=== PATIENT | male | born 1955 | race Caucasian/White ===

== ENCOUNTER → 2016-06-30 | Outpatient (CLI) | payer OTHER ==
[~2016-06-30] MED LIST: ALBUAER19 INH; ASPI-435 PO; CLX20 PO; EPP3/2 IM; FURO40TA3 PO; GLC/500 PO; INSDGI SQ; LISI-729 PO; LSN5 PO; NVLGI SC; TADA5TAB11 PO; ZCR40 PO
--- NOTE | 2016-06-30 15:44 | DIAGNOSTIC IMAGING REPORT ---
MRI OF THE BRAIN WITHOUT CONTRAST CLINICAL HISTORY: New onset headache. Tremor. Balance difficulty. COMPARISON STUDY: Noncontrast head CT dated 09/01/2013 FINDINGS: Sagittal T1, axial diffusion, proton density and T2 weighted axial, coronal FLAIR, and axial T1-weighted images were acquired. No intra or extra-axial mass lesions are visualized Axial diffusion-weighted images reveal no evidence of acute or subacute infarction. There is no evidence of ventricular dilatation. Proton density T2-weighted and FLAIR images reveal no significant intraparenchymal signal abnormalities. There are no abnormal flow voids. IMPRESSION: Normal MRI of the brain for age Electronically signed by: Robinson Alanis M.D. 06/30/2016 3:43 PM Dictated Date/Time: 06/30/2016 3:41 PM
== END | disposition home or self-care (01) ==
LOC: C.MRIBC 14:38
PROVIDERS: ATTEND Psychiatry & Neurology Neurology
DX: R25.1 Tremor, unspecified (principal); R26.89 Other abnormalities of gait and mobility; R51 Headache

== ENCOUNTER → 2016-07-01 | Outpatient (CLI) | payer OTHER ==
[2016-07-01 14:38] LABS: BASO % 0.5 %; BASO ABS # 0.04 K/uL (0-0.2); COMPLETE YES; EOS % 2.4 %; HEMATOCRIT 42.4 % (42-52); IG% 0.2 %; LYMPH % 30.6 %; LYMPH ABS # 2.53 K/uL (1.2-3.4); MEAN CELL VOLUME 89.3 fL (80-100); MEAN CORPUSCULAR HEMOGLOBIN 30.3 pg (25-34); MEAN PLATELET VOLUME 10.7 fL (7.4-10.4); MONO % 11.8 %; NEUT % 54.5 %; PLATELET COUNT 223 K/uL (130-400); RED BLOOD COUNT 4.75 M/uL (4.7-6.1); WHITE BLOOD COUNT 8.28 K/uL (4.8-10.8)
[2016-07-01 17:20] LABS: ALB/GLOB RATIO 0.7 (0.9-2); ALKALINE PHOSPHATASE 102 U/L (45-117); ALT/SGPT 36 U/L (12-78); AST/SGOT 16 U/L (15-37); BLOOD UREA NITROGEN 23 mg/dl (7-18); BUN/CREATININE RATIO 23.7 (10-20); CALCIUM 9.7 mg/dl (8.5-10.1); CARBON DIOXIDE 31 mmol/L (21-32); CHLORIDE 94 mmol/L (98-107); CREATININE 0.96 mg/dl (0.60-1.40); POTASSIUM 4.7 mmol/L (3.5-5.1); SODIUM 131 mmol/L (136-145)
[2016-07-01 17:25] LABS: GLUCOSE 575 mg/dl (70-99)
[2016-07-01 18:24] LABS: BETA-HYDROXYBUTYRATE 2.37 mg/dL (0.2-2.81)
[2016-07-03 15:48] LABS: ALBUMIN 3.9 G/DL (3.8-4.8); GAMMA GLOBULIN 1.3 G/DL (0.8-1.7); TOTAL PROTEIN 7.6 G/DL (6.2-8.3)
--- NOTE | 2016-07-08 14:12 | CODING QUERY MEDICAL NECESSITY ---
CQSUPPORTING DIAGNOSIS NEEDED A supporting diagnosis is required for the test/procedure performed on this patient in order for us to be reimbursed by the patient's insurance. Please provide a supporting diagnosis for the following test/procedure listed below next to the test name along with your signature. *If there is no additional diagnosis for this patient that would support the following test/procedure please document that below next to the test/procedure. Test(s)/Procedure(s) that require a supporting diagnosis: DOS 07/01/16 VITAMIN B12 QUERY RETURNED WITH SIGNATURE BUT NO DIAGNOSIS PLEASE ADD DIAGNOSIS AND SIGNATURE THANK YOU Provider Signature: Date: Thank you Marietta [facility] Information [facility] Once completed, please kindly fax back to [phone] For questions please call [phone]
== END | disposition home or self-care (01) ==
LOC: C.LAB1850 12:19
PROVIDERS: ATTEND Psychiatry & Neurology Neurology
DX: E11.42 Type 2 diabetes mellitus with diabetic polyneuropathy (principal); R25.1 Tremor, unspecified; R51 Headache; G62.9 Polyneuropathy, unspecified

== ENCOUNTER → 2017-01-30 | Outpatient (CLI) | payer OTHER | END | disposition home or self-care (01) | LOC: C.LABSPEC 14:31 | PROVIDERS: ATTEND Internal Medicine | DX: R10.9 Unspecified abdominal pain (principal); R80.9 Proteinuria, unspecified ==

== ENCOUNTER → 2017-07-14 | Outpatient (CLI) | payer OTHER ==
[2017-07-14 18:21] LABS: CREATININE RANDOM URINE 89.1 mg/dl
[2017-07-15 06:23] LABS: HEMOGLOBIN A1C 15.5 % (4.5-5.6)
== END | disposition home or self-care (01) ==
LOC: C.LAB1850 13:37
PROVIDERS: ATTEND Internal Medicine Endocrinology, Diabetes & Metabolism
DX: E11.65 Type 2 diabetes mellitus with hyperglycemia (principal); E11.21 Type 2 diabetes mellitus with diabetic nephropathy

== ENCOUNTER 2019-08-29 21:13 | Inpatient (IN) ==
[2019-08-29] MEDS ORDERED: SODIUM CHLORIDE 0.9% 1000ML 1,000 ML IV ONE (21:36)
[2019-08-29] MEDS ORDERED: ONDANSETRON INJ 2 MG/ML 2 ML VIAL IV STA (21:36)
[2019-08-29] MEDS ORDERED: ACETAMINOPHEN 1,000 MG/100 ML VIAL IV STA (21:36)
[2019-08-29] MEDS ORDERED: VANCOMYCIN CONSULT ACTIVE PRN (21:37)
[2019-08-29] MEDS ORDERED: VANCOMYCIN HCL 1,000 MG/270 ML BAG IV STA (21:37)
[2019-08-29] MEDS ORDERED: cefTRIAXone SODIUM 2,000 MG/70 ML BAG IV STA (21:37)
[2019-08-29] MEDS ORDERED: VANCOMYCIN HCL 2,750 MG in SODIUM CHLORIDE 0.9% 500 ML IV ONE (22:00)
--- NOTE | 2019-08-29 22:20 | Emergency Department Note ---
History of Present Illness General Chief complaint: Vomiting Stated complaint: VOMITING, COUGHING, FEVER Time Seen by Provider: 08/29/19 21:30 Source: patient, RN notes reviewed and old records reviewed Mode of arrival: ambulatory Limitations: no limitations History of Present Illness Provider complaint: emesis Onset (ago): day(s) 1 Location: abdomen Radiation: non-radiation Severity: moderate Pain Consistency: + intermittent Current Pain Intensity: 0 Quality: + burning Relieved By: + none Exacerbated By: + movement Associated symptoms: + fever/chills and + other (cellulitis left foot ) Treatments prior to arrival: none This is a 63-year-old male who presents emergency department complaining of vomiting. The patient also is complaining of cellulitis to his left foot where he has a diabetic wound. He is febrile here and has been complaining of feeling cold all day long. He is also complaining of right lower quadrant abdominal pain in addition to the fever. He has not been able to take anything for the fever due to not being able to keep anything down due to the vomiting. He describes the pain as burning. He reports immobilization makes the pain worse however vomiting makes the pain better. Home Medications Home Medications Medication Instructions Recorded Confirmed Type aspirin 81 mg PO QAM 12/10/17 08/29/19 History citalopram 10 mg tablet 10 mg PO HS tab 10/26/18 08/29/19 History citalopram 20 mg tablet 20 mg PO HS 10/26/18 08/29/19 History insulin aspart U-100 100 unit/mL See Rx Instructions SQ UD ml 10/26/18 08/29/19 History (3 mL) subcutaneous pen lancets 33 gauge #100 ea 10/26/18 07/27/19 History lisinopril 20 mg tablet 20 mg PO HS #90 tab 06/09/19 08/29/19 Rx simvastatin 40 mg tablet 40 mg PO QPM #90 tab 06/15/19 08/29/19 Rx clindamycin HCl 300 mg capsule 300 mg PO tid #42 cap 07/26/19 08/29/19 Rx blood sugar diagnostic #10 ea 07/27/19 07/27/19 History insulin glargine 100 unit/mL (3 60 units SQ DAILY ml 07/27/19 08/29/19 History mL) subcutaneous pen metformin 500 mg tablet,extended 500 mg PO DAILY #30 tab 07/27/19 08/29/19 Rx release 24 hr metoprolol succinate 25 mg 25 mg PO DAILY #90 tab 08/15/19 08/29/19 Rx tablet,extended release 24 hr Allergies Allergy/AdvReac Type Severity Reaction Status Date / Time bee venom protein (honey bee) Allergy Severe Anaphylaxis Verified 08/29/19 23:35 iodine AdvReac Mild FLUSHED Verified 08/29/19 23:35 FEELING/sick to stomach egg AdvReac Verified 08/30/19 14:34 Egg or Chicken-derived Drugs Allergy Unknown Gastrointestinal Uncoded 08/29/19 23:35 Upset Past Med/Surg History Medical History Chest pain (Inactive 09/01/13) CHF (congestive heart failure) Depression DM neuropathy, type II diabetes mellitus Gangrene of toe of left foot HTN (hypertension) Insulin-requiring or dependent type II diabetes mellitus Kidney stones Migraine Morbid obesity with BMI of 40.0-44.9, adult Myocardial Infarction ? mild in 1995 per doc in [place] but patient reports negative cardiac cath Peripheral arterial disease S/P hernia repair (Inactive) Sleep apnea cpap Uncontrolled type 2 diabetes mellitus Surgical History H/O umbilical hernia repair History of bilateral cataract extraction History of cardiac cath x2--1995 @ [place], no stents [address] 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: No Beliefs That Will Affect Care: None marital status: Current Living Situation: Spouse current occupational status: retired Feels Safe at Home: Yes Smoking Status: Never smoker Tobacco Type: smokeless tobacco ; Second Hand Exposure: No ; Hx Alcohol Use: No Hx Substance Use: No Review of Systems A total of 10 systems reviewed and were otherwise negative Physical Exam Vital Signs Vital Signs - 24 hr 08/29/19 21:24 08/29/19 22:21 Temperature 38.6 C H Temperature Source Oral Pulse Rate 93 H Pulse Rate [Apical] 92 H Respiratory Rate 20 18 Respiratory Effort / Characteristics Non-Labored Spontaneous Respiratory Depth Normal Blood Pressure [Right Arm] 146/71 H Blood Pressure Mean [Right Arm] 96 Pulse Oximetry 94 93 Oxygen Delivery Method Room Air Room Air Sepsis Recent Fever Within 48 Hours Yes Sepsis New/Unexplained Change in Mental Status No Sepsis Action Taken by Nursing No Action Required VITAL SIGNS - Vital signs and nursing notes were reviewed. GENERAL - 63-year-old Male appearing stated age who is in no acute distress. Communicates well with provider and answers questions appropriately, actively vomiting SKIN - Without rashes. HEAD - NC/AT. EYES - PERRL with EOMI bilaterally. Sclera anicteric. Palpebral conjunctiva pink and moist with no injection noted. EARS - No deformities of external structures noted on gross examination bilaterally. No pain elicited with palpation of the tragus bilaterally. External auditory canals without discharge or otorrhea. Tympanic membranes pearly huber without retraction or bulging. No fluid or purulent material visualized behind the TM. Handle of malleus, umbo, cone of light, pars tensa/flaccid all easily vi sualized. NOSE - Midline and without cyanosis. No epistaxis or purulent drainage noted. Septum midline without deviation or septal hematoma noted. MOUTH/OROPHARYNX - Without perioral cyanosis. Buccal mucosa pink and moist and without leukoplakia. Tongue midline with equal elevation of palate bilaterally. No tonsillar hypertrophy, erythema, or exudates noted. dentition noted. NECK - Neck with FROM. Supple to palpation. lymphadenopathy noted. No nuchal rigidity. LUNGS - Chest wall symmetric without accessory muscle use, intercostals retractions, or central cyanosis. Normal vesicular breath sounds CTA B/L. No wheezes, rales, or rhonchi appreciated. CARDIAC - RRR with S1/S2. No murmur, rubs, or gallops appreciated. ABDOMEN - Abdominal contour without pulsations or visible masses. BS normoactive all four quadrants. No tenderness, palpable masses, hepatosplenomegaly, or ascites noted. EXTREMITIES - No clubbing or peripheral cyanosis. No pretibial edema present. +3/5 radial, posterior tibial, and dorsalis pedis pulses palpated throughout. +5/5 strength noted in UE/LE bilaterally. NEUROLOGIC - Cranial nerves II through XII grossly intact. Sensory intact to light touch throughout. Patellar reflexes +2/4. PSYCH - A&Ox3 and cooperates fully with examiner. Pt is very pleasant and interacts well with examiner. Course Administered Medications Acetaminophen (Tylenol) 650 mg PO Q4H PRN PRN Reason: Pain or Fever Stop: 09/29/19 03:22 Last Admin: 09/03/19 07:58 Dose: 650 mg Documented by: [id number] Admin: 09/02/19 02:54 Dose: 650 mg Documented by: [id number] Admin: 09/01/19 20:52 Dose: 650 mg Documented by: [id number] Admin: 09/01/19 08:38 Dose: 650 mg Documented by: [id number] [facility]ir[facility]) [facility] Stop: 09/29/19 08:59 Last Admin: 09/03/19 08:00 Dose: Not Given Documented by: [id number] Admin: 09/02/19 08:43 Dose: 81 mg Documented by: [id number] Admin: 09/01/19 08:38 Dose: 81 mg Documented by: [id number] Admin: 08/31/19 08:58 Dose: 81 mg Documented by: [id number] Admin: 08/30/19 08:26 Dose: 81 mg Documented by: [id number] Atorvastatin Calcium (Lipitor) 80 mg PO QPM [facility] Stop: 09/30/19 20:59 Last Admin: 08/31/19 21:07 Dose: 80 mg Documented by: [id number] Citalopram Hydrobromide (Celexa) 30 mg PO HS [facility] Stop: 09/29/19 20:59 Last Admin: 09/03/19 19:53 Dose: 30 mg Documented by: [id number] Admin: 09/02/19 21:46 Dose: 30 mg Documented by: [id number] Admin: 09/01/19 20:54 Dose: 30 mg Documented by: [id number] Admin: 08/31/19 21:04 Dose: 30 mg Documented by: [id number] Admin: 08/30/19 20:27 Dose: 30 mg Documented by: [id number] Heparin Sodium (Porcine) (Heparin Sodium (Porcine)) 5,000 units SQ Q12 [facility] Stop: 09/29/19 08:59 Last Admin: 09/03/19 21:29 Dose: 5,000 units Documented by: [id number] Cosigned by: [id number] Admin: 09/01/19 08:39 Dose: 5,000 units Documented by: [id number] Cosigned by: [id number] Admin: 08/31/19 21:03 Dose: 5,000 units Documented by: [id number] Cosigned by: [id number] Admin: 08/31/19 08:59 Dose: 5,000 units Documented by: [id number] Cosigned by: [id number] Admin: 08/30/19 21:04 Dose: 5,000 units Documented by: [id number] Cosigned by: [id number] Admin: 08/30/19 08:27 Dose: 5,000 units Documented by: [id number] Cosigned by: [id number] Hydralazine HCl (Hydralazine Hcl) 10 mg IV Q6H PRN PRN Reason: SBP >190 Stop: 10/02/19 07:28 Last Admin: 09/03/19 07:58 Dose: 10 mg Documented by: [id number] Daptomycin 450 mg/ Syringe 9 mls @ 4.5 mls/min IV Q24H [facility]; Protocol Stop: 09/08/19 14:59 Last Admin: 09/03/19 14:27 Dose: 4.5 mls/min Documented by: [id number] Admin: 09/02/19 15:47 Dose: 4.5 mls/min Documented by: [id number] Admin: 09/01/19 15:31 Dose: 4.5 mls/min Documented by: [id number] Piperacillin Sod/Tazobactam (Sod 4.5 gm/ Dextrose) 120 mls @ 30 mls/hr IV Q8H [facility]; Protocol Stop: 09/09/19 15:59 Last Infusion: 09/03/19 20:42 Dose: 0 mls/hr Documented by: [id number] Admin: 09/03/19 16:24 Dose: 30 mls/hr Documented by: [id number] Infusion: 09/03/19 11:53 Dose: 0 mls/hr Documented by: [id number] Admin: 09/03/19 07:52 Dose: 30 mls/hr Documented by: [id number] Infusion: 09/03/19 04:50 Dose: 0 mls/hr Documented by: [id number] Admin: 09/03/19 00:49 Dose: 30 mls/hr Documented by: [id number] Infusion: 09/02/19 19:47 Dose: 0 mls/hr Documented by: [id number] Admin: 09/02/19 15:46 Dose: 30 mls/hr Documented by: [id number] Sodium Chloride (Nss 1000ml) 1,000 mls @ 100 mls/hr IV .Q10H [facility] Stop: 09/04/19 12:44 Last Infusion: 09/03/19 21:31 Dose: 100 mls/hr Documented by: [id number] Admin: 09/03/19 12:45 Dose: 100 mls/hr Documented by: [id number] Insulin Aspart (Novolog Flexpen) 0 units SC ACHS [facility] Stop: 09/29/19 07:29 Last Admin: 09/03/19 21:29 Dose: Not Given Documented by: [id number] Cosigned by: [id number] Admin: 09/03/19 17:22 Dose: 14 units Documented by: [id number] Cosigned by: [id number] Admin: 09/03/19 12:39 Dose: 8 units Documented by: [id number] Cosigned by: [id number] Admin: 09/03/19 07:36 Dose: Not Given Documented by: [id number] Cosigned by: [id number] Admin: 09/02/19 21:44 Dose: 6 units Documented by: [id number] Cosigned by: [id number] Admin: 09/02/19 17:17 Dose: 15 units Documented by: [id number] Cosigned by: [id number] Admin: 09/02/19 13:07 Dose: 11 units Documented by: [id number] Cosigned by: [id number] Admin: 09/02/19 08:46 Dose: 2 units Documented by: [id number] Cosigned by: [id number] Admin: 09/01/19 20:56 Dose: 300 units Documented by: [id number] Cosigned by: [id number] Admin: 09/01/19 17:18 Dose: 11 units Documented by: [id number] Cosigned by: [id number] Admin: 09/01/19 12:14 Dose: 7 units Documented by: [id number] Cosigned by: [id number] Admin: 09/01/19 08:39 Dose: 14 units Documented by: [id number] Cosigned by: [id number] Admin: 08/31/19 21:08 Dose: 2 units Documented by: [id number] Cosigned by: [id number] Admin: 08/31/19 18:24 Dose: 8 units Documented by: [id number] Cosigned by: [id number] Admin: 08/31/19 14:48 Dose: 6 units Documented by: [id number] Cosigned by: [id number] Admin: 08/31/19 08:59 Dose: 15 units Documented by: [id number] Cosigned by: [id number] Admin: 08/30/19 21:05 Dose: 11 units Documented by: [id number] Cosigned by: [id number] Admin: 08/30/19 17:05 Dose: 18 units Documented by: [id number] Cosigned by: [id number] Admin: 08/30/19 12:05 Dose: 17 units Documented by: [id number] Cosigned by: [id number] Admin: 08/30/19 08:27 Dose: 13 units Documented by: [id number] Cosigned by: [id number] Iodixanol (Visipaque) 50 ml IV UD PRN PRN Reason: Radiology Use Stop: 09/06/19 12:22 Last Admin: 09/02/19 12:24 Dose: 50 ml Documented by: [id number] Lisinopril (Zestril) 40 mg PO HS [facility] Stop: 10/02/19 20:59 Last Admin: 09/03/19 19:52 Dose: 40 mg Documented by: [id number] Admin: 09/02/19 21:45 Dose: 40 mg Documented by: [id number] Metoprolol Succinate (Toprol Xl) 25 mg PO DAILY [facility] Stop: 09/29/19 08:59 Last Admin: 09/03/19 07:53 Dose: 25 mg Documented by: [id number] Admin: 09/02/19 08:43 Dose: 25 mg Documented by: [id number] Admin: 09/01/19 08:38 Dose: 25 mg Documented by: [id number] Admin: 08/31/19 08:58 Dose: 25 mg Documented by: [id number] Admin: 08/30/19 08:27 Dose: 25 mg Documented by: [id number] Oxycodone HCl (Roxicodone Immediate Rel) 5 - 10 mg PO Q4H PRN PRN Reason: Pain or Pre PT Stop: 09/17/19 11:31 Last Admin: 09/03/19 19:50 Dose: 10 mg Documented by: [id number] Sennosides (Senokot) 17.2 mg PO HS [facility] Stop: 10/03/19 20:59 Last Admin: 09/03/19 19:51 Dose: 17.2 mg Documented by: [id number] Discontinued Medications Bacitracin (Bacitracin) Confirm Administered Dose 100,000 units .ROUTE .STK-MED ONE Stop: 09/03/19 09:52 Last Admin: 09/03/19 10:09 Dose: 100,000 units Documented by: [id number] Bacitracin (Bacitracin) Confirm Administered Dose 50,000 units .ROUTE .STK-MED ONE Stop: 09/03/19 10:21 Last Admin: 09/03/19 10:26 Dose: 50,000 units Documented by: [id number] Clindamycin Phosphate (Cleocin) Confirm Administered Dose 300 mg .ROUTE .STK-MED ONE Stop: 09/03/19 09:48 Last Admin: 09/03/19 09:51 Dose: 900 mg Documented by: [id number] Diphenhydramine HCl (Benadryl) 50 mg IV NOW STA Stop: 08/29/19 23:09 Last Admin: 08/29/19 23:20 Dose: 50 mg Documented by: [id number] Diphenhydramine HCl (Benadryl Capsule) 50 mg PO PREOP [facility] Stop: 09/02/19 12:00 Last Admin: 09/02/19 08:45 Dose: 50 mg Documented by: [id number] Famotidine (Pepcid 20mg Iv Push) Confirm Administered Dose 20 mg IV .STK-MED ONE Stop: 08/29/19 23:12 Last Admin: 08/29/19 23:20 Dose: 20 mg Documented by: [id number] Famotidine (Pepcid) 20 mg PO PREOP [facility] Stop: 09/02/19 10:00 Last Admin: 09/02/19 08:43 Dose: 20 mg Documented by: [id number] Fentanyl Citrate (Fentanyl Citrate) Confirm Administered Dose 100 mcg .ROUTE .STK-MED ONE Stop: 09/02/19 10:10 Last Increment: 09/02/19 11:35 Dose: 50 mcg Documented by: [id number] Heparin Sodium (Porcine) (Heparin Iv Bolus) Confirm Administered Dose 10,000 units .ROUTE .STK-MED ONE Stop: 09/02/19 10:10 Last Admin: 09/02/19 12:58 Dose: Not Given Documented by: [id number] Heparin Sodium/Sodium Chloride (Heparin/Nss 1000 Unit/500ml Flush Bag) Confirm Administered Dose 2,000 units IV .STK-MED ONE Stop: 09/02/19 10:11 Last Admin: 09/02/19 12:22 Dose: 2,000 units Documented by: [id number] Sodium Chloride (Nss 1000ml) 1,000 mls @ 999 mls/hr IV .Q1H1M ONE Stop: 08/29/19 22:36 Last Infusion: 08/30/19 00:07 Dose: 0 mls/hr Documented by: [id number] Admin: 08/29/19 22:22 Dose: 999 mls/hr Documented by: [id number] Acetaminophen (Ofirmev) 1,000 mg in 100 mls @ 400 mls/hr IV NOW STA Stop: 08/29/19 21:50 Last Infusion: 08/29/19 22:40 Dose: 0 mls/hr Documented by: [id number] Admin: 08/29/19 22:22 Dose: 400 mls/hr Documented by: [id number] Ceftriaxone Sodium (Rocephin) 2,000 mg in 70 mls @ 140 mls/hr IV NOW STA Stop: 08/29/19 22:06 Last Infusion: 08/29/19 23:00 Dose: 0 mls/hr Documented by: [id number] Admin: 08/29/19 22:22 Dose: 140 mls/hr Documented by: [id number] Vancomycin HCl (Vancomycin Hcl) 1,000 mg in 270 mls @ 125 mls/hr IV NOW STA Stop: 08/29/19 23:46 Last Admin: 08/29/19 23:00 Dose: Not Given Documented by: [id number] Vancomycin HCl 2,750 mg/ (Sodium Chloride) 555 mls @ 200 mls/hr IV NOW ONE Stop: 08/30/19 00:46 Last Infusion: 08/30/19 01:14 Dose: 0 mls/hr Documented by: [id number] Admin: 08/29/19 22:22 Dose: 200 mls/hr Documented by: [id number] Levofloxacin/Dextrose (Levaquin/D5w) 750 mg in 150 mls @ 100 mls/hr IV NOW STA Stop: 08/30/19 00:03 Last Infusion: 08/30/19 01:41 Dose: 0 mls/hr Documented by: [id number] Admin: 08/29/19 23:20 Dose: 100 mls/hr Documented by: [id number] Famotidine 20 mg/ Syringe 5 mls @ 2.5 mls/min IV NOW STA Stop: 08/29/19 23:09 Last Admin: 08/29/19 23:20 Dose: Not Given Documented by: [id number] Vancomycin HCl 1,750 mg/ (Sodium Chloride) 535 mls @ 200 mls/hr IV Q10H [facility]; Protocol Stop: 09/06/19 05:59 Last Infusion: 08/31/19 02:37 Dose: 0 mls/hr Documented by: [id number] Admin: 08/31/19 02:14 Dose: 200 mls/hr Documented by: [id number] Infusion: 08/30/19 18:19 Dose: 0 mls/hr Documented by: [id number] Admin: 08/30/19 15:38 Dose: 200 mls/hr Documented by: [id number] Infusion: 08/30/19 08:43 Dose: 0 mls/hr Documented by: [id number] Admin: 08/30/19 06:05 Dose: 200 mls/hr Documented by: [id number] Piperacillin Sod/Tazobactam (Sod 4.5 gm/ Dextrose) 120 mls @ 240 mls/hr IV NOW ONE; Protocol Stop: 08/30/19 04:29 Last Infusion: 08/30/19 05:02 Dose: 0 mls/hr Documented by: [id number] Admin: 08/30/19 03:55 Dose: 240 mls/hr Documented by: [id number] Vancomycin HCl 1,750 mg/ (Sodium Chloride) 535 mls @ 200 mls/hr IV 2100 [facility]; Protocol Stop: 08/31/19 23:41 Last Infusion: 09/01/19 00:54 Dose: 0 mls/hr Documented by: [id number] Admin: 08/31/19 21:46 Dose: 200 mls/hr Documented by: [id number] Piperacillin Sod/Tazobactam (Sod 4.5 gm/ Dextrose) 120 mls @ 200 mls/hr IV NOW ONE; Protocol Stop: 09/02/19 10:35 Last Infusion: 09/02/19 12:38 Dose: 0 mls/hr Documented by: [id number] Admin: 09/02/19 11:33 Dose: 200 mls/hr Documented by: [id number] Insulin Glargine (Lantus Solostar Pen) 40 units SQ DAILY [facility] Stop: 09/29/19 08:59 Last Admin: 08/30/19 08:27 Dose: 40 units Documented by: [id number] Cosigned by: [id number] Insulin Glargine (Lantus Solostar Pen) 30 units SQ BID [facility] Stop: 09/29/19 20:59 Last Admin: 09/03/19 07:55 Dose: 30 units Documented by: [id number] Cosigned by: [id number] Admin: 09/02/19 21:43 Dose: 30 units Documented by: [id number] Cosigned by: [id number] Admin: 09/02/19 08:47 Dose: 30 units Documented by: [id number] Cosigned by: [id number] Admin: 09/01/19 20:57 Dose: 30 units Documented by: [id number] Cosigned by: [id number] Admin: 09/01/19 08:39 Dose: 30 units Documented by: [id number] Cosigned by: [id number] Admin: 08/31/19 21:04 Dose: 30 units Documented by: [id number] Cosigned by: [id number] Admin: 08/31/19 08:59 Dose: 30 units Documented by: [id number] Cosigned by: [id number] Admin: 08/30/19 21:05 Dose: 30 units Documented by: [id number] Cosigned by: [id number] Ioversol (Optiray 320 125ml) 125 ml IV ONCE PRN PRN Reason: Interaction Checking Stop: 09/02/19 23:46 Last Admin: 08/29/19 23:47 Dose: 118 ml Documented by: [id number] Lidocaine HCl (Xylocaine 1% (Local)) Confirm Administered Dose 20 ml .ROUTE .STK-MED ONE Stop: 09/02/19 10:11 Last Admin: 09/02/19 12:22 Dose: 4 ml Documented by: [id number] Lisinopril (Zestril) 20 mg PO HS [facility] Stop: 09/29/19 20:59 Last Admin: 09/01/19 19:04 Dose: 20 mg Documented by: [id number] Admin: 08/31/19 21:06 Dose: 20 mg Documented by: [id number] Admin: 08/30/19 20:27 Dose: 20 mg Documented by: [id number] Methylprednisolone (Solumedrol) 125 mg IV NOW STA Stop: 08/29/19 23:09 Last Admin: 08/29/19 23:20 Dose: 125 mg Documented by: [id number] Midazolam HCl (Versed) Confirm Administered Dose 2 mg .ROUTE .STK-MED ONE Stop: 09/02/19 10:10 Last Increment: 09/02/19 11:35 Dose: 1 mg Documented by: [id number] Ondansetron HCl (Zofran) 4 mg IV NOW STA Stop: 08/29/19 21:37 Last Admin: 08/29/19 22:22 Dose: 4 mg Documented by: [id number] Potassium Chloride (Klor-Con M20) 40 meq PO ONE ONE Stop: 09/01/19 16:01 Last Admin: 09/01/19 17:16 Dose: 40 meq Documented by: [id number] Prednisone (Prednisone) 50 mg PO Q8H [facility] Stop: 09/02/19 10:01 Last Admin: 09/02/19 08:43 Dose: 50 mg Documented by: [id number] Admin: 09/02/19 02:08 Dose: 50 mg Documented by: [id number] Admin: 09/01/19 17:17 Dose: 50 mg Documented by: [id number] Simvastatin (Zocor) 40 mg PO QPM [facility] Stop: 09/29/19 20:59 Last Admin: 08/30/19 20:27 Dose: 40 mg Documented by: [id number] Medical Decision Making Differential Diagnosis Appendicitis, testicular torsion, infections, diverticulitis, UTI, obstruction, mesenteric ischemia, aortic pathology, inflammatory bowel disease, renal colic, PUD, pancreatitis, biliary pathology, hernia, volvulus, constipation, as well as other pathologies. Medical Records Attestation: I reviewed the patient's medical records. Home Medications Current Medication List: was personally reviewed by me Laboratory Data Attestation: I reviewed the patient's lab results. Result diagrams: 09/03/19 08:36 09/03/19 08:36 Lab Results 08/29/19 08/29/19 08/29/19 Range/Units 22:08 22:08 22:08 WBC 21.54 H (4.8-10.8) K/uL RBC 3.81 L (4.7-6.1) M/uL Hgb 11.0 L (14.0-18.0) g/dL Hct 33.8 L (42-52) % MCV 88.7 (80-100) fL MCH 28.9 (25-34) pg MCHC 32.5 (32-36) g/dL RDW Std Deviation 42.4 (36.4-46.3) fL RDW Coeff of Maribel 13.1 (11.5-14.5) % Plt Count 232 (130-400) K/uL MPV 10.1 (7.4-10.4) fL Immature Gran % (Auto) 0.5 % Neut % (Auto) 84.4 % Lymph % (Auto) 4.1 % Stanley % (Auto) 10.9 % Eos % (Auto) 0.0 % Baso % (Auto) 0.1 % Neut # (Auto) 18.18 H (1.4-6.5) K/uL Lymph # (Auto) 0.88 L (1.2-3.4) K/uL Stanley # (Auto) 2.35 H (0.11-0.59) K/uL Eos # (Auto) 0.01 (0-0.5) K/uL Baso # (Auto) 0.02 (0-0.2) K/uL Immature Gran # (Auto) 0.10 H (0.00-0.02) K/uL ESR 75 H (0-14) mm/hr PT 12.0 (9.0-12.0) Seconds INR 1.1 (0.9-1.1) APTT 30.7 (21.0-31.0) Seconds PTT Ratio 1.1 Sodium (136-145) mmol/L Potassium (3.5-5.1) mmol/L Chloride (98-107) mmol/L Carbon Dioxide (21-32) mmol/L Anion Gap (3-11) BUN (7-18) mg/dl Creatinine (0.6-1.4) mg/dl Est Cr Clr Drug Dosing ml/min Est GFR ( Amer) Est GFR (Non-Af Amer) BUN/Creatinine Ratio (10-20) Glucose (70-99) mg/dl Estimat Average Glucose mg/dl Hemoglobin A1c (4.5-5.6) % Lactate (0.4-2.0) mmol/L Calcium (8.5-10.1) mg/dl Magnesium (1.8-2.4) mg/dl Ferritin (8-388) ng/ml Total Bilirubin (0.2-1) mg/dl AST (15-37) U/L ALT (12-78) U/L Alkaline Phosphatase (45-117) U/L Lactate Dehydrogenase (87-241) U/L Troponin I (0-0.045) ng/ml C-Reactive Protein (0-0.29) mg/dl Total Protein (6.4-8.2) gm/dl Albumin (3.4-5.0) gm/dl Globulin (2.5-4.0) gm/dl Albumin/Globulin Ratio (0.9-2) Procalcitonin (0-0.5) ng/ml 08/29/19 08/29/19 08/29/19 Range/Units 22:08 22:08 22:08 WBC (4.8-10.8) K/uL RBC (4.7-6.1) M/uL Hgb (14.0-18.0) g/dL Hct (42-52) % MCV (80-100) fL MCH (25-34) pg MCHC (32-36) g/dL RDW Std Deviation (36.4-46.3) fL RDW Coeff of Maribel (11.5-14.5) % Plt Count (130-400) K/uL MPV (7.4-10.4) fL Immature Gran % (Auto) % Neut % (Auto) % Lymph % (Auto) % Stanley % (Auto) % Eos % (Auto) % Baso % (Auto) % Neut # (Auto) (1.4-6.5) K/uL Lymph # (Auto) (1.2-3.4) K/uL Stanley # (Auto) (0.11-0.59) K/uL Eos # (Auto) (0-0.5) K/uL Baso # (Auto) (0-0.2) K/uL Immature Gran # (Auto) (0.00-0.02) K/uL ESR (0-14) mm/hr PT (9.0-12.0) Seconds INR (0.9-1.1) APTT (21.0-31.0) Seconds PTT Ratio Sodium 133 L (136-145) mmol/L Potassium 3.8 (3.5-5.1) mmol/L Chloride 100 (98-107) mmol/L Carbon Dioxide 26 (21-32) mmol/L Anion Gap 7.0 (3-11) BUN 18 (7-18) mg/dl Creatinine 1.26 (0.6-1.4) mg/dl Est Cr Clr Drug Dosing 92.6 ml/min Est GFR ( Amer) 70.9 Est GFR (Non-Af Amer) 61.2 BUN/Creatinine Ratio 13.9 (10-20) Glucose 212 H (70-99) mg/dl Estimat Average Glucose mg/dl Hemoglobin A1c (4.5-5.6) % Lactate 1.0 (0.4-2.0) mmol/L Calcium 8.6 (8.5-10.1) mg/dl Magnesium 1.8 (1.8-2.4) mg/dl Ferritin 543.7 H (8-388) ng/ml Total Bilirubin 0.6 (0.2-1) mg/dl AST 12 L (15-37) U/L ALT 17 (12-78) U/L Alkaline Phosphatase 104 (45-117) U/L Lactate Dehydrogenase 191 (87-241) U/L Troponin I < 0.015 (0-0.045) ng/ml C-Reactive Protein 18.10 H (0-0.29) mg/dl Total Protein 7.8 (6.4-8.2) gm/dl Albumin 2.1 L (3.4-5.0) gm/dl Globulin 5.7 H (2.5-4.0) gm/dl Albumin/Globulin Ratio 0.4 L (0.9-2) Procalcitonin (0-0.5) ng/ml 08/29/19 08/29/19 Range/Units 22:08 22:08 WBC (4.8-10.8) K/uL RBC (4.7-6.1) M/uL Hgb (14.0-18.0) g/dL Hct (42-52) % MCV (80-100) fL MCH (25-34) pg MCHC (32-36) g/dL RDW Std Deviation (36.4-46.3) fL RDW Coeff of Maribel (11.5-14.5) % Plt Count (130-400) K/uL MPV (7.4-10.4) fL Immature Gran % (Auto) % Neut % (Auto) % Lymph % (Auto) % Stanley % (Auto) % Eos % (Auto) % Baso % (Auto) % Neut # (Auto) (1.4-6.5) K/uL Lymph # (Auto) (1.2-3.4) K/uL Stanley # (Auto) (0.11-0.59) K/uL Eos # (Auto) (0-0.5) K/uL Baso # (Auto) (0-0.2) K/uL Immature Gran # (Auto) (0.00-0.02) K/uL ESR (0-14) mm/hr PT (9.0-12.0) Seconds INR (0.9-1.1) APTT (21.0-31.0) Seconds PTT Ratio Sodium (136-145) mmol/L Potassium (3.5-5.1) mmol/L Chloride (98-107) mmol/L Carbon Dioxide (21-32) mmol/L Anion Gap (3-11) BUN (7-18) mg/dl Creatinine (0.6-1.4) mg/dl Est Cr Clr Drug Dosing ml/min Est GFR ( Amer) Est GFR (Non-Af Amer) BUN/Creatinine Ratio (10-20) Glucose (70-99) mg/dl Estimat Average Glucose 252 mg/dl Hemoglobin A1c 10.4 H (4.5-5.6) % Lactate (0.4-2.0) mmol/L Calcium (8.5-10.1) mg/dl Magnesium (1.8-2.4) mg/dl Ferritin (8-388) ng/ml Total Bilirubin (0.2-1) mg/dl AST (15-37) U/L ALT (12-78) U/L Alkaline Phosphatase (45-117) U/L Lactate Dehydrogenase (87-241) U/L Troponin I (0-0.045) ng/ml C-Reactive Protein (0-0.29) mg/dl Total Protein (6.4-8.2) gm/dl Albumin (3.4-5.0) gm/dl Globulin (2.5-4.0) gm/dl Albumin/Globulin Ratio (0.9-2) Procalcitonin 0.54 H (0-0.5) ng/ml Imaging Data Radiologist's Impression: CTA of the chest: No evidence of pulmonary emboli or acute cardiopulmonary process. Evidence of old granulomatous disease with calcified left upper lobe nodule and numerous calcified granulomas in the spleen. CT abdomen pelvis with contrast: No acute findings. Previous cholecystectomy. No evidence of bowel obstruction. There is no evidence of distended appendix or regional inflammatory reaction. No abnormal fluid or regional inflammatory reaction. No evidence of obstructing urinary tract calculus or hydronephrosis. ECG Data Attestation: I personally reviewed and interpreted this ECG as follows: Indication: + other (fever) Rate (beats per minute): 92 Rhythm: + normal sinus ECG Intervals/blocks: + Normal QT-c (450) ECG [place]: + Normal ECG ST segments: no ST depression and no ST elevation Comparison ECG Date: from (09/02/2013) Change: no significant change MDM Narrative Patient was seen and evaluated as above in room C5. Review was performed of nursing notes and vital signs. I did review pertinent previous visits and patient history. After obtaining a thorough history and physical examination the above work up was performed. This is a 63-year-old male who presents emergency department complaining of v omiting as well as abdominal pain. Upon arrival to the emergency department the patient is febrile and tachycardic. He is complaining of tenderness to the right lower quadrant. In addition the patient just saw his diabetic foot doctor. He has a cellulitis extending up from that area. His white blood cell count is grossly elevated. The patient was pretreated for CAT scan and given Benadryl Solu-Medrol and Zantac. In the meantime he was treated with Rocephin vancomycin as well as Levaquin. He was also given Zofran for the vomiting. Repeat examination revealed improvement the patient's symptoms. Due to the large white blood cell count as well as the fever I did discuss the case with t hospitalist service. An order was placed for continuous cardiac monitoring. The monitor shows a rate of 92 with Normal SInus rhythm. The patient was evaluated during the global COVID-19 pandemic, and that diagnosis was suspected/considered upon their initial presentation. Their evaluation, treatment and testing was consistent with current guidelines for patients who present with complaints or symptoms that may be related to COVID- 19. Impression & Plan Vomiting, Fever, Cellulitis Discharge Plan Visit Data *Final* Discharge Date/Time: 08/30/19 02:50 Chief Complaint: Vomiting Stated Complaint: VOMITING, COUGHING, FEVER ED Provider: Beau Feliciano Discharge Problem: Vomiting, Fever, Cellulitis Patient Disposition: Admitted As Inpatient Discharge Instructions Interventions: ED Discharge Assessment Last Done: 08/30/19 02:50 Discharge Problem: Vomiting Qualifiers: Vomiting type: unspecified Vomiting Intractability: unspecified Nausea presence: unspecified Qualified Code(s): R11.10 - Vomiting, unspecified Fever Qualifiers: Fever type: unspecified Qualified Code(s): R50.9 - Fever, unspecified
[2019-08-29 22:22] LABS: Basophils # (auto) 0.02 K/uL (0-0.2); Basophils % (auto) 0.1 %; Eosinophils # (auto) 0.01 K/uL (0-0.5); Hematocrit (blood only) 33.8 % (42-52); Immature Granulocytes % (auto) 0.5 %; Lymphocytes # (auto) 0.88 K/uL (1.2-3.4); Lymphocytes % (auto) 4.1 %; Mean Corpuscular Hemoglobin 28.9 pg (25-34); Mean Corpuscular Hgb Conc 32.5 g/dL (32-36); Mean Corpuscular Volume 88.7 fL (80-100); Mean Platelet Volume 10.1 fL (7.4-10.4); Monocytes # (auto) 2.35 K/uL (0.11-0.59); Monocytes % (auto) 10.9 %; Neutrophils # (auto) 18.18 K/uL (1.4-6.5); Neutrophils % (auto) 84.4 %; Platelet Count 232 K/uL (130-400); RDW Coefficient of Variation 13.1 % (11.5-14.5); RDW Standard Deviation 42.4 fL (36.4-46.3); Red Blood Count 3.81 M/uL (4.7-6.1); White Blood Count 21.54 K/uL (4.8-10.8)
[2019-08-29 22:32] LABS: INR 1.1 (0.9-1.1); Partial Thromboplastin Ratio 1.1; Partial Thromboplastin Time 30.7 Seconds (21.0-31.0)
[2019-08-29] MEDS ORDERED: LEVOFLOXACIN/D5W 750 MG/150 ML BAG IV STA (22:34)
[2019-08-29 22:40] LABS: Alanine Aminotransferase 17 U/L (12-78); Albumin Level 2.1 gm/dl (3.4-5.0); Aspartate Aminotransferase 12 U/L (15-37); BUN Creatinine Ratio 13.9 (10-20); Blood Urea Nitrogen 18 mg/dl (7-18); Calcium 8.6 mg/dl (8.5-10.1); Carbon Dioxide 26 mmol/L (21-32); Chloride 100 mmol/L (98-107); Creatinine Clr Calc Pharmacy 92.6 ml/min; Est GFR (African American) 70.9; Est GFR (Non-African American) 61.2; Glucose 212 mg/dl (70-99); Magnesium 1.8 mg/dl (1.8-2.4); Potassium 3.8 mmol/L (3.5-5.1); Sodium 133 mmol/L (136-145)
[2019-08-29 22:44] LABS: Albumin Globulin Ratio 0.4 (0.9-2); Alkaline Phosphatase 104 U/L (45-117); Bilirubin,Total 0.6 mg/dl (0.2-1); Ferritin 543.7 ng/ml (8-388); Globulin 5.7 gm/dl (2.5-4.0); Total Protein 7.8 gm/dl (6.4-8.2); Troponin I < 0.015 ng/ml (0-0.045)
[2019-08-29] MEDS ORDERED: methylPREDNISolone 125 MG/2 ML VIAL IV STA (23:08)
[2019-08-29] MEDS ORDERED: DiphenhydrAMINE HCL 50 MG/ML VIAL IV STA (23:08)
[2019-08-29] MEDS ORDERED: FAMOTIDINE 20 MG in SYRINGE 3 ML IV STA (23:08)
[2019-08-29] MEDS ORDERED: FAMOTIDINE 20MG/5ML IV PUSH IV ONE (23:11)
[2019-08-29] MEDS ORDERED: OPTIRAY 320 125ml IV PRN (23:47)
--- NOTE | 2019-08-30 01:54 | History & Physical Report ---
Date of Service August 30, 2019 Assessment & Plan (1) Cellulitis of left lower extremity: Cellulitis of left lower extremity/extending from diabetic ulcer of left great toe- Place on vancomycin IV, Zosyn IV and levofloxacin IV. Consult wound care, who has been following the patient in the outpatient setting Hold clindamycin 300 mg p.o. 3 times daily Present on Admission?: Yes (2) Diabetic ulcer of left great toe: See above Present on Admission?: Yes (3) Uncontrolled type 2 diabetes mellitus: Reduce insulin glargine from 60 to 40 units subcu every morning, until eating pattern verified. Placed on Accu-Cheks before meals and at bedtime with NovoLog coverage per scale Hold metformin Present on Admission?: Yes (4) Elevated cholesterol: Continue simvastatin 40 mg daily in the evening Present on Admission?: Yes (5) CHF (congestive heart failure): Idiopathic cardiomyopathy/hypertension/CHF- Continue aspirin 81 mg daily, lisinopril 20 mg daily and metoprolol succinate 25 mg daily. Present on Admission?: Yes (6) Cardiomyopathy, idiopathic: See above Present on Admission?: Yes (7) TORI on CPAP: His CPAP as needed Present on Admission?: Yes History of Present Illness Chief Complaint: The patient presents to the emergency department with complaint of vomiting, cough, fever and progressive worsening of left lower extremity and foot pain with new redness and warmth over a diabetic wound. Primary Care Provider: Jeffrey Tripp MD The patient is a 63-year-old male with a past medical history including diabetes mellitus, diabetic ulcer of left great toe, nonhealing diabetic wound, CAD, idiopathic cardiomyopathy, TORI on CPAP, hypertension, dyslipidemia, CHF and elevated cholesterol. He has been following with the wound clinic for chronic left great toe ulcer, but over the past few days is noticed the development of redness along the dorsal aspect of that foot, and going up his trejo. At the same time he is developed issues with nausea, vomiting and fever. Allergies Allergy/AdvReac Type Severity Reaction Status Date / Time bee venom protein (honey bee) Allergy Severe Anaphylaxis Verified 08/29/19 23:35 iodine AdvReac Mild FLUSHED Verified 08/29/19 23:35 FEELING/sick to stomach Egg or Chicken-derived Drugs Allergy Unknown Gastrointestinal Uncoded 08/29/19 23:35 Upset Home Medications Home Medications Medication Instructions Recorded Confirmed Type aspirin 81 mg PO QAM 12/10/17 08/29/19 History citalopram 10 mg tablet 10 mg PO HS tab 10/26/18 08/29/19 History citalopram 20 mg tablet 20 mg PO HS 10/26/18 08/29/19 History insulin aspart U-100 100 unit/mL See Rx Instructions SQ UD ml 10/26/18 08/29/19 History (3 mL) subcutaneous pen lancets 33 gauge #100 ea 10/26/18 07/27/19 History lisinopril 20 mg tablet 20 mg PO HS #90 tab 06/09/19 08/29/19 Rx simvastatin 40 mg tablet 40 mg PO QPM #90 tab 06/15/19 08/29/19 Rx clindamycin HCl 300 mg capsule 300 mg PO tid #42 cap 07/26/19 08/29/19 Rx blood sugar diagnostic #10 ea 07/27/19 07/27/19 History insulin glargine 100 unit/mL (3 60 units SQ DAILY ml 07/27/19 08/29/19 History mL) subcutaneous pen metformin 500 mg tablet,extended 500 mg PO DAILY #30 tab 07/27/19 08/29/19 Rx release 24 hr metoprolol succinate 25 mg 25 mg PO DAILY #90 tab 08/15/19 08/29/19 Rx tablet,extended release 24 hr Past Med/Surg History Medical History Chest pain (Inactive 09/01/13) CHF (congestive heart failure) Depression DM neuropathy, type II diabetes mellitus HTN (hypertension) Insulin-requiring or dependent type II diabetes mellitus Kidney stones Migraine Morbid obesity with BMI of 40.0-44.9, adult Myocardial Infarction ? mild in 1995 per doc in [place]---per Dr. Langford didnt have an OK ? S/P hernia repair (Inactive) Sleep apnea cpap Uncontrolled type 2 diabetes mellitus Surgical History H/O umbilical hernia repair History of bilateral cataract extraction History of cardiac cath x2--1995 @ [place], no stents [address] Langford's record History of cholecystectomy History of cystoscopy History of esophagogastroduodenoscopy (EGD) History of hernia repair (Inactive) History of tooth extraction S/P cholecystectomy (Inactive) Family History Father Muscular dystrophy Mother Breast cancer Cancer hx of Leukemia and a month ago Brother Parkinson disease Denies family history of Ovarian cancer Prostate cancer No family history of adverse response to anesthesia Myocardial infarction Colorectal cancer Social History Preferred Language: Nauruan Communication Ability: Effective Visual Impairment: No Limitations Hearing Ability: Normal Roof Slater Required: No Beliefs That Will Affect Care: None marital status: Current Living Situation: Spouse current occupational status: retired Feels Safe at Home: Yes Smoking Status: Never smoker Tobacco Type: smokeless tobacco ; Second Hand Exposure: No ; Hx Alcohol Use: No Hx Substance Use: No Review of Systems Review of Systems: The patient denies chest pain, palpitations, shortness of breath, dyspnea on exertion, sore throat, chills, sweats, diarrhea , constipation, abdominal pain, pelvic pain, blood in urine or stool, dysuria, urinary frequency or urgency, lightheadedness, dizziness, headache, memory loss, loss of consciousness, abnormal bruising or bleeding, imbalance, focal or generalized weakness, numbness or tingling in arms or, generalized arthralgias or myalgias, back or neck pain, or night sweats. The review of systems is otherwise negative other than for that already noted above, and at least 10 systems have been reviewed. Physical Exam Physical Exam: The patient is awake, alert and oriented 3, well developed and well nourished, normocephalic and atraumatic, lying in bed and in no acute distress. HEENT--PERRL, EOMI, mucous membranes and oropharynx normal. Neck--supple. No JVD. No bruits. Thyroid normal, trachea midline, no adenopathy. Heart--normal S1 and S2. No murmurs, rubs or gallops. Lungs--clear bilaterally, no respiratory distress, no accessory muscle use. Abdomen--normal bowel sounds and soft. Nontender. Nondistended. Morbidly obese Extremities/dermatologic--1+ pretibial pitting edema on the right. 2+ pretibial and pedal pitting edema on the left with erythema and warmth. Neurologic--cranial nerves II through XII grossly intact. Rheumatologic--normal range of motion. Psychiatric--normal affect. Results & Data Results & Data ([facility]) Vital Signs (Past 12 Hours) Vital Signs Temp Pulse Pulse Resp BP BP Pulse Ox 08/30/19 01:42 98.4 F 69 18 160/64 H 94 08/30/19 00:54 78 22 94 08/30/19 00:30 34 H 160/67 H 94 08/30/19 00:00 49 H 171/65 H 93 08/29/19 23:44 83 12 95 08/29/19 23:00 84 17 182/78 H 96 08/29/19 22:21 92 H 18 146/71 H 93 08/29/19 21:24 101.5 F H 93 H 20 94 Laboratory Results Laboratory Results WBC 21.54 K/uL (4.8-10.8) H 08/29/19 22:08 RBC 3.81 M/uL (4.7-6.1) L 08/29/19 22:08 Hgb 11.0 g/dL (14.0-18.0) L 08/29/19 22:08 Hct 33.8 % (42-52) L 08/29/19 22:08 MCV 88.7 fL (80-100) 08/29/19 22:08 MCH 28.9 pg (25-34) 08/29/19 22:08 MCHC 32.5 g/dL (32-36) 08/29/19 22:08 RDW Std Deviation 42.4 fL (36.4-46.3) 08/29/19 22:08 RDW Coeff of Maribel 13.1 % (11.5-14.5) 08/29/19 22:08 Plt Count 232 K/uL (130-400) 08/29/19 22:08 MPV 10.1 fL (7.4-10.4) 08/29/19 22:08 Immature Gran % (Auto) 0.5 % 08/29/19 22:08 Neut % (Auto) 84.4 % 08/29/19 22:08 Lymph % (Auto) 4.1 % 08/29/19 22:08 [place] % (Auto) 10.9 % 08/29/19 22:08 Eos % (Auto) 0.0 % 08/29/19 22:08 Baso % (Auto) 0.1 % 08/29/19 22:08 Neut # (Auto) 18.18 K/uL (1.4-6.5) H 08/29/19 22:08 Lymph # (Auto) 0.88 K/uL (1.2-3.4) L 08/29/19 22:08 [place] # (Auto) 2.35 K/uL (0.11-0.59) H 08/29/19 22:08 Eos # (Auto) 0.01 K/uL (0-0.5) 08/29/19 22:08 Baso # (Auto) 0.02 K/uL (0-0.2) 08/29/19 22:08 Immature Gran # (Auto) 0.10 K/uL (0.00-0.02) H 08/29/19 22:08 ESR 75 mm/hr (0-14) H 08/29/19 22:08 PT 12.0 Seconds (9.0-12.0) 08/29/19 22:08 INR 1.1 (0.9-1.1) 08/29/19 22:08 APTT 30.7 Seconds (21.0-31.0) 08/29/19 22:08 PTT Ratio 1.1 08/29/19 22:08 Sodium 133 mmol/L (136-145) L 08/29/19 22:08 Potassium 3.8 mmol/L (3.5-5.1) 08/29/19 22:08 Chloride 100 mmol/L (98-107) 08/29/19 22:08 Carbon Dioxide 26 mmol/L (21-32) 08/29/19 22:08 Anion Gap 7.0 (3-11) 08/29/19 22:08 BUN 18 mg/dl (7-18) 08/29/19 22:08 Creatinine 1.26 mg/dl (0.6-1.4) 08/29/19 22:08 Est Cr Clr Drug Dosing 92.6 ml/min 08/29/19 22:08 Est GFR ( Amer) 70.9 08/29/19 22:08 Est GFR (Non-Af Amer) 61.2 08/29/19 22:08 BUN/Creatinine Ratio 13.9 (10-20) 08/29/19 22:08 Glucose 212 mg/dl (70-99) H 08/29/19 22:08 Lactate 1.0 mmol/L (0.4-2.0) 08/29/19 22:08 Calcium 8.6 mg/dl (8.5-10.1) 08/29/19 22:08 Magnesium 1.8 mg/dl (1.8-2.4) 08/29/19 22:08 Ferritin 543.7 ng/ml (8-388) H 08/29/19 22:08 Total Bilirubin 0.6 mg/dl (0.2-1) 08/29/19 22:08 AST 12 U/L (15-37) L 08/29/19 22:08 ALT 17 U/L (12-78) 08/29/19 22:08 Alkaline Phosphatase 104 U/L (45-117) 08/29/19 22:08 Lactate Dehydrogenase 191 U/L (87-241) 08/29/19 22:08 Troponin I < 0.015 ng/ml (0-0.045) 08/29/19 22:08 C-Reactive Protein 18.10 mg/dl (0-0.29) H 08/29/19 22:08 Total Protein 7.8 gm/dl (6.4-8.2) 08/29/19 22:08 Albumin 2.1 gm/dl (3.4-5.0) L 08/29/19 22:08 Globulin 5.7 gm/dl (2.5-4.0) H 08/29/19 22:08 Albumin/Globulin Ratio 0.4 (0.9-2) L 08/29/19 22:08 Procalcitonin 0.54 ng/ml (0-0.5) H 08/29/19 22:08 Diagnostic Findings [facility] Patient: JENNY CORONADO (Male) : 59 Status: ER Date: 08/29/19 23:46 Room #: History: COUGH WITH FEVER, SOB Slices: 715 Priors: Tech: José Luis Alvarez @ [phone] Exams: CTA CHEST Contrast: IV Amt: 118 MLOPTIRAY 320 Accession Numbers: [id number] Preliminary Findings Only See Final Report For Complete Findings CTA CHEST: No evidence of pulmonary emboli or acute cardiopulmonary process. Evidence of old granulomatous disease with calcified left upper lobe nodule and numerous calcified granulomas in the spleen. Radiologist: Daniel Franklin MD Study ready at 23:49 and initial results transmitted at 23:56 *This report constitutes a preliminary interpretation only. Non-acute findings felt to be unrelated to the clinical presentation may not be discussed in this report. The study will be interpreted and a final report will be generated by the local Radiologist the following shift. To reach the hospital radiology department call [phone]. If a discrepancy is found between the preliminary and final interpretations of this study, please notify us via our Client Portal at [email or web address].You can also fax this report with a description of the discrepancy, or include the final report, to our daytime fax number [phone].If faxing, please indicate the severity of discrepancy using one of the following categories: [ ] 1 - Agree/Informational [ ] 2 - Unlikely to Affect Management [ ] 3 - Possible Eventual Change of Management [ ] 4 - Probable Immediate Change of Management For all other patient related information, please fax us at [phone]. [id number] [facility] Patient: JENNY CORONADO (Male) : 59 Status: ER Date: 08/29/19 23:49 Room #: History: PAIN AT RLQ VOMITING Slices: 617 Priors: Tech: José Luis Alvarez @ [phone] Exams: CT ABDOMEN & PELVIS With Contrast Contrast: IV Amt: 118 ML OPTIRAY 320 Accession Numbers: [id number] Preliminary Findings Only See Final Report For Complete Findings CT ABDOMEN & PELVIS With Contrast: No acute findings. Previous cholecystectomy. No evidence of bowel obstruction. There is no evidence of distended appendix or regional inflammatory reaction. No abnormal fluid or regional inflammatory reaction. No evidence of obstructing urinary tract calculus or hydronephrosis. Radiologist: Daniel Franklin MD Study ready at 23:57 and initial results transmitted at 00:08 *This report constitutes a preliminary interpretation only. Non-acute findings felt to be unrelated to the clinical presentation may not be discussed in this report. The study will be interpreted and a final report will be generated by the local Radiologist the following shift. To reach the hospital radiology department call [phone]. If a discrepancy is found between the preliminary and final interpretations of this study, please notify us via our Client Portal at [email or web address] can also fax this report with a description of the discrepancy, or include the final report, to our daytime fax number [phone].If faxing, please indicate the severity of discrepancy using one of the following categories: [ ] 1 - Agree/Informational [ ] 2 - Unlikely to Affect Management [ ] 3 - Possible Eventual Change of Management [ ] 4 - Probable Immediate Change of Management For all other patient related information, please fax us at [phone]. [id number] Code Status & VTE Plan Code Status Full code VTE Prophylaxis Plan VTE Prophylaxis will be ordered: Yes PG Care Time/CCT Total # of Minutes Spent Total Time Spent with Patient: Total time spent is greater than 50% in coordination of care (as documented) at patient's floor/unit and/or counseling patient: Coding Level of Care Code 28973 Initial Inpt Care Lvl 3 Diagnoses Cellulitis of left lower extremity L03.116 Diabetic ulcer of left great toe E11.621; L97.529 Uncontrolled type 2 diabetes mellitus E11.65 Elevated cholesterol E78.00 CHF (congestive heart failure) I50.9 Cardiomyopathy, idiopathic I42.8 TORI on CPAP G47.33; Z99.89
[2019-08-30] MEDS ORDERED: GLUCAGON FOR INJ 1 MG VIAL SQ PRN (03:23)
[2019-08-30] MEDS ORDERED: MAGNESIUM HYDROXIDE SUSP 30 ML UDC PO PRN (03:23)
[2019-08-30] MEDS ORDERED: PIPERACILL/TAZOBAC CONSULT ACTIVE PRN (03:23)
[2019-08-30] MEDS ORDERED: CARBOHYDRATES FOR HYPOGLYCEMIA PO PRN (03:23)
[2019-08-30] MEDS ORDERED: GLUCOSE 10 TABS/TUBE PO PRN (03:23)
[2019-08-30] MEDS ORDERED: VANCOMYCIN CONSULT ACTIVE PRN (03:23)
[2019-08-30] MEDS ORDERED: ONDANSETRON INJ 2 MG/ML 2 ML VIAL IV PRN (03:23)
[2019-08-30] MEDS ORDERED: GLUCOSE 40% GEL 15 GM TUBE PO PRN (03:23)
[2019-08-30] MEDS ORDERED: DEXTROSE 50% 50 ML SYRINGE IV PRN (03:23)
[2019-08-30] MEDS ORDERED: ALUMINUM/MAGNESIUM SUSP 30 ML UDC PO PRN (03:23)
[2019-08-30] MEDS ORDERED: PIPERACILLIN/TAZOBACTAM 4.5 GM in DEXTROSE 5% 100 ML IV ONE (04:00)
--- NOTE | 2019-08-30 04:02 | Pharmacy Report ---
Pharmacy Abx Dose Short Note - Date of Service August 30, 2019 - Assessment & Plan Assessment 63 year old M receiving vancomycin/Zosyn/Levaquin for treatment of diabetic foot infection Day # 1 of antimicrobial therapy. Plan Vancomycin * Estimated PK Parameters: Vd 0.6 L/kg, Alvin 0.08 hr-1, t1/2 8.6 hr * Loading dose: 2750 mg (18 mg/kg) * Maintenance dose: 1750 mg IV (12 mg/kg) every 10 hours * Goal trough level for SSTI : ~15 mcg/mL * Trough ordered for 08/30/19 prior to 2200 dose * A less than traditional dose and extended dosing interval has been selected due to likelihood of drug accumulation in obese patient. Piperacillin/tazobactam * 4.5 g bolus administered over 30 minutes, then 4.5 g IV extended infusion every 8 hours for CrCl greater than 20 mL/min * Aggressive dosing selected due to BMI 35 or more. Pharmacy will continue to follow and will adjust dose/frequency as necessary. Thank you.
[2019-08-30] MEDS: VANCOMYCIN HCL 1,750 MG in SODIUM CHLORIDE 0.9% 500 ML IV SCH ×2 (06:05→15:38)
[2019-08-30 06:53] LABS: Estimated Average Glucose 252 mg/dl; Hemoglobin A1C 10.4 % (4.5-5.6)
[2019-08-30 07:16] LABS: Appearance Urine Clear (Clear); Bacteria Urine Automated Negative (Negative); Bilirubin Urine Negative (Negative); Blood Urine 1+ (Negative); Color Urine Yellow; Epithelial Cell Urine Auto 20-30 /lpf (0-5); Glucose Urine UA 3+ (Negative); Ketones Urine Trace (Negative); Leukocyte Esterase Urine Negative (Negative); Nitrite Urine Negative (Negative); Protein Urine 4+ (Negative); Specific Gravity Urine 1.033 (1.000-1.030); Urobilinogen Urine Negative (Negative); pH Urine 5.5 (4.5-7.5)
--- NOTE | 2019-08-30 07:20 | CT Scan Report ---
CT OF THE ABDOMEN AND PELVIS WITH CONTRAST CLINICAL HISTORY: Right lower quadrant abdominal pain. Vomiting. COMPARISON STUDY: CT of the abdomen and pelvis November 09, 2006. KUB November 26, 2006. TECHNIQUE: Following IV administration of 118 mL of Optiray-320, axial images of the abdomen and pelv is were obtained from the lung bases to the proximal femurs. Images were reviewed in the axial, sagit alexis, and coronal planes. IV contrast was administered without complication. Automated exposure contr ol was utilized for the study. A dose lowering technique was utilized adhering to the principles of ALARA. FINDINGS: Please note that the chest CT will be reported separately. The body wall contacts the gantr y. No pneumatosis, free air or portal venous gas is present. There is no biliary ductal dilatation st atus post cholecystectomy. There are calcified focus within the spleen. The adrenal glands and pancre as are unremarkable. There is no hydronephrosis or hydroureter. A 1.6 cm hypodense lesion within the lower pole the right kidney likely reflects a cyst. There is colonic diverticulosis without evidence for acute diverticulitis. No suspicious osseous lesions are noted. There is no lymphadenopathy. Fat-c ontaining umbilical hernia is present. IMPRESSION: 1. No acute process within the abdomen or pelvis. 2. Normal appendix. No bowel obstruction. ACT 112: Negative or not required by law. Electronically signed by: Don Schroeder M.D. 08/30/2019 7:18 AM
--- NOTE | 2019-08-30 07:42 | XRay Report ---
XR chest 1V portable CLINICAL HISTORY: SEPSIS COMPARISON STUDY: Chest radiograph January 28, 2018. FINDINGS: Cardiomegaly is unchanged. There is no evidence for pulmonary edema. There is no consolidat ion to suggest pneumonia. There is a calcified granuloma within the left midlung. No pneumothorax or pleural effusion is noted. IMPRESSION: Cardiomegaly. No acute findings. ACT 112: Negative or not required by law. Electronically signed by: Don Schroeder M.D. 08/30/2019 7:41 AM
--- NOTE | 2019-08-30 08:08 | CT Scan Report ---
CT ANGIOGRAM OF THE CHEST CLINICAL HISTORY: Fever, cough, shortness of breath, possible pulmonary embolism. COMPARISON STUDY: Chest x-ray dated 08/29/2019 TECHNIQUE: Following the IV administration of 118 mL of Optiray-320, CT angiogram of the thorax was p erformed from the thoracic inlet to the lung bases utilizing the pulmonary embolus protocol. Images a re reviewed in the axial, sagittal, and coronal planes. IV contrast was administered without complica tion. MIP imaging was performed. A dose lowering technique was utilized adhering to the principles o f ALARA. CT DOSE: 2735.82 mGy.cm FINDINGS: There are mildly enlarged mediastinal and hilar lymph nodes. There was no evidence of thoracic aortic dilatation. There were no pulmonary artery filling defects to indicate acute pulmonary embolism. No pleural effusions are visualized. Is a calcified granuloma within the lingula. There is no focal pulmonary consolidation. There is no p neumothorax. IMPRESSION: 1. No acute intrathoracic findings 2. No evidence of acute pulmonary embolism 3. Calcified lingular granuloma 4. Mild adenopathy ACT 112: Negative or not required by law. Electronically signed by: Robinson Alanis M.D. 08/30/2019 8:06 AM
[2019-08-30] MEDS: ASPIRIN 81 MG ECTAB PO SCH (08:26)
[2019-08-30] MEDS: METOPROLOL SUCC 25MG EXT REL TAB PO SCH (08:27)
[2019-08-30] MEDS: INSULIN ASPART 100 UNITS/ML 3 ML PEN SC SCH ×4 (08:27→21:05)
[2019-08-30] MEDS: HEPARIN SOD 5,000 UNIT/0.5 ML VIAL SQ SCH ×2 (08:27→21:04)
[2019-08-30] MEDS ORDERED: INSULIN GLARGINE SOLOSTAR 100 UNITS/ML 3 ML PEN SQ SCH (09:00)
[2019-08-30] MEDS ORDERED: PIPERACILLIN/TAZOBACTAM 4.5 GM in DEXTROSE 5% 100 ML IV SCH (10:00)
--- NOTE | 2019-08-30 17:42 | Orthopedic Consultation ---
Date of Consultation August 30, 2019 Assessment & Plan (1) Cellulitis of left lower extremity: Left lower extremity cellulitis with infection of fifth digit versus traumatic injury. Will obtain x-rays at this time to rule out fracture. If negative x-rays would likely need MRI and vascular studies. Continue with IV antibiotics at this time. Protected weightbearing on left lower extremity pending x-rays. Ice and elevation left lower extremity. Continue with wound care to great toe diabetic ulcer. Thank you for the consultation (2) Diabetic ulcer of left great toe: History of Present Illness Reason for Consultation: Left lower extremity cellulitis and fifth digit infection Attending Physician: Luis Talamantes DO History of Present Illness Patient is a 63-year-old male who presented to [facility] secondary to left lower extremity cellulitis for 2 days he reports. Previously seen at [facility] for diabetic ulcer on left great toe. Patient reports that yesterday he thinks he might have hit his foot/fifth digit on the bed in the emergency department and noticed a blister. Denies pain at this time. Denies fevers chills nausea vomiting shortness breath or chest pain. Patient reports his symptoms have improved since being admitted to the hospital. Denies any associated injuries, neuropathy at baseline. Allergies Allergy/AdvReac Type Severity Reaction Status Date / Time bee venom protein (honey bee) Allergy Severe Anaphylaxis Verified 08/29/19 23:35 iodine AdvReac Mild FLUSHED Verified 08/29/19 23:35 FEELING/sick to stomach egg AdvReac Verified 08/30/19 14:34 Egg or Chicken-derived Drugs Allergy Unknown Gastrointestinal Uncoded 08/29/19 23:35 Upset Home Medications Home Medications Medication Instructions Recorded Confirmed Type aspirin 81 mg PO QAM 12/10/17 08/29/19 History citalopram 10 mg tablet 10 mg PO HS tab 10/26/18 08/29/19 History citalopram 20 mg tablet 20 mg PO HS 10/26/18 08/29/19 History insulin aspart U-100 100 unit/mL See Rx Instructions SQ UD ml 10/26/18 08/29/19 History (3 mL) subcutaneous pen lancets 33 gauge #100 ea 10/26/18 07/27/19 History lisinopril 20 mg tablet 20 mg PO HS #90 tab 06/09/19 08/29/19 Rx simvastatin 40 mg tablet 40 mg PO QPM #90 tab 06/15/19 08/29/19 Rx clindamycin HCl 300 mg capsule 300 mg PO tid #42 cap 07/26/19 08/29/19 Rx blood sugar diagnostic #10 ea 07/27/19 07/27/19 History insulin glargine 100 unit/mL (3 60 units SQ DAILY ml 07/27/19 08/29/19 History mL) subcutaneous pen metformin 500 mg tablet,extended 500 mg PO DAILY #30 tab 07/27/19 08/29/19 Rx release 24 hr metoprolol succinate 25 mg 25 mg PO DAILY #90 tab 08/15/19 08/29/19 Rx tablet,extended release 24 hr Patient History Medical History Chest pain (Inactive 09/01/13) CHF (congestive heart failure) Depression DM neuropathy, type II diabetes mellitus HTN (hypertension) Insulin-requiring or dependent type II diabetes mellitus Kidney stones Migraine Morbid obesity with BMI of 40.0-44.9, adult Myocardial Infarction ? mild in 1995 per doc in [place]---per Dr. Langford didnt have an MT ? S/P hernia repair (Inactive) Sleep apnea cpap Uncontrolled type 2 diabetes mellitus Surgical History H/O umbilical hernia repair History of bilateral cataract extraction History of cardiac cath x2--1995 @ [place], no stents [address] Langford's record History of cholecystectomy History of cystoscopy History of esophagogastroduodenoscopy (EGD) History of hernia repair (Inactive) History of tooth extraction S/P cholecystectomy (Inactive) Family History Father Muscular dystrophy Mother Breast cancer Cancer hx of Leukemia and a month ago Brother Parkinson disease Denies family history of Ovarian cancer Prostate cancer No family history of adverse response to anesthesia Myocardial infarction Colorectal cancer Social History Preferred Language: Estonian Communication Ability: Effective Visual Impairment: No Limitations Hearing Ability: Normal 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 Beliefs That Will Affect Care: None marital status: Current Living Situation: Spouse current occupational status: retired Feels Safe at Home: Yes Smoking Status: Never smoker Tobacco Type: smokeless tobacco ; Second Hand Exposure: No ; Hx Alcohol Use: No Hx Substance Use: No Review of Systems Review of Systems: All systems reviewed & are unremarkable except as noted in HPI & below Constitutional: as per Subjective / HPI Physical Exam Physical Exam: Left lower extremity neurovascular sensory intact, decreased in station at baseline, +2 dorsalis pedis pulse, moderate edema left lower extremity with mild erythema, significant edema fifth digit with ecchymoses and blister formation. Constitutional: WD/WN, vitals as above Results & Data ([place]) Vital Signs (Past 12 Hours) Vital Signs Temp Pulse Pulse Resp BP Pulse Ox 08/30/19 16:09 36.6 C 74 20 175/84 H 95 08/30/19 14:52 73 08/30/19 11:46 36.4 C L 68 22 149/76 H 96 08/30/19 09:00 70 08/30/19 08:06 36.5 C 63 20 164/82 H 97 Laboratory Results 08/30/19 08/30/19 08/30/19 Range/Units 16:35 16:34 11:43 WBC (4.8-10.8) K/uL RBC (4.7-6.1) M/uL Hgb (14.0-18.0) g/dL Hct (42-52) % MCV (80-100) fL MCH (25-34) pg MCHC (32-36) g/dL RDW Std Deviation (36.4-46.3) fL RDW Coeff of Maribel (11.5-14.5) % Plt Count (130-400) K/uL MPV (7.4-10.4) fL Immature Gran % (Auto) % Neut % (Auto) % Lymph % (Auto) % [place] % (Auto) % Eos % (Auto) % Baso % (Auto) % Neut # (Auto) (1.4-6.5) K/uL Lymph # (Auto) (1.2-3.4) K/uL [place] # (Auto) (0.11-0.59) K/uL Eos # (Auto) (0-0.5) K/uL Baso # (Auto) (0-0.2) K/uL Immature Gran # (Auto) (0.00-0.02) K/uL ESR (0-14) mm/hr PT (9.0-12.0) Seconds INR (0.9-1.1) APTT (21.0-31.0) Seconds PTT Ratio Sodium (136-145) mmol/L Potassium (3.5-5.1) mmol/L Chloride (98-107) mmol/L Carbon Dioxide (21-32) mmol/L Anion Gap (3-11) BUN (7-18) mg/dl Creatinine (0.6-1.4) mg/dl Est Cr Clr Drug Dosing ml/min Est GFR ( Amer) Est GFR (Non-Af Amer) BUN/Creatinine Ratio (10-20) Glucose (70-99) mg/dl POC Glucose 359 H* 384 H* 407 H* (70-99) mg/dl Estimat Average Glucose mg/dl Hemoglobin A1c (4.5-5.6) % Lactate (0.4-2.0) mmol/L Calcium (8.5-10.1) mg/dl Magnesium (1.8-2.4) mg/dl Ferritin (8-388) ng/ml Total Bilirubin (0.2-1) mg/dl AST (15-37) U/L ALT (12-78) U/L Alkaline Phosphatase (45-117) U/L Lactate Dehydrogenase (87-241) U/L Troponin I (0-0.045) ng/ml C-Reactive Protein (0-0.29) mg/dl Total Protein (6.4-8.2) gm/dl Albumin (3.4-5.0) gm/dl Globulin (2.5-4.0) gm/dl Albumin/Globulin Ratio (0.9-2) Procalcitonin (0-0.5) ng/ml Urine Color Urine Appearance (Clear) Urine pH (4.5-7.5) Ur Specific Hawkins (1.000-1.030) Urine Protein (Negative) Urine Glucose (UA) (Negative) Urine Ketones (Negative) Urine Blood (Negative) Urine Nitrite (Negative) Urine Bilirubin (Negative) Urine Urobilinogen (Negative) Ur Leukocyte Esterase (Negative) Urine WBC (Auto) (0-5) /hpf Urine RBC (Auto) (0-4) /hpf U Hyaline Cast (Auto) (0-5) /lpf U Epithel Cells (Auto) (0-5) /lpf Urine Bacteria (Auto) (Negative) 08/30/19 08/30/19 08/30/19 Range/Units 11:43 07:48 07:05 WBC (4.8-10.8) K/uL RBC (4.7-6.1) M/uL Hgb (14.0-18.0) g/dL Hct (42-52) % MCV (80-100) fL MCH (25-34) pg MCHC (32-36) g/dL RDW Std Deviation (36.4-46.3) fL RDW Coeff of Maribel (11.5-14.5) % Plt Count (130-400) K/uL MPV (7.4-10.4) fL Immature Gran % (Auto) % Neut % (Auto) % Lymph % (Auto) % [place] % (Auto) % Eos % (Auto) % Baso % (Auto) % Neut # (Auto) (1.4-6.5) K/uL Lymph # (Auto) (1.2-3.4) K/uL [place] # (Auto) (0.11-0.59) K/uL Eos # (Auto) (0-0.5) K/uL Baso # (Auto) (0-0.2) K/uL Immature Gran # (Auto) (0.00-0.02) K/uL ESR (0-14) mm/hr PT (9.0-12.0) Seconds INR (0.9-1.1) APTT (21.0-31.0) Seconds PTT Ratio Sodium (136-145) mmol/L Potassium (3.5-5.1) mmol/L Chloride (98-107) mmol/L Carbon Dioxide (21-32) mmol/L Anion Gap (3-11) BUN (7-18) mg/dl Creatinine (0.6-1.4) mg/dl Est Cr Clr Drug Dosing ml/min Est GFR ( Amer) Est GFR (Non-Af Amer) BUN/Creatinine Ratio (10-20) Glucose (70-99) mg/dl POC Glucose 399 H* 291 H (70-99) mg/dl Estimat Average Glucose mg/dl Hemoglobin A1c (4.5-5.6) % Lactate (0.4-2.0) mmol/L Calcium (8.5-10.1) mg/dl Magnesium (1.8-2.4) mg/dl Ferritin (8-388) ng/ml Total Bilirubin (0.2-1) mg/dl AST (15-37) U/L ALT (12-78) U/L Alkaline Phosphatase (45-117) U/L Lactate Dehydrogenase (87-241) U/L Troponin I (0-0.045) ng/ml C-Reactive Protein (0-0.29) mg/dl Total Protein (6.4-8.2) gm/dl Albumin (3.4-5.0) gm/dl Globulin (2.5-4.0) gm/dl Albumin/Globulin Ratio (0.9-2) Procalcitonin (0-0.5) ng/ml Urine Color Yellow Urine Appearance Clear (Clear) Urine pH 5.5 (4.5-7.5) Ur Specific Hawkins 1.033 H (1.000-1.030) Urine Protein 4+ H (Negative) Urine Glucose (UA) 3+ H (Negative) Urine Ketones Trace H (Negative) Urine Blood 1+ H (Negative) Urine Nitrite Negative (Negative) Urine Bilirubin Negative (Negative) Urine Urobilinogen Negative (Negative) Ur Leukocyte Esterase Negative (Negative) Urine WBC (Auto) 1-5 (0-5) /hpf Urine RBC (Auto) 5-10 H (0-4) /hpf U Hyaline Cast (Auto) 1-5 (0-5) /lpf U Epithel Cells (Auto) 20-30 H (0-5) /lpf Urine Bacteria (Auto) Negative (Negative) 08/29/19 08/29/19 08/29/19 Range/Units 22:08 22:08 22:08 WBC (4.8-10.8) K/uL RBC (4.7-6.1) M/uL Hgb (14.0-18.0) g/dL Hct (42-52) % MCV (80-100) fL MCH (25-34) pg MCHC (32-36) g/dL RDW Std Deviation (36.4-46.3) fL RDW Coeff of Maribel (11.5-14.5) % Plt Count (130-400) K/uL MPV (7.4-10.4) fL Immature Gran % (Auto) % Neut % (Auto) % Lymph % (Auto) % [place] % (Auto) % Eos % (Auto) % Baso % (Auto) % Neut # (Auto) (1.4-6.5) K/uL Lymph # (Auto) (1.2-3.4) K/uL [place] # (Auto) (0.11-0.59) K/uL Eos # (Auto) (0-0.5) K/uL Baso # (Auto) (0-0.2) K/uL Immature Gran # (Auto) (0.00-0.02) K/uL ESR (0-14) mm/hr PT (9.0-12.0) Seconds INR (0.9-1.1) APTT (21.0-31.0) Seconds PTT Ratio Sodium (136-145) mmol/L Potassium (3.5-5.1) mmol/L Chloride (98-107) mmol/L Carbon Dioxide (21-32) mmol/L Anion Gap (3-11) BUN (7-18) mg/dl Creatinine (0.6-1.4) mg/dl Est Cr Clr Drug Dosing ml/min Est GFR ( Amer) Est GFR (Non-Af Amer) BUN/Creatinine Ratio (10-20) Glucose (70-99) mg/dl POC Glucose (70-99) mg/dl Estimat Average Glucose 252 mg/dl Hemoglobin A1c 10.4 H (4.5-5.6) % Lactate (0.4-2.0) mmol/L Calcium (8.5-10.1) mg/dl Magnesium (1.8-2.4) mg/dl Ferritin (8-388) ng/ml Total Bilirubin (0.2-1) mg/dl AST (15-37) U/L ALT (12-78) U/L Alkaline Phosphatase (45-117) U/L Lactate Dehydrogenase 191 (87-241) U/L Troponin I (0-0.045) ng/ml C-Reactive Protein (0-0.29) mg/dl Total Protein (6.4-8.2) gm/dl Albumin (3.4-5.0) gm/dl Globulin (2.5-4.0) gm/dl Albumin/Globulin Ratio (0.9-2) Procalcitonin 0.54 H (0-0.5) ng/ml Urine Color Urine Appearance (Clear) Urine pH (4.5-7.5) Ur Specific Hawkins (1.000-1.030) Urine Protein (Negative) Urine Glucose (UA) (Negative) Urine Ketones (Negative) Urine Blood (Negative) Urine Nitrite (Negative) Urine Bilirubin (Negative) Urine Urobilinogen (Negative) Ur Leukocyte Esterase (Negative) Urine WBC (Auto) (0-5) /hpf Urine RBC (Auto) (0-4) /hpf U Hyaline Cast (Auto) (0-5) /lpf U Epithel Cells (Auto) (0-5) /lpf Urine Bacteria (Auto) (Negative) 08/29/19 08/29/19 08/29/19 Range/Units 22:08 22:08 22:08 WBC (4.8-10.8) K/uL RBC (4.7-6.1) M/uL Hgb (14.0-18.0) g/dL Hct (42-52) % MCV (80-100) fL MCH (25-34) pg MCHC (32-36) g/dL RDW Std Deviation (36.4-46.3) fL RDW Coeff of Maribel (11.5-14.5) % Plt Count (130-400) K/uL MPV (7.4-10.4) fL Immature Gran % (Auto) % Neut % (Auto) % Lymph % (Auto) % [place] % (Auto) % Eos % (Auto) % Baso % (Auto) % Neut # (Auto) (1.4-6.5) K/uL Lymph # (Auto) (1.2-3.4) K/uL [place] # (Auto) (0.11-0.59) K/uL Eos # (Auto) (0-0.5) K/uL Baso # (Auto) (0-0.2) K/uL Immature Gran # (Auto) (0.00-0.02) K/uL ESR (0-14) mm/hr PT 12.0 (9.0-12.0) Seconds INR 1.1 (0.9-1.1) APTT 30.7 (21.0-31.0) Seconds PTT Ratio 1.1 Sodium 133 L (136-145) mmol/L Potassium 3.8 (3.5-5.1) mmol/L Chloride 100 (98-107) mmol/L Carbon Dioxide 26 (21-32) mmol/L Anion Gap 7.0 (3-11) BUN 18 (7-18) mg/dl Creatinine 1.26 (0.6-1.4) mg/dl Est Cr Clr Drug Dosing 92.6 ml/min Est GFR ( Amer) 70.9 Est GFR (Non-Af Amer) 61.2 BUN/Creatinine Ratio 13.9 (10-20) Glucose 212 H (70-99) mg/dl POC Glucose (70-99) mg/dl Estimat Average Glucose mg/dl Hemoglobin A1c (4.5-5.6) % Lactate 1.0 (0.4-2.0) mmol/L Calcium 8.6 (8.5-10.1) mg/dl Magnesium 1.8 (1.8-2.4) mg/dl Ferritin 543.7 H (8-388) ng/ml Total Bilirubin 0.6 (0.2-1) mg/dl AST 12 L (15-37) U/L ALT 17 (12-78) U/L Alkaline Phosphatase 104 (45-117) U/L Lactate Dehydrogenase (87-241) U/L Troponin I < 0.015 (0-0.045) ng/ml C-Reactive Protein 18.10 H (0-0.29) mg/dl Total Protein 7.8 (6.4-8.2) gm/dl Albumin 2.1 L (3.4-5.0) gm/dl Globulin 5.7 H (2.5-4.0) gm/dl Albumin/Globulin Ratio 0.4 L (0.9-2) Procalcitonin (0-0.5) ng/ml Urine Color Urine Appearance (Clear) Urine pH (4.5-7.5) Ur Specific Hawkins (1.000-1.030) Urine Protein (Negative) Urine Glucose (UA) (Negative) Urine Ketones (Negative) Urine Blood (Negative) Urine Nitrite (Negative) Urine Bilirubin (Negative) Urine Urobilinogen (Negative) Ur Leukocyte Esterase (Negative) Urine WBC (Auto) (0-5) /hpf Urine RBC (Auto) (0-4) /hpf U Hyaline Cast (Auto) (0-5) /lpf U Epithel Cells (Auto) (0-5) /lpf Urine Bacteria (Auto) (Negative) 08/29/19 08/29/19 Range/Units 22:08 22:08 WBC 21.54 H (4.8-10.8) K/uL RBC 3.81 L (4.7-6.1) M/uL Hgb 11.0 L (14.0-18.0) g/dL Hct 33.8 L (42-52) % MCV 88.7 (80-100) fL MCH 28.9 (25-34) pg MCHC 32.5 (32-36) g/dL RDW Std Deviation 42.4 (36.4-46.3) fL RDW Coeff of Maribel 13.1 (11.5-14.5) % Plt Count 232 (130-400) K/uL MPV 10.1 (7.4-10.4) fL Immature Gran % (Auto) 0.5 % Neut % (Auto) 84.4 % Lymph % (Auto) 4.1 % [place] % (Auto) 10.9 % Eos % (Auto) 0.0 % Baso % (Auto) 0.1 % Neut # (Auto) 18.18 H (1.4-6.5) K/uL Lymph # (Auto) 0.88 L (1.2-3.4) K/uL [place] # (Auto) 2.35 H (0.11-0.59) K/uL Eos # (Auto) 0.01 (0-0.5) K/uL Baso # (Auto) 0.02 (0-0.2) K/uL Immature Gran # (Auto) 0.10 H (0.00-0.02) K/uL ESR 75 H (0-14) mm/hr PT (9.0-12.0) Seconds INR (0.9-1.1) APTT (21.0-31.0) Seconds PTT Ratio Sodium (136-145) mmol/L Potassium (3.5-5.1) mmol/L Chloride (98-107) mmol/L Carbon Dioxide (21-32) mmol/L Anion Gap (3-11) BUN (7-18) mg/dl Creatinine (0.6-1.4) mg/dl Est Cr Clr Drug Dosing ml/min Est GFR ( Amer) Est GFR (Non-Af Amer) BUN/Creatinine Ratio (10-20) Glucose (70-99) mg/dl POC Glucose (70-99) mg/dl Estimat Average Glucose mg/dl Hemoglobin A1c (4.5-5.6) % Lactate (0.4-2.0) mmol/L Calcium (8.5-10.1) mg/dl Magnesium (1.8-2.4) mg/dl Ferritin (8-388) ng/ml Total Bilirubin (0.2-1) mg/dl AST (15-37) U/L ALT (12-78) U/L Alkaline Phosphatase (45-117) U/L Lactate Dehydrogenase (87-241) U/L Troponin I (0-0.045) ng/ml C-Reactive Protein (0-0.29) mg/dl Total Protein (6.4-8.2) gm/dl Albumin (3.4-5.0) gm/dl Globulin (2.5-4.0) gm/dl Albumin/Globulin Ratio (0.9-2) Procalcitonin (0-0.5) ng/ml Urine Color Urine Appearance (Clear) Urine pH (4.5-7.5) Ur Specific Hawkins (1.000-1.030) Urine Protein (Negative) Urine Glucose (UA) (Negative) Urine Ketones (Negative) Urine Blood (Negative) Urine Nitrite (Negative) Urine Bilirubin (Negative) Urine Urobilinogen (Negative) Ur Leukocyte Esterase (Negative) Urine WBC (Auto) (0-5) /hpf Urine RBC (Auto) (0-4) /hpf U Hyaline Cast (Auto) (0-5) /lpf U Epithel Cells (Auto) (0-5) /lpf Urine Bacteria (Auto) (Negative)
--- NOTE | 2019-08-30 18:59 | XRay Report ---
XR foot LT min 3V routine CLINICAL HISTORY: r/0 fx or infectous process 5th digit COMPARISON: None. DISCUSSION: Soft tissue edema and possibly soft tissue disruption overlying the phalanges of the fift h toe. Bony structures show no evidence for acute abnormality. The cortical margins are intact. No evidence for lytic or blastic process. Possible trace amount of debris on the skin surface or possibly within the wound. Heel spur is present. IMPRESSION: 1. Soft tissue disruption and/or edema. 2. No acute bony abnormality. ACT 112: Negative or not required by law. The above report was generated using voice recognition software. It may contain grammatical, syntax or spelling errors. Electronically signed by: Israel Funk M.D. 08/30/2019 6:58 PM
--- NOTE | 2019-08-30 19:38 | Hospitalist Progress Note ---
Date of Service August 30, 2019 Assessment & Plan (1) Cellulitis of left lower extremity: cellulitis improved - streamline to just [facility] given low probability of gram negative. great toe ulcer for local care, concern high for 5th toe, however. ortho consult. (2) Diabetic ulcer of left great toe: See above (3) Uncontrolled type 2 diabetes mellitus: continue to titrate insulins and educate as best as he'll allow (4) Elevated cholesterol: continue simvastatin for now - will try to determine if any prior failure/contraindication to atorva or rosuva (5) CHF (congestive heart failure): Idiopathic cardiomyopathy/hypertension/CHF- Continue aspirin 81 mg daily, lisinopril 20 mg daily and metoprolol succinate 25 mg daily. no respiratory difficulty (6) Cardiomyopathy, idiopathic: See above (7) TORI on CPAP: CPAP HS (8) DVT prophylaxis: heparin SQ (9) Discharge planning issues: for now would anticipate home, but much is pending in the rest of w/u and treatment of foot Admission and Anticipated Discharge Date Admission Date: August 30, 2019 Subjective feeling generally oK. notes that he doesn't want to have toe amputated because he doesn't want to lose his foot. discussed that managing current infection properly (discussed this prior to ortho input and noted that i would wait on their recommendations) will be the best way to preserve the rest of his foot regardless of status of toe. discussed sugar contributing. ntoes feet are pretty severe neuropathy doesn't have much sensation. does feel really hot sometimes and really cold sometimes. Review of Systems Review of Systems: All systems reviewed & are unremarkable except as noted in HPI & below Physical Exam Physical Exam: gen aao pleasant nad heent nc at mmm breathing unlabored no accessory muscles good effort skin no rashes no pallor or icterus neuro seems to have diminished sensation feet. trejo erythema appears ipmroved compared to descrbied on admission, 5th toe purple and bruised, skin fluctuant. Results & Data Results & Data ([facility] [place]) Vital Signs (Past 12 Hours) Vital Signs Temp Pulse Pulse Resp BP Pulse Ox 08/30/19 19:20 98.4 F 75 18 154/72 H 94 08/30/19 16:09 97.9 F 74 20 175/84 H 95 08/30/19 14:52 73 08/30/19 11:46 97.5 F L 68 22 149/76 H 96 08/30/19 09:00 70 08/30/19 08:06 97.7 F 63 20 164/82 H 97 PG Care Time/CCT Total # of Minutes Spent Total Time Spent with Patient: Total time spent is greater than 50% in coordination of care (as documented) at patient's floor/unit and/or counseling patient: Coding Level of Care Code 35562 Subseq Hosp Care Lvl 3 Diagnoses Cellulitis of left lower extremity L03.116 Diabetic ulcer of left great toe E11.621; L97.529 Uncontrolled type 2 diabetes mellitus E11.65 Elevated cholesterol E78.00 CHF (congestive heart failure) I50.9 Cardiomyopathy, idiopathic I42.8 TORI on CPAP G47.33; Z99.89 DVT prophylaxis Z29.9 Discharge planning issues Z02.9
[2019-08-30] MEDS: CITALOPRAM 20 MG TAB PO SCH (20:27)
[2019-08-30] MEDS: lisinopriL 20 MG TAB PO SCH (20:27)
[2019-08-30] MEDS ORDERED: SIMVASTATIN 40 MG TAB PO SCH (21:00)
[2019-08-30] MEDS ORDERED: NON-FORMULARY MEDICATION (Citalopram 10 MG) PO SCH (21:00)
[2019-08-30] MEDS: INSULIN GLARGINE SOLOSTAR 100 UNITS/ML 3 ML PEN SQ SCH (21:05)
[2019-08-30] MEDS ORDERED: VANCOMYCIN TROUGH ONE (21:30)
[2019-08-30] MEDS ORDERED: LEVOFLOXACIN/D5W 500 MG/100 ML BAG IV SCH (23:00)
--- NOTE | 2019-08-31 00:12 | Electrocardiogram Report ---
Test Reason : Blood Pressure : / mmHG Vent. Rate : 092 BPM Atrial Rate : 092 BPM P-R Int : 168 ms QRS Dur : 102 ms QT Int : 364 ms P-R-T Axes : 031 006 055 degrees QTc Int : 450 ms Normal sinus rhythm Nonspecific T wave abnormality When compared with ECG of 02-SEP-2013 06:44, Nonspecific T wave abnormality now evident in Lateral leads Confirmed by Alexandre Nguyễn ([id number]) on 08/31/2019 12:12:09 AM Referred By: REFERRED SELF Confirmed By:Alexandre Nguyễn
[2019-08-31] MEDS ORDERED: VANCOMYCIN TROUGH ONE (01:30)
[2019-08-31] MEDS: VANCOMYCIN HCL 1,750 MG in SODIUM CHLORIDE 0.9% 500 ML IV SCH (02:14)
--- NOTE | 2019-08-31 02:51 | Pharmacy Report ---
Pharmacy Abx Dose Short Note - Date of Service August 31, 2019 - Assessment & Plan Assessment 63 year old M receiving vancomycin/zosyn for treatment of diabetic foot infection Day # 3 of antimicrobial therapy. Plan Vancomycin * Trough level of 27.7 mcg/mL is supratherapeutic * Hold vancomycin. Patient specific pharmacokinetics suggest that vancomycin level will be 17 mcg/mL 7.5 hours after trough (so around 0800). This also allows for patient specific pharmacokinetics to be ideally determined as patient only received ~15 mins of vancomycin infusion. * Goal trough level for diabetic foot infection : ~15 mcg/mL * Random level ordered for: 08/31/19 around 0800 Pharmacy will continue to follow and will adjust dose/frequency as necessary. Thank you.
[2019-08-31 08:24] LABS: Basophils # (auto) 0.02 K/uL (0-0.2); Basophils % (auto) 0.1 %; Eosinophils # (auto) 0.17 K/uL (0-0.5); Eosinophils % (auto) 0.9 %; Hematocrit (blood only) 32.2 % (42-52); Hemoglobin 10.3 g/dL (14.0-18.0); Immature Granulocytes # (auto) 0.06 K/uL (0.00-0.02); Immature Granulocytes % (auto) 0.3 %; Lymphocytes # (auto) 2.49 K/uL (1.2-3.4); Lymphocytes % (auto) 13.2 %; Mean Corpuscular Hemoglobin 28.1 pg (25-34); Monocytes % (auto) 7.9 %; Neutrophils # (auto) 14.69 K/uL (1.4-6.5); Neutrophils % (auto) 77.6 %; Platelet Count 255 K/uL (130-400); RDW Coefficient of Variation 13.3 % (11.5-14.5); RDW Standard Deviation 43.1 fL (36.4-46.3); Red Blood Count 3.66 M/uL (4.7-6.1); White Blood Count 18.93 K/uL (4.8-10.8)
[2019-08-31 08:43] LABS: BUN Creatinine Ratio 20.8 (10-20); Calcium 8.7 mg/dl (8.5-10.1); Creatinine Clr Calc Pharmacy 86.4 ml/min; Est GFR (African American) 64.1; Est GFR (Non-African American) 55.3; Potassium 3.5 mmol/L (3.5-5.1)
[2019-08-31] MEDS: METOPROLOL SUCC 25MG EXT REL TAB PO SCH (08:58)
[2019-08-31] MEDS: ASPIRIN 81 MG ECTAB PO SCH (08:58)
[2019-08-31] MEDS: HEPARIN SOD 5,000 UNIT/0.5 ML VIAL SQ SCH ×2 (08:59→21:03)
[2019-08-31] MEDS: INSULIN GLARGINE SOLOSTAR 100 UNITS/ML 3 ML PEN SQ SCH ×2 (08:59→21:04)
[2019-08-31] MEDS: INSULIN ASPART 100 UNITS/ML 3 ML PEN SC SCH ×4 (08:59→21:08)
--- NOTE | 2019-08-31 09:36 | Hospitalist Progress Note ---
Date of Service August 31, 2019 Assessment & Plan (1) Cellulitis of left lower extremity: Cellulitis of left lower extremity: - Patient admitted for cellulitis of LLE arising from wound of L great toe vs. L fifth toe and started on broad-spectrum Abx. - At this time only on vancomycin, and his cellulitis is clinically improving, as well as his leukocytosis (21->18). - XRay and MRI LLE show no evidence of abscess or osteomyelitis. - Will continue vancomycin at this time, consider escalating antibiotic coverage if leukocytosis and clinical picture worsen or plateau. - Ortho consulted and appreciate recommendations: - Awaiting LLE Doppler to assess vasculature. - Wound care. - Wounds likely 2/2 poorly controlled diabetes; glycemic control as below. - Acetaminophen PO PRN pain. Patient without complaints at this time. 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 - Holding metformin while inpatient. - Currently Lantus 30u BID, SSI. - It appears there may have been a miscommunication between provider and patient regarding Novolog dosing while he was outpatient. Today we discussed his home dosing of insulins, and tomorrow will reiterate dosing regimen for outpatient setting. - DM educator to see today as well. - Patient is on asa, beta evan, LILLIE, statin. Hyperlipidemia: - Most recent lipid panel as follows on Simvastatin 40mg daily: - Total cholesterol 172, LDL 77, HDL 36, TG 297. - Given ASCVD risk of >20%, will transition to high-intensity statin (Lipitor 80mg daily). HTN: - Continue lisinopril, metoprolol. CHF/ idiopathic cardiomyopathy: - Continue aspirin, LILLIE, beta evan. TORI on CPAP: - Continue CPAP HS. Depression: - Continue citalopram. Code Status: FULL CODE FEN/GI: DM2 diet DVT ppx: Heparin 5000u SQ q12 Dispo: Med/Surg, expect discharge to home once well however pending studies to determine course (2) Diabetic ulcer of left fifth toe: (3) DM neuropathy, type II diabetes mellitus: (4) Insulin-requiring or dependent type II diabetes mellitus: (5) CAD (coronary artery disease): (6) Cardiomyopathy, idiopathic: (7) TORI on CPAP: (8) HTN (hypertension): (9) Dyslipidemia: Admission and Anticipated Discharge Date Admission Date: August 30, 2019 Supervising Physician Co-Signing Physician Notes I personally examined the patient and verified all kaplan points of history and exam, discussed case, and agree with decision making with Dr Murphy. toe looks worse. feels about the same - stings/crowe when pushed on. otherwise doing ok. extensive discussions on DM2, pathophys, control, reasons to care, insulin management, etc. present for discussion as well vitals noted nad heent nc at mmm. L 5th toe purple with macerated tissue and ulceration, no tracking erythema, erythema on trejo has more or less resolved. foot infection, cellulitis, sepsis present on admission - continue vanco - other than 5th toe everything has improved significantly. 5th toe looks worrisome but MRI reassuring as far as bone infection - will consult wound for debridement as it appears likely to be needed uncontrolled DM - extensive time spent in educating in regards to DM / why to care / how to adjust insulins/etc / critical importance of lifestyle control DVT proph - heparin SQ time in ~215, time out ~245, ~30mins face to face predominantly in educating regarding DM2 as above otherwise as above Subjective Patient without acute events overnight. Feels well save for intermittent pain of the L great toe. No fevers or chills, no shortness of breath or chest pain, no abdominal pain, nausea, vomiting. States that his doctor in the outpatient told him to take "no more than 17 units of Novolog a day". At home his prepares most meals, and he reports that he usually eats one meal a day. In conversation he state that he understands that having high sugars "causes more than just lost toes and feet, but heart attacks and strokes too". Is motivated to keep his toe, stating "I will not let my toe get taken unless it is absolutely necessary". Review of Systems Review of Systems: All systems reviewed & are unremarkable except as noted in Subjective Physical Exam Constitutional: WD/WN, vitals as above ENMT: external ear and nose normal, oropharynx normal Respiratory: normal respiratory effort, lungs clear to auscultation Cardiovascular: Rate/Rhythm: regular rate and regular rhythm Heart Sounds: no murmur 2+ pitting edema bilateral LE Gastrointestinal (Abdomen): normal bowel sounds, soft, nontender, no hepatosplenomegaly Skin: RLE: R trejo with chronic venous stasis changes, decreased hair. LLE: L trejo with chronic venous stasis changes, decreased hair. Erythema and warmth of L fifth digit which extends to L ankle. L fifth phalanx with ecchymoses and blister formation, dark purple to black skin color. Psychiatric: A+Ox3, euthymic affect Results & Data Results & Data ([facility]) Vital Signs (Past 12 Hours) Vital Signs Temp Pulse Pulse Pulse Resp BP BP 08/31/19 08:00 36.8 C 73 18 138/72 08/31/19 07:40 70 08/31/19 05:02 75 08/31/19 03:20 69 18 08/31/19 02:52 37 C 84 18 147/70 H 08/30/19 23:21 36.8 C 71 16 150/73 H 08/30/19 21:55 85 22 Pulse Ox 08/31/19 08:00 97 08/31/19 07:40 08/31/19 05:02 08/31/19 03:20 98 08/31/19 02:52 97 08/30/19 23:21 97 08/30/19 21:55 97 Resident Activity Tracking Resident Involvement: Resident Care Provided Care Provided: Adult Hospital Medicine
--- NOTE | 2019-08-31 13:03 | Magnetic Resonance Report ---
Study: MRI left foot HISTORY:: Fifth toe infection COMPARISON: None. FINDINGS: Generalized soft tissue edematous change throughout the foot and ankle. This predominates o verlying the dorsal aspect of the metatarsals but is also seen throughout the entire foot and visuali zed components of the ankle. There appears to be a soft tissue laceration adjacent to the distal phalanx of the fifth toe. No well -defined acute bony abnormality is present. No evidence for bone marrow replacing process is identified. Study specifically appears to be negative for osteomyelitis. There is no evidence for drainable abscess or collection. All major ligamentous and tendinous structures are intact. 1 cm ganglion cyst adjacent to the base of the proximal aspect third metatarsal. IMPRESSION: 1. Findings of generalized cellulitis and edema throughout the soft tissue structures of the foot and visualized components of the ankle. 2. Focal soft tissue laceration overlying the distal phalanx of the fifth toe. 3. No evidence for osteomyelitis. 4. No evidence for abscess or collection. Electronically signed by: Israel Funk M.D. 08/31/2019 1:01 PM
--- NOTE | 2019-08-31 14:01 | Ultrasound Report ---
US arterial duplex LE BI CLINICAL HISTORY: DM foot infection pain. Claudication. COMPARISON STUDY: None FINDINGS: Real-time as well as Doppler evaluation of the arterial structures of the lower legs was p erformed. Waveforms are biphasic and/or triphasic throughout the bulk of the right leg. Ankle brachial indices could not BE obtained due to calcified vessel hayward. There is increased velocity characteristics of the arterial structures of the left thigh with increas ed velocity characteristics as well as monophasic waveforms involving the left popliteal artery with all 3 runoff vessels may been a similar fashion. IMPRESSION: 1. Limited study due to noncompressible calcified vessel hayward. 2. Mild atherosclerotic change of the arterial structures of the right leg with no high-grade stenosi s. 3. Moderate multifocal arterial occlusive change throughout the left leg with monophasic waveforms fr om the left mid thigh through the left feet. This is consistent with moderate/significant arterial oc clusive change of the left thigh with dampened flow characteristics of the 3 runoff vessels of the lo wer leg. ACT 112: Negative or not required by law. The above report was generated using voice recognition software. It may contain grammatical, syntax or spelling errors. Electronically signed by: Israel Funk M.D. 08/31/2019 1:59 PM
--- NOTE | 2019-08-31 15:55 | Billing Data ---
Date of Service August 31, 2019 Coding Level of Care Code 13643 Subseq Hosp Care Lvl 3
--- NOTE | 2019-08-31 15:55 | Billing Data ---
Date of Service August 31, 2019 Coding Level of Care Code 66274 Prolonged Care (int'l)
--- NOTE | 2019-08-31 20:58 | Pharmacy Report ---
Pharmacy Abx Dose Short Note - Date of Service August 31, 2019 - Assessment & Plan Assessment 63 year old M receiving vancomycin/zosyn for treatment of diabetic foot infection Vancomycin was placed on hold due to supratherapeutic level of 27.7 mcg/mL (08/30 @ 0100). Trending vanc level to determine when it is safe to re-dose the patient. Plan Vancomycin * Most recent vanc level of 16.4 mcg/mL indicates that it is ok to re-dose patient at this time * Last complete dose of vancomycin was administered 08/29 @ 1600. Of note, a dose was hung 08/30 @ 0200 and stopped about 15 minutes into the infusion. * Estimated ke and T1/2 based on random levels: 0.0316 hr-1, 22 hours * Will give a one time dose of vanco 1750 mg IV * Further levels to be determined once renal function accessed in AM * Goal trough level for diabetic foot infection : ~15 mcg/mL Pharmacy will continue to follow and will adjust dose/frequency as necessary. Thank you.
[2019-08-31] MEDS ORDERED: ATORVASTATIN 40 MG TAB PO SCH (21:00)
[2019-08-31] MEDS ORDERED: VANCOMYCIN HCL 1,750 MG in SODIUM CHLORIDE 0.9% 500 ML IV SCH (21:00)
[2019-08-31] MEDS: CITALOPRAM 20 MG TAB PO SCH (21:04)
[2019-08-31] MEDS: lisinopriL 20 MG TAB PO SCH (21:06)
[2019-09-01 07:16] LABS: Basophils # (auto) 0.02 K/uL (0-0.2); Basophils % (auto) 0.1 %; Eosinophils # (auto) 0.45 K/uL (0-0.5); Hematocrit (blood only) 30.8 % (42-52); Hemoglobin 9.7 g/dL (14.0-18.0); Immature Granulocytes # (auto) 0.05 K/uL (0.00-0.02); Immature Granulocytes % (auto) 0.3 %; Lymphocytes # (auto) 1.96 K/uL (1.2-3.4); Lymphocytes % (auto) 13.1 %; Mean Corpuscular Hemoglobin 28.1 pg (25-34); Mean Corpuscular Hgb Conc 31.5 g/dL (32-36); Mean Corpuscular Volume 89.3 fL (80-100); Mean Platelet Volume 9.9 fL (7.4-10.4); Monocytes # (auto) 1.26 K/uL (0.11-0.59); Monocytes % (auto) 8.4 %; Neutrophils # (auto) 11.22 K/uL (1.4-6.5); Neutrophils % (auto) 75.1 %; Platelet Count 251 K/uL (130-400); RDW Coefficient of Variation 13.6 % (11.5-14.5); RDW Standard Deviation 44.4 fL (36.4-46.3); Red Blood Count 3.45 M/uL (4.7-6.1); White Blood Count 14.96 K/uL (4.8-10.8)
[2019-09-01 07:41] LABS: BUN Creatinine Ratio 21.9 (10-20); Calcium 8.7 mg/dl (8.5-10.1); Creatinine Clr Calc Pharmacy 111.8 ml/min; Est GFR (African American) 87.4; Est GFR (Non-African American) 75.4; Potassium 3.3 mmol/L (3.5-5.1)
[2019-09-01] MEDS: METOPROLOL SUCC 25MG EXT REL TAB PO SCH (08:38)
[2019-09-01] MEDS: ACETAMINOPHEN 325 MG TAB PO PRN ×2 (08:38→20:52)
[2019-09-01] MEDS: ASPIRIN 81 MG ECTAB PO SCH (08:38)
[2019-09-01] MEDS: INSULIN ASPART 100 UNITS/ML 3 ML PEN SC SCH ×4 (08:39→20:56)
[2019-09-01] MEDS: INSULIN GLARGINE SOLOSTAR 100 UNITS/ML 3 ML PEN SQ SCH ×2 (08:39→20:57)
[2019-09-01] MEDS: HEPARIN SOD 5,000 UNIT/0.5 ML VIAL SQ SCH (08:39)
--- NOTE | 2019-09-01 09:22 | Hospitalist Progress Note ---
Date of Service September 01, 2019 Assessment & Plan (1) Cellulitis of left lower extremity: 63 yo M admitted for LLE cellulitis and foot wound now with episode of symptomatic asystole overnight. Symptomatic Asystole: - Overnight on telemetry patient had a 4 second asystole, followed by a single normal beat, followed again by 5 seconds of asystole, which then returned to NSR spontaneously. - During this time period patient was feeling dizzy, nauseated, diaphoretic. - No further episodes and patient is asymptomatic at this time. - Possible this is a significant vagal response as patient was returning to bathroom and having retching, however given symptomatic nature and length of asystole would also consider possible conduction abnormality of the heart. - This patient has extensive peripheral vascular disease due to his long history of HTN, uncontrolled DM2, HLD. - Hx of CAD, no workup in this EMR with regard to his care. - Troponin on admission was normal. - EKG with nonspecific T wave changes. - Cardiology consult placed to evaluate for conduction delay vs. vagal episode. Cellulitis of left lower extremity with L 5th toe worsening wound: - Patient admitted for cellulitis of LLE arising from wound of L great toe vs. L fifth toe and started on broad-spectrum Abx. - At this time only on vancomycin, and his cellulitis is clinically improving, as well as his leukocytosis (21->18). - XRay and MRI LLE show no evidence of abscess or osteomyelitis. - LLE Doppler performed with results as follows: - Moderate multifocal arterial occlusive change throughout the left leg with monophasic waveforms from the left mid thigh through the left feet. This is consistent with moderate/significant arterial occlusive change of the left thigh with dampened flow characteristics of the 3 runoff vessels of the lower leg. - Will transition to daptomycin at this time to reduce dosing variability, consider escalating antibiotic coverage if leukocytosis and clinical picture worsen or plateau. - Wounds likely 2/2 poorly controlled diabetes causing extensive peripheral vascular disease; glycemic control as below. - Acetaminophen PO PRN pain. Patient without complaints at this time. - Vascular surgery consulted given acute worsening of L 5th toe despite antibiotics. Continue wound care. 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 - Holding metformin while inpatient. - Currently Lantus 30u BID, SSI. - It appears there may have been a miscommunication between provider and patient regarding Novolog dosing while he was outpatient. Today we discussed his home dosing of insulins, and tomorrow will reiterate dosing regimen for outpatient setting. - DM educator to see this admission as well. - Patient is on asa, beta evan, LILLIE, statin (holding statin due to dapto). Hyperlipidemia: - Most recent lipid panel as follows on Simvastatin 40mg daily: - Total cholesterol 172, LDL 77, HDL 36, TG 297. - Given ASCVD risk of >20%, will transition to high-intensity statin (Lipitor 80mg daily). - However will hold in the setting of daptomycin due to increased risk of rhabdomyolysis. HTN: - Continue lisinopril, metoprolol. CHF/ idiopathic cardiomyopathy: - Continue aspirin, LILLIE, beta evan. TORI on CPAP: - Continue CPAP HS. Depression: - Continue citalopram. Code Status: FULL CODE FEN/GI: DM2 diet DVT ppx: Heparin 5000u SQ q12 Dispo: Med/Surg with Telemetry (2) Diabetic ulcer of left fifth toe: (3) DM neuropathy, type II diabetes mellitus: (4) Insulin-requiring or dependent type II diabetes mellitus: (5) CAD (coronary artery disease): (6) Cardiomyopathy, idiopathic: (7) TORI on CPAP: (8) HTN (hypertension): (9) Dyslipidemia: Admission and Anticipated Discharge Date Admission Date: August 30, 2019 Supervising Physician Co-Signing Physician Notes I personally examined the patient and verified all kaplan points of history and exam, discussed case, and agree with decision making with Dr Murphy. toe still bad. d/w vascular. d/w wound. input greatly appreciated. otherwise he's feeling about the same now - but did have episode of cough/gag last night at the same time had significant pause/seema on monitor vitals noted nad heent nc at mmm. L 5th toe purple with macerated tissue and ulceration - worse than yesterday, no tracking erythema, erythema on trejo has resolved. foot infection, cellulitis, sepsis present on admission - switch to dapto due to difficulty in vanco dosing - other than 5th toe everything has improved significantly. 5th toe looks worrisome but MRI reassuring as far as bone infection - betadine w wound, possible need for debridement, hopefully revascularization will help uncontrolled DM - on 08/30, extensive time spent in educating in regards to DM / why to care / how to adjust insulins/etc / critical importance of lifestyle control; currently sugars well controlled PVD - vascular consult, med management, secondary risk reduction pauses - could all be vagal from nausea, but also concern particularly w his already known vascular disease and excessive risks (spent most of 2018 w A1c >15, currently "improved" to mid 10's) concern on conduction system disease causing the symptoms. will ask cardiology for opinion. DVT proph - heparin SQ otherwise as above Subjective Patient overnight was leaving the bathroom after urinating, walked back to his bed and felt dizzy and nauseated and started dry heaving. During this period his sap basis showed asystole for 5s, one normal beat, followed by 4 more seconds of asystole which then reverted spontaneously to NSR. After this episode patient had no further episodes, and did not feel nauseated anymore. States that that sensation of profound nausea and dizziness is why he came into the hospital, and felt similar to how he felt prior to admission. Feels well this morning and without acute complaints. Denies pain at rest in his foot and with palpation of the affected L fifth toe. No fevers or chills, no SOB or active chest pain. Per nurse who has had the patient throughout his admission, his toe wound appears to be getting worse while the redness in his leg and foot is significantly improving. Review of Systems Review of Systems: All systems reviewed & are unremarkable except as noted in Subjective Physical Exam Constitutional: WD/WN, vitals as above ENMT: external ear and nose normal, oropharynx normal Respiratory: normal respiratory effort, lungs clear to auscultation Cardiovascular: Rate/Rhythm: regular rate and regular rhythm Heart Sounds: no murmur 2+ pitting edema bilateral LE Gastrointestinal (Abdomen): normal bowel sounds, soft, nontender, no hepatosplenomegaly Skin: RLE: R trejo with chronic venous stasis changes, decreased hair. LLE: L trejo with chronic venous stasis changes, decreased hair. Erythema and warmth of L fifth digit which extends to midway up the L foot. L fifth phalanx with ecchymoses and blister formation, dark purple to black skin color. Psychiatric: A+Ox3, euthymic affect Results & Data Results & Data ([facility]) Vital Signs (Past 12 Hours) Vital Signs Temp Pulse Pulse Resp BP BP Pulse Ox 09/01/19 07:00 36.4 C L 72 19 174/76 H 94 09/01/19 03:37 78 28 H 96 09/01/19 00:00 85 08/31/19 22:26 83 16 95 08/31/19 21:53 37.0 C 88 20 171/79 H 93 Resident Activity Tracking Resident Involvement: Resident Care Provided Care Provided: Adult Hospital Medicine
[2019-09-01] MEDS ORDERED: DAPTOMYCIN CONSULT ACTIVE PRN (13:43)
--- NOTE | 2019-09-01 15:20 | Wound Consultation ---
Date of Consultation September 01, 2019 Assessment & Plan (1) Diabetic ulcer of left fifth toe: Patient with new diabetic ulcer of his left fifth toe in the setting of trauma. No debridement was done today. We will be painted with Betadine daily. Am concerned with the discoloration of the toe as well as the black eschar forming on the medial aspect. Continue to follow daily. Thank you for limited participate in the care of this patient. Please not hesitate to call with any questions. History of Present Illness Reason for Consultation: cellulitis left foot Attending Physician: [place] Talamantes DO History of Present Illness This is a 63-year-old male with a history of poorly controlled diabetes, congestive heart failure, hypertension and dyslipidemia who is known to the wound clinic and is admitted with cellulitis and sepsis. While inpatient patient reports that he hit his foot off of the foot rest of the bed causing injury to the fifth toe. Patient is currently on IV antibiotics. He denies fevers or chills. Patient was seen by Ortho and MRI showed no evidence of osteomyelitis. Allergies Allergy/AdvReac Type Severity Reaction Status Date / Time bee venom protein (honey bee) Allergy Severe Anaphylaxis Verified 08/29/19 23:35 iodine AdvReac Mild FLUSHED Verified 08/29/19 23:35 FEELING/sick to stomach egg AdvReac Verified 08/30/19 14:34 Egg or Chicken-derived Drugs Allergy Unknown Gastrointestinal Uncoded 08/29/19 23:35 Upset Home Medications Home Medications Medication Instructions Recorded Confirmed Type aspirin 81 mg PO QAM 12/10/17 08/29/19 History citalopram 10 mg tablet 10 mg PO HS tab 10/26/18 08/29/19 History citalopram 20 mg tablet 20 mg PO HS 10/26/18 08/29/19 History insulin aspart U-100 100 unit/mL See Rx Instructions SQ UD ml 10/26/18 08/29/19 History (3 mL) subcutaneous pen lancets 33 gauge #100 ea 10/26/18 07/27/19 History lisinopril 20 mg tablet 20 mg PO HS #90 tab 06/09/19 08/29/19 Rx simvastatin 40 mg tablet 40 mg PO QPM #90 tab 06/15/19 08/29/19 Rx clindamycin HCl 300 mg capsule 300 mg PO tid #42 cap 07/26/19 08/29/19 Rx blood sugar diagnostic #10 ea 07/27/19 07/27/19 History insulin glargine 100 unit/mL (3 60 units SQ DAILY ml 07/27/19 08/29/19 History mL) subcutaneous pen metformin 500 mg tablet,extended 500 mg PO DAILY #30 tab 07/27/19 08/29/19 Rx release 24 hr metoprolol succinate 25 mg 25 mg PO DAILY #90 tab 08/15/19 08/29/19 Rx tablet,extended release 24 hr Patient History Medical History Chest pain (Inactive 09/01/13) CHF (congestive heart failure) Depression DM neuropathy, type II diabetes mellitus HTN (hypertension) Insulin-requiring or dependent type II diabetes mellitus Kidney stones Migraine Morbid obesity with BMI of 40.0-44.9, adult Myocardial Infarction ? mild in 1995 per doc in [place]---per Dr. Langford didnt have an MD ? S/P hernia repair (Inactive) Sleep apnea cpap Uncontrolled type 2 diabetes mellitus Surgical History H/O umbilical hernia repair History of bilateral cataract extraction History of cardiac cath x2--1995 @ [place], no stents [address] Langford's record History of cholecystectomy History of cystoscopy History of esophagogastroduodenoscopy (EGD) History of hernia repair (Inactive) History of tooth extraction S/P cholecystectomy (Inactive) Family History Father Muscular dystrophy Mother Breast cancer Cancer hx of Leukemia and a month ago Brother Parkinson disease Denies family history of Ovarian cancer Prostate cancer No family history of adverse response to anesthesia Myocardial infarction Colorectal cancer Social History Preferred Language: Amharic Communication Ability: Effective Visual Impairment: No Limitations Hearing Ability: Normal Medical Collections Specialist Required: No Beliefs That Will Affect Care: None marital status: Current Living Situation: Spouse current occupational status: retired Feels Safe at Home: Yes Smoking Status: Never smoker Tobacco Type: smokeless tobacco ; Second Hand Exposure: No ; Hx Alcohol Use: No Hx Substance Use: No Review of Systems Review of Systems: All systems reviewed & are unremarkable except as noted in HPI & below Physical Exam Constitutional: WD/WN, vitals as above Eyes: PERRL, conjunctivae normal, anicteric sclerae Skin: Wound measuring as recorded in nursing documentation. Left fifth digit is ecchymotic. Medial aspect of the wound covered with eschar. Neurologic: awake; not confused Psychiatric: A+Ox3, euthymic affect Results & Data Vital Signs (Past 12 Hours) Vital Signs Temp Pulse Pulse Resp BP Pulse Ox 09/01/19 14:39 36.5 C 72 20 158/78 H 96 09/01/19 11:00 36.3 C L 75 20 183/75 H 94 09/01/19 10:00 72 09/01/19 07:00 36.4 C L 72 19 174/76 H 94 09/01/19 03:37 78 28 H 96 Laboratory Results 09/01/19 09/01/19 09/01/19 Range/Units 11:47 07:26 06:41 WBC (4.8-10.8) K/uL RBC (4.7-6.1) M/uL Hgb (14.0-18.0) g/dL Hct (42-52) % MCV (80-100) fL MCH (25-34) pg MCHC (32-36) g/dL RDW Std Deviation (36.4-46.3) fL RDW Coeff of Maribel (11.5-14.5) % Plt Count (130-400) K/uL MPV (7.4-10.4) fL Immature Gran % (Auto) % Neut % (Auto) % Lymph % (Auto) % [place] % (Auto) % Eos % (Auto) % Baso % (Auto) % Neut # (Auto) (1.4-6.5) K/uL Lymph # (Auto) (1.2-3.4) K/uL [place] # (Auto) (0.11-0.59) K/uL Eos # (Auto) (0-0.5) K/uL Baso # (Auto) (0-0.2) K/uL Immature Gran # (Auto) (0.00-0.02) K/uL Sodium 141 (136-145) mmol/L Potassium 3.3 L (3.5-5.1) mmol/L Chloride 108 H (98-107) mmol/L Carbon Dioxide 28 (21-32) mmol/L Anion Gap 5.0 (3-11) BUN 23 H (7-18) mg/dl Creatinine 1.06 (0.6-1.4) mg/dl Est Cr Clr Drug Dosing 111.8 ml/min Est GFR ( Amer) 87.4 Est GFR (Non-Af Amer) 75.4 BUN/Creatinine Ratio 21.9 H (10-20) Glucose 67 L (70-99) mg/dl POC Glucose 136 H 83 (70-99) mg/dl Calcium 8.7 (8.5-10.1) mg/dl Random Vancomycin mcg/ml 09/01/19 08/31/19 08/31/19 Range/Units 06:41 20:01 19:31 WBC 14.96 H (4.8-10.8) K/uL RBC 3.45 L (4.7-6.1) M/uL Hgb 9.7 L (14.0-18.0) g/dL Hct 30.8 L (42-52) % MCV 89.3 (80-100) fL MCH 28.1 (25-34) pg MCHC 31.5 L (32-36) g/dL RDW Std Deviation 44.4 (36.4-46.3) fL RDW Coeff of Maribel 13.6 (11.5-14.5) % Plt Count 251 (130-400) K/uL MPV 9.9 (7.4-10.4) fL Immature Gran % (Auto) 0.3 % Neut % (Auto) 75.1 % Lymph % (Auto) 13.1 % [place] % (Auto) 8.4 % Eos % (Auto) 3.0 % Baso % (Auto) 0.1 % Neut # (Auto) 11.22 H (1.4-6.5) K/uL Lymph # (Auto) 1.96 (1.2-3.4) K/uL [place] # (Auto) 1.26 H (0.11-0.59) K/uL Eos # (Auto) 0.45 (0-0.5) K/uL Baso # (Auto) 0.02 (0-0.2) K/uL Immature Gran # (Auto) 0.05 H (0.00-0.02) K/uL Sodium (136-145) mmol/L Potassium (3.5-5.1) mmol/L Chloride (98-107) mmol/L Carbon Dioxide (21-32) mmol/L Anion Gap (3-11) BUN (7-18) mg/dl Creatinine (0.6-1.4) mg/dl Est Cr Clr Drug Dosing ml/min Est GFR ( Amer) Est GFR (Non-Af Amer) BUN/Creatinine Ratio (10-20) Glucose (70-99) mg/dl POC Glucose 174 H (70-99) mg/dl Calcium (8.5-10.1) mg/dl Random Vancomycin 16.4 mcg/ml 08/31/19 Range/Units 17:02 WBC (4.8-10.8) K/uL RBC (4.7-6.1) M/uL Hgb (14.0-18.0) g/dL Hct (42-52) % MCV (80-100) fL MCH (25-34) pg MCHC (32-36) g/dL RDW Std Deviation (36.4-46.3) fL RDW Coeff of Maribel (11.5-14.5) % Plt Count (130-400) K/uL MPV (7.4-10.4) fL Immature Gran % (Auto) % Neut % (Auto) % Lymph % (Auto) % [place] % (Auto) % Eos % (Auto) % Baso % (Auto) % Neut # (Auto) (1.4-6.5) K/uL Lymph # (Auto) (1.2-3.4) K/uL [place] # (Auto) (0.11-0.59) K/uL Eos # (Auto) (0-0.5) K/uL Baso # (Auto) (0-0.2) K/uL Immature Gran # (Auto) (0.00-0.02) K/uL Sodium (136-145) mmol/L Potassium (3.5-5.1) mmol/L Chloride (98-107) mmol/L Carbon Dioxide (21-32) mmol/L Anion Gap (3-11) BUN (7-18) mg/dl Creatinine (0.6-1.4) mg/dl Est Cr Clr Drug Dosing ml/min Est GFR ( Amer) Est GFR (Non-Af Amer) BUN/Creatinine Ratio (10-20) Glucose (70-99) mg/dl POC Glucose 142 H (70-99) mg/dl Calcium (8.5-10.1) mg/dl Random Vancomycin mcg/ml Diagnostic Findings MRI negative for osteomyelitis. Arterial Doppler showed moderate to severe stenosis of the left thigh. PG Care Time/CCT Total # of Minutes Spent Total Time Spent with Patient: Total time spent is greater than 50% in coordination of care (as documented) at patient's floor/unit and/or counseling patient: Coding Level of Care Code 29686 Inpt Consult Level 3 Diagnoses Diabetic ulcer of left fifth toe E11.621; L97.529
[2019-09-01] MEDS: DAPTOmycin 450 MG in SYRINGE 0 ML IV SCH (15:31)
--- NOTE | 2019-09-01 15:32 | Consultation ---
Date of Consultation September 01, 2019 Assessment & Plan (1) Peripheral arterial disease: LLE arterial US demonstrates distal SFA/pop disease, and pt with gangrenous L 5th toe and claudication sx. Pt discussed with Dr West. Recommend he undergo LLE angio with intervention in OR tomorrow. Patient was seen, examined, and chart reviewed. Agree with exam and treatment plan of the Vascular PA. I have discussed the risks options and benefits of the procedure with the patient. The patient understands the risks options and benefits and agrees to the procedure. Thank you very much for letting us participate in the care of this patient. (2) Gangrene of toe of left foot: See above. Local wound care. History of Present Illness Reason for Consultation: LLE gangrene Attending Physician: [place] Talamantes DO History of Present Illness 63 yo m with hx of DMII, CAD, CHF, dyslipidemia, TORI, HTN, neuropathy, admitted with gangrene of L 5th toe, seen in consultation today for PAD noted on US. Pt states he must have injured his L 5th toe while in bed, bc he does not remember any other time he injured it. Occurred a few days prior to admission. Upon questioning, admits L calf claudication at approx 100-200 feet. Denies PEREZ, fever, chills, chest pain, SOB, abd pain, N/V, rest pain, other complaints. Arterial US demonstrates L SFA/pop stenosis. Allergies Allergy/AdvReac Type Severity Reaction Status Date / Time bee venom protein (honey bee) Allergy Severe Anaphylaxis Verified 08/29/19 23:35 iodine AdvReac Mild FLUSHED Verified 08/29/19 23:35 FEELING/sick to stomach egg AdvReac Verified 08/30/19 14:34 Egg or Chicken-derived Drugs Allergy Unknown Gastrointestinal Uncoded 08/29/19 23:35 Upset Home Medications Home Medications Medication Instructions Recorded Confirmed Type aspirin 81 mg PO QAM 12/10/17 08/29/19 History citalopram 10 mg tablet 10 mg PO HS tab 10/26/18 08/29/19 History citalopram 20 mg tablet 20 mg PO HS 10/26/18 08/29/19 History insulin aspart U-100 100 unit/mL See Rx Instructions SQ UD ml 10/26/18 08/29/19 History (3 mL) subcutaneous pen lancets 33 gauge #100 ea 10/26/18 07/27/19 History lisinopril 20 mg tablet 20 mg PO HS #90 tab 06/09/19 08/29/19 Rx simvastatin 40 mg tablet 40 mg PO QPM #90 tab 06/15/19 08/29/19 Rx clindamycin HCl 300 mg capsule 300 mg PO tid #42 cap 07/26/19 08/29/19 Rx blood sugar diagnostic #10 ea 07/27/19 07/27/19 History insulin glargine 100 unit/mL (3 60 units SQ DAILY ml 07/27/19 08/29/19 History mL) subcutaneous pen metformin 500 mg tablet,extended 500 mg PO DAILY #30 tab 07/27/19 08/29/19 Rx release 24 hr metoprolol succinate 25 mg 25 mg PO DAILY #90 tab 08/15/19 08/29/19 Rx tablet,extended release 24 hr Patient History Medical History (Updated 09/01/19 @ 15:31 by Hilary Santizo PA-C) Chest pain (Inactive 09/01/13) CHF (congestive heart failure) Depression DM neuropathy, type II diabetes mellitus Gangrene of toe of left foot HTN (hypertension) Insulin-requiring or dependent type II diabetes mellitus Kidney stones Migraine Morbid obesity with BMI of 40.0-44.9, adult Myocardial Infarction ? mild in 1995 per doc in [place]---per Dr. Langford didnt have an [place] ? Peripheral arterial disease S/P hernia repair (Inactive) Sleep apnea cpap Uncontrolled type 2 diabetes mellitus Surgical History H/O umbilical hernia repair History of bilateral cataract extraction History of cardiac cath x2--1995 @ [place], no stents [address] Langford's record History of cholecystectomy History of cystoscopy History of esophagogastroduodenoscopy (EGD) History of hernia repair (Inactive) History of tooth extraction S/P cholecystectomy (Inactive) Family History Father Muscular dystrophy Mother Breast cancer Cancer hx of Leukemia and a month ago Brother Parkinson disease Denies family history of Ovarian cancer Prostate cancer No family history of adverse response to anesthesia Myocardial infarction Colorectal cancer Social History Preferred Language: Greek Communication Ability: Effective Visual Impairment: No Limitations Hearing Ability: Normal Door Opener Required: No Beliefs That Will Affect Care: None marital status: Current Living Situation: Spouse current occupational status: retired Feels Safe at Home: Yes Smoking Status: Never smoker Tobacco Type: smokeless tobacco ; Second Hand Exposure: No ; Hx Alcohol Use: No Hx Substance Use: No Review of Systems Review of Systems: All systems reviewed & are unremarkable except as noted in HPI & below Physical Exam Constitutional: WD/WN, vitals as above + morbidly obese Eyes: PERRL, conjunctivae normal, anicteric sclerae ENMT: external ear and nose normal, oropharynx normal Ears: no hearing impairment Neck: normal visual inspection Respiratory: normal respiratory effort, lungs clear to auscultation Auscultation: + diminished lung sounds Cardiovascular: Rate/Rhythm: regular rate and regular rhythm Vessels: femoral pulses present, posterior tibial pulses present (RLE +1, LLE nonpalpable), dorsalis pedis pulses present (RLE +2, LLE nonpalpable), brachial pulses present and radial pulses present; + abnormal peripheral pulses Extremities: normal capillary refill and + edema (mild BLE) Gastrointestinal (Abdomen): normal bowel sounds, soft, nontender, no hepatosplenomegaly Musculoskeletal: Extremities: strength 5/5 throughout Skin: + erythema (and warmth dorsal L foot) and + mottling (purple/black L 5th toe) Neurologic: moves all extremities; no focal motor deficits and not confused Psychiatric: A+Ox3, euthymic affect Results & Data Vital Signs (Past 12 Hours) Vital Signs Temp Pulse Pulse Resp BP Pulse Ox 09/01/19 14:39 36.5 C 72 20 158/78 H 96 09/01/19 11:00 36.3 C L 75 20 183/75 H 94 09/01/19 10:00 72 09/01/19 07:00 36.4 C L 72 19 174/76 H 94 09/01/19 03:37 78 28 H 96
[2019-09-01] MEDS ORDERED: POTASSIUM CHLORIDE 20 MEQ TABCR PO ONE (16:00)
[2019-09-01] MEDS: predniSONE 50 MG TAB PO SCH (17:17)
--- NOTE | 2019-09-01 18:55 | Billing Data ---
Date of Service September 01, 2019 Coding Level of Care Code 64717 Subseq Hosp Care Lvl 3
--- NOTE | 2019-09-01 19:00 | Cardiology Consultation ---
Date of Consultation September 01, 2019 Assessment & Plan (1) Sinus pause: (2) Peripheral arterial disease: (3) Dyslipidemia: (4) HTN (hypertension): ASSESSMENT/PLAN: 1. Sinus pause: Likely vagal as it occurred during nausea and dry heaving. He did not appear to have syncope or near-syncope during the episode. His only episode of syncope was approximately 1 month ago also during nausea, suggesting increased vagal tone. We discussed the diagnosis. When Experiencing the trigger of nausea/vomiting, he should immediately sit or lay down to avoid injury if he should lose consciousness. If this becomes a significant recurrent issue, could consider pacemaker at that time. Can check echocardiogram for structural abnormalities. 2. Dyslipidemia: LDL reasonably controlled. Continue high-intensity statin therapy. 3. Hypertension: Blood pressure has been elevated. Consider titration of lisinopril. 4. Peripheral arterial disease: He has been evaluated by vascular. Will defer to Dr. West. 5. Reported history of CHF: He does not appear to be significantly hypervolemic. Question this diagnosis given the fact that he has not required a diuretic. 6. Reported history of CAD: He reports having a myocardial infarction but also reports having no CAD on cardiac catheterization many years ago. Given peripheral arterial disease, medical therapy would be similar. No angina. 7. Disposition: He can follow up with Cardiology on an as-needed basis, certainly if he should develop syncope in the future. Patient care has been discussed with the primary service, Dr. Yoon Vila. Cardiology will sign off at this time. Thank you for allowing me to participate in the care of your patient. Please call for any other questions or concerns. Sincerely, Contreras Nguyễn M.D. History of Present Illness Reason for Consultation: Sinus pause Requesting Physician: Dr. Talamantes Attending Physician: Luis Talamantes, DO History of Present Illness Mr. Royal is a pleasant 63-year-old gentleman with a history significant for peripheral arterial disease, type 2 diabetes with diabetic neuropathy, hypertension, and dyslipidemia. He states that he had a myocardial infarction in 1995 but also states that he had a cardiac catheterization done at that time which was normal. He reports a history of CHF does not require any diuretics. He sought medical attention and was admitted on 08/30/2019 for symptoms of nausea, dry heaving, and overall not feeling well with fever. He was then admitted for left lower extremity cellulitis. He has been seen by vascular with plans of undergoing lower extremity angiography with possible intervention tomorrow. He had described claudication symptoms and lower extremity duplex demonstrated significant PAD involving the left lower extremity on 08/31/2019. Last night, he went to the restroom and after urinating, walked back to his bed. He felt dizzy, nauseated, and started dry heaving. On the monitor at that time, he developed a sinus pause of nearly 5 seconds with a ventricular escape beat followed by another approximately 4 second sinus pause. He denies syncope or near-syncope during the event. He did have 1 syncopal episode through his life that he can remember and happen approximately 1 month ago. He was at his daughter's house and he inhaled some chemicals which made him feel quite nauseated. Because of this, he leaned up against a wall and had a brief syncopal episode. He denies any other syncope or near-syncope. He denies chest pain, shortness of breath, palpitations, significant edema, or bleeding such as melena, hematochezia, or hematuria. His left fifth toe is gangrenous. He has had issues with poorly controlled diabetes with a reported A1c in 2018 of greater than 15. Review of systems: As above. Review of systems otherwise negative/unremarkable. Family history: No known premature CAD. Social history: He quit smoking in approximately 2004. No significant alcohol or drugs. He is lives at home with his . He has 2 children. 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 He was unaccompanied today during our visit. Allergies Allergy/AdvReac Type Severity Reaction Status Date / Time bee venom protein (honey bee) Allergy Severe Anaphylaxis Verified 08/29/19 23:35 iodine AdvReac Mild FLUSHED Verified 08/29/19 23:35 FEELING/sick to stomach egg AdvReac Verified 08/30/19 14:34 Egg or Chicken-derived Drugs Allergy Unknown Gastrointestinal Uncoded 08/29/19 23:35 Upset Home Medications Home Medications Medication Instructions Recorded Confirmed Type aspirin 81 mg PO QAM 12/10/17 08/29/19 History citalopram 10 mg tablet 10 mg PO HS tab 10/26/18 08/29/19 History citalopram 20 mg tablet 20 mg PO HS 10/26/18 08/29/19 History insulin aspart U-100 100 unit/mL See Rx Instructions SQ UD ml 10/26/18 08/29/19 History (3 mL) subcutaneous pen lancets 33 gauge #100 ea 10/26/18 07/27/19 History lisinopril 20 mg tablet 20 mg PO HS #90 tab 06/09/19 08/29/19 Rx simvastatin 40 mg tablet 40 mg PO QPM #90 tab 06/15/19 08/29/19 Rx clindamycin HCl 300 mg capsule 300 mg PO tid #42 cap 07/26/19 08/29/19 Rx blood sugar diagnostic #10 ea 07/27/19 07/27/19 History insulin glargine 100 unit/mL (3 60 units SQ DAILY ml 07/27/19 08/29/19 History mL) subcutaneous pen metformin 500 mg tablet,extended 500 mg PO DAILY #30 tab 07/27/19 08/29/19 Rx release 24 hr metoprolol succinate 25 mg 25 mg PO DAILY #90 tab 08/15/19 08/29/19 Rx tablet,extended release 24 hr Patient History Medical History (Updated 09/01/19 @ 22:20 by Alexandre Nguyễn MD) Chest pain (Inactive 09/01/13) CHF (congestive heart failure) Depression DM neuropathy, type II diabetes mellitus Gangrene of toe of left foot HTN (hypertension) Insulin-requiring or dependent type II diabetes mellitus Kidney stones Migraine Morbid obesity with BMI of 40.0-44.9, adult Myocardial Infarction ? mild in 1995 per doc in [place] but patient reports negative cardiac cath Peripheral arterial disease S/P hernia repair (Inactive) Sleep apnea cpap Uncontrolled type 2 diabetes mellitus Surgical History H/O umbilical hernia repair History of bilateral cataract extraction History of cardiac cath x2--1995 @ [place], no stents [address] Langford's record History of cholecystectomy History of cystoscopy History of esophagogastroduodenoscopy (EGD) History of hernia repair (Inactive) History of tooth extraction S/P cholecystectomy (Inactive) Family History Father Muscular dystrophy Mother Breast cancer Cancer hx of Leukemia and a month ago Brother Parkinson disease Denies family history of Ovarian cancer Prostate cancer No family history of adverse response to anesthesia Myocardial infarction Colorectal cancer Social History Preferred Language: Citizen Of [place] Communication Ability: Effective Visual Impairment: No Limitations Hearing Ability: Normal Strategic Accounts 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 Alert and oriented. HEENT: Anicteric sclera. Neck: No JVD. No bruits. Normal carotid upstrokes bilaterally. Cardiac: PMI was nonpalpable . No ventricular heave. Regular rate and rhythm. Normal S1-S2. No murmurs, rubs, or gallops. Pulmonary: Clear to auscultation bilaterally without wheezes, rales, or rhonchi. Abdomen: Soft, nontender, nondistended, with normoactive bowel sounds. No bruits noted. Extremities: 2+ radial pulses bilaterally. 2+ right dorsalis pedis pulse. Weak left dorsalis pedis pulse. Trace bilateral lower extremity edema. No cyanosis. Left fifth toe is gangrenous. Psychiatric: Affect appears appropriate. Results & Data ([facility]) Vital Signs (Past 12 Hours) Vital Signs Temp Pulse Pulse Resp BP Pulse Ox 09/01/19 16:00 66 09/01/19 14:39 36.5 C 72 20 158/78 H 96 09/01/19 11:00 36.3 C L 75 20 183/75 H 94 09/01/19 10:00 72 Laboratory Results Laboratory Results - last 24 hr 09/01/19 09/01/19 09/01/19 06:41 06:41 07:26 WBC 14.96 H RBC 3.45 L Hgb 9.7 L Hct 30.8 L MCV 89.3 MCH 28.1 MCHC 31.5 L RDW Std Deviation 44.4 RDW Coeff of Maribel 13.6 Plt Count 251 MPV 9.9 Immature Gran % (Auto) 0.3 Neut % (Auto) 75.1 Lymph % (Auto) 13.1 [place] % (Auto) 8.4 Eos % (Auto) 3.0 Baso % (Auto) 0.1 Neut # (Auto) 11.22 H Lymph # (Auto) 1.96 [place] # (Auto) 1.26 H Eos # (Auto) 0.45 Baso # (Auto) 0.02 Immature Gran # (Auto) 0.05 H Sodium 141 Potassium 3.3 L Chloride 108 H Carbon Dioxide 28 Anion Gap 5.0 BUN 23 H Creatinine 1.06 Est Cr Clr Drug Dosing 111.8 Est GFR ( Amer) 87.4 Est GFR (Non-Af Amer) 75.4 BUN/Creatinine Ratio 21.9 H Glucose 67 L POC Glucose 83 Calcium 8.7 09/01/19 09/01/19 09/01/19 11:47 16:36 20:37 WBC RBC Hgb Hct MCV MCH MCHC RDW Std Deviation RDW Coeff of Maribel Plt Count MPV Immature Gran % (Auto) Neut % (Auto) Lymph % (Auto) [place] % (Auto) Eos % (Auto) Baso % (Auto) Neut # (Auto) Lymph # (Auto) [place] # (Auto) Eos # (Auto) Baso # (Auto) Immature Gran # (Auto) Sodium Potassium Chloride Carbon Dioxide Anion Gap BUN Creatinine Est Cr Clr Drug Dosing Est GFR ( Amer) Est GFR (Non-Af Amer) BUN/Creatinine Ratio Glucose POC Glucose 136 H 106 H 167 H Calcium Diagnostic Findings Telemetry personally reviewed: Sinus rhythm with sinus pause of approximately 5 seconds followed by ventricular escape beat and another sinus pause of approximately 4 seconds overnight. no arrhythmia. ECG personally reviewed: ECG 08/29/2019: Sinus rhythm 92 bpm. Nonspecific T-wave abnormality. Arterial duplex report reviewed as noted in the HPI. Medications Administered Current Inpatient Medications Acetaminophen (Tylenol) 650 mg PO Q4H PRN PRN Reason: Pain or Fever Stop: 09/29/19 03:22 Last Admin: 09/01/19 20:52 Dose: 650 mg Documented by: Al Hydrox/Mg Hydrox/Simethicone (Maalox) 15 ml PO Q4H PRN PRN Reason: Dyspepsia Stop: 09/29/19 03:22 Aspirin (Ecotrin Ectab) [facility] Stop: 09/29/19 08:59 Last Admin: 09/01/19 08:38 Dose: 81 mg Documented by: Atorvastatin Calcium (Lipitor) 80 mg PO QPM MARCUS Stop: 09/30/19 20:59 Last Admin: 08/31/19 21:07 Dose: 80 mg Documented by: Citalopram Hydrobromide (Celexa) 30 mg PO HS MARCUS Stop: 09/29/19 20:59 Last Admin: 09/01/19 20:54 Dose: 30 mg Documented by: Dextrose (Dextrose 50%) 25 - 50 ml IV UD PRN; Protocol PRN Reason: Hypoglycemia Protocol Stop: 09/29/19 03:22 Diphenhydramine HCl (Benadryl Capsule) 50 mg PO PREOP MARCUS Stop: 09/02/19 12:00 Famotidine (Pepcid) 20 mg PO PREOP MARCUS Stop: 09/02/19 10:00 Glucagon (Glucagen) 1 mg SQ UD PRN; Protocol PRN Reason: Hypoglycemia Protocol Stop: 09/29/19 03:22 Glucose (Dex4 Glucose) 4 - 8 tabs PO UD PRN; Protocol PRN Reason: Hypoglycemia Protocol Stop: 09/29/19 03:22 Glucose (Glucose 40%) 15 - 30 gm PO UD PRN; Protocol PRN Reason: Hypoglycemia Protocol Stop: 09/29/19 03:22 Heparin Sodium (Porcine) (Heparin Sodium (Porcine)) 5,000 units SQ Q12 MARCUS Stop: 09/29/19 08:59 Last Admin: 09/01/19 08:39 Dose: 5,000 units Documented by: Daptomycin 450 mg/ Syringe 9 mls @ 4.5 mls/min IV Q24H MARCUS; Protocol Stop: 09/08/19 14:59 Last Admin: 09/01/19 15:31 Dose: 4.5 mls/min Documented by: Insulin Aspart (Novolog Flexpen) 0 units SC ACHS MARCUS Stop: 09/29/19 07:29 Last Admin: 09/01/19 20:56 Dose: 300 units Documented by: Insulin Glargine (Lantus Solostar Pen) 30 units SQ BID MARCUS Stop: 09/29/19 20:59 Last Admin: 09/01/19 20:57 Dose: 30 units Documented by: Ioversol (Optiray 320 125ml) 125 ml IV ONCE PRN PRN Reason: Interaction Checking Stop: 09/02/19 23:46 Last Admin: 08/29/19 23:47 Dose: 118 ml Documented by: Lisinopril (Zestril) 20 mg PO HS MARCUS Stop: 09/29/19 20:59 Last Admin: 09/01/19 19:04 Dose: 20 mg Documented by: Magnesium Hydroxide (Milk Of Magnesia) 30 ml PO Q12H PRN PRN Reason: Constipation Stop: 09/29/19 03:22 Metoprolol Succinate (Toprol Xl) 25 mg PO DAILY MARCUS Stop: 09/29/19 08:59 Last Admin: 09/01/19 08:38 Dose: 25 mg Documented by: Miscellaneous (Carbohydrates For Hypoglycemia) 15 - 30 gm PO UD PRN PRN Reason: Hypoglycemia Protocol Stop: 09/29/19 03:22 Miscellaneous Information (Consult) 1 ea N/A UD PRN PRN Reason: Consult Stop: 10/01/19 13:42 Ondansetron HCl (Zofran) 4 mg IV Q6H PRN PRN Reason: Nausea Stop: 09/29/19 03:22 Prednisone (Prednisone) 50 mg PO Q8H MARCUS Stop: 09/02/19 10:01 Last Admin: 09/01/19 17:17 Dose: 50 mg Documented by: PG Care Time/CCT Total # of Minutes Spent Total Time Spent with Patient: Total time spent is greater than 50% in coordination of care (as documented) at patient's floor/unit and/or counseling patient: Coding Level of Care Code 51385 Initial Inpt Care Lvl 3 Diagnoses Sinus pause I45.5 Peripheral arterial disease I73.9 Dyslipidemia E78.5 HTN (hypertension) I10
[2019-09-01] MEDS: lisinopriL 20 MG TAB PO SCH (19:04)
[2019-09-01] MEDS: CITALOPRAM 20 MG TAB PO SCH (20:54)
[2019-09-02] MEDS: predniSONE 50 MG TAB PO SCH ×2 (02:08→08:43)
[2019-09-02] MEDS: ACETAMINOPHEN 325 MG TAB PO PRN (02:54)
[2019-09-02] MEDS ORDERED: FAMOTIDINE 20 MG TAB PO SCH (06:00)
[2019-09-02 06:42] LABS: Basophils # (auto) 0.02 K/uL (0-0.2); Basophils % (auto) 0.1 %; Eosinophils # (auto) 0.02 K/uL (0-0.5); Eosinophils % (auto) 0.1 %; Hematocrit (blood only) 31.9 % (42-52); Hemoglobin 10.3 g/dL (14.0-18.0); Immature Granulocytes # (auto) 0.14 K/uL (0.00-0.02); Immature Granulocytes % (auto) 0.8 %; Lymphocytes # (auto) 1.82 K/uL (1.2-3.4); Lymphocytes % (auto) 10.8 %; Mean Corpuscular Hemoglobin 28.8 pg (25-34); Mean Corpuscular Hgb Conc 32.3 g/dL (32-36); Mean Corpuscular Volume 89.1 fL (80-100); Mean Platelet Volume 9.6 fL (7.4-10.4); Monocytes % (auto) 5.9 %; Neutrophils # (auto) 13.89 K/uL (1.4-6.5); Neutrophils % (auto) 82.3 %; Platelet Count 284 K/uL (130-400); RDW Coefficient of Variation 13.3 % (11.5-14.5); RDW Standard Deviation 43.8 fL (36.4-46.3); Red Blood Count 3.58 M/uL (4.7-6.1); White Blood Count 16.89 K/uL (4.8-10.8)
[2019-09-02 07:21] LABS: BUN Creatinine Ratio 22.5 (10-20); Calcium 8.6 mg/dl (8.5-10.1); Creatinine Clr Calc Pharmacy 113.6 ml/min; Est GFR (African American) 90.4
--- NOTE | 2019-09-02 07:55 | Hospitalist Progress Note ---
Date of Service September 02, 2019 Assessment & Plan (1) Cellulitis of left lower extremity: 63 yo M admitted for LLE cellulitis and foot wound for OR today by Dr. West. Cellulitis of left lower extremity with L 5th toe worsening wound: - Patient admitted for cellulitis of LLE arising from wound of L great toe vs. L fifth toe and started on broad-spectrum Abx. - At this time only on vancomycin, and his cellulitis is clinically improving, as well as his leukocytosis (21->18). - XRay and MRI LLE show no evidence of abscess or osteomyelitis. - LLE Doppler performed with results as follows: - Moderate multifocal arterial occlusive change throughout the left leg with monophasic waveforms from the left mid thigh through the left feet. This is consistent with moderate/significant arterial occlusive change of the left thigh with dampened flow characteristics of the 3 runoff vessels of the lower leg. - Currently on daptomycin; despite this WBC increased 14.9 to 16.9. Zosyn q8h added for G(-) coverage, including Pseudomonas, as well as anaerobes. - Wounds likely 2/2 poorly controlled diabetes causing extensive peripheral vascular disease; glycemic control as below. - Acetaminophen PO PRN pain. Patient without complaints at this time. - Vascular surgery consulted given acute worsening of L 5th toe despite antibiotics. - Angiogram showed no arterial occlusion or narrowing, no intervention done. - Orthopedic surgery re-consulted due to worsening of L 5th toe, decision made today to amputate L 5th toe tomorrow AM. - NPO at midnight for procedure. - Continue wound care. Symptomatic Asystole: - 08/30 on telemetry patient had a 4 second asystole, followed by a single normal beat, followed again by 5 seconds of asystole, which then returned to NSR spontaneously. - During this time period patient was feeling dizzy, nauseated, diaphoretic. - No further episodes and patient is asymptomatic at this time. - This patient has extensive peripheral vascular disease due to his long history of HTN, uncontrolled DM2, HLD. - Hx of CAD, no workup in this EMR with regard to his care. - Troponin on admission was normal. - EKG with nonspecific T wave changes. - Cardiology consult placed to evaluate for conduction delay vs. vagal episode. - Likely vagal episode, warning signs for syncope given to patient. - If symptoms continue in/outpatient would consider pacemaker. 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 - Holding metformin while inpatient. - Currently Lantus 30u BID, SSI. - It appears there may have been a miscommunication between provider and patient regarding Novolog dosing while he was outpatient. Today we discussed his home dosing of insulins, and tomorrow will reiterate dosing regimen for outpatient setting. - DM educator to see this admission as well. - Patient is on asa, beta evan, LILLIE, statin (holding statin due to dapto). Hyperlipidemia: - Most recent lipid panel as follows on Simvastatin 40mg daily: - Total cholesterol 172, LDL 77, HDL 36, TG 297. - Given ASCVD risk of >20%, will transition to high-intensity statin (Lipitor 80mg daily). - However will hold in the setting of daptomycin due to increased risk of rhabdomyolysis. HTN: - Continue lisinopril, metoprolol. CHF/ idiopathic cardiomyopathy: - Continue aspirin, LILLIE, beta evan. TORI on CPAP: - Continue CPAP HS. Depression: - Continue citalopram. Code Status: FULL CODE FEN/GI: DM2 diet DVT ppx: Hold in preparation for surgery Dispo: Med/Surg with Telemetry (2) Diabetic ulcer of left fifth toe: (3) DM neuropathy, type II diabetes mellitus: (4) Insulin-requiring or dependent type II diabetes mellitus: (5) CAD (coronary artery disease): (6) TORI on CPAP: (7) HTN (hypertension): (8) Dyslipidemia: Admission and Anticipated Discharge Date Admission Date: August 30, 2019 Supervising Physician Co-Signing Physician Notes I personally examined the patient and verified all kaplan points of history and exam, discussed case, and agree with decision making with Dr Murphy. seen at same time as wound physician. toe looking worse, although maybe somewhat demarcated. no other new complaints vitals noted nad heent nc at mmm. L 5th toe purple to black with macerated tissue and ulceration - and almost clear line of demarcation where toe meets foot foot infection, cellulitis, sepsis present on admission - continue dapto. resume zosyn to cover pseudomonas and anaerobes with new increase in white count. for amputation tomorrow given severity and risk to rest of foot. uncontrolled DM - on 08/30, extensive time spent in educating in regards to DM / why to care / how to adjust insulins/etc / critical importance of lifestyle control; currently sugars well controlled; continue to titrate basal /bolus PVD - surprisingly angiogram did not show severe stenoses pauses - appreciate cardiology input DVT proph - heparin SQ otherwise as above Subjective Patient without acute events overnight. No more nausea or retching episodes, no dizziness, chest pain, SOB, constipation or diarrhea. Foot is non-painful but "someone told me this morning it needs to go because it got worse overnight". For angiogram with intervention by Dr. West this AM. Review of Systems Review of Systems: All systems reviewed & are unremarkable except as noted in Subjective Physical Exam Constitutional: WD/WN, vitals as above + morbidly obese Eyes: PERRL, conjunctivae normal, anicteric sclerae Neck: normal visual inspection Respiratory: normal respiratory effort, lungs clear to auscultation Auscultation: + diminished lung sounds (bilateral bases) Cardiovascular: Rate/Rhythm: regular rate and regular rhythm Vessels: posterior tibial pulses present (RLE +1, LLE nonpalpable), dorsalis pedis pulses present (RLE +2, LLE nonpalpable), brachial pulses present and radial pulses present Extremities: + edema (trace, bilateral LE) Gastrointestinal (Abdomen): normal bowel sounds, soft, nontender, no hepatosplenomegaly Musculoskeletal: Extremities: strength 5/5 throughout Skin: + erythema (and warmth dorsal L mid-foot) and + eschar (purple/black L 5th toe with medial eschar) Neurologic: moves all extremities; no focal motor deficits and not confused Psychiatric: A+Ox3, euthymic affect Results & Data Results & Data ([facility]) Vital Signs (Past 12 Hours) Vital Signs Temp Pulse Pulse Pulse Resp BP BP 09/02/19 07:30 72 09/02/19 06:38 36.4 C L 74 17 187/83 H 09/02/19 03:04 36.8 C 82 20 180/90 H 09/02/19 01:00 184/90 H 09/01/19 23:48 85 09/01/19 23:00 37.0 C 85 18 194/75 H 09/01/19 22:07 86 20 09/01/19 21:00 101 H 189/80 H Pulse Ox 09/02/19 07:30 09/02/19 06:38 95 09/02/19 03:04 96 09/02/19 01:00 09/01/19 23:48 09/01/19 23:00 92 09/01/19 22:07 92 09/01/19 21:00 Resident Activity Tracking Resident Involvement: Resident Care Provided Care Provided: Adult [facility] Medicine
[2019-09-02] MEDS: METOPROLOL SUCC 25MG EXT REL TAB PO SCH (08:43)
[2019-09-02] MEDS: ASPIRIN 81 MG ECTAB PO SCH (08:43)
[2019-09-02] MEDS: INSULIN ASPART 100 UNITS/ML 3 ML PEN SC SCH ×4 (08:46→21:44)
[2019-09-02] MEDS: INSULIN GLARGINE SOLOSTAR 100 UNITS/ML 3 ML PEN SQ SCH ×2 (08:47→21:43)
[2019-09-02] MEDS ORDERED: PIPERACILL/TAZOBAC CONSULT ACTIVE PRN (09:16)
--- NOTE | 2019-09-02 09:51 | History & Physical Bridge Note ---
Date of Service September 02, 2019 History & Physical Bridge Note This patient has gangrene of the fifth toe with peripheral vascular disease of the left lower extremity. Arteriography and possible intervention was recommended. I have discussed the risks options and benefits of the procedure with the patient. The patient understands the risks options and benefits and agrees to the procedure. I have examined the patient, reviewed the History & Physical and in the interval since the performance of the History & Physical I have noted the following changes of clinical significance: no changes noted
[2019-09-02] MEDS ORDERED: PIPERACILLIN/TAZOBACTAM 4.5 GM in DEXTROSE 5% 100 ML IV ONE (10:00)
[2019-09-02] MEDS ORDERED: fentaNYL citrate 100 MCG/2 ML VIAL ONE (10:09)
[2019-09-02] MEDS ORDERED: HEPARIN SOD (PORCINE) 1000 UNIT/ML 10 ML VIAL ONE (10:09)
[2019-09-02] MEDS ORDERED: MIDAZOLAM HCL 1 MG/ML 2ML VIAL ONE (10:09)
[2019-09-02] MEDS ORDERED: LIDOCAINE HCL 1% 20 ML VIAL ONE (10:10)
--- NOTE | 2019-09-02 11:28 | Pre Anesthesia Assessment ---
Date of Service September 02, 2019 Pre Sedation Assessment Vital Signs Temp Pulse Pulse Pulse Resp BP BP 09/02/19 11:25 73 14 198/82 H 09/02/19 11:20 74 21 198/93 H 09/02/19 11:16 75 22 205/95 H 09/02/19 09:50 36.7 C 77 16 193/108 H 09/02/19 07:30 72 09/02/19 06:38 36.4 C L 74 17 187/83 H 09/02/19 03:04 36.8 C 82 20 180/90 H 09/02/19 01:00 184/90 H 09/01/19 23:48 85 09/01/19 23:00 37.0 C 85 18 194/75 H 09/01/19 22:07 86 20 09/01/19 21:00 101 H 189/80 H 09/01/19 18:59 36.9 C 92 H 18 198/93 H 09/01/19 16:00 66 09/01/19 14:39 36.5 C 72 20 158/78 H Pulse Ox 09/02/19 11:25 98 09/02/19 11:20 99 09/02/19 11:16 98 09/02/19 09:50 96 09/02/19 07:30 09/02/19 06:38 95 09/02/19 03:04 96 09/02/19 01:00 09/01/19 23:48 09/01/19 23:00 92 09/01/19 22:07 92 09/01/19 21:00 09/01/19 18:59 93 09/01/19 16:00 09/01/19 14:39 96 Cardiovascular RRR, no murmur, no edema Respiratory normal respiratory effort, lungs clear to auscultation Pre-Sedation Airway Assessment Smoking Status: Never smoker Hx Sleep Apnea: Yes (Patient uses CPAP at home.) Short, Thick Neck: No Thyromental Distance: > or= 3.5 Finger Breadths Oral Cavity: + WNL Mallampati Class: II ASA: ASA2 NPO Status Date of Last Intake of Fluids: 09/02/19 Time of Last Intake of Fluids: 07:00 Date of Last Intake of Solid Food: 09/01/19 Time of Last Intake of Solid Foods: 22:00 Procedure Planning Contraindications for Sedation: none Current Medications Reviewed: Yes Notes The planned sedation has been discussed with the patient. Informed Consent was obtained. I have identified the patient, determined the appropriateness of sedation and have assessed the patient immediately prior to the procedure. All medicine(s) and interventions are by my order.
--- NOTE | 2019-09-02 12:10 | Post Operative Brief Note ---
Immediate Post Op Note v1 Date of Surgery September 02, 2019 Pre & Post Diagnosis Operation Date: 09/02/19 09:45 Pre-Op Diagnosis: Gangrene of the left fifth toe Peripheral vascular disease of the left lower extremity. Post-Op Diagnosis: Gangrene of the left fifth toe Peripheral vascular disease of the left lower extremity. I identified the patient and participated in the time-out.: Yes Procedure Operation Date: 09/02/19 09:45 Actual Procedures p Left Lower Extremity Angiogram , race car mechanic closure right common femoral artery with Star closure device Conscious sedation ([id number] )(Left) - Chato West MD Surgeon Chato West MD Rat Culturist MD [place] Estimated Blood Loss 5 Findings Consistent with Post-Op Diagnosis Anesthesia Type RN Sedation Complications none Disposition Accompanied Patient To Recovery: No Disposition: Recovery Room
--- NOTE | 2019-09-02 12:17 | Post Anesthesia Assessment ---
Date of Service September 02, 2019 Post Sedation Assessment Vital Signs Temp Pulse Pulse Pulse Resp BP BP 09/02/19 12:13 72 20 181/87 H 09/02/19 12:08 73 23 181/85 H 09/02/19 12:05 73 24 181/87 H 09/02/19 12:00 70 21 181/93 H 09/02/19 11:55 70 23 187/84 H 09/02/19 11:50 71 20 182/84 H 09/02/19 11:45 72 18 168/87 H 09/02/19 11:40 71 20 184/89 H 09/02/19 11:35 75 22 193/100 H 09/02/19 11:30 72 18 184/108 H 09/02/19 11:25 73 14 198/82 H 09/02/19 11:20 74 21 198/93 H 09/02/19 11:16 75 22 205/95 H 09/02/19 09:50 36.7 C 77 16 193/108 H 09/02/19 07:30 72 09/02/19 06:38 36.4 C L 74 17 187/83 H 09/02/19 03:04 36.8 C 82 20 180/90 H 09/02/19 01:00 184/90 H 09/01/19 23:48 85 09/01/19 23:00 37.0 C 85 18 194/75 H 09/01/19 22:07 86 20 09/01/19 21:00 101 H 189/80 H 09/01/19 18:59 36.9 C 92 H 18 198/93 H 09/01/19 16:00 66 09/01/19 14:39 36.5 C 72 20 158/78 H Pulse Ox 09/02/19 12:13 97 09/02/19 12:08 92 09/02/19 12:05 93 09/02/19 12:00 98 09/02/19 11:55 97 09/02/19 11:50 96 09/02/19 11:45 96 09/02/19 11:40 96 09/02/19 11:35 99 09/02/19 11:30 98 09/02/19 11:25 98 09/02/19 11:20 99 09/02/19 11:16 98 09/02/19 09:50 96 09/02/19 07:30 09/02/19 06:38 95 09/02/19 03:04 96 09/02/19 01:00 09/01/19 23:48 09/01/19 23:00 92 09/01/19 22:07 92 09/01/19 21:00 09/01/19 18:59 93 09/01/19 16:00 09/01/19 14:39 96 Recovery Score Activity: Moves 4 extremities Respiration: Deep Breath/Cough Circulation: +/-20% PreAnes Value Consciousness: Fully Awake Oxygen Saturation: O2 needed for >90% Post Anesthesia Score: 9 Discharge Sedation Level of Care: Fast Track Phase II Post Sedation Plan On clinical assessment, the patient appears to have tolerated the sedation without complications. Patient is recovering as anticipated. Patient will continue to be monitored by nursing and may be discharged when sedation discharge criteria are met per below protocol. Upon Completions of procedure up to 15 minutes continue every 5 minute vital signs and the P.A.R. score; then discharge to a Phase I or Fast Track to Phase II per the following guidelines: * Discharge Patient to appropriate Phase II area if PAR is 8 or greater or return to pre- procedure baseline. The post - procedure orders will be as directed. * If PAR score is less than 8 or not return to pre-procedure baseline then patient will follow Phase I monitoring till PAR is reached for Phase II. The Phase I may be done in procedure room or may call to secure a Phase I area. * If naloxone or flumazenil are used for reversal, hold in Phase I for continued monitoring from when last reversal dose was given for a minimum of 60 minutes or longer pending the nurse and/or physician discretion of patient condition before discharge to Phase II. Please call the Sedation Physician to re-evaluate and complete post-note for discharge to Phase II area. Do NOT discharge from procedure sedation or Phase 1 until post- sedation evaluation note is complete by procedure /sedation MD Sedation Discharge Instructions to be given to the patient at discharge to home.
--- NOTE | 2019-09-02 12:18 | Communication Note ---
Date of Service: September 02, 2019 Arteries of left lower extremity without significant stenosis or occlusion. Ant tib and post tib both cross ankle joint. Peroneal also patent to ankle. no intervention indicated.
--- NOTE | 2019-09-02 12:22 | Operative Report ---
Post Operative Report Pre & Post Diagnosis Operation Date: 09/02/19 09:45 Pre-Op Diagnosis: Gangrene of the left fifth toe Peripheral vascular disease of the left lower extremity. Post-Op Diagnosis: Gangrene of the left fifth toe Peripheral vascular disease of the left lower extremity. I identified the patient and participated in the time-out.: Yes Procedure Operation Date: 09/02/19 09:45 Actual Procedures p Left Lower Extremity Angiogram , mechanical closure right common femoral artery, conscious sedation (Left) - Chato West MD Surgeon Brent West MD [employer] Instructor MD Myles Estimated Blood Loss 5 Findings See Below Fluids Crystalloid Specimens None Drains None Anesthesia Type MAC Complications none Disposition Accompanied Patient To Recovery: No Disposition: PCU Indications Mr. Long Royal is a 63-year-old male who was found to have gangrene of the fifth digit of the left lower extremity. Preoperative ultrasound imaging was suggestive of arterial stenosis and the patient was recommended for a left lower extremity angiogram. Description of Procedure The patient was brought to the operating room and placed in a supine position on the operating room table with his arms placed to the side.The patient's groins were prepped and draped in a normal sterile fashion. The patient was identified and a timeout was performed. The patient's right common femoral artery was visualized using ultrasound and found to be patent. Local anesthesia was administered. Ultrasound-guided puncture was accomplished of the right groin through the patent artery. At this point a 035 guidewire was inserted and a 5 Romanian sheath was placed over the wire. Using an 035 Glidewire and a rim catheter the wire passed over into the left side. Catheter was advanced and the wire was removed. At this point we performed a left lower extremity angiogram and found the common femoral, the profunda, and the SFA all to be patent going down the leg. The popliteal artery was also widely patent. Additionally we found three-vessel runoff all with patent vessels the DP and PT both passing the ankle and were providing appropriate perfusion to the lower extremity. After we satisfactorily examined the left lower extremity we pulled the catheter back to perform an angiogram of the right groin. This demonstrated the puncture site to be in the common femoral artery. A Star close device was used to close the puncture site. This was performed without any complications. The patient left the operation room in satisfactory condition and tolerated the procedure well. All needle and sponge counts were correct at the end of the procedure. Dr. West was present and scrubbed for the entire procedure. I attest to the content of the Intraoperative Record and any orders documented therein. Any exceptions are noted below.
[2019-09-02] MEDS ORDERED: VISIPAQUE IV PRN (12:23)
--- NOTE | 2019-09-02 13:59 | Orthopedic Progress Note ---
Date of Service September 02, 2019 Assessment & Plan (1) Cellulitis of left lower extremity: Gangrenous left fifth toe Plan for amputation of left fifth toe tomorrow, 09/03/[address] Kwong. We will make the patient n.p.o. after midnight. This is been discussed with the patient who is in agreement. Thank you for the consultation (2) Diabetic ulcer of left great toe: Admission and Anticipated Discharge Date Admission Date: August 30, 2019 Subjective We were asked to see Mr. Royal again for his left fifth toe. Worsening gangrene noted over the last several days. Patient was taken to the operating room today by Dr. West who performed Left Lower Extremity Angiogram , wiring mechanic closure right common femoral artery with conscious sedation. Spoke with Dr. West afterwards and he stated that even with the procedure he had performed, that it was very unlikely that was going to help this gentleman's toe recover. He recommends amputation. Patient is currently sitting up in bed awake and alert. We discussed the possibility of amputation and that and likelihood the toe would not get better after Dr. West's procedure. Patient is in agreement for left fifth toe amputation. I discussed the case with who will see the patient but plans will be to continue with fifth toe amputation tomorrow. Physical Exam Physical Exam: Left fifth toe with noted gangrene of the majority of the toe itself with also skin demarcating proximally on the plantar and dorsal surface. There is a foul odor noted. No overt drainage noted at this time. Results & Data ([facility]) Vital Signs (Past 12 Hours) Vital Signs Temp Pulse Pulse Pulse Resp BP BP 09/02/19 13:03 72 09/02/19 12:39 36.7 C 68 18 173/81 H 09/02/19 12:13 72 20 181/87 H 09/02/19 12:08 73 23 181/85 H 09/02/19 12:05 73 24 181/87 H 09/02/19 12:00 70 21 181/93 H 09/02/19 11:55 70 23 187/84 H 09/02/19 11:50 71 20 182/84 H 09/02/19 11:45 72 18 168/87 H 09/02/19 11:40 71 20 184/89 H 09/02/19 11:35 75 22 193/100 H 09/02/19 11:30 72 18 184/108 H 09/02/19 11:25 73 14 198/82 H 09/02/19 11:20 74 21 198/93 H 09/02/19 11:16 75 22 205/95 H 09/02/19 09:50 36.7 C 77 16 193/108 H 09/02/19 07:30 72 09/02/19 06:38 36.4 C L 74 17 187/83 H 09/02/19 03:04 36.8 C 82 20 180/90 H Pulse Ox 09/02/19 13:03 09/02/19 12:39 93 09/02/19 12:13 97 09/02/19 12:08 92 09/02/19 12:05 93 09/02/19 12:00 98 09/02/19 11:55 97 09/02/19 11:50 96 09/02/19 11:45 96 09/02/19 11:40 96 09/02/19 11:35 99 09/02/19 11:30 98 09/02/19 11:25 98 09/02/19 11:20 99 09/02/19 11:16 98 09/02/19 09:50 96 09/02/19 07:30 09/02/19 06:38 95 09/02/19 03:04 96
[2019-09-02] MEDS: PIPERACILLIN/TAZOBACTAM 4.5 GM in DEXTROSE 5% 100 ML IV SCH (15:46)
[2019-09-02] MEDS: DAPTOmycin 450 MG in SYRINGE 0 ML IV SCH (15:47)
--- NOTE | 2019-09-02 16:47 | Anesthesiology Consultation ---
Date of Service September 02, 2019 Assessment & Plan Chart Review Chart Review: Acceptable Risk for Surgery and Patient NOT seen in Pre Admission Testing Consults Requested none ASA ASA4 History Surgery Operation Date: 09/02/19 09:45 Proposed Procedures p Left Lower Extremity Angiogram with Intervention - Chato West MD Operation Date: 09/03/19 08:35 Proposed Procedures p Left 5th Toe Amputation - Abbe Kwong MD Height/Weight Height: 6 ft 1 in Weight: 146.7 kg Allergies Allergy/AdvReac Type Severity Reaction Status Date / Time bee venom protein (honey bee) Allergy Severe Anaphylaxis Verified 08/29/19 23:35 iodine AdvReac Mild FLUSHED Verified 08/29/19 23:35 FEELING/sick to stomach egg AdvReac Verified 08/30/19 14:34 Egg or Chicken-derived Drugs Allergy Unknown Gastrointestinal Uncoded 08/29/19 23:35 Upset Medications Home Medications Medication Instructions Recorded Confirmed Last Taken aspirin 81 mg PO QAM 12/10/17 08/29/19 12/08/18 citalopram 10 mg tablet 10 mg PO HS tab 10/26/18 08/29/19 12/07/18 citalopram 20 mg tablet 20 mg PO HS 10/26/18 08/29/19 12/07/18 insulin aspart U-100 100 unit/mL See Rx Instructions SQ UD ml 10/26/18 08/29/19 12/08/18 12:00 (3 mL) subcutaneous pen lancets 33 gauge #100 ea 10/26/18 07/27/19 Unknown lisinopril 20 mg tablet 20 mg PO HS #90 tab 06/09/19 08/29/19 Unknown simvastatin 40 mg tablet 40 mg PO QPM #90 tab 06/15/19 08/29/19 Unknown clindamycin HCl 300 mg capsule 300 mg PO tid #42 cap 07/26/19 08/29/19 Unknown blood sugar diagnostic #10 ea 07/27/19 07/27/19 Unknown insulin glargine 100 unit/mL (3 60 units SQ DAILY ml 07/27/19 08/29/19 Unknown mL) subcutaneous pen metformin 500 mg tablet,extended 500 mg PO DAILY #30 tab 07/27/19 08/29/19 Unknown release 24 hr metoprolol succinate 25 mg 25 mg PO DAILY #90 tab 08/15/19 08/29/19 Unknown tablet,extended release 24 hr Active Medications Generic Name Dose Route Start Last Admin Trade Name Freblaise PRN Reason Stop Dose Admin Acetaminophen 650 mg 08/30/19 03:23 09/02/19 02:54 Tylenol PO 09/29/19 03:22 650 mg Q4H PRN Administration Pain or Fever Aspirin 81 mg 08/30/19 09:00 09/02/19 08:43 Ecotrin Ectab PO 09/29/19 08:59 81 mg QAM MARCUS Administration Atorvastatin Calcium 80 mg 08/31/19 21:00 08/31/19 21:07 Lipitor PO 09/30/19 20:59 80 mg QPM MARCUS Administration Citalopram Hydrobromide 30 mg 08/30/19 21:00 09/01/19 20:54 Celexa PO 09/29/19 20:59 30 mg HS MARCUS Administration Heparin Sodium (Porcine) 5,000 units 08/30/19 09:00 09/01/19 08:39 Heparin Sodium (Porcine) SQ 09/29/19 08:59 5,000 units Q12 MARCUS Administration Daptomycin 450 mg/ Syringe 9 mls @ 4.5 mls/min 09/01/19 15:00 09/02/19 15:47 IV 09/08/19 14:59 4.5 mls/min Q24H MARCUS Administration Protocol Piperacillin Sod/Tazobactam 120 mls @ 30 mls/hr 09/02/19 16:00 09/02/19 15:46 Sod 4.5 gm/ Dextrose IV 09/09/19 15:59 30 mls/hr Q8H MARCUS Administration Protocol Insulin Aspart 0 units 08/30/19 07:30 09/02/19 13:07 Novolog Flexpen SC 09/29/19 07:29 11 units ACHS MARCUS Administration Insulin Glargine 30 units 08/30/19 21:00 09/02/19 08:47 Lantus Solostar Pen SQ 09/29/19 20:59 30 units BID MARCUS Administration Iodixanol 50 ml 09/02/19 12:23 09/02/19 12:24 Visipaque IV 09/06/19 12:22 50 ml UD PRN Administration Radiology Use Ioversol 125 ml 08/29/19 23:47 08/29/19 23:47 Optiray 320 125ml IV 09/02/19 23:46 118 ml ONCE PRN Administration Interaction Checking Metoprolol Succinate 25 mg 08/30/19 09:00 09/02/19 08:43 Toprol Xl PO 09/29/19 08:59 25 mg DAILY MARCUS Administration NPO Date Last Intake of Fluids: 09/01/19 Time Last Intake of Fluids: 21:00 Last Intake of Fluids Comment: sips of water with meds Date Last Intake of Solids: 09/01/19 Time Last Intake of Solids: 21:00 Last Intake of Solids Comment: HS snack Past Medical History Medical History Chest pain (Inactive 09/01/13) CHF (congestive heart failure) Depression DM neuropathy, type II diabetes mellitus Gangrene of toe of left foot HTN (hypertension) Insulin-requiring or dependent type II diabetes mellitus Kidney stones Migraine Morbid obesity with BMI of 40.0-44.9, adult Myocardial Infarction ? mild in 1995 per doc in [place] but patient reports negative cardiac cath Peripheral arterial disease S/P hernia repair (Inactive) Sleep apnea cpap Uncontrolled type 2 diabetes mellitus Exercise / Class Metabolic Activity III < 4 Walking/Shop/Light housework Past Family History Family History Father Muscular dystrophy Mother Breast cancer Cancer hx of Leukemia and a month ago Brother Parkinson disease Denies family history of Ovarian cancer Prostate cancer No family history of adverse response to anesthesia Myocardial infarction Colorectal cancer Past Surgical History Surgical History H/O umbilical hernia repair History of bilateral cataract extraction History of cardiac cath x2--1995 @ [place], no stents [address] Langford's record History of cholecystectomy History of cystoscopy History of esophagogastroduodenoscopy (EGD) History of hernia repair (Inactive) History of tooth extraction S/P cholecystectomy (Inactive) Past Anesthesia History No Hx of Anesthesia Complications and No Family Hx of Anesthesia Complications History of PONV No Hx of PONV and No Hx of Motion Sickness Social History Smoking Status: Never smoker tobacco type: smokeless tobacco Hx Alcohol Use: No Hx Substance Use: No substance use type: does not use Physical Exam Vital Signs Last Vital Signs Temp 36.7 C 09/02/19 15:18 Pulse 72 09/02/19 15:55 Resp 18 09/02/19 15:18 BP 172/82 H 09/02/19 15:18 Pulse Ox 94 09/02/19 15:18 Testing Laboratory Results 09/02/19 06:13 09/02/19 06:13 PT 12.0 Seconds (9.0-12.0) 08/29/19 22:08 INR 1.1 (0.9-1.1) 08/29/19 22:08 APTT 30.7 Seconds (21.0-31.0) 08/29/19 22:08 Hemoglobin A1c 10.4 % (4.5-5.6) H 08/29/19 22:08 Urine Color Yellow 08/30/19 07:05 Urine Appearance Clear (Clear) 08/30/19 07:05 Urine pH 5.5 (4.5-7.5) 08/30/19 07:05 Ur Specific [place] 1.033 (1.000-1.030) H 08/30/19 07:05 Urine Protein 4+ (Negative) H 08/30/19 07:05 Urine Glucose (UA) 3+ (Negative) H 08/30/19 07:05 Urine Ketones Trace (Negative) H 08/30/19 07:05 Urine Nitrite Negative (Negative) 08/30/19 07:05 Ur Leukocyte Esterase Negative (Negative) 08/30/19 07:05 Urine WBC (Auto) 1-5 /hpf (0-5) 08/30/19 07:05 Urine RBC (Auto) 5-10 /hpf (0-4) H 08/30/19 07:05 U Hyaline Cast (Auto) 1-5 /lpf (0-5) 08/30/19 07:05 U Epithel Cells (Auto) 20-30 /lpf (0-5) H 08/30/19 07:05 Urine Bacteria (Auto) Negative (Negative) 08/30/19 07:05 08/29/19 22:08 Aerobic Blood Culture - Preliminary Blood No growth in Aerobic bottle after 48 hours. Anaerobic Blood Culture - Preliminary No growth in Anaerobic bottle after 48 hours. 08/29/19 22:08 Aerobic Blood Culture - Preliminary Blood No growth in Aerobic bottle after 48 hours. Anaerobic Blood Culture - Preliminary No growth in Anaerobic bottle after 48 hours. 09/02/19 09/02/19 09/02/19 12:55 09:50 07:27 POC Glucose 168 H 149 H 178 H
--- NOTE | 2019-09-02 17:00 | XCELERA ---
[id number]
--- NOTE | 2019-09-02 18:59 | Billing Data ---
Date of Service September 02, 2019 Coding Level of Care Code 16751 Subseq Hosp Care Lvl 3
[2019-09-02] MEDS: lisinopriL 40 MG TAB PO SCH (21:45)
[2019-09-02] MEDS: CITALOPRAM 20 MG TAB PO SCH (21:46)
--- NOTE | 2019-09-02 22:18 | Wound Progress Note ---
Date of Service September 02, 2019 Assessment & Plan (1) Gangrene of toe of left foot: No debridement was done. Will continue to paint toe with betadine. Iodine is listed as an allergy, but patient denies. He has been tolerating this and previously iodosorb. Patient for angiogram with Dr. West this morning. Agree with broadening antibiotic coverage to include gram neg and pseudomonas. Discussed prognosis with patient and Dr. Talamantes. Explained he may still need amputation after revascularization. Patient expressed understanding. Will continue to follow. Subjective Patient was seen at bedside. Edema seems to be improving, but gangrene seems worse. White count is elevated. Patient is scheduled for angiogram with Dr. West Review of Systems Review of Systems: All systems reviewed & are unremarkable except as noted in HPI & below Physical Exam Skin: Measuring as recorded in nursing documentation. Edema is approving. Gangrene is worse. Neurologic: awake; not confused Psychiatric: A+Ox3, euthymic affect Results & Data Vital Signs (Past 12 Hours) Vital Signs Temp Pulse Pulse Resp BP Pulse Ox 09/02/19 19:08 36.7 C 76 20 184/73 H 95 09/02/19 15:55 72 09/02/19 15:18 36.7 C 67 18 172/82 H 94 09/02/19 13:03 72 09/02/19 12:39 36.7 C 68 18 173/81 H 93 09/02/19 12:13 72 20 181/87 H 97 09/02/19 12:08 73 23 181/85 H 92 09/02/19 12:05 73 24 181/87 H 93 09/02/19 12:00 70 21 181/93 H 98 09/02/19 11:55 70 23 187/84 H 97 09/02/19 11:50 71 20 182/84 H 96 09/02/19 11:45 72 18 168/87 H 96 09/02/19 11:40 71 20 184/89 H 96 09/02/19 11:35 75 22 193/100 H 99 09/02/19 11:30 72 18 184/108 H 98 09/02/19 11:25 73 14 198/82 H 98 09/02/19 11:20 74 21 198/93 H 99 09/02/19 11:16 75 22 205/95 H 98 PG Care Time/CCT Total # of Minutes Spent Total Time Spent with Patient: Total time spent is greater than 50% in coordination of care (as documented) at patient's floor/unit and/or counseling patient: Coding Level of Care Code 56229 Subseq Hosp Care Lvl 2 Diagnoses Gangrene of toe of left foot I96
[2019-09-03] MEDS: PIPERACILLIN/TAZOBACTAM 4.5 GM in DEXTROSE 5% 100 ML IV SCH ×4 (00:49→23:31)
[2019-09-03] MEDS: INSULIN ASPART 100 UNITS/ML 3 ML PEN SC SCH ×4 (07:36→21:29)
[2019-09-03] MEDS: METOPROLOL SUCC 25MG EXT REL TAB PO SCH (07:53)
[2019-09-03] MEDS: ASPIRIN 81 MG ECTAB PO SCH ×2 (07:54→08:00)
[2019-09-03] MEDS: INSULIN GLARGINE SOLOSTAR 100 UNITS/ML 3 ML PEN SQ SCH (07:55)
[2019-09-03] MEDS: ACETAMINOPHEN 325 MG TAB PO PRN (07:58)
[2019-09-03] MEDS: HydrALAZINE HCL 20 MG/ML VIAL IV PRN (07:58)
[2019-09-03 08:59] LABS: Basophils # (auto) 0.05 K/uL (0-0.2); Basophils % (auto) 0.2 %; Eosinophils # (auto) 0.61 K/uL (0-0.5); Eosinophils % (auto) 2.9 %; Hemoglobin 10.7 g/dL (14.0-18.0); Immature Granulocytes # (auto) 0.22 K/uL (0.00-0.02); Immature Granulocytes % (auto) 1.1 %; Lymphocytes # (auto) 3.39 K/uL (1.2-3.4); Lymphocytes % (auto) 16.3 %; Mean Corpuscular Hemoglobin 28.2 pg (25-34); Mean Corpuscular Hgb Conc 31.5 g/dL (32-36); Mean Corpuscular Volume 89.7 fL (80-100); Mean Platelet Volume 9.5 fL (7.4-10.4); Monocytes # (auto) 1.91 K/uL (0.11-0.59); Monocytes % (auto) 9.2 %; Neutrophils # (auto) 14.62 K/uL (1.4-6.5); Neutrophils % (auto) 70.3 %; Platelet Count 332 K/uL (130-400); RDW Coefficient of Variation 13.5 % (11.5-14.5); RDW Standard Deviation 44.5 fL (36.4-46.3); Red Blood Count 3.79 M/uL (4.7-6.1)
--- NOTE | 2019-09-03 09:08 | History & Physical Bridge Note ---
Date of Service September 03, 2019 History & Physical Bridge Note I have examined the patient, reviewed the History & Physical and in the interval since the performance of the History & Physical I have noted the following changes of clinical significance: no changes noted
[2019-09-03] MEDS ORDERED: LIDOCAINE HCL 1% 20 ML VIAL ONE (09:15)
[2019-09-03] MEDS ORDERED: fentaNYL citrate 100 MCG/2 ML VIAL ONE (09:15)
[2019-09-03] MEDS ORDERED: LIDOCAINE HCL 2% 2 ML VIAL/AMP(20MG/ML) INFIL ONE (09:15)
[2019-09-03] MEDS ORDERED: PROPOFOL IV EMULSION 10 MG/ML 20 ML VIAL IV ONE (09:15)
[2019-09-03] MEDS ORDERED: MIDAZOLAM HCL 1 MG/ML 2ML VIAL ONE ×2 (09:15→09:49)
[2019-09-03 09:32] LABS: BUN Creatinine Ratio 20.6 (10-20); Calcium 8.9 mg/dl (8.5-10.1); Creatinine Clr Calc Pharmacy 100.3 ml/min; Est GFR (African American) 77.5; Est GFR (Non-African American) 66.9; Potassium 3.5 mmol/L (3.5-5.1)
[2019-09-03] MEDS ORDERED: CLINDAMYCIN PHOS 300 MG/2 ML VIAL ONE (09:47)
[2019-09-03] MEDS ORDERED: BACITRACIN INJ 50,000 UNIT VIAL ONE ×2 (09:51→10:20)
--- NOTE | 2019-09-03 10:33 | Hospitalist Progress Note ---
Date of Service September 03, 2019 Assessment & Plan (1) Cellulitis of left lower extremity: 63 yo M admitted for LLE cellulitis and foot wound POD0 s/p 5th digit amputation of left foot. Cellulitis of left lower extremity s/p amputation of 5th digit - Patient admitted for cellulitis of LLE arising from wound of L great toe vs. L fifth toe and started on broad-spectrum Abx. - most likely worsening disease 2/2 poorly controlled diabetes and microvascular damage - angiogram showed no arterial occlusion or narrowing - At this time on Dapto + Zosyn, WBC up to 20 this AM. Symptomatic Asystole: - 08/30 on telemetry patient had a 4 second asystole, followed by a single normal beat, followed again by 5 seconds of asystole, which then returned to NSR spontaneously. - During this time period patient was feeling dizzy, nauseated, diaphoretic. - Cardiology consult: most likely vagal episode as symptoms occurred while vomiting. Pt advised to sit or lay down if experiencing symptoms to avoid a fall and further injury if he loses consciousness. If recurrent can consider pacemaker. 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 - Holding metformin while inpatient. - Currently Lantus 30u BID, SSI. - Extensive diabetic management education with team and diabetes navigator - Patient is on asa, beta evan, LILLIE, statin (holding statin due to dapto). Hyperlipidemia: - Most recent lipid panel as follows on Simvastatin 40mg daily: - Total cholesterol 172, LDL 77, HDL 36, TG 297. - Given ASCVD risk of >20%, will transition to high-intensity statin (Lipitor 80mg daily). - However will hold in the setting of daptomycin due to increased risk of rhabdomyolysis. HTN: - Continue lisinopril, metoprolol. CHF/ idiopathic cardiomyopathy: - Continue aspirin, LILLIE, beta evan. TORI on CPAP: - Continue CPAP HS. Depression: - Continue citalopram. Code Status: FULL CODE FEN/GI: DM2 diet DVT ppx: Heparin BID Dispo: Med/Surg with Telemetry (2) Diabetic ulcer of left fifth toe: (3) DM neuropathy, type II diabetes mellitus: (4) Insulin-requiring or dependent type II diabetes mellitus: (5) CAD (coronary artery disease): (6) TORI on CPAP: (7) HTN (hypertension): (8) Dyslipidemia: Admission and Anticipated Discharge Date Admission Date: August 30, 2019 Supervising Physician Co-Signing Physician Notes I personally examined the patient and verified all kaplan points of history and exam, discussed case, and agree with decision making with Dr Chase. post op - pain controlled. no new complaints. continued to educate on DM - brief review of "why to care" and progression of insulin resistance heavily related to diet. today discussed more how to better self-regulate basal/bolus dosing (emphasis on bolus, and carb matching bolus to the foods, checking 2hr postprandial glucose to "grade his work" vitals noted nad heent nc at mmm. L foot dressed dressing c/d/i. breathing unlabored foot infection, cellulitis, sepsis present on admission - continue dapto and zosyn. should improve post amputation uncontrolled DM - on 08/30, extensive time spent in educating in regards to DM / why to care / how to adjust insulins/etc / critical importance of lifestyle control; currently sugars well controlled; continue to titrate basal /bolus PVD - surprisingly angiogram did not show severe stenoses pauses - appreciate cardiology input, continue to follow DVT proph - heparin SQ otherwise as above Subjective Complaining of mild pain along lateral side of left foot after surgery. States the pain is worse if he rolls his foot outwards. Otherwise not complaining of any chest pain shortness of breath nausea or vomiting. Does attest to having a mild headache. Review of Systems Constitutional: no fever, no chills, no body aches and no fatigue Respiratory: no cough and no dyspnea Cardiovascular: no chest pain, no dyspnea and no edema Gastrointestinal: no abdominal pain, no nausea, no vomiting, no constipation and no diarrhea/loose stools Musculoskeletal: as per Subjective / HPI Neurologic: + headache(s) Physical Exam Constitutional: cooperative; no acute distress and not ill appearing morbidly obese Neck: normal visual inspection Respiratory: normal respiratory effort and able to speak in complete sentences; no respiratory distress, no labored breathing, no retractions, no cough and no audible wheezes Auscultation: lungs clear to auscultation bilaterally; no crackles, no rales, no rhonchi and no wheezes Cardiovascular: Rate/Rhythm: regular rate and regular rhythm Heart Sounds: normal S1 and normal S2; no gallop, no murmur and no cardiac rub poor PT pulse on right leg Gastrointestinal (Abdomen): Inspection/Auscultation: abdomen normal to inspection and normal bowel sounds; abdomen not distended Percussion/Palpation: abdomen soft; abdomen nontender, no guarding, abdomen not rigid and no abdominal mass Musculoskeletal: left leg bandaged and wrapped after surgical amputation of L 5th digit of foot Results & Data Results & Data ([facility]) Vital Signs (Past 12 Hours) Vital Signs Temp Pulse Pulse Resp BP Pulse Ox 09/03/19 07:38 36.5 C 71 18 191/86 H 96 09/03/19 07:21 75 09/03/19 03:26 68 09/03/19 02:56 36.5 C 70 20 170/76 H 95 09/03/19 02:40 68 19 95 09/03/19 01:07 70 22 94 09/02/19 23:19 36.6 C 74 15 176/74 H 95 Laboratory Results WBC 20.80 K/uL (4.8-10.8) H 09/03/19 08:36 RBC 3.79 M/uL (4.7-6.1) L 09/03/19 08:36 Hgb 10.7 g/dL (14.0-18.0) L 09/03/19 08:36 Hct 34.0 % (42-52) L 09/03/19 08:36 MCV 89.7 fL (80-100) 09/03/19 08:36 MCH 28.2 pg (25-34) 09/03/19 08:36 MCHC 31.5 g/dL (32-36) L 09/03/19 08:36 RDW Std Deviation 44.5 fL (36.4-46.3) 09/03/19 08:36 RDW Coeff of Maribel 13.5 % (11.5-14.5) 09/03/19 08:36 Plt Count 332 K/uL (130-400) 09/03/19 08:36 MPV 9.5 fL (7.4-10.4) 09/03/19 08:36 Immature Gran % (Auto) 1.1 % 09/03/19 08:36 Neut % (Auto) 70.3 % 09/03/19 08:36 Lymph % (Auto) 16.3 % 09/03/19 08:36 [place] % (Auto) 9.2 % 09/03/19 08:36 Eos % (Auto) 2.9 % 09/03/19 08:36 Baso % (Auto) 0.2 % 09/03/19 08:36 Neut # (Auto) 14.62 K/uL (1.4-6.5) H 09/03/19 08:36 Lymph # (Auto) 3.39 K/uL (1.2-3.4) 09/03/19 08:36 [place] # (Auto) 1.91 K/uL (0.11-0.59) H 09/03/19 08:36 Eos # (Auto) 0.61 K/uL (0-0.5) H 09/03/19 08:36 Baso # (Auto) 0.05 K/uL (0-0.2) 09/03/19 08:36 Immature Gran # (Auto) 0.22 K/uL (0.00-0.02) H 09/03/19 08:36 ESR 75 mm/hr (0-14) H 08/29/19 22:08 PT 12.0 Seconds (9.0-12.0) 08/29/19 22:08 INR 1.1 (0.9-1.1) 08/29/19 22:08 APTT 30.7 Seconds (21.0-31.0) 08/29/19 22:08 PTT Ratio 1.1 08/29/19 22:08 Sodium 142 mmol/L (136-145) 09/03/19 08:36 Potassium 3.5 mmol/L (3.5-5.1) 09/03/19 08:36 Chloride 106 mmol/L (98-107) 09/03/19 08:36 Carbon Dioxide 30 mmol/L (21-32) 09/03/19 08:36 Anion Gap 5.0 (3-11) 09/03/19 08:36 BUN 24 mg/dl (7-18) H 09/03/19 08:36 Creatinine 1.17 mg/dl (0.6-1.4) 09/03/19 08:36 Est Cr Clr Drug Dosing 100.3 ml/min 09/03/19 08:36 Est GFR ( Amer) 77.5 09/03/19 08:36 Est GFR (Non-Af Amer) 66.9 09/03/19 08:36 BUN/Creatinine Ratio 20.6 (10-20) H 09/03/19 08:36 Glucose 77 mg/dl (70-99) 09/03/19 08:36 POC Glucose 79 mg/dl (70-99) 09/03/19 16:25 Estimat Average Glucose 252 mg/dl 08/29/19 22:08 Hemoglobin A1c 10.4 % (4.5-5.6) H 08/29/19 22:08 Lactate 1.0 mmol/L (0.4-2.0) 08/29/19 22:08 Calcium 8.9 mg/dl (8.5-10.1) 09/03/19 08:36 Magnesium 1.8 mg/dl (1.8-2.4) 08/29/19 22:08 Ferritin 543.7 ng/ml (8-388) H 08/29/19 22:08 Total Bilirubin 0.6 mg/dl (0.2-1) 08/29/19 22:08 AST 12 U/L (15-37) L 08/29/19 22:08 ALT 17 U/L (12-78) 08/29/19 22:08 Alkaline Phosphatase 104 U/L (45-117) 08/29/19 22:08 Lactate Dehydrogenase 191 U/L (87-241) 08/29/19 22:08 Troponin I < 0.015 ng/ml (0-0.045) 08/29/19 22:08 C-Reactive Protein 18.10 mg/dl (0-0.29) H 08/29/19 22:08 Total Protein 7.8 gm/dl (6.4-8.2) 08/29/19 22:08 Albumin 2.1 gm/dl (3.4-5.0) L 08/29/19 22:08 Globulin 5.7 gm/dl (2.5-4.0) H 08/29/19 22:08 Albumin/Globulin Ratio 0.4 (0.9-2) L 08/29/19 22:08 Procalcitonin 0.54 ng/ml (0-0.5) H 08/29/19 22:08 Urine Color Yellow 08/30/19 07:05 Urine Appearance Clear (Clear) 08/30/19 07:05 Urine pH 5.5 (4.5-7.5) 08/30/19 07:05 Ur Specific [place] 1.033 (1.000-1.030) H 08/30/19 07:05 Urine Protein 4+ (Negative) H 08/30/19 07:05 Urine Glucose (UA) 3+ (Negative) H 08/30/19 07:05 Urine Ketones Trace (Negative) H 08/30/19 07:05 Urine Blood 1+ (Negative) H 08/30/19 07:05 Urine Nitrite Negative (Negative) 08/30/19 07:05 Urine Bilirubin Negative (Negative) 08/30/19 07:05 Urine Urobilinogen Negative (Negative) 08/30/19 07:05 Ur Leukocyte Esterase Negative (Negative) 08/30/19 07:05 Urine WBC (Auto) 1-5 /hpf (0-5) 08/30/19 07:05 Urine RBC (Auto) 5-10 /hpf (0-4) H 08/30/19 07:05 U Hyaline Cast (Auto) 1-5 /lpf (0-5) 08/30/19 07:05 U Epithel Cells (Auto) 20-30 /lpf (0-5) H 08/30/19 07:05 Urine Bacteria (Auto) Negative (Negative) 08/30/19 07:05 Vancomycin Trough 23.6 mcg/ml (See Comment) 08/31/19 08:11 Random Vancomycin 16.4 mcg/ml 08/31/19 19:31 Resident Activity Tracking Resident Involvement: Resident Care Provided Care Provided: Adult [facility]
--- NOTE | 2019-09-03 10:55 | Operative Report ---
Post Operative Report Pre & Post Diagnosis Operation Date: 09/03/19 08:35 Pre-Op Diagnosis: Gangrene Left 5th toe Post-Op Diagnosis: Gangrene Left 5th toe I identified the patient and participated in the time-out.: Yes Procedure Operation Date: 09/03/19 08:35 Actual Procedures p Left 5th Toe Amputation(Left) - Abbe Kwong MD Surgeon Abbe Kwong MD [employer] None Estimated Blood Loss 5 Findings Consistent with Post-Op Diagnosis Specimens Left fifth toe for permanent specimen Aerobic and anaerobic cultures left fifth toe Drains None Anesthesia Type MAC Regional Complications none Disposition Accompanied Patient To Recovery: No Disposition: Recovery Room Indications Patient is 63-year-old male significant peripheral vascular disease and diabe darnell. Developed gangrenous left fifth toe with foul odor. None of the interventions of vascular surgery were performed would be able to save the fifth toe. He presents for amputation. Description of Procedure Risks benefits and alternatives of surgery including but not limited to infection, DVT, pain, stiffness, need for revision surgery, damage to blood vessels damage to nerves or risks of anesthesia were discussed with the patient and she wished to proceed. Patient was identified in the laterality was confirmed and marked. A well-padded tourniquet was applied and then the limb was prepped and draped in standard manner with Betadine. The limb was exsanguinated and the tourniquet was inflated. The toe was necrotic. The region of necrosis extended along the dorsal surface extending medially up proximally to the region of the proximal phalanx. There was areas that extended onto the plantar surface of the foot I made a full-thickness incision around the necrotic area and excise this. There was a copious amount of foul-smelling grayish material. I then trimmed the skin back to good healthy bleeding tissue. Identified the digital nerves and pulled them taut and then incised those retracting back into the foot. Identified the blood vessels and cauterized these. I then dissected circumferentially through the joint capsule and released the tendon insertions. The toe was then excised. The amputated portion was sent as specimen. The wound was thoroughly irrigated. Cultures were obtained. I loosely placed some 2-0 nylon in simple stitch fashion for closure. I attest to the content of the Intraoperative Record and any orders documented therein. Any exceptions are noted below.
[2019-09-03] MEDS ORDERED: ATROPINE SULFATE 0.1 MG/ML 10ML SYR IV PRN (11:02)
[2019-09-03] MEDS ORDERED: ePHEDrine sulfate 50 MG/ML AMP IV PRN (11:02)
--- NOTE | 2019-09-03 11:03 | Anesthesiology Progress Note ---
Date of Service September 03, 2019 Anesthesia Post Procedure Vital Signs Vital Signs: Temp Pulse Pulse Pulse Resp BP Pulse Ox 09/03/19 11:00 67 14 137/59 L 95 09/03/19 10:51 36.6 C 66 16 134/58 L 94 09/03/19 07:38 36.5 C 71 18 191/86 H 96 09/03/19 07:21 75 09/03/19 03:26 68 09/03/19 02:56 36.5 C 70 20 170/76 H 95 09/03/19 02:40 68 19 95 09/03/19 01:07 70 22 94 09/02/19 23:19 36.6 C 74 15 176/74 H 95 09/02/19 19:08 36.7 C 76 20 184/73 H 95 09/02/19 15:55 72 09/02/19 15:18 36.7 C 67 18 172/82 H 94 09/02/19 13:03 72 09/02/19 12:39 36.7 C 68 18 173/81 H 93 09/02/19 12:13 72 20 181/87 H 97 09/02/19 12:08 73 23 181/85 H 92 09/02/19 12:05 73 24 181/87 H 93 09/02/19 12:00 70 21 181/93 H 98 09/02/19 11:55 70 23 187/84 H 97 09/02/19 11:50 71 20 182/84 H 96 09/02/19 11:45 72 18 168/87 H 96 09/02/19 11:40 71 20 184/89 H 96 09/02/19 11:35 75 22 193/100 H 99 09/02/19 11:30 72 18 184/108 H 98 09/02/19 11:25 73 14 198/82 H 98 09/02/19 11:20 74 21 198/93 H 99 09/02/19 11:16 75 22 205/95 H 98 Pain Intensity Left Toe: Pain Intensity: 2 Transfer of Care Handoff Completed per policy Notes Mental Status: alert / awake / arousable Patient Amnestic to Procedure: Yes Nausea / Vomiting: adequately controlled Pain: adequately controlled Airway Patency, RR, SpO2: stable & adequate BP & HR: stable & adequate Hydration State: stable & adequate Anesthetic Complications: no major complications apparent
[2019-09-03] MEDS ORDERED: NALOXONE HCL 0.4 MG/1 ML VIAL/CARP IV PRN (11:32)
[2019-09-03] MEDS ORDERED: MAGNESIUM HYDROXIDE SUSP 30 ML UDC PO PRN (11:32)
[2019-09-03] MEDS ORDERED: ONDANSETRON INJ 2 MG/ML 2 ML VIAL IV PRN (11:32)
[2019-09-03] MEDS ORDERED: bisacodyL 10 MG SUPP PR PRN (11:32)
[2019-09-03] MEDS: SODIUM CHLORIDE 0.9% 1000ML 1,000 ML IV SCH (12:45)
[2019-09-03] MEDS: DAPTOmycin 450 MG in SYRINGE 0 ML IV SCH (14:27)
--- NOTE | 2019-09-03 18:18 | Billing Data ---
Date of Service September 03, 2019 Coding Level of Care Code 12234 Subseq Hosp Care Lvl 3
[2019-09-03] MEDS: OXYCODONE HCL IR 5 MG TAB (IMMEDIATE RELEASE) PO PRN (19:50)
[2019-09-03] MEDS: SENNA 8.6 MG TAB PO SCH (19:51)
[2019-09-03] MEDS: lisinopriL 40 MG TAB PO SCH (19:52)
[2019-09-03] MEDS: CITALOPRAM 20 MG TAB PO SCH (19:53)
[2019-09-03] MEDS ORDERED: PHARMACY GLYCEMIC MGMT CONSULT PRN (21:20)
[2019-09-03] MEDS: HEPARIN SOD 5,000 UNIT/0.5 ML VIAL SQ SCH (21:29)
[2019-09-04] MEDS: SODIUM CHLORIDE 0.9% 1000ML 1,000 ML IV SCH (00:43)
[2019-09-04 05:49] LABS: Hematocrit (blood only) 33.7 % (42-52); Hemoglobin 11.2 g/dL (14.0-18.0); Mean Corpuscular Hemoglobin 29.3 pg (25-34); Mean Corpuscular Hgb Conc 33.2 g/dL (32-36); Mean Corpuscular Volume 88.2 fL (80-100); Mean Platelet Volume 9.3 fL (7.4-10.4); Platelet Count 316 K/uL (130-400); RDW Coefficient of Variation 13.6 % (11.5-14.5); RDW Standard Deviation 44.4 fL (36.4-46.3); Red Blood Count 3.82 M/uL (4.7-6.1)
[2019-09-04 06:32] LABS: BUN Creatinine Ratio 18.7 (10-20); Calcium 8.8 mg/dl (8.5-10.1); Creatinine Clr Calc Pharmacy 111.4 ml/min; Est GFR (African American) 88.4; Est GFR (Non-African American) 76.2; Potassium 3.9 mmol/L (3.5-5.1)
--- NOTE | 2019-09-04 07:27 | Orthopedic Progress Note ---
Date of Service September 04, 2019 Assessment & Plan (1) Gangrene of toe of left foot: POD #1 left fifth toe amputation -Pain managementcurrently patient's pain is well controlled -DVT prophylaxispatient is currently on heparin, SCDs. -PT/OT-left lower extremity heel weightbearing only -A.m. labs-hemoglobin at 11.2 this morning. -Gram stain from OR yesterday showing moderate polys, rare gram-positive cocci, few epithelials. Cultures pending -We will plan on dressing change tomorrow. Admission and Anticipated Discharge Date Admission Date: August 30, 2019 Subjective Patient is postop day #1 from left fifth toe amputation. He is sleeping upon my arrival, with CPAP on. He is easily arousable. He had some pain overnight, but currently is not really having any pain. Denies complaints. No chest pain, shortness of breath, nausea, vomiting, diarrhea, dizziness or lightheadedness, fever or chills. Review of Systems Review of Systems: All systems reviewed & are unremarkable except as noted in HPI & below Physical Exam Physical Exam: Patient is resting in bed. Dressing to left foot is C/D/I. Toes are mobile. No calf tenderness. Distally neurovascular status and sensation intact. Constitutional: well developed and well nourished; no acute distress Results & Data ([facility]) Vital Signs (Past 12 Hours) Vital Signs Temp Pulse Pulse Resp BP Pulse Ox 09/04/19 07:03 81 09/04/19 05:44 81 09/04/19 02:58 36.8 C 80 20 138/78 93 09/03/19 23:28 87 21 92 09/03/19 22:43 36.9 C 86 18 139/72 90 09/03/19 19:26 36.5 C 84 20 129/82 94 Laboratory Results Lab Results 08/29/19 08/29/19 08/29/19 Range/Units 22:08 22:08 22:08 WBC 21.54 H (4.8-10.8) K/uL RBC 3.81 L (4.7-6.1) M/uL Hgb 11.0 L (14.0-18.0) g/dL Hct 33.8 L (42-52) % MCV 88.7 (80-100) fL MCH 28.9 (25-34) pg MCHC 32.5 (32-36) g/dL RDW Std Deviation 42.4 (36.4-46.3) fL RDW Coeff of Maribel 13.1 (11.5-14.5) % Plt Count 232 (130-400) K/uL MPV 10.1 (7.4-10.4) fL Immature Gran % (Auto) 0.5 % Neut % (Auto) 84.4 % Lymph % (Auto) 4.1 % Avery % (Auto) 10.9 % Eos % (Auto) 0.0 % Baso % (Auto) 0.1 % Neut # (Auto) 18.18 H (1.4-6.5) K/uL Lymph # (Auto) 0.88 L (1.2-3.4) K/uL Avery # (Auto) 2.35 H (0.11-0.59) K/uL Eos # (Auto) 0.01 (0-0.5) K/uL Baso # (Auto) 0.02 (0-0.2) K/uL Immature Gran # (Auto) 0.10 H (0.00-0.02) K/uL ESR 75 H (0-14) mm/hr PT 12.0 (9.0-12.0) Seconds INR 1.1 (0.9-1.1) APTT 30.7 (21.0-31.0) Seconds PTT Ratio 1.1 Sodium (136-145) mmol/L Potassium (3.5-5.1) mmol/L Chloride (98-107) mmol/L Carbon Dioxide (21-32) mmol/L Anion Gap (3-11) BUN (7-18) mg/dl Creatinine (0.6-1.4) mg/dl Est Cr Clr Drug Dosing ml/min Est GFR ( Amer) Est GFR (Non-Af Amer) BUN/Creatinine Ratio (10-20) Glucose (70-99) mg/dl POC Glucose (70-99) mg/dl Estimat Average Glucose mg/dl Hemoglobin A1c (4.5-5.6) % Lactate (0.4-2.0) mmol/L Calcium (8.5-10.1) mg/dl Magnesium (1.8-2.4) mg/dl Ferritin (8-388) ng/ml Total Bilirubin (0.2-1) mg/dl AST (15-37) U/L ALT (12-78) U/L Alkaline Phosphatase (45-117) U/L Lactate Dehydrogenase (87-241) U/L Troponin I (0-0.045) ng/ml C-Reactive Protein (0-0.29) mg/dl Total Protein (6.4-8.2) gm/dl Albumin (3.4-5.0) gm/dl Globulin (2.5-4.0) gm/dl Albumin/Globulin Ratio (0.9-2) Procalcitonin (0-0.5) ng/ml Urine Color Urine Appearance (Clear) Urine pH (4.5-7.5) Ur Specific [place] (1.000-1.030) Urine Protein (Negative) Urine Glucose (UA) (Negative) Urine Ketones (Negative) Urine Blood (Negative) Urine Nitrite (Negative) Urine Bilirubin (Negative) Urine Urobilinogen (Negative) Ur Leukocyte Esterase (Negative) Urine WBC (Auto) (0-5) /hpf Urine RBC (Auto) (0-4) /hpf U Hyaline Cast (Auto) (0-5) /lpf U Epithel Cells (Auto) (0-5) /lpf Urine Bacteria (Auto) (Negative) Vancomycin Trough (See Comment) mcg/ml Random Vancomycin mcg/ml 08/29/19 08/29/19 08/29/19 Range/Units 22:08 22:08 22:08 WBC (4.8-10.8) K/uL RBC (4.7-6.1) M/uL Hgb (14.0-18.0) g/dL Hct (42-52) % MCV (80-100) fL MCH (25-34) pg MCHC (32-36) g/dL RDW Std Deviation (36.4-46.3) fL RDW Coeff of Maribel (11.5-14.5) % Plt Count (130-400) K/uL MPV (7.4-10.4) fL Immature Gran % (Auto) % Neut % (Auto) % Lymph % (Auto) % Avery % (Auto) % Eos % (Auto) % Baso % (Auto) % Neut # (Auto) (1.4-6.5) K/uL Lymph # (Auto) (1.2-3.4) K/uL Avery # (Auto) (0.11-0.59) K/uL Eos # (Auto) (0-0.5) K/uL Baso # (Auto) (0-0.2) K/uL Immature Gran # (Auto) (0.00-0.02) K/uL ESR (0-14) mm/hr PT (9.0-12.0) Seconds INR (0.9-1.1) APTT (21.0-31.0) Seconds PTT Ratio Sodium 133 L (136-145) mmol/L Potassium 3.8 (3.5-5.1) mmol/L Chloride 100 (98-107) mmol/L Carbon Dioxide 26 (21-32) mmol/L Anion Gap 7.0 (3-11) BUN 18 (7-18) mg/dl Creatinine 1.26 (0.6-1.4) mg/dl Est Cr Clr Drug Dosing 92.6 ml/min Est GFR ( Amer) 70.9 Est GFR (Non-Af Amer) 61.2 BUN/Creatinine Ratio 13.9 (10-20) Glucose 212 H (70-99) mg/dl POC Glucose (70-99) mg/dl Estimat Average Glucose mg/dl Hemoglobin A1c (4.5-5.6) % Lactate 1.0 (0.4-2.0) mmol/L Calcium 8.6 (8.5-10.1) mg/dl Magnesium 1.8 (1.8-2.4) mg/dl Ferritin 543.7 H (8-388) ng/ml Total Bilirubin 0.6 (0.2-1) mg/dl AST 12 L (15-37) U/L ALT 17 (12-78) U/L Alkaline Phosphatase 104 (45-117) U/L Lactate Dehydrogenase 191 (87-241) U/L Troponin I < 0.015 (0-0.045) ng/ml C-Reactive Protein 18.10 H (0-0.29) mg/dl Total Protein 7.8 (6.4-8.2) gm/dl Albumin 2.1 L (3.4-5.0) gm/dl Globulin 5.7 H (2.5-4.0) gm/dl Albumin/Globulin Ratio 0.4 L (0.9-2) Procalcitonin (0-0.5) ng/ml Urine Color Urine Appearance (Clear) Urine pH (4.5-7.5) Ur Specific [place] (1.000-1.030) Urine Protein (Negative) Urine Glucose (UA) (Negative) Urine Ketones (Negative) Urine Blood (Negative) Urine Nitrite (Negative) Urine Bilirubin (Negative) Urine Urobilinogen (Negative) Ur Leukocyte Esterase (Negative) Urine WBC (Auto) (0-5) /hpf Urine RBC (Auto) (0-4) /hpf U Hyaline Cast (Auto) (0-5) /lpf U Epithel Cells (Auto) (0-5) /lpf Urine Bacteria (Auto) (Negative) Vancomycin Trough (See Comment) mcg/ml Random Vancomycin mcg/ml 08/29/19 08/29/19 08/30/19 Range/Units 22:08 22:08 07:05 WBC (4.8-10.8) K/uL RBC (4.7-6.1) M/uL Hgb (14.0-18.0) g/dL Hct (42-52) % MCV (80-100) fL MCH (25-34) pg MCHC (32-36) g/dL RDW Std Deviation (36.4-46.3) fL RDW Coeff of Maribel (11.5-14.5) % Plt Count (130-400) K/uL MPV (7.4-10.4) fL Immature Gran % (Auto) % Neut % (Auto) % Lymph % (Auto) % Avery % (Auto) % Eos % (Auto) % Baso % (Auto) % Neut # (Auto) (1.4-6.5) K/uL Lymph # (Auto) (1.2-3.4) K/uL Avery # (Auto) (0.11-0.59) K/uL Eos # (Auto) (0-0.5) K/uL Baso # (Auto) (0-0.2) K/uL Immature Gran # (Auto) (0.00-0.02) K/uL ESR (0-14) mm/hr PT (9.0-12.0) Seconds INR (0.9-1.1) APTT (21.0-31.0) Seconds PTT Ratio Sodium (136-145) mmol/L Potassium (3.5-5.1) mmol/L Chloride (98-107) mmol/L Carbon Dioxide (21-32) mmol/L Anion Gap (3-11) BUN (7-18) mg/dl Creatinine (0.6-1.4) mg/dl Est Cr Clr Drug Dosing ml/min Est GFR ( Amer) Est GFR (Non-Af Amer) BUN/Creatinine Ratio (10-20) Glucose (70-99) mg/dl POC Glucose (70-99) mg/dl Estimat Average Glucose 252 mg/dl Hemoglobin A1c 10.4 H (4.5-5.6) % Lactate (0.4-2.0) mmol/L Calcium (8.5-10.1) mg/dl Magnesium (1.8-2.4) mg/dl Ferritin (8-388) ng/ml Total Bilirubin (0.2-1) mg/dl AST (15-37) U/L ALT (12-78) U/L Alkaline Phosphatase (45-117) U/L Lactate Dehydrogenase (87-241) U/L Troponin I (0-0.045) ng/ml C-Reactive Protein (0-0.29) mg/dl Total Protein (6.4-8.2) gm/dl Albumin (3.4-5.0) gm/dl Globulin (2.5-4.0) gm/dl Albumin/Globulin Ratio (0.9-2) Procalcitonin 0.54 H (0-0.5) ng/ml Urine Color Yellow Urine Appearance Clear (Clear) Urine pH 5.5 (4.5-7.5) Ur Specific [place] 1.033 H (1.000-1.030) Urine Protein 4+ H (Negative) Urine Glucose (UA) 3+ H (Negative) Urine Ketones Trace H (Negative) Urine Blood 1+ H (Negative) Urine Nitrite Negative (Negative) Urine Bilirubin Negative (Negative) Urine Urobilinogen Negative (Negative) Ur Leukocyte Esterase Negative (Negative) Urine WBC (Auto) 1-5 (0-5) /hpf Urine RBC (Auto) 5-10 H (0-4) /hpf U Hyaline Cast (Auto) 1-5 (0-5) /lpf U Epithel Cells (Auto) 20-30 H (0-5) /lpf Urine Bacteria (Auto) Negative (Negative) Vancomycin Trough (See Comment) mcg/ml Random Vancomycin mcg/ml 08/30/19 08/30/19 08/30/19 Range/Units 07:48 11:43 11:43 WBC (4.8-10.8) K/uL RBC (4.7-6.1) M/uL Hgb (14.0-18.0) g/dL Hct (42-52) % MCV (80-100) fL MCH (25-34) pg MCHC (32-36) g/dL RDW Std Deviation (36.4-46.3) fL RDW Coeff of Maribel (11.5-14.5) % Plt Count (130-400) K/uL MPV (7.4-10.4) fL Immature Gran % (Auto) % Neut % (Auto) % Lymph % (Auto) % Avery % (Auto) % Eos % (Auto) % Baso % (Auto) % Neut # (Auto) (1.4-6.5) K/uL Lymph # (Auto) (1.2-3.4) K/uL Avery # (Auto) (0.11-0.59) K/uL Eos # (Auto) (0-0.5) K/uL Baso # (Auto) (0-0.2) K/uL Immature Gran # (Auto) (0.00-0.02) K/uL ESR (0-14) mm/hr PT (9.0-12.0) Seconds INR (0.9-1.1) APTT (21.0-31.0) Seconds PTT Ratio Sodium (136-145) mmol/L Potassium (3.5-5.1) mmol/L Chloride (98-107) mmol/L Carbon Dioxide (21-32) mmol/L Anion Gap (3-11) BUN (7-18) mg/dl Creatinine (0.6-1.4) mg/dl Est Cr Clr Drug Dosing ml/min Est GFR ( Amer) Est GFR (Non-Af Amer) BUN/Creatinine Ratio (10-20) Glucose (70-99) mg/dl POC Glucose 291 H 399 H* 407 H* (70-99) mg/dl Estimat Average Glucose mg/dl Hemoglobin A1c (4.5-5.6) % Lactate (0.4-2.0) mmol/L Calcium (8.5-10.1) mg/dl Magnesium (1.8-2.4) mg/dl Ferritin (8-388) ng/ml Total Bilirubin (0.2-1) mg/dl AST (15-37) U/L ALT (12-78) U/L Alkaline Phosphatase (45-117) U/L Lactate Dehydrogenase (87-241) U/L Troponin I (0-0.045) ng/ml C-Reactive Protein (0-0.29) mg/dl Total Protein (6.4-8.2) gm/dl Albumin (3.4-5.0) gm/dl Globulin (2.5-4.0) gm/dl Albumin/Globulin Ratio (0.9-2) Procalcitonin (0-0.5) ng/ml Urine Color Urine Appearance (Clear) Urine pH (4.5-7.5) Ur Specific [place] (1.000-1.030) Urine Protein (Negative) Urine Glucose (UA) (Negative) Urine Ketones (Negative) Urine Blood (Negative) Urine Nitrite (Negative) Urine Bilirubin (Negative) Urine Urobilinogen (Negative) Ur Leukocyte Esterase (Negative) Urine WBC (Auto) (0-5) /hpf Urine RBC (Auto) (0-4) /hpf U Hyaline Cast (Auto) (0-5) /lpf U Epithel Cells (Auto) (0-5) /lpf Urine Bacteria (Auto) (Negative) Vancomycin Trough (See Comment) mcg/ml Random Vancomycin mcg/ml 08/30/19 08/30/19 08/30/19 Range/Units 16:34 16:35 20:22 WBC (4.8-10.8) K/uL RBC (4.7-6.1) M/uL Hgb (14.0-18.0) g/dL Hct (42-52) % MCV (80-100) fL MCH (25-34) pg MCHC (32-36) g/dL RDW Std Deviation (36.4-46.3) fL RDW Coeff of Maribel (11.5-14.5) % Plt Count (130-400) K/uL MPV (7.4-10.4) fL Immature Gran % (Auto) % Neut % (Auto) % Lymph % (Auto) % Avery % (Auto) % Eos % (Auto) % Baso % (Auto) % Neut # (Auto) (1.4-6.5) K/uL Lymph # (Auto) (1.2-3.4) K/uL Avery # (Auto) (0.11-0.59) K/uL Eos # (Auto) (0-0.5) K/uL Baso # (Auto) (0-0.2) K/uL Immature Gran # (Auto) (0.00-0.02) K/uL ESR (0-14) mm/hr PT (9.0-12.0) Seconds INR (0.9-1.1) APTT (21.0-31.0) Seconds PTT Ratio Sodium (136-145) mmol/L Potassium (3.5-5.1) mmol/L Chloride (98-107) mmol/L Carbon Dioxide (21-32) mmol/L Anion Gap (3-11) BUN (7-18) mg/dl Creatinine (0.6-1.4) mg/dl Est Cr Clr Drug Dosing ml/min Est GFR ( Amer) Est GFR (Non-Af Amer) BUN/Creatinine Ratio (10-20) Glucose (70-99) mg/dl POC Glucose 384 H* 359 H* 376 H* (70-99) mg/dl Estimat Average Glucose mg/dl Hemoglobin A1c (4.5-5.6) % Lactate (0.4-2.0) mmol/L Calcium (8.5-10.1) mg/dl Magnesium (1.8-2.4) mg/dl Ferritin (8-388) ng/ml Total Bilirubin (0.2-1) mg/dl AST (15-37) U/L ALT (12-78) U/L Alkaline Phosphatase (45-117) U/L Lactate Dehydrogenase (87-241) U/L Troponin I (0-0.045) ng/ml C-Reactive Protein (0-0.29) mg/dl Total Protein (6.4-8.2) gm/dl Albumin (3.4-5.0) gm/dl Globulin (2.5-4.0) gm/dl Albumin/Globulin Ratio (0.9-2) Procalcitonin (0-0.5) ng/ml Urine Color Urine Appearance (Clear) Urine pH (4.5-7.5) Ur Specific [place] (1.000-1.030) Urine Protein (Negative) Urine Glucose (UA) (Negative) Urine Ketones (Negative) Urine Blood (Negative) Urine Nitrite (Negative) Urine Bilirubin (Negative) Urine Urobilinogen (Negative) Ur Leukocyte Esterase (Negative) Urine WBC (Auto) (0-5) /hpf Urine RBC (Auto) (0-4) /hpf U Hyaline Cast (Auto) (0-5) /lpf U Epithel Cells (Auto) (0-5) /lpf Urine Bacteria (Auto) (Negative) Vancomycin Trough (See Comment) mcg/ml Random Vancomycin mcg/ml 08/30/19 08/31/19 08/31/19 Range/Units 20:23 01:01 07:49 WBC (4.8-10.8) K/uL RBC (4.7-6.1) M/uL Hgb (14.0-18.0) g/dL Hct (42-52) % MCV (80-100) fL MCH (25-34) pg MCHC (32-36) g/dL RDW Std Deviation (36.4-46.3) fL RDW Coeff of Maribel (11.5-14.5) % Plt Count (130-400) K/uL MPV (7.4-10.4) fL Immature Gran % (Auto) % Neut % (Auto) % Lymph % (Auto) % [place] % (Auto) % Eos % (Auto) % Baso % (Auto) % Neut # (Auto) (1.4-6.5) K/uL Lymph # (Auto) (1.2-3.4) K/uL [place] # (Auto) (0.11-0.59) K/uL Eos # (Auto) (0-0.5) K/uL Baso # (Auto) (0-0.2) K/uL Immature Gran # (Auto) (0.00-0.02) K/uL ESR (0-14) mm/hr PT (9.0-12.0) Seconds INR (0.9-1.1) APTT (21.0-31.0) Seconds PTT Ratio Sodium (136-145) mmol/L Potassium (3.5-5.1) mmol/L Chloride (98-107) mmol/L Carbon Dioxide (21-32) mmol/L Anion Gap (3-11) BUN (7-18) mg/dl Creatinine (0.6-1.4) mg/dl Est Cr Clr Drug Dosing ml/min Est GFR ( Amer) Est GFR (Non-Af Amer) BUN/Creatinine Ratio (10-20) Glucose (70-99) mg/dl POC Glucose 354 H* 124 H (70-99) mg/dl Estimat Average Glucose mg/dl Hemoglobin A1c (4.5-5.6) % Lactate (0.4-2.0) mmol/L Calcium (8.5-10.1) mg/dl Magnesium (1.8-2.4) mg/dl Ferritin (8-388) ng/ml Total Bilirubin (0.2-1) mg/dl AST (15-37) U/L ALT (12-78) U/L Alkaline Phosphatase (45-117) U/L Lactate Dehydrogenase (87-241) U/L Troponin I (0-0.045) ng/ml C-Reactive Protein (0-0.29) mg/dl Total Protein (6.4-8.2) gm/dl Albumin (3.4-5.0) gm/dl Globulin (2.5-4.0) gm/dl Albumin/Globulin Ratio (0.9-2) Procalcitonin (0-0.5) ng/ml Urine Color Urine Appearance (Clear) Urine pH (4.5-7.5) Ur Specific [place] (1.000-1.030) Urine Protein (Negative) Urine Glucose (UA) (Negative) Urine Ketones (Negative) Urine Blood (Negative) Urine Nitrite (Negative) Urine Bilirubin (Negative) Urine Urobilinogen (Negative) Ur Leukocyte Esterase (Negative) Urine WBC (Auto) (0-5) /hpf Urine RBC (Auto) (0-4) /hpf U Hyaline Cast (Auto) (0-5) /lpf U Epithel Cells (Auto) (0-5) /lpf Urine Bacteria (Auto) (Negative) Vancomycin Trough 27.7 (See Comment) mcg/ml Random Vancomycin mcg/ml 08/31/19 08/31/19 08/31/19 Range/Units 08:11 08:11 08:11 WBC 18.93 H (4.8-10.8) K/uL RBC 3.66 L (4.7-6.1) M/uL Hgb 10.3 L (14.0-18.0) g/dL Hct 32.2 L (42-52) % MCV 88.0 (80-100) fL MCH 28.1 (25-34) pg MCHC 32.0 (32-36) g/dL RDW Std Deviation 43.1 (36.4-46.3) fL RDW Coeff of Maribel 13.3 (11.5-14.5) % Plt Count 255 (130-400) K/uL MPV 10.0 (7.4-10.4) fL Immature Gran % (Auto) 0.3 % Neut % (Auto) 77.6 % Lymph % (Auto) 13.2 % [place] % (Auto) 7.9 % Eos % (Auto) 0.9 % Baso % (Auto) 0.1 % Neut # (Auto) 14.69 H (1.4-6.5) K/uL Lymph # (Auto) 2.49 (1.2-3.4) K/uL [place] # (Auto) 1.50 H (0.11-0.59) K/uL Eos # (Auto) 0.17 (0-0.5) K/uL Baso # (Auto) 0.02 (0-0.2) K/uL Immature Gran # (Auto) 0.06 H (0.00-0.02) K/uL ESR (0-14) mm/hr PT (9.0-12.0) Seconds INR (0.9-1.1) APTT (21.0-31.0) Seconds PTT Ratio Sodium 138 (136-145) mmol/L Potassium 3.5 (3.5-5.1) mmol/L Chloride 104 (98-107) mmol/L Carbon Dioxide 29 (21-32) mmol/L Anion Gap 5.0 (3-11) BUN 29 H D (7-18) mg/dl Creatinine 1.37 (0.6-1.4) mg/dl Est Cr Clr Drug Dosing 86.4 ml/min Est GFR ( Amer) 64.1 Est GFR (Non-Af Amer) 55.3 BUN/Creatinine Ratio 20.8 H (10-20) Glucose 122 H (70-99) mg/dl POC Glucose (70-99) mg/dl Estimat Average Glucose mg/dl Hemoglobin A1c (4.5-5.6) % Lactate (0.4-2.0) mmol/L Calcium 8.7 (8.5-10.1) mg/dl Magnesium (1.8-2.4) mg/dl Ferritin (8-388) ng/ml Total Bilirubin (0.2-1) mg/dl AST (15-37) U/L ALT (12-78) U/L Alkaline Phosphatase (45-117) U/L Lactate Dehydrogenase (87-241) U/L Troponin I (0-0.045) ng/ml C-Reactive Protein (0-0.29) mg/dl Total Protein (6.4-8.2) gm/dl Albumin (3.4-5.0) gm/dl Globulin (2.5-4.0) gm/dl Albumin/Globulin Ratio (0.9-2) Procalcitonin (0-0.5) ng/ml Urine Color Urine Appearance (Clear) Urine pH (4.5-7.5) Ur Specific [place] (1.000-1.030) Urine Protein (Negative) Urine Glucose (UA) (Negative) Urine Ketones (Negative) Urine Blood (Negative) Urine Nitrite (Negative) Urine Bilirubin (Negative) Urine Urobilinogen (Negative) Ur Leukocyte Esterase (Negative) Urine WBC (Auto) (0-5) /hpf Urine RBC (Auto) (0-4) /hpf U Hyaline Cast (Auto) (0-5) /lpf U Epithel Cells (Auto) (0-5) /lpf Urine Bacteria (Auto) (Negative) Vancomycin Trough 23.6 (See Comment) mcg/ml Random Vancomycin mcg/ml 08/31/19 08/31/19 08/31/19 Range/Units 13:46 17:02 19:31 WBC (4.8-10.8) K/uL RBC (4.7-6.1) M/uL Hgb (14.0-18.0) g/dL Hct (42-52) % MCV (80-100) fL MCH (25-34) pg MCHC (32-36) g/dL RDW Std Deviation (36.4-46.3) fL RDW Coeff of Maribel (11.5-14.5) % Plt Count (130-400) K/uL MPV (7.4-10.4) fL Immature Gran % (Auto) % Neut % (Auto) % Lymph % (Auto) % [place] % (Auto) % Eos % (Auto) % Baso % (Auto) % Neut # (Auto) (1.4-6.5) K/uL Lymph # (Auto) (1.2-3.4) K/uL [place] # (Auto) (0.11-0.59) K/uL Eos # (Auto) (0-0.5) K/uL Baso # (Auto) (0-0.2) K/uL Immature Gran # (Auto) (0.00-0.02) K/uL ESR (0-14) mm/hr PT (9.0-12.0) Seconds INR (0.9-1.1) APTT (21.0-31.0) Seconds PTT Ratio Sodium (136-145) mmol/L Potassium (3.5-5.1) mmol/L Chloride (98-107) mmol/L Carbon Dioxide (21-32) mmol/L Anion Gap (3-11) BUN (7-18) mg/dl Creatinine (0.6-1.4) mg/dl Est Cr Clr Drug Dosing ml/min Est GFR ( Amer) Est GFR (Non-Af Amer) BUN/Creatinine Ratio (10-20) Glucose (70-99) mg/dl POC Glucose 116 H 142 H (70-99) mg/dl Estimat Average Glucose mg/dl Hemoglobin A1c (4.5-5.6) % Lactate (0.4-2.0) mmol/L Calcium (8.5-10.1) mg/dl Magnesium (1.8-2.4) mg/dl Ferritin (8-388) ng/ml Total Bilirubin (0.2-1) mg/dl AST (15-37) U/L ALT (12-78) U/L Alkaline Phosphatase (45-117) U/L Lactate Dehydrogenase (87-241) U/L Troponin I (0-0.045) ng/ml C-Reactive Protein (0-0.29) mg/dl Total Protein (6.4-8.2) gm/dl Albumin (3.4-5.0) gm/dl Globulin (2.5-4.0) gm/dl Albumin/Globulin Ratio (0.9-2) Procalcitonin (0-0.5) ng/ml Urine Color Urine Appearance (Clear) Urine pH (4.5-7.5) Ur Specific [place] (1.000-1.030) Urine Protein (Negative) Urine Glucose (UA) (Negative) Urine Ketones (Negative) Urine Blood (Negative) Urine Nitrite (Negative) Urine Bilirubin (Negative) Urine Urobilinogen (Negative) Ur Leukocyte Esterase (Negative) Urine WBC (Auto) (0-5) /hpf Urine RBC (Auto) (0-4) /hpf U Hyaline Cast (Auto) (0-5) /lpf U Epithel Cells (Auto) (0-5) /lpf Urine Bacteria (Auto) (Negative) Vancomycin Trough (See Comment) mcg/ml Random Vancomycin 16.4 mcg/ml 08/31/19 09/01/19 09/01/19 Range/Units 20:01 06:41 06:41 WBC 14.96 H (4.8-10.8) K/uL RBC 3.45 L (4.7-6.1) M/uL Hgb 9.7 L (14.0-18.0) g/dL Hct 30.8 L (42-52) % MCV 89.3 (80-100) fL MCH 28.1 (25-34) pg MCHC 31.5 L (32-36) g/dL RDW Std Deviation 44.4 (36.4-46.3) fL RDW Coeff of Maribel 13.6 (11.5-14.5) % Plt Count 251 (130-400) K/uL MPV 9.9 (7.4-10.4) fL Immature Gran % (Auto) 0.3 % Neut % (Auto) 75.1 % Lymph % (Auto) 13.1 % Avery % (Auto) 8.4 % Eos % (Auto) 3.0 % Baso % (Auto) 0.1 % Neut # (Auto) 11.22 H (1.4-6.5) K/uL Lymph # (Auto) 1.96 (1.2-3.4) K/uL Avery # (Auto) 1.26 H (0.11-0.59) K/uL Eos # (Auto) 0.45 (0-0.5) K/uL Baso # (Auto) 0.02 (0-0.2) K/uL Immature Gran # (Auto) 0.05 H (0.00-0.02) K/uL ESR (0-14) mm/hr PT (9.0-12.0) Seconds INR (0.9-1.1) APTT (21.0-31.0) Seconds PTT Ratio Sodium 141 (136-145) mmol/L Potassium 3.3 L (3.5-5.1) mmol/L Chloride 108 H (98-107) mmol/L Carbon Dioxide 28 (21-32) mmol/L Anion Gap 5.0 (3-11) BUN 23 H (7-18) mg/dl Creatinine 1.06 (0.6-1.4) mg/dl Est Cr Clr Drug Dosing 111.8 ml/min Est GFR ( Amer) 87.4 Est GFR (Non-Af Amer) 75.4 BUN/Creatinine Ratio 21.9 H (10-20) Glucose 67 L (70-99) mg/dl POC Glucose 174 H (70-99) mg/dl Estimat Average Glucose mg/dl Hemoglobin A1c (4.5-5.6) % Lactate (0.4-2.0) mmol/L Calcium 8.7 (8.5-10.1) mg/dl Magnesium (1.8-2.4) mg/dl Ferritin (8-388) ng/ml Total Bilirubin (0.2-1) mg/dl AST (15-37) U/L ALT (12-78) U/L Alkaline Phosphatase (45-117) U/L Lactate Dehydrogenase (87-241) U/L Troponin I (0-0.045) ng/ml C-Reactive Protein (0-0.29) mg/dl Total Protein (6.4-8.2) gm/dl Albumin (3.4-5.0) gm/dl Globulin (2.5-4.0) gm/dl Albumin/Globulin Ratio (0.9-2) Procalcitonin (0-0.5) ng/ml Urine Color Urine Appearance (Clear) Urine pH (4.5-7.5) Ur Specific [place] (1.000-1.030) Urine Protein (Negative) Urine Glucose (UA) (Negative) Urine Ketones (Negative) Urine Blood (Negative) Urine Nitrite (Negative) Urine Bilirubin (Negative) Urine Urobilinogen (Negative) Ur Leukocyte Esterase (Negative) Urine WBC (Auto) (0-5) /hpf Urine RBC (Auto) (0-4) /hpf U Hyaline Cast (Auto) (0-5) /lpf U Epithel Cells (Auto) (0-5) /lpf Urine Bacteria (Auto) (Negative) Vancomycin Trough (See Comment) mcg/ml Random Vancomycin mcg/ml 09/01/19 09/01/19 09/01/19 Range/Units 07:26 11:47 16:36 WBC (4.8-10.8) K/uL RBC (4.7-6.1) M/uL Hgb (14.0-18.0) g/dL Hct (42-52) % MCV (80-100) fL MCH (25-34) pg MCHC (32-36) g/dL RDW Std Deviation (36.4-46.3) fL RDW Coeff of Maribel (11.5-14.5) % Plt Count (130-400) K/uL MPV (7.4-10.4) fL Immature Gran % (Auto) % Neut % (Auto) % Lymph % (Auto) % A[place] % (Auto) % Eos % (Auto) % Baso % (Auto) % Neut # (Auto) (1.4-6.5) K/uL Lymph # (Auto) (1.2-3.4) K/uL Avery # (Auto) (0.11-0.59) K/uL Eos # (Auto) (0-0.5) K/uL Baso # (Auto) (0-0.2) K/uL Immature Gran # (Auto) (0.00-0.02) K/uL ESR (0-14) mm/hr PT (9.0-12.0) Seconds INR (0.9-1.1) APTT (21.0-31.0) Seconds PTT Ratio Sodium (136-145) mmol/L Potassium (3.5-5.1) mmol/L Chloride (98-107) mmol/L Carbon Dioxide (21-32) mmol/L Anion Gap (3-11) BUN (7-18) mg/dl Creatinine (0.6-1.4) mg/dl Est Cr Clr Drug Dosing ml/min Est GFR ( Amer) Est GFR (Non-Af Amer) BUN/Creatinine Ratio (10-20) Glucose (70-99) mg/dl POC Glucose 83 136 H 106 H (70-99) mg/dl Estimat Average Glucose mg/dl Hemoglobin A1c (4.5-5.6) % Lactate (0.4-2.0) mmol/L Calcium (8.5-10.1) mg/dl Magnesium (1.8-2.4) mg/dl Ferritin (8-388) ng/ml Total Bilirubin (0.2-1) mg/dl AST (15-37) U/L ALT (12-78) U/L Alkaline Phosphatase (45-117) U/L Lactate Dehydrogenase (87-241) U/L Troponin I (0-0.045) ng/ml C-Reactive Protein (0-0.29) mg/dl Total Protein (6.4-8.2) gm/dl Albumin (3.4-5.0) gm/dl Globulin (2.5-4.0) gm/dl Albumin/Globulin Ratio (0.9-2) Procalcitonin (0-0.5) ng/ml Urine Color Urine Appearance (Clear) Urine pH (4.5-7.5) Ur Specific [place] (1.000-1.030) Urine Protein (Negative) Urine Glucose (UA) (Negative) Urine Ketones (Negative) Urine Blood (Negative) Urine Nitrite (Negative) Urine Bilirubin (Negative) Urine Urobilinogen (Negative) Ur Leukocyte Esterase (Negative) Urine WBC (Auto) (0-5) /hpf Urine RBC (Auto) (0-4) /hpf U Hyaline Cast (Auto) (0-5) /lpf U Epithel Cells (Auto) (0-5) /lpf Urine Bacteria (Auto) (Negative) Vancomycin Trough (See Comment) mcg/ml Random Vancomycin mcg/ml 09/01/19 09/02/19 09/02/19 Range/Units 20:37 06:13 06:13 WBC 16.89 H (4.8-10.8) K/uL RBC 3.58 L (4.7-6.1) M/uL Hgb 10.3 L (14.0-18.0) g/dL Hct 31.9 L (42-52) % MCV 89.1 (80-100) fL MCH 28.8 (25-34) pg MCHC 32.3 (32-36) g/dL RDW Std Deviation 43.8 (36.4-46.3) fL RDW Coeff of Maribel 13.3 (11.5-14.5) % Plt Count 284 (130-400) K/uL MPV 9.6 (7.4-10.4) fL Immature Gran % (Auto) 0.8 % Neut % (Auto) 82.3 % Lymph % (Auto) 10.8 % [place] % (Auto) 5.9 % Eos % (Auto) 0.1 % Baso % (Auto) 0.1 % Neut # (Auto) 13.89 H (1.4-6.5) K/uL Lymph # (Auto) 1.82 (1.2-3.4) K/uL [place] # (Auto) 1.00 H (0.11-0.59) K/uL Eos # (Auto) 0.02 (0-0.5) K/uL Baso # (Auto) 0.02 (0-0.2) K/uL Immature Gran # (Auto) 0.14 H (0.00-0.02) K/uL ESR (0-14) mm/hr PT (9.0-12.0) Seconds INR (0.9-1.1) APTT (21.0-31.0) Seconds PTT Ratio Sodium 143 (136-145) mmol/L Potassium 4.0 D (3.5-5.1) mmol/L Chloride 111 H (98-107) mmol/L Carbon Dioxide 28 (21-32) mmol/L Anion Gap 4.0 (3-11) BUN 23 H (7-18) mg/dl Creatinine 1.03 (0.6-1.4) mg/dl Est Cr Clr Drug Dosing 113.6 ml/min Est GFR ( Amer) 90.4 Est GFR (Non-Af Amer) 78.0 BUN/Creatinine Ratio 22.5 H (10-20) Glucose 186 H (70-99) mg/dl POC Glucose 167 H (70-99) mg/dl Estimat Average Glucose mg/dl Hemoglobin A1c (4.5-5.6) % Lactate (0.4-2.0) mmol/L Calcium 8.6 (8.5-10.1) mg/dl Magnesium (1.8-2.4) mg/dl Ferritin (8-388) ng/ml Total Bilirubin (0.2-1) mg/dl AST (15-37) U/L ALT (12-78) U/L Alkaline Phosphatase (45-117) U/L Lactate Dehydrogenase (87-241) U/L Troponin I (0-0.045) ng/ml C-Reactive Protein (0-0.29) mg/dl Total Protein (6.4-8.2) gm/dl Albumin (3.4-5.0) gm/dl Globulin (2.5-4.0) gm/dl Albumin/Globulin Ratio (0.9-2) Procalcitonin (0-0.5) ng/ml Urine Color Urine Appearance (Clear) Urine pH (4.5-7.5) Ur Specific [place] (1.000-1.030) Urine Protein (Negative) Urine Glucose (UA) (Negative) Urine Ketones (Negative) Urine Blood (Negative) Urine Nitrite (Negative) Urine Bilirubin (Negative) Urine Urobilinogen (Negative) Ur Leukocyte Esterase (Negative) Urine WBC (Auto) (0-5) /hpf Urine RBC (Auto) (0-4) /hpf U Hyaline Cast (Auto) (0-5) /lpf U Epithel Cells (Auto) (0-5) /lpf Urine Bacteria (Auto) (Negative) Vancomycin Trough (See Comment) mcg/ml Random Vancomycin mcg/ml 09/02/19 09/02/19 09/02/19 Range/Units 07:27 09:50 12:55 WBC (4.8-10.8) K/uL RBC (4.7-6.1) M/uL Hgb (14.0-18.0) g/dL Hct (42-52) % MCV (80-100) fL MCH (25-34) pg MCHC (32-36) g/dL RDW Std Deviation (36.4-46.3) fL RDW Coeff of Maribel (11.5-14.5) % Plt Count (130-400) K/uL MPV (7.4-10.4) fL Immature Gran % (Auto) % Neut % (Auto) % Lymph % (Auto) % [place] % (Auto) % Eos % (Auto) % Baso % (Auto) % Neut # (Auto) (1.4-6.5) K/uL Lymph # (Auto) (1.2-3.4) K/uL [place] # (Auto) (0.11-0.59) K/uL Eos # (Auto) (0-0.5) K/uL Baso # (Auto) (0-0.2) K/uL Immature Gran # (Auto) (0.00-0.02) K/uL ESR (0-14) mm/hr PT (9.0-12.0) Seconds INR (0.9-1.1) APTT (21.0-31.0) Seconds PTT Ratio Sodium (136-145) mmol/L Potassium (3.5-5.1) mmol/L Chloride (98-107) mmol/L Carbon Dioxide (21-32) mmol/L Anion Gap (3-11) BUN (7-18) mg/dl Creatinine (0.6-1.4) mg/dl Est Cr Clr Drug Dosing ml/min Est GFR ( Amer) Est GFR (Non-Af Amer) BUN/Creatinine Ratio (10-20) Glucose (70-99) mg/dl POC Glucose 178 H 149 H 168 H (70-99) mg/dl Estimat Average Glucose mg/dl Hemoglobin A1c (4.5-5.6) % Lactate (0.4-2.0) mmol/L Calcium (8.5-10.1) mg/dl Magnesium (1.8-2.4) mg/dl Ferritin (8-388) ng/ml Total Bilirubin (0.2-1) mg/dl AST (15-37) U/L ALT (12-78) U/L Alkaline Phosphatase (45-117) U/L Lactate Dehydrogenase (87-241) U/L Troponin I (0-0.045) ng/ml C-Reactive Protein (0-0.29) mg/dl Total Protein (6.4-8.2) gm/dl Albumin (3.4-5.0) gm/dl Globulin (2.5-4.0) gm/dl Albumin/Globulin Ratio (0.9-2) Procalcitonin (0-0.5) ng/ml Urine Color Urine Appearance (Clear) Urine pH (4.5-7.5) Ur Specific [place] (1.000-1.030) Urine Protein (Negative) Urine Glucose (UA) (Negative) Urine Ketones (Negative) Urine Blood (Negative) Urine Nitrite (Negative) Urine Bilirubin (Negative) Urine Urobilinogen (Negative) Ur Leukocyte Esterase (Negative) Urine WBC (Auto) (0-5) /hpf Urine RBC (Auto) (0-4) /hpf U Hyaline Cast (Auto) (0-5) /lpf U Epithel Cells (Auto) (0-5) /lpf Urine Bacteria (Auto) (Negative) Vancomycin Trough (See Comment) mcg/ml Random Vancomycin mcg/ml 09/02/19 09/02/19 09/03/19 Range/Units 16:46 20:05 07:30 WBC (4.8-10.8) K/uL RBC (4.7-6.1) M/uL Hgb (14.0-18.0) g/dL Hct (42-52) % MCV (80-100) fL MCH (25-34) pg MCHC (32-36) g/dL RDW Std Deviation (36.4-46.3) fL RDW Coeff of Maribel (11.5-14.5) % Plt Count (130-400) K/uL MPV (7.4-10.4) fL Immature Gran % (Auto) % Neut % (Auto) % Lymph % (Auto) % [place] % (Auto) % Eos % (Auto) % Baso % (Auto) % Neut # (Auto) (1.4-6.5) K/uL Lymph # (Auto) (1.2-3.4) K/uL [place] # (Auto) (0.11-0.59) K/uL Eos # (Auto) (0-0.5) K/uL Baso # (Auto) (0-0.2) K/uL Immature Gran # (Auto) (0.00-0.02) K/uL ESR (0-14) mm/hr PT (9.0-12.0) Seconds INR (0.9-1.1) APTT (21.0-31.0) Seconds PTT Ratio Sodium (136-145) mmol/L Potassium (3.5-5.1) mmol/L Chloride (98-107) mmol/L Carbon Dioxide (21-32) mmol/L Anion Gap (3-11) BUN (7-18) mg/dl Creatinine (0.6-1.4) mg/dl Est Cr Clr Drug Dosing ml/min Est GFR ( Amer) Est GFR (Non-Af Amer) BUN/Creatinine Ratio (10-20) Glucose (70-99) mg/dl POC Glucose 232 H 258 H 108 H (70-99) mg/dl Estimat Average Glucose mg/dl Hemoglobin A1c (4.5-5.6) % Lactate (0.4-2.0) mmol/L Calcium (8.5-10.1) mg/dl Magnesium (1.8-2.4) mg/dl Ferritin (8-388) ng/ml Total Bilirubin (0.2-1) mg/dl AST (15-37) U/L ALT (12-78) U/L Alkaline Phosphatase (45-117) U/L Lactate Dehydrogenase (87-241) U/L Troponin I (0-0.045) ng/ml C-Reactive Protein (0-0.29) mg/dl Total Protein (6.4-8.2) gm/dl Albumin (3.4-5.0) gm/dl Globulin (2.5-4.0) gm/dl Albumin/Globulin Ratio (0.9-2) Procalcitonin (0-0.5) ng/ml Urine Color Urine Appearance (Clear) Urine pH (4.5-7.5) Ur Specific [place] (1.000-1.030) Urine Protein (Negative) Urine Glucose (UA) (Negative) Urine Ketones (Negative) Urine Blood (Negative) Urine Nitrite (Negative) Urine Bilirubin (Negative) Urine Urobilinogen (Negative) Ur Leukocyte Esterase (Negative) Urine WBC (Auto) (0-5) /hpf Urine RBC (Auto) (0-4) /hpf U Hyaline Cast (Auto) (0-5) /lpf U Epithel Cells (Auto) (0-5) /lpf Urine Bacteria (Auto) (Negative) Vancomycin Trough (See Comment) mcg/ml Random Vancomycin mcg/ml 09/03/19 09/03/19 09/03/19 Range/Units 08:36 08:36 10:55 WBC 20.80 H (4.8-10.8) K/uL RBC 3.79 L (4.7-6.1) M/uL Hgb 10.7 L (14.0-18.0) g/dL Hct 34.0 L (42-52) % MCV 89.7 (80-100) fL MCH 28.2 (25-34) pg MCHC 31.5 L (32-36) g/dL RDW Std Deviation 44.5 (36.4-46.3) fL RDW Coeff of Maribel 13.5 (11.5-14.5) % Plt Count 332 (130-400) K/uL MPV 9.5 (7.4-10.4) fL Immature Gran % (Auto) 1.1 % Neut % (Auto) 70.3 % Lymph % (Auto) 16.3 % [place] % (Auto) 9.2 % Eos % (Auto) 2.9 % Baso % (Auto) 0.2 % Neut # (Auto) 14.62 H (1.4-6.5) K/uL Lymph # (Auto) 3.39 (1.2-3.4) K/uL [place] # (Auto) 1.91 H (0.11-0.59) K/uL Eos # (Auto) 0.61 H (0-0.5) K/uL Baso # (Auto) 0.05 (0-0.2) K/uL Immature Gran # (Auto) 0.22 H (0.00-0.02) K/uL ESR (0-14) mm/hr PT (9.0-12.0) Seconds INR (0.9-1.1) APTT (21.0-31.0) Seconds PTT Ratio Sodium 142 (136-145) mmol/L Potassium 3.5 (3.5-5.1) mmol/L Chloride 106 (98-107) mmol/L Carbon Dioxide 30 (21-32) mmol/L Anion Gap 5.0 (3-11) BUN 24 H (7-18) mg/dl Creatinine 1.17 (0.6-1.4) mg/dl Est Cr Clr Drug Dosing 100.3 ml/min Est GFR ( Amer) 77.5 Est GFR (Non-Af Amer) 66.9 BUN/Creatinine Ratio 20.6 H (10-20) Glucose 77 (70-99) mg/dl POC Glucose 71 (70-99) mg/dl Estimat Average Glucose mg/dl Hemoglobin A1c (4.5-5.6) % Lactate (0.4-2.0) mmol/L Calcium 8.9 (8.5-10.1) mg/dl Magnesium (1.8-2.4) mg/dl Ferritin (8-388) ng/ml Total Bilirubin (0.2-1) mg/dl AST (15-37) U/L ALT (12-78) U/L Alkaline Phosphatase (45-117) U/L Lactate Dehydrogenase (87-241) U/L Troponin I (0-0.045) ng/ml C-Reactive Protein (0-0.29) mg/dl Total Protein (6.4-8.2) gm/dl Albumin (3.4-5.0) gm/dl Globulin (2.5-4.0) gm/dl Albumin/Globulin Ratio (0.9-2) Procalcitonin (0-0.5) ng/ml Urine Color Urine Appearance (Clear) Urine pH (4.5-7.5) Ur Specific [place] (1.000-1.030) Urine Protein (Negative) Urine Glucose (UA) (Negative) Urine Ketones (Negative) Urine Blood (Negative) Urine Nitrite (Negative) Urine Bilirubin (Negative) Urine Urobilinogen (Negative) Ur Leukocyte Esterase (Negative) Urine WBC (Auto) (0-5) /hpf Urine RBC (Auto) (0-4) /hpf U Hyaline Cast (Auto) (0-5) /lpf U Epithel Cells (Auto) (0-5) /lpf Urine Bacteria (Auto) (Negative) Vancomycin Trough (See Comment) mcg/ml Random Vancomycin mcg/ml 09/03/19 09/03/19 09/03/19 Range/Units 11:12 11:40 16:25 WBC (4.8-10.8) K/uL RBC (4.7-6.1) M/uL Hgb (14.0-18.0) g/dL Hct (42-52) % MCV (80-100) fL MCH (25-34) pg MCHC (32-36) g/dL RDW Std Deviation (36.4-46.3) fL RDW Coeff of Maribel (11.5-14.5) % Plt Count (130-400) K/uL MPV (7.4-10.4) fL Immature Gran % (Auto) % Neut % (Auto) % Lymph % (Auto) % [place] % (Auto) % Eos % (Auto) % Baso % (Auto) % Neut # (Auto) (1.4-6.5) K/uL Lymph # (Auto) (1.2-3.4) K/uL [place] # (Auto) (0.11-0.59) K/uL Eos # (Auto) (0-0.5) K/uL Baso # (Auto) (0-0.2) K/uL Immature Gran # (Auto) (0.00-0.02) K/uL ESR (0-14) mm/hr PT (9.0-12.0) Seconds INR (0.9-1.1) APTT (21.0-31.0) Seconds PTT Ratio Sodium (136-145) mmol/L Potassium (3.5-5.1) mmol/L Chloride (98-107) mmol/L Carbon Dioxide (21-32) mmol/L Anion Gap (3-11) BUN (7-18) mg/dl Creatinine (0.6-1.4) mg/dl Est Cr Clr Drug Dosing ml/min Est GFR ( Amer) Est GFR (Non-Af Amer) BUN/Creatinine Ratio (10-20) Glucose (70-99) mg/dl POC Glucose 71 89 79 (70-99) mg/dl Estimat Average Glucose mg/dl Hemoglobin A1c (4.5-5.6) % Lactate (0.4-2.0) mmol/L Calcium (8.5-10.1) mg/dl Magnesium (1.8-2.4) mg/dl Ferritin (8-388) ng/ml Total Bilirubin (0.2-1) mg/dl AST (15-37) U/L ALT (12-78) U/L Alkaline Phosphatase (45-117) U/L Lactate Dehydrogenase (87-241) U/L Troponin I (0-0.045) ng/ml C-Reactive Protein (0-0.29) mg/dl Total Protein (6.4-8.2) gm/dl Albumin (3.4-5.0) gm/dl Globulin (2.5-4.0) gm/dl Albumin/Globulin Ratio (0.9-2) Procalcitonin (0-0.5) ng/ml Urine Color Urine Appearance (Clear) Urine pH (4.5-7.5) Ur Specific [place] (1.000-1.030) Urine Protein (Negative) Urine Glucose (UA) (Negative) Urine Ketones (Negative) Urine Blood (Negative) Urine Nitrite (Negative) Urine Bilirubin (Negative) Urine Urobilinogen (Negative) Ur Leukocyte Esterase (Negative) Urine WBC (Auto) (0-5) /hpf Urine RBC (Auto) (0-4) /hpf U Hyaline Cast (Auto) (0-5) /lpf U Epithel Cells (Auto) (0-5) /lpf Urine Bacteria (Auto) (Negative) Vancomycin Trough (See Comment) mcg/ml Random Vancomycin mcg/ml 09/03/19 09/03/19 09/04/19 Range/Units 20:25 20:27 05:25 WBC 19.20 H (4.8-10.8) K/uL RBC 3.82 L (4.7-6.1) M/uL Hgb 11.2 L (14.0-18.0) g/dL Hct 33.7 L (42-52) % MCV 88.2 (80-100) fL MCH 29.3 (25-34) pg MCHC 33.2 (32-36) g/dL RDW Std Deviation 44.4 (36.4-46.3) fL RDW Coeff of Maribel 13.6 (11.5-14.5) % Plt Count 316 (130-400) K/uL MPV 9.3 (7.4-10.4) fL Immature Gran % (Auto) % Neut % (Auto) % Lymph % (Auto) % [place] % (Auto) % Eos % (Auto) % Baso % (Auto) % Neut # (Auto) (1.4-6.5) K/uL Lymph # (Auto) (1.2-3.4) K/uL [place] # (Auto) (0.11-0.59) K/uL Eos # (Auto) (0-0.5) K/uL Baso # (Auto) (0-0.2) K/uL Immature Gran # (Auto) (0.00-0.02) K/uL ESR (0-14) mm/hr PT (9.0-12.0) Seconds INR (0.9-1.1) APTT (21.0-31.0) Seconds PTT Ratio Sodium (136-145) mmol/L Potassium (3.5-5.1) mmol/L Chloride (98-107) mmol/L Carbon Dioxide (21-32) mmol/L Anion Gap (3-11) BUN (7-18) mg/dl Creatinine (0.6-1.4) mg/dl Est Cr Clr Drug Dosing ml/min Est GFR ( Amer) Est GFR (Non-Af Amer) BUN/Creatinine Ratio (10-20) Glucose (70-99) mg/dl POC Glucose 67 L* 70 (70-99) mg/dl Estimat Average Glucose mg/dl Hemoglobin A1c (4.5-5.6) % Lactate (0.4-2.0) mmol/L Calcium (8.5-10.1) mg/dl Magnesium (1.8-2.4) mg/dl Ferritin (8-388) ng/ml Total Bilirubin (0.2-1) mg/dl AST (15-37) U/L ALT (12-78) U/L Alkaline Phosphatase (45-117) U/L Lactate Dehydrogenase (87-241) U/L Troponin I (0-0.045) ng/ml C-Reactive Protein (0-0.29) mg/dl Total Protein (6.4-8.2) gm/dl Albumin (3.4-5.0) gm/dl Globulin (2.5-4.0) gm/dl Albumin/Globulin Ratio (0.9-2) Procalcitonin (0-0.5) ng/ml Urine Color Urine Appearance (Clear) Urine pH (4.5-7.5) Ur Specific [place] (1.000-1.030) Urine Protein (Negative) Urine Glucose (UA) (Negative) Urine Ketones (Negative) Urine Blood (Negative) Urine Nitrite (Negative) Urine Bilirubin (Negative) Urine Urobilinogen (Negative) Ur Leukocyte Esterase (Negative) Urine WBC (Auto) (0-5) /hpf Urine RBC (Auto) (0-4) /hpf U Hyaline Cast (Auto) (0-5) /lpf U Epithel Cells (Auto) (0-5) /lpf Urine Bacteria (Auto) (Negative) Vancomycin Trough (See Comment) mcg/ml Random Vancomycin mcg/ml 09/04/19 Range/Units 05:25 WBC (4.8-10.8) K/uL RBC (4.7-6.1) M/uL Hgb (14.0-18.0) g/dL Hct (42-52) % MCV (80-100) fL MCH (25-34) pg MCHC (32-36) g/dL RDW Std Deviation (36.4-46.3) fL RDW Coeff of Maribel (11.5-14.5) % Plt Count (130-400) K/uL MPV (7.4-10.4) fL Immature Gran % (Auto) % Neut % (Auto) % Lymph % (Auto) % [place] % (Auto) % Eos % (Auto) % Baso % (Auto) % Neut # (Auto) (1.4-6.5) K/uL Lymph # (Auto) (1.2-3.4) K/uL [place] # (Auto) (0.11-0.59) K/uL Eos # (Auto) (0-0.5) K/uL Baso # (Auto) (0-0.2) K/uL Immature Gran # (Auto) (0.00-0.02) K/uL ESR (0-14) mm/hr PT (9.0-12.0) Seconds INR (0.9-1.1) APTT (21.0-31.0) Seconds PTT Ratio Sodium 143 (136-145) mmol/L Potassium 3.9 (3.5-5.1) mmol/L Chloride 106 (98-107) mmol/L Carbon Dioxide 32 (21-32) mmol/L Anion Gap 5.0 (3-11) BUN 20 H (7-18) mg/dl Creatinine 1.05 (0.6-1.4) mg/dl Est Cr Clr Drug Dosing 111.4 ml/min Est GFR ( Amer) 88.4 Est GFR (Non-Af Amer) 76.2 BUN/Creatinine Ratio 18.7 (10-20) Glucose 65 L (70-99) mg/dl POC Glucose (70-99) mg/dl Estimat Average Glucose mg/dl Hemoglobin A1c (4.5-5.6) % Lactate (0.4-2.0) mmol/L Calcium 8.8 (8.5-10.1) mg/dl Magnesium (1.8-2.4) mg/dl Ferritin (8-388) ng/ml Total Bilirubin (0.2-1) mg/dl AST (15-37) U/L ALT (12-78) U/L Alkaline Phosphatase (45-117) U/L Lactate Dehydrogenase (87-241) U/L Troponin I (0-0.045) ng/ml C-Reactive Protein (0-0.29) mg/dl Total Protein (6.4-8.2) gm/dl Albumin (3.4-5.0) gm/dl Globulin (2.5-4.0) gm/dl Albumin/Globulin Ratio (0.9-2) Procalcitonin (0-0.5) ng/ml Urine Color Urine Appearance (Clear) Urine pH (4.5-7.5) Ur Specific [place] (1.000-1.030) Urine Protein (Negative) Urine Glucose (UA) (Negative) Urine Ketones (Negative) Urine Blood (Negative) Urine Nitrite (Negative) Urine Bilirubin (Negative) Urine Urobilinogen (Negative) Ur Leukocyte Esterase (Negative) Urine WBC (Auto) (0-5) /hpf Urine RBC (Auto) (0-4) /hpf U Hyaline Cast (Auto) (0-5) /lpf U Epithel Cells (Auto) (0-5) /lpf Urine Bacteria (Auto) (Negative) Vancomycin Trough (See Comment) mcg/ml Random Vancomycin mcg/ml
--- NOTE | 2019-09-04 08:30 | Hospitalist Progress Note ---
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 Cellulitis of left lower extremity s/p amputation of 5th digit - Patient admitted for cellulitis of LLE arising from wound of L great toe vs. L fifth toe and started on broad-spectrum Abx. - most likely worsening disease 2/2 poorly controlled diabetes and microvascular damage - angiogram showed no arterial occlusion or narrowing - At this time on Dapto + Zosyn, WBC mildly decreased to 19.2 today - plan to discharge with antibiotics based on culture specification; currently growing S. Aureus and Gamma hemolytic Strep. Low risk for worsening disease with necrotic tissue removed. - if cellulitis not improving on oral regimen at discharge, can add second agent for pseudomonal coverage. Symptomatic Asystole: - 08/30 on telemetry patient had a 4 second asystole, followed by a single normal beat, followed again by 5 seconds of asystole, which then returned to NSR spontaneously. - During this time period patient was feeling dizzy, nauseated, diaphoretic. - Cardiology consult: most likely vagal episode as symptoms occurred while vomiting. Pt advised to sit or lay down if experiencing symptoms to avoid a fall and further injury if he loses consciousness. If recurrent can consider pacemaker. 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 - Holding metformin while inpatient. - Currently Lantus 30u BID, SSI. - Extensive diabetic management education with team and diabetes navigator - Patient is on asa, beta evan, LILLIE, statin (holding statin due to dapto). Hyperlipidemia: - Most recent lipid panel as follows on Simvastatin 40mg daily: - Total cholesterol 172, LDL 77, HDL 36, TG 297. - Given ASCVD risk of >20%, will transition to high-intensity statin (Lipitor 80mg daily). - However will hold in the setting of daptomycin due to increased risk of rhabdomyolysis. HTN: - Continue lisinopril, metoprolol. - patient has required 10 mg IV hydralazine on 09/02 and 09/03 for asymptomatic blood pressures above 180; maybe benefit from titration of existing HTN medications if continues being uncontrolled at discharge CHF/ idiopathic cardiomyopathy: - Continue aspirin, LILLIE, beta evan. TORI on CPAP: - Continue CPAP HS. Depression: - Continue citalopram. Code Status: FULL CODE FEN/GI: DM2 diet DVT ppx: Heparin BID Dispo: Med/Surg with Telemetry (2) Diabetic ulcer of left fifth toe: (3) DM neuropathy, type II diabetes mellitus: (4) Insulin-requiring or dependent type II diabetes mellitus: (5) CAD (coronary artery disease): (6) TORI on CPAP: (7) HTN (hypertension): (8) Dyslipidemia: Admission and Anticipated Discharge Date Admission Date: August 30, 2019 Supervising Physician Co-Signing Physician Notes I personally examined the patient and verified all kaplan points of history and exam, discussed case, and agree with decision making with Dr Chase. walking some. working w PT. no new complaints, generally feeling better vitals noted nad azucena nc at mmm. L foot dressed dressing c/d/i. breathing unlabored foot infection, cellulitis, sepsis present on admission - continue dapto and zosyn. depending on how wound looks at dressing change tomorrow can determine ?ongoing IV vs change to PO uncontrolled DM - frequently through stay, extensive time spent in educating in regards to DM / why to care / how to adjust insulins/etc / critical importance of lifestyle control; currently sugars well controlled; continue to titrate basal /bolus PVD - surprisingly angiogram did not show severe stenoses pauses - appreciate cardiology input, continue to follow DVT proph - heparin SQ otherwise as above Subjective No complaints this AM. Has been able to ambulate to the bathroom multiple times on his own with weight on his left heel without issue. Review of Systems Constitutional: no fever, no chills, no body aches and no fatigue Respiratory: no cough and no dyspnea Cardiovascular: no chest pain, no dyspnea and no edema Gastrointestinal: no abdominal pain, no nausea, no vomiting, no constipation and no diarrhea/loose stools Physical Exam Constitutional: cooperative; no acute distress and not ill appearing Neck: normal visual inspection Respiratory: normal respiratory effort and able to speak in complete sentences; no respiratory distress, no labored breathing, no retractions, no cough and no audible wheezes Auscultation: lungs clear to auscultation bilaterally; no crackles, no rales, no rhonchi and no wheezes Cardiovascular: Rate/Rhythm: regular rate and regular rhythm Heart Sounds: normal S1 and normal S2; no gallop, no murmur and no cardiac rub Gastrointestinal (Abdomen): Inspection/Auscultation: abdomen normal to inspection and normal bowel sounds; abdomen not distended Percussion/Palpation: abdomen soft; abdomen nontender, no guarding, abdomen not rigid and no abdominal mass Results & Data Results & Data ([facility]) Vital Signs (Past 12 Hours) Vital Signs Temp Pulse Pulse Resp BP Pulse Ox 09/04/19 07:25 36.4 C L 72 18 156/72 H 94 09/04/19 07:03 81 09/04/19 05:44 81 09/04/19 02:58 36.8 C 80 20 138/78 93 09/03/19 23:28 87 21 92 09/03/19 22:43 36.9 C 86 18 139/72 90 Laboratory Results WBC 19.20 K/uL (4.8-10.8) H 09/04/19 05:25 RBC 3.82 M/uL (4.7-6.1) L 09/04/19 05:25 Hgb 11.2 g/dL (14.0-18.0) L 09/04/19 05:25 Hct 33.7 % (42-52) L 09/04/19 05:25 MCV 88.2 fL (80-100) 09/04/19 05:25 MCH 29.3 pg (25-34) 09/04/19 05:25 MCHC 33.2 g/dL (32-36) 09/04/19 05:25 RDW Std Deviation 44.4 fL (36.4-46.3) 09/04/19 05:25 RDW Coeff of Maribel 13.6 % (11.5-14.5) 09/04/19 05:25 Plt Count 316 K/uL (130-400) 09/04/19 05:25 MPV 9.3 fL (7.4-10.4) 09/04/19 05:25 Immature Gran % (Auto) 1.1 % 09/03/19 08:36 Neut % (Auto) 70.3 % 09/03/19 08:36 Lymph % (Auto) 16.3 % 09/03/19 08:36 [place] % (Auto) 9.2 % 09/03/19 08:36 Eos % (Auto) 2.9 % 09/03/19 08:36 Baso % (Auto) 0.2 % 09/03/19 08:36 Neut # (Auto) 14.62 K/uL (1.4-6.5) H 09/03/19 08:36 Lymph # (Auto) 3.39 K/uL (1.2-3.4) 09/03/19 08:36 [place] # (Auto) 1.91 K/uL (0.11-0.59) H 09/03/19 08:36 Eos # (Auto) 0.61 K/uL (0-0.5) H 09/03/19 08:36 Baso # (Auto) 0.05 K/uL (0-0.2) 09/03/19 08:36 Immature Gran # (Auto) 0.22 K/uL (0.00-0.02) H 09/03/19 08:36 ESR 75 mm/hr (0-14) H 08/29/19 22:08 PT 12.0 Seconds (9.0-12.0) 08/29/19 22:08 INR 1.1 (0.9-1.1) 08/29/19 22:08 APTT 30.7 Seconds (21.0-31.0) 08/29/19 22:08 PTT Ratio 1.1 08/29/19 22:08 Sodium 143 mmol/L (136-145) 09/04/19 05:25 Potassium 3.9 mmol/L (3.5-5.1) 09/04/19 05:25 Chloride 106 mmol/L (98-107) 09/04/19 05:25 Carbon Dioxide 32 mmol/L (21-32) 09/04/19 05:25 Anion Gap 5.0 (3-11) 09/04/19 05:25 BUN 20 mg/dl (7-18) H 09/04/19 05:25 Creatinine 1.05 mg/dl (0.6-1.4) 09/04/19 05:25 Est Cr Clr Drug Dosing 111.4 ml/min 09/04/19 05:25 Est GFR ( Amer) 88.4 09/04/19 05:25 Est GFR (Non-Af Amer) 76.2 09/04/19 05:25 BUN/Creatinine Ratio 18.7 (10-20) 09/04/19 05:25 Glucose 65 mg/dl (70-99) L 09/04/19 05:25 POC Glucose 126 mg/dl (70-99) H 09/04/19 11:38 Estimat Average Glucose 252 mg/dl 08/29/19 22:08 Hemoglobin A1c 10.4 % (4.5-5.6) H 08/29/19 22:08 Lactate 1.0 mmol/L (0.4-2.0) 08/29/19 22:08 Calcium 8.8 mg/dl (8.5-10.1) 09/04/19 05:25 Magnesium 1.8 mg/dl (1.8-2.4) 08/29/19 22:08 Ferritin 543.7 ng/ml (8-388) H 08/29/19 22:08 Total Bilirubin 0.6 mg/dl (0.2-1) 08/29/19 22:08 AST 12 U/L (15-37) L 08/29/19 22:08 ALT 17 U/L (12-78) 08/29/19 22:08 Alkaline Phosphatase 104 U/L (45-117) 08/29/19 22:08 Lactate Dehydrogenase 191 U/L (87-241) 08/29/19 22:08 Troponin I < 0.015 ng/ml (0-0.045) 08/29/19 22:08 C-Reactive Protein 18.10 mg/dl (0-0.29) H 08/29/19 22:08 Total Protein 7.8 gm/dl (6.4-8.2) 08/29/19 22:08 Albumin 2.1 gm/dl (3.4-5.0) L 08/29/19 22:08 Globulin 5.7 gm/dl (2.5-4.0) H 08/29/19 22:08 Albumin/Globulin Ratio 0.4 (0.9-2) L 08/29/19 22:08 Procalcitonin 0.54 ng/ml (0-0.5) H 08/29/19 22:08 Urine Color Yellow 08/30/19 07:05 Urine Appearance Clear (Clear) 08/30/19 07:05 Urine pH 5.5 (4.5-7.5) 08/30/19 07:05 Ur Specific [place] 1.033 (1.000-1.030) H 08/30/19 07:05 Urine Protein 4+ (Negative) H 08/30/19 07:05 Urine Glucose (UA) 3+ (Negative) H 08/30/19 07:05 Urine Ketones Trace (Negative) H 08/30/19 07:05 Urine Blood 1+ (Negative) H 08/30/19 07:05 Urine Nitrite Negative (Negative) 08/30/19 07:05 Urine Bilirubin Negative (Negative) 08/30/19 07:05 Urine Urobilinogen Negative (Negative) 08/30/19 07:05 Ur Leukocyte Esterase Negative (Negative) 08/30/19 07:05 Urine WBC (Auto) 1-5 /hpf (0-5) 08/30/19 07:05 Urine RBC (Auto) 5-10 /hpf (0-4) H 08/30/19 07:05 U Hyaline Cast (Auto) 1-5 /lpf (0-5) 08/30/19 07:05 U Epithel Cells (Auto) 20-30 /lpf (0-5) H 08/30/19 07:05 Urine Bacteria (Auto) Negative (Negative) 08/30/19 07:05 Vancomycin Trough 23.6 mcg/ml (See Comment) 08/31/19 08:11 Random Vancomycin 16.4 mcg/ml 08/31/19 19:31 Resident Activity Tracking Resident Involvement: Resident Care Provided Care Provided: Adult Hospital Medicine
[2019-09-04] MEDS: ASPIRIN 81 MG ECTAB PO SCH (08:32)
[2019-09-04] MEDS: MULTIVITAMIN TAB PO SCH (08:32)
[2019-09-04] MEDS: PIPERACILLIN/TAZOBACTAM 4.5 GM in DEXTROSE 5% 100 ML IV SCH ×3 (08:32→23:54)
[2019-09-04] MEDS: METOPROLOL SUCC 25MG EXT REL TAB PO SCH (08:32)
[2019-09-04] MEDS: INSULIN ASPART 100 UNITS/ML 3 ML PEN SC SCH ×4 (08:33→20:50)
[2019-09-04] MEDS: HEPARIN SOD 5,000 UNIT/0.5 ML VIAL SQ SCH ×2 (08:34→20:00)
[2019-09-04] MEDS: OXYCODONE HCL IR 5 MG TAB (IMMEDIATE RELEASE) PO PRN (08:48)
[2019-09-04] MEDS: INSULIN GLARGINE SOLOSTAR 100 UNITS/ML 3 ML PEN SC SCH (09:14)
--- NOTE | 2019-09-04 09:17 | Pharmacy Report ---
Glycemic Control Consultation - Date of Service September 04, 2019 - Scope Scope: Glycemic Pharmacist consulted for glycemic control and to write orders per [facility] inpatient glycemic control protocol. - Objective Weight: 146.7 kg Accuchecks BSG (last 24hrs): 09/03/19 09/03/19 09/03/19 08:36 10:55 11:12 Glucose 77 POC Glucose 71 71 09/03/19 09/03/19 09/03/19 11:40 16:25 20:25 Glucose POC Glucose 89 79 67 L* 09/03/19 09/04/19 09/04/19 20:27 05:25 07:37 Glucose 65 L POC Glucose 70 87 Laboratory Data (last 24hrs): 09/03/19 09/04/19 08:36 05:25 Potassium 3.5 3.9 Carbon Dioxide 30 32 Anion Gap 5.0 5.0 Creatinine 1.17 1.05 Est Cr Clr Drug Dosing 100.3 111.4 HbA1c: Hemoglobin A1c 10.4 % (4.5-5.6) H 08/29/19 22:08 - Recent Pertinent Medications Outpatient Anti-diabetic Regimen: * Lantus 60 units SQ QAM * Novolog sliding scale * Metformin ER 500mg PO daily * A1c = 10.4 % 08/29/19 The patient is currently receiving: * Basal insulin: Lantus 30 units every 12 hours * Correctional Insulin: Novolog Correction per scale ACHS Goal Range: Low 110 mg/dL - High 140 mg/dL Correction Factor: 20 mg/dL/unit * Prandial insulin: Per carb ratio of 1 unit per 3 grams CHO consumed * Oral Agents: ON HOLD Risk Factors for Insulin Resistance: * Steroids: Prednisone 50mg x 3 doses on 08/31-09/01 * Infection: LLE cellulitis and foot wound, IV Zosyn & Daptomycin * Recent Surgery: POD1 5th digit amputation of left foot. * Diet: Type 2 DM - Assessment & Plan Assessment & Plan: ASSESSMENT: * 63 year old male, POD1 s/p 5th digit amputation of left foot, on IV antibiotics. Uncontrolled type 2 diabetic with some steroid induced hyperglycemia on 09/02/19 d/t prednisone, and now with hypoglycemia last evening d/t steroids wearing off and insulin doses remaining the same. * Pharmacy consulted at this time, will decrease Lantus and loosen CR at this time and titrate to goal to prevent further hypoglycemia. * ADA & AACE recommend a goal blood sugar range 140-180 mg/dl for the majority of critically ill & non-critically ill patients. However, more stringent targets may be selected in individual cases. Will utilize more stringent goal of 110-140mg/dl based on patient age & comorbidities. Additionally, tighter glycemic control is warranted to facilitate wound/infection healing. PLAN FOR INPATIENT GLYCEMIC CONTROL: * Holding outpatient oral diabetes medications * Basal insulin -decrease * Lantus 30 units SQ daily * Bolus insulin * NovoLog per scale ACHS or Q6hrs while NPO * Goal Range: Low 110 mg/dL - High 140 mg/dL * Correction Factor: 20 mg/dL/unit * loosen: Nutritional / Prandial insulin per carb ratio of 1 unit per 6 grams CHO consumed * Please note that the plan above was derived based on current level of insulin resistance and hospital stress. These recommendations are appropriate for inpatient admission only. Plan of care upon discharge will need to be reassessed to avoid potential outpatient hypo/hyperglycemia. Thank you.
[2019-09-04] MEDS: DAPTOmycin 450 MG in SYRINGE 0 ML IV SCH (15:56)
[2019-09-04] MEDS: HydrALAZINE HCL 20 MG/ML VIAL IV PRN (16:03)
--- NOTE | 2019-09-04 18:01 | Billing Data ---
Date of Service September 04, 2019 Coding Level of Care Code 33993 Subseq Hosp Care Lvl 3
[2019-09-04] MEDS: SENNA 8.6 MG TAB PO SCH (20:01)
[2019-09-04] MEDS: CITALOPRAM 20 MG TAB PO SCH (20:01)
[2019-09-04] MEDS: lisinopriL 40 MG TAB PO SCH (20:02)
[2019-09-05 06:46] LABS: Hemoglobin 10.3 g/dL (14.0-18.0); Mean Corpuscular Hemoglobin 28.5 pg (25-34); Mean Corpuscular Hgb Conc 32.2 g/dL (32-36); Mean Corpuscular Volume 88.4 fL (80-100); Platelet Count 287 K/uL (130-400); RDW Coefficient of Variation 13.7 % (11.5-14.5); RDW Standard Deviation 44.6 fL (36.4-46.3); Red Blood Count 3.62 M/uL (4.7-6.1)
[2019-09-05 07:34] LABS: Basophils # (auto) 0.06 K/uL (0-0.2); Basophils % (auto) 0.4 %; Eosinophils # (auto) 0.76 K/uL (0-0.5); Eosinophils % (auto) 5.3 %; Immature Granulocytes # (auto) 0.27 K/uL (0.00-0.02); Immature Granulocytes % (auto) 1.9 %; Lymphocytes # (auto) 2.97 K/uL (1.2-3.4); Lymphocytes % (auto) 20.8 %; Monocytes # (auto) 1.25 K/uL (0.11-0.59); Monocytes % (auto) 8.7 %; Neutrophils # (auto) 8.99 K/uL (1.4-6.5); Neutrophils % (auto) 62.9 %
[2019-09-05] MEDS: INSULIN GLARGINE SOLOSTAR 100 UNITS/ML 3 ML PEN SC SCH (08:29)
[2019-09-05] MEDS: MULTIVITAMIN TAB PO SCH (08:29)
[2019-09-05] MEDS: ASPIRIN 81 MG ECTAB PO SCH (08:29)
[2019-09-05] MEDS: METOPROLOL SUCC 25MG EXT REL TAB PO SCH (08:29)
[2019-09-05] MEDS: INSULIN ASPART 100 UNITS/ML 3 ML PEN SC SCH ×2 (08:31→12:26)
[2019-09-05] MEDS: PIPERACILLIN/TAZOBACTAM 4.5 GM in DEXTROSE 5% 100 ML IV SCH (09:26)
[2019-09-05] MEDS: HEPARIN SOD 5,000 UNIT/0.5 ML VIAL SQ SCH (09:41)
--- NOTE | 2019-09-05 11:31 | Orthopedic Progress Note ---
Date of Service September 05, 2019 Assessment & Plan (1) Gangrene of toe of left foot: POD #2 left fifth toe amputation -Pain management continue current regimen -DVT prophylaxispatient is currently on heparin, SCDs. -PT/OT-left lower extremity heel weightbearing only -Continue daily dressing changes. Will order a cast shoe for left foot. -Cx's as noted above. Admission and Anticipated Discharge Date Admission Date: August 30, 2019 Subjective Pt awake,alert. Appears comfortable. Pain controlled. No complaints. Physical Exam Physical Exam: Dressing removed. Wound well approximated. Slight maceration noted of some wound edges distally. Minimal erythema. No purulence noted. redressed with adaptic, 4x4's,kerlix, and lightly wrapped cornelia. Results & Data ([facility] [place]) Vital Signs (Past 12 Hours) Vital Signs Temp Pulse Pulse Resp BP BP Pulse Ox 09/05/19 07:38 72 09/05/19 07:22 36.7 C 81 18 150/81 H 94 09/05/19 02:54 36.8 C 83 20 171/70 H 92 09/04/19 23:48 80 Diagnostic Findings michelle: JENNY CORONADO Gómez Acct: [id number] Status: ADM IN : 1955 [facility] Date: 08/30/19 Age: 63 Sex: M Dis Date: Loc: [address]/Bed: N286-2 Spec: [id number] Collected: 09/03/19-1030 Received: 09/03/19-[address]: Abbe Kwong M.D. Copy To: Naga Krishnamurthy M.D., Jeffrey W., MD Source: Toe,Left Fifth OV Order: Ordered: Aer/Ambar Cult/Sm Comments: Comment Left 5th Toe Procedure Result Verified Site Gram Stain Final 09/03/19-1250 Gram Stain Result Moderate Polys Rare Gram Positive Cocci Few Epithelial Cells Aero/Ambar Cult Preliminary 09/05/19-1102 Organism 1 Staphylococcus aureus Quantity Few Sens Sensitivities to Follow Organism 2 Enterococcus faecalis Quantity Few Sens Sensitivities to Follow S aureus E faecalis RX M.I.C. RX M.I.C. --- --------- --- --------- Ampicillin S <=2 Clindamycin S <=0.5 Daptomycin S <=0.5 S 2 Erythromycin S <=0.5 Gent Synergy S <=500 Oxacillin S 1 Penicillin S 2 Strep Synergy S <=1000 Tetracycline I 8 Trimeth/Sulfa S <=0.5/9.5 Vancomycin S 1 S 2 Enterococcus faecalis: Positive Combo 33 Streptomycin Synergy Screen S Gentamicin Synergy Screen S S = SENSITIVE I = INTERMEDIATE R = RESISTANT
--- NOTE | 2019-09-05 13:06 | Discharge Summary ---
Date of Service September 05, 2019 Admission HPI Per Admitting Provider The patient is a 63-year-old male with a past medical history including diabetes mellitus, diabetic ulcer of left great toe, nonhealing diabetic wound, CAD, idiopathic cardiomyopathy, TORI on CPAP, hypertension, dyslipidemia, CHF and elevated cholesterol. He has been following with the wound clinic for chronic left great toe ulcer, but over the past few days is noticed the development of redness along the dorsal aspect of that foot, and going up his trejo. At the same time he is developed issues with nausea, vomiting and fever. Admission Exam Per Admitting Provider The patient is awake, alert and oriented 3, well developed and well nourished, normocephalic and atraumatic, lying in bed and in no acute distress. HEENT--PERRL, EOMI, mucous membranes and oropharynx normal. Neck--supple. No JVD. No bruits. Thyroid normal, trachea midline, no adenopathy. Heart--normal S1 and S2. No murmurs, rubs or gallops. Lungs--clear bilaterally, no respiratory distress, no accessory muscle use. Abdomen--normal bowel sounds and soft. Nontender. Nondistended. Morbidly obese Extremities/dermatologic--1+ pretibial pitting edema on the right. 2+ pretibial and pedal pitting edema on the left with erythema and warmth. Neurologic--cranial nerves II through XII grossly intact. Rheumatologic--normal range of motion. Psychiatric--normal affect. Principal Diagnosis cellulitis 2/2 L 5th toe infection s/p L 5th toe amputation Discharge Exam Constitutional WD/WN, vitals as above Eyes PERRL, conjunctivae normal, anicteric sclerae ENMT external ear and nose normal, oropharynx normal Neck normal visual inspection Respiratory normal respiratory effort, lungs clear to auscultation Cardiovascular RRR, no murmur, no edema Gastrointestinal (Abdomen) normal bowel sounds, soft, nontender, no hepatosplenomegaly Musculoskeletal no cyanosis or clubbing, extremities motor strength 5/5 Skin left leg bandaged and wrapped after surgical amputation of L 5th digit of foot Psychiatric A+Ox3, euthymic affect Discharge Data Allergies Allergy/AdvReac Type Severity Reaction Status Date / Time bee venom protein (honey bee) Allergy Severe Anaphylaxis Verified 08/29/19 23:35 iodine AdvReac Mild FLUSHED Verified 08/29/19 23:35 FEELING/sick to stomach egg AdvReac Verified 08/30/19 14:34 Egg or Chicken-derived Drugs Allergy Unknown Gastrointestinal Uncoded 08/29/19 23:35 Upset Consultations 08/30/19 00:13 ED Decision to Admit Stat 08/30/19 03:23 Consult Case Management - Discharge Planning Routine 08/30/19 10:01 Consult Orthopedic Surgery Routine 08/31/19 15:51 Consult Wound Care Provider Routine 09/01/19 09:57 Consult Cardiology Routine 09/01/19 13:57 Consult Vascular Surgery Routine 09/02/19 10:35 Consult Orthopedic Surgery Routine 09/03/19 11:32 Consult Case Management - Discharge Planning Routine Procedures Performed Operation Date: 09/02/19 09:45 Actual Procedures p Left Lower Extremity Angiogram , transportation mechanic closure right common femoral artery with conscious sedation (Left) - Chato West MD Operation Date: 09/03/19 08:35 Actual Procedures p Left 5th Toe Amputation(Left) - Abbe Kwong MD Ordered Studies 08/29/19 21:36 CT abd pelvis IV con only Urgent 08/29/19 22:33 CT angio chest PE protocol Urgent 08/31/19 08:13 MR foot LT w/o con Routine 08/31/19 13:00 US arterial duplex LE BI Routine 09/02/19 09:48 EV angio LE LT Routine US EV guide vascular access Routine 09/03/19 09:11 US - OR guided needle placemen Stat Hospital Course (1) Cellulitis of left lower extremity: 63 yo M admitted for LLE cellulitis and foot wound POD2 s/p L 5th digit amputation. Cellulitis of left lower extremity s/p amputation of L 5th digit: - Patient admitted for cellulitis of LLE arising from wound of L great toe vs. L fifth toe and started on broad-spectrum Abx. - Most likely worsening disease 2/2 poorly controlled diabetes and microvascular damage. - Angiogram showed no arterial occlusion or narrowing. - Was on Dapto + Zosyn, WBC continued to downtrend and patient improving clinically since IV Abx and amputation 09/02. - Wound Cx grew E. faecalis and S. aureus, both susceptible to Augmentin. Will send on Augmentin 875/125 BID for 7 days. - Patient will have follow up with Wound care and Ortho within 10 days. - He will also have follow up on discharge with wound care and PT. Symptomatic Asystole: - 08/30 on telemetry patient had a 4 second asystole, followed by a single normal beat, followed again by 5 seconds of asystole, which then returned to NSR spontaneously. - During this time period patient was feeling dizzy, nauseated, diaphoretic. - Cardiology consult: most likely vagal episode as symptoms occurred while vomiting. Pt advised to sit or lay down if experiencing symptoms to avoid a fall and further injury if he loses consciousness. If recurrent can consider pacemaker. DM2, not well controlled on insulin therapy, with neuropathy: - A1c 10.4 this admission. - Held metformin while inpatient. - While admitted required Lantus 30-35u daily, SSI with about 30 units total daily of coverage. - Extensive diabetic management education with team and diabetes navigator. - Patient is on asa, beta evan, LILLIE, high-intensity statin on discharge. - Regimen for home as follows: - Lantus 35u qHS. - Novolog 10u qAC. - Will resume metformin 500 ER daily. Hyperlipidemia: - Most recent lipid panel as follows on Simvastatin 40mg daily: - Total cholesterol 172, LDL 77, HDL 36, TG 297. - Given ASCVD risk of >20%, have transitioned to high-intensity statin this admission (Lipitor 80mg daily). HTN: - Continue metoprolol. - Due to persistent elevation in BP this admission lisinopril increased to 40mg daily. - BMP stable since adjustment was made. CHF/ idiopathic cardiomyopathy: - Continue aspirin, LILLIE, beta evan. TORI on CPAP: - Continue CPAP HS. Depression: - Continue citalopram. Disposition: home with home wound care/PT (2) Diabetic ulcer of left fifth toe: (3) DM neuropathy, type II diabetes mellitus: (4) Insulin-requiring or dependent type II diabetes mellitus: (5) CAD (coronary artery disease): (6) TORI on CPAP: (7) HTN (hypertension): (8) Dyslipidemia: Total Time Total Time Spent Total Time Spent (In Minutes): 35 Minutes Discharge Plan Discharge Items Patient Disposition: Home - Home Health Services Reason For Visit: DIABETIC RLE WITH FOOT INFECTION Discharge Diagnosis: left 5th toe amputation cellulitis left lower extremity Activity: Per Instructions section Weightbearing Comment: Left foot/ Weightbearing on the heel only. Non-emergency contact: Primary Care Provider and Surgeon Call non-emergency contact if: you have any medication questions, your symptoms worsen and your temperature is above 101 Follow-up/Referrals: Jeffrey Tripp MD [Primary Care Provider] - (Please follow up with Dr. Tripp within 7 days of discharge. Please call the above number to schedule an appointment.) Abbe Kwong MD [Surgeon] - (Please follow up with Dr. Kwong in 7 days. Please call the number above to schedule this.) Kana Barnes DO [Physician] - (Please call Dr. Barnes's office to schedule follow up for wound care.) Diet: Carb Consistent or DM2 and Heart Healthy Addtl Attending Provider Instructions: You were admitted to the hospital and found to have an infection and severe wound of your left pinky toe. This was causing you to feel sick to your stomach, and causing the infection up to your calf. You were started on IV antibiotics for your infection, and the orthopedic doctors came to see you and decided that in order to stop the infection the left pinky toe would have to be removed. Af ter the toe was removed your blood work continued to improve and you continued to feel better. You were transitioned to oral antibiotics and found to be safe for discharge with home wound care and physical therapy. While you were admitted, your sugars were found to be quite high. Your A1c, the 3 month blood sugar number, was very elevated at 10.4. This means that your insulin doses were not enough to cover for the carbs you were eating. It is important that you pay attention to the carbs you eat, because high sugars over time clog arteries. Please find below your new insulin dosing. Please see the below instructions for medication changes made during your stay. You will take Augmentin, one pill every 12 hours for 7 days. This is your antibiotic. You will STOP taking your home Simvastatin and START taking Atorvastatin 80mg, one pill daily. This is for your cholesterol. You will continue your home metformin. You will start taking lisinopril, 40 milligrams once daily for blood pressure. Your home dose of insulin is as follows: You will take Lantus, 35 units before bedtime. You will take Novolog, 10 units with each meal. You should check your sugar 2 hours after every meal and before bedtime. You will have follow up with the Orthopedic Doctor and the Wound Care Doctor as above. Please call their offices at the above numbers to schedule these appointments. You should follow up with your primary care doctor within 7 days of discharge. Please call his office to schedule an appointment. If you have any shortness of breath, fevers over 101, chest pain, please seek urgent care immediately. Addtl Sports Photographer Provider Instructions: ACTIVITY RECOMMENDATIONS: Limitations: Heel weight bearing only if able to tolerate. SPECIAL CARE INSTRUCTIONS: * Some drainage onto the dressing is normal and is no cause for alarm. * Some swelling is natural especially after walking. * When resting, keep your foot elevated above the level of your heart. * Call [facility] if you notice: -Increased drainage -Fever over 101 degrees F -Severe constant pain BANDAGE: * DAILY DRESSING CHANGES. * Keep bandage/cast dry at all times. FOLLOW UP VISIT WITH DR. NUNEZ If appointment is not already scheduled: Please call [facility] after you get home today to schedule a follow-up appointment for [address] Kwong at . Pending Studies at Discharge: No Stand-Alone Forms: My [facility], Smoking Cessation Medications and DC Order Prescriptions: New atorvastatin 80 mg tablet 80 mg PO DAILY Qty: 30 RF: 0 lisinopril [Zestril] 40 mg Tablet 40 mg PO HS Qty: 30 RF: 0 amoxicillin-pot clavulanate [Augmentin] 875-125 mg tablet 1 tab PO BID 7 Days Qty: 14 RF: 0 Continued metoprolol succinate 25 mg tablet extended release 24 hr 25 mg PO DAILY Qty: 90 RF: 0 (DME) lancets [OneTouch Delica Lancets] 33 gauge misc See Dose Instructions .ROUTE .MEDSUPPLY Qty: 100 RF: 0 citalopram 20 mg tablet 20 mg PO HS RF: 0 citalopram 10 mg tablet 10 mg PO HS RF: 0 (DME) OneTouch Verio test strips Strip See Dose Instructions .ROUTE .MEDSUPPLY Qty: 10 RF: 0 metformin 500 mg tablet extended release 24 hr 500 mg PO DAILY Qty: 30 RF: 5 aspirin 81 mg Tablet,Delayed Release (Dr/Ec) 81 mg PO QAM RF: 0 Changed insulin aspart U-100 [Novolog Flexpen U-100 Insulin] 100 unit/mL (3 mL) insulin pen 10 units SQ AC Qty: 0 RF: 0 Lantus Solostar U-100 Insulin 100 unit/mL (3 mL) insulin pen 35 units SQ DAILY Qty: 0 RF: 0 Discontinued lisinopril 20 mg tablet 20 mg PO HS Qty: 90 RF: 3 simvastatin 40 mg tablet 40 mg PO QPM Qty: 90 RF: 3 clindamycin HCl 300 mg capsule 300 mg PO tid Qty: 42 RF: 0 Discharge Orders: Discharge Order (Routine); Ordered 09/05/19 Ordered By: Yoon Castillo/Other Patient Handouts: Diabetes Carbs Fats Protein, ED Diet: Diabetes Admission Data Admit Date/Time: 08/30/19 01:54 Attending Provider: Luis Talamantes Admit Provider: Naga Krishnamurthy Primary Care Provider: Jeffrey Tripp Other Providers: Naga Krishnamurthy ; Bradley Nunez ; Kana Barnes ; Alexandre Nguyễn ; Chato West ; Abbe Kwong Other Interventions: Discharge Summary Assessment (RN) Last Done: 09/05/19 13:36 DC Date/Time DO NOT enter until pt leaves facility: 09/05/19 14:14 Supervising Physician Co-Signing Physician Notes I also saw the patient with the resident physician and confirmed kaplan portions of the history and physical examination. Patient feels well this morning without complaints. Reviewed the cultures from his wound and the needed antibiotics and required follow-up post hospital discharge. All questions were answered. I agree with the discharge summary, including the impression and plan, as noted above. Resident Activity Tracking Resident Involvement: Resident Care Provided Care Provided: Adult Hospital Medicine
== END 2019-09-05 14:14 | disposition home health service (06) | DRG 853 ==
LOC: ED 21:13 → SUATTDRO 08-30 01:54 → 2N 08-30 01:54

== ENCOUNTER 2020-01-04 13:12 | Inpatient (IN) ==
[2020-01-04 14:36] LABS: Basophils # (auto) 0.04 K/uL (0-0.2); Basophils % (auto) 0.4 %; Eosinophils # (auto) 0.48 K/uL (0-0.5); Eosinophils % (auto) 4.3 %; Hematocrit (blood only) 37.9 % (42-52); Hemoglobin 12.2 g/dL (14.0-18.0); Immature Granulocytes # (auto) 0.02 K/uL (0.00-0.02); Immature Granulocytes % (auto) 0.2 %; Lymphocytes # (auto) 1.88 K/uL (1.2-3.4); Lymphocytes % (auto) 16.7 %; Mean Corpuscular Hemoglobin 28.6 pg (25-34); Mean Corpuscular Hgb Conc 32.2 g/dL (32-36); Mean Corpuscular Volume 88.8 fL (80-100); Mean Platelet Volume 10.1 fL (7.4-10.4); Monocytes # (auto) 1.13 K/uL (0.11-0.59); Neutrophils # (auto) 7.71 K/uL (1.4-6.5); Neutrophils % (auto) 68.4 %; Platelet Count 232 K/uL (130-400); RDW Standard Deviation 48.9 fL (36.4-46.3); Red Blood Count 4.27 M/uL (4.7-6.1); White Blood Count 11.26 K/uL (4.8-10.8)
[2020-01-04] MEDS ORDERED: LABETALOL HCL IV 5 MG/ML 20ML IV STA ×2 (14:40→17:37)
[2020-01-04 14:48] LABS: Partial Thromboplastin Ratio 0.9; Partial Thromboplastin Time 25.9 Seconds (21.0-31.0); Prothrombin Time 10.8 Seconds (9.0-12.0)
--- NOTE | 2020-01-04 14:49 | XRay Report ---
XR chest 1V portable CLINICAL HISTORY: Shortness of breath COMPARISON STUDY: 08/29/2019 FINDINGS: The heart is enlarged. There is a stable left midlung zone nodule, likely representing a po stinflammatory granuloma. There is diffuse elevation of interstitium, likely secondary to congestive failure/fluid overload. Interstitial inflammatory processes could appear similar but is felt to be le ss likely.[ IMPRESSION: 1. Cardiomegaly 2. Elevation of interstitium, likely secondary to congestive failure/fluid overload. Clinical correla tion recommended as a bilateral interstitial infectious/inflammatory process could appear similar ACT 112: Negative or not required by law. Electronically signed by: Robinson Alanis M.D. 01/04/2020 2:48 PM
--- NOTE | 2020-01-04 14:51 | Emergency Department Note ---
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 Patient states 3 days ago on Thursday into Thursday developed a fever with some shortness of breath and some sinus congestion. Signs of improvement fevers gone away over the last day or 2 but still with shortness of breath and some chest congestion. States he feels like there is stuff he can get out of his chest. Denies any nausea vomiting or abdominal pain. States he does feel like he is swelling a bit more particularly in his left lower leg. Did have surgery there several times in the past several months due to a diabetic toe that is been removed. No trauma reported. No recent travel or sick exposure. Patient states he did have negative Covid test for the surgery about 6 weeks ago. Patient states been taking his home medications and noticed actually some slight loss of weight. Patient states uses CPAP at night but his breathing is not tolerating this and he cannot lie flat. Patient states his blood pressure usually better controlled and its been and noted in triage. REVIEW OF SYSTEMS: A total of 10 review of systems was obtained and negative except as stated above in the HPI. PAST MEDICAL HISTORY: As noted above MEDICATIONS: Reviewed home medication list includes insulin SOCIAL HISTORY: Non-smoker but chews tobacco, lives at home with PHYSICAL EXAM: GENERAL: alert and oriented in no acute distress on stretcher Head: normocephalic and atraumatic EYES: No injection, discharge or icterus. NECK: Trachea midline. ENT: Mucous membranes pink and moist. LUNGS: Airway patent. No retractions but some work of breathing particularly wh en ambulating to the bed. Breath sounds clear HEART: Regular rate and rhythm. No chest wall tenderness ABDOMEN: Soft and non-tender, without guarding or rebound. SKIN: Acyanotic, warm, dry. EXTREMITIES: Patient has partially 1+ right lower extremity swelling with 2+ left lower extremity swelling with some chronic stasis changes overlying the left lower leg with some healed abrasions here. No crepitus. Well-healed left fifth toe amputation site without significant tenderness or erythema in this area. NEUROLOGICAL: No focal deficits. No aphasia. No facial droop or slurred speech. Ambulatory. EK bpm normal sinus rhythm no PVC or PACs noted. No acute ST segment elevation noted. Normal axis. QTc 450. CONTINUOUS CARDIAC MONITORING: was ordered and showed a heart rate of 84 bpm in normal sinus rhythm Patient's laboratory studies and imaging reviewed. Differential includes Reactive airway disease, pneumonia, pneumothorax, COPD, CHF, infections, cardiac ischemia, pulmonary embolism, musculoskeletal, gastrointestinal, as well as other pathologies. IMPRESSION/MEDICAL DECISION MAKING: Patient presents with shortness of breath question some swelling in lower extremities left greater than right. Patient does report a little bit of URI symptoms and some fever several days ago. Covid testing will be initiated given this. Chest x-ray and basic labs were obtained. EKG without significant arrhythmia noted or acute STEMI. Not having chest pain. Denies abdominal symptoms a benign abdominal exam. Question if this is related to possible infectious etiology such as pneumonia whether bacterial or viral or possible CHF. PE was entertained D-dimer was sent. Patient is also noted to be significantly hypertensive is on labetalol here his blood pressure is 234 systolic in the room on my evaluation. Again not having significant pain in feels less likely represent acute aortic dissection at this time. Chest x-ray per my review and radiology interpretation shows no evidence of pneumothorax or focal pneumonia. Question some fluid overload versus inflammatory change. White blood cell count of 11.26 is noted with mild anemia. Undetectable troponin. No evidence of hepatic dysfunction of significance proBNP significantly elevated. Given this concern for fluid overload given a dose of Lasix. Given the mildly elevated D-dimer of the pain and she is obtaining a CTA of the chest to exclude PE. Patient states he had reaction to IV contrast requiring pretreatment with steroids and Benadryl. Patient states he does not like the steroids make his diabetes uncontrolled does not wish for this. Discussed with the patient risk benefits at this time and he wished to defer the CT scan. Recommended further observation in the hospital see if most likely this is fluid related he diuresis and his symptoms improved with this and blood pressure control. Again received several dose of labetalol with some gradual improvement of his blood pressure. Did diurese more than a liter while in the emergency department. He and his were aware that we will not be pur suing further blood clot work-up immediately at this time but continue to monitor him closely. Covid testing negative. Patient was agreement for further observation here in the hospital to be contacted. DIAGNOSIS: Fluid overload, shortness of breath, hypertension DISPOSITION: Hospitalist will evaluate Patient was agreeable with this plan. Past Med/Surg History Medical History (Updated 01/04/20 @ 21:41 by Julio Barrios M.D.) Chest pain (09/01/13) CHF (congestive heart failure) Depression DM neuropathy, type II diabetes mellitus Gangrene of toe of left foot History of Holter monitoring 09/2019 DR ROSENBERG HTN (hypertension) Hypothyroidism Insulin-requiring or dependent type II diabetes mellitus Kidney stones Migraine Morbid obesity with BMI of 40.0-44.9, adult Myocardial Infarction ? mild in 1995 per doc in [place] but patient reports negative cardiac cath Peripheral arterial disease S/P hernia repair Sleep apnea cpap SOB (shortness of breath) on exertion OUT OF SHAPE Syncope Uncontrolled type 2 diabetes mellitus Surgical History H/O umbilical hernia repair History of bilateral cataract extraction History of cardiac cath x2--1995 @ [place], no stents [address] Langford's record History of colonoscopy History of cystoscopy History of esophagogastroduodenoscopy (EGD) History of hernia repair History of tooth extraction S/P cholecystectomy Family History Father Muscular dystrophy Mother Breast cancer Cancer hx of Leukemia and a month ago Brother Parkinson disease Denies family history of Ovarian cancer Prostate cancer No family history of adverse response to anesthesia Myocardial infarction Colorectal cancer Social History Smoking Status: Never smoker Second Hand Exposure: No; Hx Alcohol Use: No Hx Substance Use: No Preferred Language: Guamanian Communication Ability: Effective Visual Impairment: No Limitations Hearing Ability: Normal Software Business Analyst Required: No Beliefs That Will Affect Care: None marital status: Current Living Situation: Spouse current occupational status: retired Feels Safe at Home: Yes Dental Care, Regularly: Yes Physical Activity Frequency: Does not Exercise Seatbelt Use: always Assistive Devices: Glasses Allergies Allergies Allergy/AdvReac Type Severity Reaction Status Date / Time bee venom protein (honey bee) Allergy Severe Anaphylaxis Verified 01/04/20 16:17 iodine AdvReac Mild FLUSHED Verified 01/04/20 16:17 FEELING/sick to stomach egg AdvReac Unknown Gastrointestinal Verified 01/04/20 16:17 Upset Egg or Chicken-derived Drugs Allergy Unknown Gastrointestinal Uncoded 01/04/20 16:17 Upset Home Meds Home Medications Medication Instructions Recorded Confirmed aspirin 81 mg PO [id number] 12/10/17 01/04/20 Lantus Solostar U-100 Insulin 30 units SQ HS 11/15/19 01/04/20 atorvastatin 80 mg PO HS 11/15/19 01/04/20 furosemide 20 mg PO DAILY PRN 11/15/19 01/04/20 Previous Rx's Medication Instructions Recorded insulin aspart U-100 [Novolog 10 units SQ AC #0 ml 09/05/19 Flexpen U-100 Insulin] citalopram 10 mg tablet 10 mg PO HS #90 tab 10/17/19 citalopram 20 mg tablet 20 mg PO HS #90 tab 10/17/19 lisinopril 40 mg tablet 40 mg PO HS #90 tab 10/19/19 metformin 500 mg tablet,extended 500 mg PO BID #60 tab 11/16/19 release 24 hr metoprolol succinate 25 mg 25 mg PO HS #90 tab 11/17/19 tablet,extended release 24 hr Results & Data (ED) Vital Signs Vital Signs - 24 hr 01/04/20 13:21 01/04/20 14:24 01/04/20 14:25 Temperature 36.7 C Temperature Source Oral Pulse Rate 94 H Pulse Rate [Right Finger] 90 Pulse Rate from SpO2 Sensor Respiratory Rate 18 18 Respiratory Effort / Characteristics Short of Breath Blood Pressure 218/101 H Blood Pressure [Left Arm] 201/100 H Blood Pressure Mean 140 Blood Pressure Mean [Left Arm] 133 Pulse Oximetry 93 93 93 Oxygen Delivery Method Room Air Room Air Room Air Sepsis Recent Fever Within 48 Hours No Sepsis New/Unexplained Change in Mental Status No Sepsis Action Taken by Nursing No Action Required 01/04/20 15:11 01/04/20 15:15 01/04/20 15:30 Temperature Temperature Source Pulse Rate 77 80 Pulse Rate [Right Finger] Pulse Rate from SpO2 Sensor 78 80 Respiratory Rate 20 18 Respiratory Effort / Characteristics Blood Pressure 221/105 H 221/113 H Blood Pressure [Left Arm] Blood Pressure Mean 137 159 Blood Pressure Mean [Left Arm] Pulse Oximetry 93 93 93 Oxygen Delivery Method Room Air Sepsis Recent Fever Within 48 Hours Sepsis New/Unexplained Change in Mental Status Sepsis Action Taken by Nursing 01/04/20 15:45 01/04/20 16:00 01/04/20 16:15 Temperature Temperature Source Pulse Rate 77 82 81 Pulse Rate [Right Finger] Pulse Rate from SpO2 Sensor 78 81 81 Respiratory Rate 17 23 21 Respiratory Effort / Characteristics Blood Pressure 205/84 H 223/105 H 226/106 H Blood Pressure [Left Arm] Blood Pressure Mean 111 117 138 Blood Pressure Mean [Left Arm] Pulse Oximetry 94 92 94 Oxygen Delivery Method Sepsis Recent Fever Within 48 Hours Sepsis New/Unexplained Change in Mental Status Sepsis Action Taken by Nursing 01/04/20 16:31 01/04/20 16:45 01/04/20 17:00 Temperature Temperature Source Pulse Rate 84 85 Pulse Rate [Right Finger] Pulse Rate from SpO2 Sensor 84 85 83 Respiratory Rate 22 16 23 Respiratory Effort / Characteristics Blood Pressure 215/101 H 185/87 H 196/93 H Blood Pressure [Left Arm] Blood Pressure Mean 143 136 122 Blood Pressure Mean [Left Arm] Pulse Oximetry 93 93 90 Oxygen Delivery Method Sepsis Recent Fever Within 48 Hours Sepsis New/Unexplained Change in Mental Status Sepsis Action Taken by Nursing 01/04/20 17:15 01/04/20 17:30 01/04/20 17:45 Temperature Temperature Source Pulse Rate Pulse Rate [Right Finger] Pulse Rate from SpO2 Sensor 79 80 79 Respiratory Rate 18 14 15 Respiratory Effort / Characteristics Blood Pressure 204/103 H 211/87 H 203/94 H Blood Pressure [Left Arm] Blood Pressure Mean 169 108 122 Blood Pressure Mean [Left Arm] Pulse Oximetry 94 92 93 Oxygen Delivery Method Sepsis Recent Fever Within 48 Hours Sepsis New/Unexplained Change in Mental Status Sepsis Action Taken by Nursing 01/04/20 18:05 01/04/20 18:30 01/04/20 19:00 Temperature Temperature Source Pulse Rate 77 77 80 Pulse Rate [Right Finger] Pulse Rate from SpO2 Sensor 77 78 80 Respiratory Rate 15 16 17 Respiratory Effort / Characteristics Blood Pressure 181/96 H 189/90 H 208/105 H Blood Pressure [Left Arm] Blood Pressure Mean 115 128 152 Blood Pressure Mean [Left Arm] Pulse Oximetry 93 94 94 Oxygen Delivery Method Sepsis Recent Fever Within 48 Hours Sepsis New/Unexplained Change in Mental Status Sepsis Action Taken by Nursing 01/04/20 19:30 01/04/20 20:00 01/04/20 21:08 Temperature Temperature Source Pulse Rate 79 81 85 Pulse Rate [Right Finger] Pulse Rate from SpO2 Sensor 79 81 85 Respiratory Rate 16 19 21 Respiratory Effort / Characteristics Blood Pressure 193/102 H 208/104 H 200/116 H Blood Pressure [Left Arm] Blood Pressure Mean 134 166 176 Blood Pressure Mean [Left Arm] Pulse Oximetry 95 94 95 Oxygen Delivery Method Sepsis Recent Fever Within 48 Hours Sepsis New/Unexplained Change in Mental Status Sepsis Action Taken by Nursing 01/04/20 21:19 Temperature Temperature Source Pulse Rate Pulse Rate [Right Finger] Pulse Rate from SpO2 Sensor Respiratory Rate Respiratory Effort / Characteristics Blood Pressure Blood Pressure [Left Arm] Blood Pressure Mean Blood Pressure Mean [Left Arm] Pulse Oximetry Oxygen Delivery Method Room Air Sepsis Recent Fever Within 48 Hours Sepsis New/Unexplained Change in Mental Status Sepsis Action Taken by Nursing Laboratory Data Result diagrams: 01/04/20 14:15 01/04/20 14:15 Lab Results 01/04/20 01/04/20 01/04/20 Range/Units 14:15 14:15 14:15 WBC 11.26 H (4.8-10.8) K/uL RBC 4.27 L (4.7-6.1) M/uL Hgb 12.2 L (14.0-18.0) g/dL Hct 37.9 L (42-52) % MCV 88.8 (80-100) fL MCH 28.6 (25-34) pg MCHC 32.2 (32-36) g/dL RDW Std Deviation 48.9 H (36.4-46.3) fL RDW Coeff of Maribel 15.0 H (11.5-14.5) % Plt Count 232 (130-400) K/uL MPV 10.1 (7.4-10.4) fL Immature Gran % (Auto) 0.2 % Neut % (Auto) 68.4 % Lymph % (Auto) 16.7 % [place] % (Auto) 10.0 % Eos % (Auto) 4.3 % Baso % (Auto) 0.4 % Neut # (Auto) 7.71 H (1.4-6.5) K/uL Lymph # (Auto) 1.88 (1.2-3.4) K/uL [place] # (Auto) 1.13 H (0.11-0.59) K/uL Eos # (Auto) 0.48 (0-0.5) K/uL Baso # (Auto) 0.04 (0-0.2) K/uL Immature Gran # (Auto) 0.02 (0.00-0.02) K/uL PT 10.8 (9.0-12.0) Seconds INR 1.0 (0.9-1.1) APTT 25.9 (21.0-31.0) Seconds PTT Ratio 0.9 D-Dimer (0-500) ug/L FEU Sodium 141 (136-145) mmol/L Potassium 4.5 (3.5-5.1) mmol/L Chloride 110 H (98-107) mmol/L Carbon Dioxide 28 (21-32) mmol/L Anion Gap 3.0 (3-11) BUN 22 H (7-18) mg/dl Creatinine 1.20 (0.6-1.4) mg/dl Est Cr Clr Drug Dosing 96.2 ml/min Est GFR ( Amer) 74.7 Est GFR (Non-Af Amer) 64.4 BUN/Creatinine Ratio 18.7 (10-20) Glucose 357 H* (70-99) mg/dl POC Glucose (70-99) mg/dl Calcium 8.8 (8.5-10.1) mg/dl Total Bilirubin 0.2 (0.2-1) mg/dl AST 18 (15-37) U/L ALT 28 (12-78) U/L Alkaline Phosphatase 138 H (45-117) U/L Troponin I < 0.015 (0-0.045) ng/ml NT-Pro-B Natriuret Pep 6525 H (0-900) pg/ml Total Protein 7.1 (6.4-8.2) gm/dl Albumin 2.2 L (3.4-5.0) gm/dl Globulin 4.9 H (2.5-4.0) gm/dl Albumin/Globulin Ratio 0.5 L (0.9-2) Beta-Hydroxybutyric Acd 0.51 (0.2-2.81) mg/dl COVID-19 Eval Order COVID-19 PCR (Negative) 1101/04/20 01/04/20 Range/Units 14:15 14:15 15:10 WBC (4.8-10.8) K/uL RBC (4.7-6.1) M/uL Hgb (14.0-18.0) g/dL Hct (42-52) % MCV (80-100) fL MCH (25-34) pg MCHC (32-36) g/dL RDW Std Deviation (36.4-46.3) fL RDW Coeff of Maribel (11.5-14.5) % Plt Count (130-400) K/uL MPV (7.4-10.4) fL Immature Gran % (Auto) % Neut % (Auto) % Lymph % (Auto) % [place] % (Auto) % Eos % (Auto) % Baso % (Auto) % Neut # (Auto) (1.4-6.5) K/uL Lymph # (Auto) (1.2-3.4) K/uL [place] # (Auto) (0.11-0.59) K/uL Eos # (Auto) (0-0.5) K/uL Baso # (Auto) (0-0.2) K/uL Immature Gran # (Auto) (0.00-0.02) K/uL PT (9.0-12.0) Seconds INR (0.9-1.1) APTT (21.0-31.0) Seconds PTT Ratio D-Dimer 570 H* (0-500) ug/L FEU Sodium (136-145) mmol/L Potassium (3.5-5.1) mmol/L Chloride (98-107) mmol/L Carbon Dioxide (21-32) mmol/L Anion Gap (3-11) BUN (7-18) mg/dl Creatinine (0.6-1.4) mg/dl Est Cr Clr Drug Dosing ml/min Est GFR ( Amer) Est GFR (Non-Af Amer) BUN/Creatinine Ratio (10-20) Glucose (70-99) mg/dl POC Glucose (70-99) mg/dl Calcium (8.5-10.1) mg/dl Total Bilirubin (0.2-1) mg/dl AST (15-37) U/L ALT (12-78) U/L Alkaline Phosphatase (45-117) U/L Troponin I (0-0.045) ng/ml NT-Pro-B Natriuret Pep Cancelled (0-900) pg/ml Total Protein (6.4-8.2) gm/dl Albumin (3.4-5.0) gm/dl Globulin (2.5-4.0) gm/dl Albumin/Globulin Ratio (0.9-2) Beta-Hydroxybutyric Acd (0.2-2.81) mg/dl COVID-19 Eval Order Covid19 Done at [facility] COVID-19 PCR (Negative) 01/04/20 01/04/20 Range/Units 15:10 19:36 WBC (4.8-10.8) K/uL RBC (4.7-6.1) M/uL Hgb (14.0-18.0) g/dL Hct (42-52) % MCV (80-100) fL MCH (25-34) pg MCHC (32-36) g/dL RDW Std Deviation (36.4-46.3) fL RDW Coeff of Maribel (11.5-14.5) % Plt Count (130-400) K/uL MPV (7.4-10.4) fL Immature Gran % (Auto) % Neut % (Auto) % Lymph % (Auto) % [place] % (Auto) % Eos % (Auto) % Baso % (Auto) % Neut # (Auto) (1.4-6.5) K/uL Lymph # (Auto) (1.2-3.4) K/uL [place] # (Auto) (0.11-0.59) K/uL Eos # (Auto) (0-0.5) K/uL Baso # (Auto) (0-0.2) K/uL Immature Gran # (Auto) (0.00-0.02) K/uL PT (9.0-12.0) Seconds INR (0.9-1.1) APTT (21.0-31.0) Seconds PTT Ratio D-Dimer (0-500) ug/L FEU Sodium (136-145) mmol/L Potassium (3.5-5.1) mmol/L Chloride (98-107) mmol/L Carbon Dioxide (21-32) mmol/L Anion Gap (3-11) BUN (7-18) mg/dl Creatinine (0.6-1.4) mg/dl Est Cr Clr Drug Dosing ml/min Est GFR ( Amer) Est GFR (Non-Af Amer) BUN/Creatinine Ratio (10-20) Glucose (70-99) mg/dl POC Glucose 279 H (70-99) mg/dl Calcium (8.5-10.1) mg/dl Total Bilirubin (0.2-1) mg/dl AST (15-37) U/L ALT (12-78) U/L Alkaline Phosphatase (45-117) U/L Troponin I (0-0.045) ng/ml NT-Pro-B Natriuret Pep (0-900) pg/ml Total Protein (6.4-8.2) gm/dl Albumin (3.4-5.0) gm/dl Globulin (2.5-4.0) gm/dl Albumin/Globulin Ratio (0.9-2) Beta-Hydroxybutyric Acd (0.2-2.81) mg/dl COVID-19 Eval Order COVID-19 PCR NEGATIVE (Negative) Administered Medications Discontinued Medications Furosemide (Furosemide 40 Mg/4 Ml Vial) 40 mg IV NOW STA Stop: 01/04/20 15:49 Last Admin: 01/04/20 16:26 Dose: 40 mg Documented by: [id number] Hydralazine HCl (Hydralazine Hcl 20 Mg/Ml Vial) 10 mg IV NOW STA Stop: 01/04/20 18:51 Last Admin: 01/04/20 20:10 Dose: 10 mg Documented by: [id number] Insulin Aspart (Insulin Aspart Per Unit) 12 units SC NOW STA Stop: 01/04/20 19:46 Last Admin: 01/04/20 20:10 Dose: 12 units Documented by: [id number] Cosigned by: [id number] Labetalol HCl (Labetalol Hcl Iv 5 Mg/Ml 20ml) 10 mg IV NOW STA Stop: 01/04/20 14:41 Last Admin: 01/04/20 15:10 Dose: 10 mg Documented by: [id number] Cosigned by: [id number] Labetalol HCl (Labetalol Hcl Iv 5 Mg/Ml 20ml) 10 mg IV NOW STA Stop: 01/04/20 17:38 Last Admin: 01/04/20 17:57 Dose: 10 mg Documented by: [id number] Cosigned by: [id number] Discharge Plan Visit Data Chief Complaint: Shortness of Breath/Dyspnea Stated Complaint: SOB THREE DAYS ED Provider: Julio Barrios Discharge Problem: Breathlessness, Acute on chronic diastolic heart failure, Fluid overload, HTN (hypertension) Patient Disposition: Admitted As Inpatient Discharge Instructions Interventions: ED Discharge Assessment Last Done: 01/04/20 21:19 Discharge Problem: Fluid overload Qualifiers: Hypervolemia type: other Qualified Code(s): E87.79 - Other fluid overload HTN (hypertension) Qualifiers: Hypertension type: unspecified Qualified Code(s): I10 - Essential (primary) hypertension
[2020-01-04 15:31] LABS: Alanine Aminotransferase 28 U/L (12-78); Albumin Globulin Ratio 0.5 (0.9-2); Albumin Level 2.2 gm/dl (3.4-5.0); Alkaline Phosphatase 138 U/L (45-117); Aspartate Aminotransferase 18 U/L (15-37); BUN Creatinine Ratio 18.7 (10-20); Bilirubin,Total 0.2 mg/dl (0.2-1); Blood Urea Nitrogen 22 mg/dl (7-18); Calcium 8.8 mg/dl (8.5-10.1); Carbon Dioxide 28 mmol/L (21-32); Chloride 110 mmol/L (98-107); Creatinine Clr Calc Pharmacy 96.2 ml/min; Est GFR (African American) 74.7; Est GFR (Non-African American) 64.4; Globulin 4.9 gm/dl (2.5-4.0); Glucose 357 mg/dl (70-99); Potassium 4.5 mmol/L (3.5-5.1); Sodium 141 mmol/L (136-145); Total Protein 7.1 gm/dl (6.4-8.2); Troponin I < 0.015 ng/ml (0-0.045)
[2020-01-04 15:43] LABS: Beta-Hydroxybutyrate 0.51 mg/dl (0.2-2.81); NT Pro B Type Natriuretic Pept 6525 pg/ml (0-900)
[2020-01-04] MEDS ORDERED: FUROSEMIDE 40 MG/4 ML VIAL IV STA (15:48)
[2020-01-04 15:49] LABS: D Dimer 570 ug/L FEU (0-500)
[2020-01-04] MEDS ORDERED: NovoLIN-R INSULIN PER UNIT CHARGE IV STA (18:49)
[2020-01-04] MEDS ORDERED: hydrALAZINE HCL 20 MG/ML VIAL IV STA (18:50)
--- NOTE | 2020-01-04 19:05 | History & Physical Report ---
Date of Service January 04, 2020 Assessment & Plan (1) Acute on chronic diastolic heart failure: Lasix 40 mg IV given in ER with good effect. Suspect his blood pressure will decrease on this dose. Continue Lasix 40 mg IV every morning Strict I & Os, daily weights Fluid restrict 1200 mL, low-sodium diet CPAP at bedtime Given recent dobutamine stress echocardiogram no need to repeat echocardiogram at this time. Encourage low-salt diet as an outpatient - stop eating pretzels! (2) Hypertensive urgency: Lisinopril 40mg IV daily. Continue his usual lisinopril 40 mg p.o. at bedtime, metoprolol succinate 25 mg p.o. at bedtime. Suspect secondary to hypervolemic state - should improve with lasix use. Hydralazine PRN for sBP > 180 (3) CAD (coronary artery disease): Continue aspirin, metoprolol succinate, atorvastatin (4) TORI on CPAP: CPAP HS 10-11 cmH2O (5) Diabetes mellitus, type 2: Hold metformin. HbA1C 7.4 in October, no need to repeat this. Consult pharmacy for glycemic control with basal bolus insulin (6) Peripheral arterial disease: Continue aspirin and atorvastatin (7) Depression: Continue citalopram 30 mg p.o. daily (8) DVT prophylaxis: Lovenox 40mg SQ daily Admission and Anticipated Discharge Date Admission Date: 01/04/2020 History of Present Illness Chief Complaint: Shortness of breath, leg swelling Primary Care Provider: Jeffrey Tripp MD [place] Royal is a 64-year-old male with coronary artery disease who presents to the ER with worsening shortness of breath, leg swelling and high blood pressure. He reports this all started after cold symptoms with nasal congestion, sinus pressure, post nasal drip and low grade fever that started 3 days ago. He reports the sinus pressure has resolved and was bilateral, he did not take any antibiotics for this. He denies any loss of taste or smell. He currently feels it is hard to take a deep breath. Associated orthopnea and bilateral leg swelling. No chest pain, presyncope, syncope, palpitation, claudication, weight gain. He usually uses CPAP at night but has not been able to use this with his current cold. He does report a diet high in salt including eating pretzels. He takes Lasix 20 mg p.o. as needed for weight gain which he is taking for the last 2 days. In the ER chest x-ray concerning for congestive overload, systolic blood pressure 218 on arrival. SARS-CoV-2 nasopharyngeal swab PCR negative. He was given labetalol 10 mg IV x2 with minimal effect on his blood pressure. Lasix 40 mg IV with substantial urine output since this was given. Allergies Allergy/AdvReac Type Severity Reaction Status Date / Time bee venom protein (honey bee) Allergy Severe Anaphylaxis Verified 01/04/20 16:17 iodine AdvReac Mild FLUSHED Verified 01/04/20 16:17 FEELING/sick to stomach egg AdvReac Unknown Gastrointestinal Verified 01/04/20 16:17 Upset Egg or Chicken-derived Drugs Allergy Unknown Gastrointestinal Uncoded 01/04/20 16:17 Upset Home Medications Home Medications Medication Instructions Recorded Confirmed Type aspirin 81 mg PO 3XWK 12/10/17 01/04/20 History insulin aspart U-100 [Novolog 10 units SQ AC #0 ml 09/05/19 01/04/20 Rx Flexpen U-100 Insulin] citalopram 10 mg tablet 10 mg PO HS #90 tab 10/17/19 01/04/20 Rx citalopram 20 mg tablet 20 mg PO HS #90 tab 10/17/19 01/04/20 Rx lisinopril 40 mg tablet 40 mg PO HS #90 tab 10/19/19 01/04/20 Rx Lantus Solostar U-100 Insulin 30 units SQ HS 11/15/19 01/04/20 History atorvastatin 80 mg PO HS 11/15/19 01/04/20 History furosemide 20 mg PO DAILY PRN 11/15/19 01/04/20 History metformin 500 mg tablet,extended 500 mg PO BID #60 tab 11/16/19 01/04/20 Rx release 24 hr metoprolol succinate 25 mg 25 mg PO HS #90 tab 11/17/19 01/04/20 Rx tablet,extended release 24 hr Past Med/Surg History Medical History (Updated 01/05/20 @ 12:09 by Rubin Damian MD) Chest pain (09/01/13) CHF (congestive heart failure) Depression DM neuropathy, type II diabetes mellitus Gangrene of toe of left foot History of Holter monitoring 09/2019 DR ROSENBERG HTN (hypertension) Hypothyroidism Insulin-requiring or dependent type II diabetes mellitus Kidney stones Migraine Morbid obesity with BMI of 40.0-44.9, adult Myocardial Infarction ? mild in 1995 per doc in [place] but patient reports negative cardiac cath Peripheral arterial disease S/P hernia repair Sleep apnea cpap SOB (shortness of breath) on exertion OUT OF SHAPE Syncope Uncontrolled type 2 diabetes mellitus Surgical History H/O umbilical hernia repair History of bilateral cataract extraction History of cardiac cath x2--1995 @ [place], no stents [address] Langford's record History of colonoscopy History of cystoscopy History of esophagogastroduodenoscopy (EGD) History of hernia repair History of tooth extraction S/P cholecystectomy Family History Father Muscular dystrophy Mother Breast cancer Cancer hx of Leukemia and a month ago Brother Parkinson disease Denies family history of Ovarian cancer Prostate cancer No family history of adverse response to anesthesia Myocardial infarction Colorectal cancer Social History Smoking Status: Never smoker Second Hand Exposure: No; Tobacco Cessation Education Requested by Patient: No Hx Alcohol Use: No Hx Substance Use: No Preferred Language: Greenlandic Communication Ability: Effective Visual Impairment: No Limitations Hearing Ability: Normal Box Stapler Required: No Beliefs That Will Affect Care: Jehovah'S Witness marital status: Current Living Situation: Spouse Current Living Situation Comment: lives with current occupational status: retired Other Information That Helps Us Care for You: No Feels Safe at Home: Yes Safety Concerns: Feels Safe At This Time Dental Care, Regularly: Yes Physical Activity Frequency: Does not Exercise Seatbelt Use: always Assistive Devices: Oxygen - at Night Review of Systems Review of Systems: All systems reviewed & are unremarkable except as noted in HPI & below Constitutional: + fatigue; no fever (Currently) and no chills Ear, Nose, Mouth, Throat: + nasal discharge, + post nasal drip and + sinus pain/pressure; no ear pain, no epistaxis, no sore throat, no hoarseness and no dysphagia Respiratory: + cough; no wheezing Physical Exam Constitutional: well developed and + morbidly obese; no acute distress Eyes: + anicteric sclerae; normal pupil size ENMT: external ear and nose normal, oropharynx normal Neck: trachea midline, no thyromegaly Respiratory: normal respiratory effort, + cough and able to speak in complete sentences; no respiratory distress, no labored breathing, no retractions and does not use accessory muscles Auscultation: + diminished lung sounds (Bibasal) and + crackles (bases to mid zone of back b/l, clear anteriorly); no rales and no wheezes Cardiovascular: Rate/Rhythm: regular rate and regular rhythm Heart Sounds: no murmur Vessels: + JVD Extremities: normal capillary refill and + pedal edema (3+, tight skin to lower abdomen, bilateral equal); no calf tenderness Gastrointestinal (Abdomen): normal bowel sounds, soft, nontender, no hepatosplenomegaly Musculoskeletal: no cyanosis or clubbing, extremities motor strength 5/5 Skin: no rashes, warm and dry Neurologic: moves all extremities and awake; not confused Speech / Cognition: normal speech Motor/Sensory: no tremor Psychiatric: A+Ox3, euthymic affect Genitourinary: no CVA tenderness Results & Data Results & Data ([facility]) Vital Signs (Past 12 Hours) Vital Signs Temp Pulse Pulse Resp BP BP Pulse Ox 01/04/20 18:30 77 16 189/90 H 94 01/04/20 18:05 77 15 181/96 H 93 01/04/20 17:45 15 203/94 H 93 01/04/20 17:30 14 211/87 H 92 01/04/20 17:15 18 204/103 H 94 01/04/20 17:00 23 196/93 H 90 01/04/20 16:45 85 16 185/87 H 93 01/04/20 16:31 84 22 215/101 H 93 01/04/20 16:15 81 21 226/106 H 94 01/04/20 16:00 82 23 223/105 H 92 01/04/20 15:45 77 17 205/84 H 94 01/04/20 15:30 80 18 221/113 H 93 01/04/20 15:15 77 20 221/105 H 93 01/04/20 15:11 93 01/04/20 14:25 90 18 201/100 H 93 01/04/20 14:24 93 01/04/20 13:21 36.7 C 94 H 18 218/101 H 93 Diagnostic Findings XR chest 1V portable IMPRESSION: 1. Cardiomegaly 2. Elevation of interstitium, likely secondary to congestive failure/fluid overload. Clinical correlation recommended as a bilateral interstitial infectio us/inflammatory process could appear similar ECG Indication: chest pain Rate (beats per minute): 82 Rhythm: normal sinus Findings: no acute ischemic change Comparison ECG Date: from (August 29, 2019) Change: no significant change Code Status & VTE Plan Code Status Full VTE Prophylaxis Plan VTE Prophylaxis will be ordered: Yes PG Care Time/CCT Total # of Minutes Spent Total Time Spent with Patient: Total time spent is greater than 50% in coordination of care (as documented) at patient's floor/unit and/or counseling patient: Coding Level of Care Code 33095 Initial Inpt Care Lvl 3 Diagnoses Acute on chronic diastolic heart failure I50.33 Hypertensive urgency I16.0 CAD (coronary artery disease) I25.10 TORI on CPAP G47.33; Z99.89 Diabetes mellitus, type 2 E11.9 Peripheral arterial disease I73.9 Depression F32.9 DVT prophylaxis Z29.9
[2020-01-04] MEDS ORDERED: INSULIN ASPART PER UNIT SC STA ×2 (19:41→19:45)
[2020-01-04] MEDS ORDERED: NON-FORMULARY MEDICATION (Citalopram 10 mg tablet) PO SCH (21:43)
[2020-01-04] MEDS ORDERED: CITALOPRAM 20 MG TAB PO SCH (21:43)
[2020-01-04] MEDS ORDERED: ENOXAPARIN INJ 40 MG/0.4 ML SYR SQ STA (21:50)
[2020-01-04] MEDS ORDERED: PHARMACY GLYCEMIC MGMT CONSULT PRN (21:53)
[2020-01-04] MEDS ORDERED: CARBOHYDRATES FOR HYPOGLYCEMIA PO PRN (22:15)
[2020-01-04] MEDS ORDERED: GLUCOSE 10 TABS/TUBE PO PRN (22:15)
[2020-01-04] MEDS ORDERED: GLUCOSE 40% GEL 15 GM TUBE PO PRN (22:15)
[2020-01-04] MEDS ORDERED: GLUCAGON FOR INJ 1 MG VIAL SQ PRN (22:15)
[2020-01-04] MEDS ORDERED: DEXTROSE 50% 50 ML SYRINGE IV PRN (22:15)
[2020-01-04] MEDS: ASPIRIN 81 MG ECTAB PO SCH (22:51)
[2020-01-04] MEDS: FLUTICASONE PROPIONATE NA SPR 16 GM BTL NAE SCH (22:51)
[2020-01-04] MEDS: METOPROLOL SUCC 25MG EXT REL TAB PO SCH (22:51)
[2020-01-04] MEDS: lisinopril 40 MG TAB PO SCH (22:52)
[2020-01-04] MEDS: CITALOPRAM 20 MG TAB PO SCH (22:52)
[2020-01-04] MEDS: ATORVASTATIN 40 MG TAB PO SCH (22:52)
[2020-01-04] MEDS: INSULIN GLARGINE SOLOSTAR 100 UNITS/ML 3 ML PEN SC SCH (22:53)
[2020-01-04] MEDS: INSULIN ASPART 100 UNITS/ML 3 ML PEN SC SCH (22:54)
[2020-01-04] MEDS: SODIUM CHLORIDE 0.65% NA SOLN 45 ML (OCEAN) NAE SCH (22:55)
[2020-01-05] MEDS ORDERED: INSULIN ASPART 100 UNITS/ML 3 ML PEN SC SCH (02:00)
--- NOTE | 2020-01-05 07:37 | Hospitalist Progress Note ---
Date of Service January 05, 2020 Assessment & Plan (1) Acute on chronic diastolic heart failure: weight today 146.2kg -- dry weight around 136 (11/14) Lasix 40 mg IV given in ER with good effect. Suspect his blood pressure will decrease on this dose. Continue Lasix 40 mg IV every morning Strict I & Os, daily weights Fluid restrict 1200 mL, low-sodium diet Given recent dobutamine stress echocardiogram may need to repeat echocardiogram at this time. Encourage low-salt diet as an outpatient (2) Hypertensive urgency: Lisinopril 40mg PO daily Suspect secondary to hypervolemic state - should improve with lasix use. Hydralazine PRN SBP > 180 (3) CAD (coronary artery disease): Continue aspirin, metoprolol succinate, atorvastatin (4) TORI on CPAP: CPAP HS 10-11 cmH2O (5) Diabetes mellitus, type 2: uncontrolled -- BG 357 on arrival Hold metformin. HbA1C 7.4 in October, no need to repeat this. Consult pharmacy for glycemic control with basal bolus insulin (6) Peripheral arterial disease: Continue aspirin and atorvastatin (7) DVT prophylaxis: Lovenox 40mg SQ daily Admission and Anticipated Discharge Date Admission Date: January 04, 2020 Subjective Patient has headache. bringing his home CPAP as our hospital model not humidified/uncomfortable. Patient endorsing dyspnea on exertion when walking to bathroom. States edema is near baseline. Abdomen is more distended than usual. Does not weigh himself. No history of CHF. No cough, no fever. Review of Systems Constitutional: no fever, no chills, no fatigue, no weakness, no anorexia, no weight loss and no weight gain Ear, Nose, Mouth, Throat: no nasal congestion, no sore throat and no dysphagia Respiratory: + dyspnea; no cough Cardiovascular: + dyspnea on exertion, + orthopnea and + edema; no chest pain and no palpitations Gastrointestinal: no abdominal pain, no nausea, no vomiting, no hematemesis, no dysphagia, no constipation, no diarrhea/loose stools, no blood in stools and no melena Musculoskeletal: no back pain, no joint pain, no myalgia and no muscle weakness Integumentary: no rash, no lesions, no skin ulcer, no erythema, no dry skin and no pruritus Neurologic: no falls, no localized weakness, no generalized weakness, no numbness, no paresthesia, no tremor(s) and no headache(s) Psychiatric: no depression, no suicidal ideation, no homicidal ideation and no anxiety Endocrine: no cold intolerance and no heat intolerance Hematologic / Lymphatic: no easy bleeding and no easy bruising Physical Exam Constitutional: well developed, well nourished and + morbidly obese; no acute distress Eyes: PERRL, conjunctivae normal, anicteric sclerae ENMT: Mouth: oral mucous membranes not dry Respiratory: normal respiratory effort; no respiratory distress and no labored breathing Auscultation: lungs clear to auscultation bilaterally; no crackles, no rales, no rhonchi and no wheezes Cardiovascular: Rate/Rhythm: regular rate and regular rhythm Heart Sounds: no murmur and no cardiac rub Vessels: normal peripheral pulses and radial pulses present; no JVD Extremities: + edema Gastrointestinal (Abdomen): Inspection/Auscultation: abdomen normal to inspection and normal bowel sounds; abdomen not distended Percussion/Palpation: abdomen soft; abdomen nontender, no guarding, abdomen not rigid and no hepatosplenomegaly Musculoskeletal: Head/Neck/Chest: normocephalic and head atraumatic Spine: no cervical spinal tenderness, no cervical muscular tenderness, no thoracic spinal tenderness and no lumbar spinal tenderness Skin: no rashes, warm and dry Neurologic: CN's II-XI intact bilaterally and moves all extremities Motor/Sensory: no tremor and no sensory deficit Psychiatric: Orientation: alert, oriented to person, oriented to place and oriented to time Apperance: appropriately groomed; not disheveled Affect: euthymic affect; no anxious affect and no tearful affect Genitourinary: no Zamudio catheter Results & Data Results & Data ([facility]) Vital Signs (Past 12 Hours) Vital Signs Temp Pulse Pulse Resp BP BP Pulse Ox 01/05/20 03:05 36.5 C 77 20 157/72 H 94 01/05/20 02:05 77 14 92 01/05/20 00:00 86 01/04/20 23:16 36.5 C 81 19 193/66 H 96 01/04/20 22:41 84 16 95 01/04/20 22:06 84 01/04/20 21:45 36.6 C 86 22 202/82 H 96 01/04/20 21:08 85 21 200/116 H 95 01/04/20 20:00 81 19 208/104 H 94 Laboratory Results Abnormal lab results 01/04/20 01/04/20 01/04/20 Range/Units 14:15 14:15 14:15 WBC 11.26 H (4.8-10.8) K/uL RBC 4.27 L (4.7-6.1) M/uL Hgb 12.2 L (14.0-18.0) g/dL Hct 37.9 L (42-52) % RDW Std Deviation 48.9 H (36.4-46.3) fL RDW Coeff of Maribel 15.0 H (11.5-14.5) % Neut # (Auto) 7.71 H (1.4-6.5) K/uL [place] # (Auto) 1.13 H (0.11-0.59) K/uL D-Dimer 570 H* (0-500) ug/L FEU Chloride 110 H (98-107) mmol/L BUN 22 H (7-18) mg/dl Glucose 357 H* (70-99) mg/dl POC Glucose (70-99) mg/dl Alkaline Phosphatase 138 H (45-117) U/L NT-Pro-B Natriuret Pep 6525 H (0-900) pg/ml Albumin 2.2 L (3.4-5.0) gm/dl Globulin 4.9 H (2.5-4.0) gm/dl Albumin/Globulin Ratio 0.5 L (0.9-2) 01/04/20 01/04/20 01/05/20 Range/Units 19:36 21:51 03:18 WBC (4.8-10.8) K/uL RBC (4.7-6.1) M/uL Hgb (14.0-18.0) g/dL Hct (42-52) % RDW Std Deviation (36.4-46.3) fL RDW Coeff of Maribel (11.5-14.5) % Neut # (Auto) (1.4-6.5) K/uL [place] # (Auto) (0.11-0.59) K/uL D-Dimer (0-500) ug/L FEU Chloride (98-107) mmol/L BUN (7-18) mg/dl Glucose (70-99) mg/dl POC Glucose 279 H 263 H 67 L* (70-99) mg/dl Alkaline Phosphatase (45-117) U/L NT-Pro-B Natriuret Pep (0-900) pg/ml Albumin (3.4-5.0) gm/dl Globulin (2.5-4.0) gm/dl Albumin/Globulin Ratio (0.9-2) 01/05/20 Range/Units 03:41 WBC (4.8-10.8) K/uL RBC (4.7-6.1) M/uL Hgb (14.0-18.0) g/dL Hct (42-52) % RDW Std Deviation (36.4-46.3) fL RDW Coeff of Maribel (11.5-14.5) % Neut # (Auto) (1.4-6.5) K/uL [place] # (Auto) (0.11-0.59) K/uL D-Dimer (0-500) ug/L FEU Chloride (98-107) mmol/L BUN (7-18) mg/dl Glucose (70-99) mg/dl POC Glucose 242 H (70-99) mg/dl Alkaline Phosphatase (45-117) U/L NT-Pro-B Natriuret Pep (0-900) pg/ml Albumin (3.4-5.0) gm/dl Globulin (2.5-4.0) gm/dl Albumin/Globulin Ratio (0.9-2) Medications Administered Current Inpatient Medications Aspirin (Aspirin 81 Mg Ectab) 81 mg PO [id number] MARCUS Stop: 02/03/20 21:42 Last Admin: 01/04/20 22:51 Dose: 81 mg Documented by: Atorvastatin Calcium (Atorvastatin 40 Mg Tab) 80 mg PO [facility] Stop: 02/03/20 21:42 Last Admin: 01/04/20 22:52 Dose: 80 mg Documented by: Citalopram Hydrobromide (Citalopram 20 Mg Tab) 30 mg PO [facility] Stop: 02/03/20 21:44 Last Admin: 01/04/20 22:52 Dose: 30 mg Documented by: Enoxaparin Sodium (Enoxaparin Inj 40 Mg/0.4 Ml Syr) 40 mg SQ HS [facility] Stop: 02/04/20 20:59 Fluticasone Propionate (Fluticasone Propionate Na Spr 16 Gm Btl) 2 sprays WILLIAN BID [facility] Stop: 02/03/20 21:42 Last Admin: 01/04/20 22:51 Dose: 2 sprays Documented by: Hydralazine HCl (Hydralazine Hcl 20 Mg/Ml Vial) 10 mg IV Q4H PRN PRN Reason: sBP > 180 Stop: 02/03/20 21:42 Furosemide 40 mg/ Syringe 4 mls @ 4 mls/min IV QAM [facility] Stop: 02/04/20 08:59 Influenza Virus Vaccine Quadrival (Influenza Virus Quad Vaccine 0.5 Ml Syr) 0.5 ml IM .ONCE ONE Stop: 01/05/20 09:01 Insulin Aspart (Insulin Aspart 100 Units/Ml 3 Ml Pen) 0 units SC ACHS [facility] Stop: 02/03/20 22:29 Last Admin: 01/04/20 22:54 Dose: 13 units Documented by: Insulin Glargine (Insulin Glargine Solostar 100 Units/Ml 3 Ml Pen) 30 units SC [facility] Stop: 02/03/20 22:14 Last Admin: 01/04/20 22:53 Dose: 30 units Documented by: Lisinopril (Lisinopril 40 Mg Tab) 40 mg PO HS [facility] Stop: 02/03/20 21:42 Last Admin: 01/04/20 22:52 Dose: 40 mg Documented by: Metoprolol Succinate (Metoprolol Succ 25mg Ext Rel Tab) 25 mg PO HS [facility] Stop: 02/03/20 21:42 Last Admin: 01/04/20 22:51 Dose: 25 mg Documented by: Sodium Chloride (Sodium Chloride 0.65% Na Soln 45 Ml ([place])) 2 sprays WILLIAN BID [facility] Stop: 02/03/20 21:42 Last Admin: 01/04/20 22:55 Dose: Not Given Documented by: PG Care Time/CCT Total # of Minutes Spent Total Time Spent with Patient: Total time spent is greater than 50% in coordination of care (as documented) at patient's floor/unit and/or counseling patient: Coding Level of Care Code 59769 Subseq Hosp Care Lvl 3 Diagnoses Acute on chronic diastolic heart failure I50.33 Hypertensive urgency I16.0 CAD (coronary artery disease) I25.10 TORI on CPAP G47.33; Z99.89 Diabetes mellitus, type 2 E11.9 Peripheral arterial disease I73.9 DVT prophylaxis Z29.9
[2020-01-05] MEDS: FLUTICASONE PROPIONATE NA SPR 16 GM BTL NAE SCH ×2 (07:56→20:43)
[2020-01-05] MEDS: SODIUM CHLORIDE 0.65% NA SOLN 45 ML (OCEAN) NAE SCH ×2 (07:57→20:43)
[2020-01-05] MEDS: FUROSEMIDE 40 MG in SYRINGE 0 ML IV SCH (07:57)
[2020-01-05 08:00] LABS: Basophils # (auto) 0.03 K/uL (0-0.2); Basophils % (auto) 0.3 %; Eosinophils # (auto) 0.26 K/uL (0-0.5); Eosinophils % (auto) 2.4 %; Hematocrit (blood only) 32.4 % (42-52); Hemoglobin 10.4 g/dL (14.0-18.0); Immature Granulocytes # (auto) 0.03 K/uL (0.00-0.02); Immature Granulocytes % (auto) 0.3 %; Lymphocytes # (auto) 2.06 K/uL (1.2-3.4); Lymphocytes % (auto) 19.1 %; Mean Corpuscular Hemoglobin 28.3 pg (25-34); Mean Platelet Volume 9.9 fL (7.4-10.4); Monocytes # (auto) 0.97 K/uL (0.11-0.59); Neutrophils # (auto) 7.44 K/uL (1.4-6.5); Neutrophils % (auto) 68.9 %; Platelet Count 227 K/uL (130-400); RDW Coefficient of Variation 14.9 % (11.5-14.5); RDW Standard Deviation 48.3 fL (36.4-46.3); Red Blood Count 3.68 M/uL (4.7-6.1); White Blood Count 10.79 K/uL (4.8-10.8)
[2020-01-05] MEDS: INSULIN ASPART 100 UNITS/ML 3 ML PEN SC SCH ×4 (08:01→20:46)
[2020-01-05 08:06] LABS: Mean Corpuscular Hgb Conc 32.1 g/dL (32-36)
[2020-01-05 08:24] LABS: BUN Creatinine Ratio 18.1 (10-20); Calcium 8.6 mg/dl (8.5-10.1); Creatinine Clr Calc Pharmacy 105.4 ml/min; Est GFR (African American) 84.8; Est GFR (Non-African American) 73.2; Magnesium 1.9 mg/dl (1.8-2.4)
[2020-01-05] MEDS ORDERED: FUROSEMIDE 40 MG/4 ML VIAL IV SCH (09:00)
--- NOTE | 2020-01-05 10:30 | Electrocardiogram Report ---
Test Reason : Blood Pressure : / mmHG Vent. Rate : 082 BPM Atrial Rate : 082 BPM P-R Int : 174 ms QRS Dur : 102 ms QT Int : 386 ms P-R-T Axes : 050 017 027 degrees QTc Int : 450 ms Normal sinus rhythm Normal ECG When compared with ECG of 29-AUG-2019 21:58, No significant change was found Confirmed by Jerod Elizbaeth ([id number]) on 01/05/2020 10:30:21 AM Referred By: ED Confirmed By:Jerod Elizabeth
[2020-01-05] MEDS ORDERED: PERFLUTREN LIPID MICROSPHERE (DEFINITY) IV ONE (11:48)
[2020-01-05] MEDS: ACETAMINOPHEN 325 MG TAB PO PRN ×3 (11:51→19:38)
--- NOTE | 2020-01-05 12:39 | XCELERA ---
[id number]
--- NOTE | 2020-01-05 12:41 | Pharmacy Report ---
Glycemic Control Consultation - Date of Service January 05, 2020 - Scope Scope: Glycemic Pharmacist consulted for glycemic control and to write orders per [facility] inpatient glycemic control protocol. - Objective Weight: 146.2 kg Accuchecks BSG (last 24hrs): 01/04/20 01/04/20 01/04/20 14:15 19:36 21:51 Glucose 357 H* POC Glucose 279 H 263 H 01/05/20 01/05/20 01/05/20 02:04 03:18 03:41 Glucose POC Glucose 85 67 L* 242 H 01/05/20 01/05/20 01/05/20 07:33 07:50 11:26 Glucose 128 H POC Glucose 143 H 184 H Laboratory Data (last 24hrs): 01/04/20 01/05/20 14:15 07:33 Potassium 4.5 4.0 Carbon Dioxide 28 28 Anion Gap 3.0 4.0 Creatinine 1.20 1.08 Est Cr Clr Drug Dosing 96.2 105.4 Beta-Hydroxybutyric Acd 0.51 - Recent Pertinent Medications Outpatient Anti-diabetic Regimen: * Lantus 30 units SC HS + Novolog 10 units SC AC + Metformin ER 500 mg PO BIDM * A1c = 7.4% (11/11/2019) Risk Factors for Insulin Resistance: * Diet: * T2DM - Assessment & Plan Assessment & Plan: ASSESSMENT: * 64 yo M admitted secondary to shortness of breath. Pharmacy is consulted for inpatient glycemic management. PMHx significant for CHF, HTN, Obesity, PAD, amongst others. * Admission BSG was 357 mg/dL. Trended down to 279 mg/dL and then 263 mg/dL last evening. Patient received 12 units and 13 units of Novolog, respectively. This likely caused BSG of 85 mg/dL overnight. * Fasting BSG was 143 mg/dL this AM - adequate control * Will continue current basal dose at HS which equals patient's home basal dose * Will continue with Novolog based on a weight and stress of 2 PLAN FOR INPATIENT GLYCEMIC CONTROL: * Holding outpatient oral diabetes medications * Basal insulin * Lantus 30 units SQ HS * Bolus insulin * NovoLog per scale ACHS or Q6hrs while NPO * Goal Range: Low 110 mg/dL - High 140 mg/dL * Correction Factor: 20 mg/dL/unit * Nutritional / Prandial insulin per carb ratio of 1 unit per 7 grams CHO consumed * Please note that the plan above was derived based on current level of insulin resistance and hospital stress. These recommendations are appropriate for inpatient admission only. Plan of care upon discharge will need to be reassessed to avoid potential outpatient hypo/hyperglycemia. Thank you.
[2020-01-05] MEDS ORDERED: IBUPROFEN 200 MG TAB PO STA (15:40)
[2020-01-05] MEDS: hydrALAZINE HCL 20 MG/ML VIAL IV PRN (15:45)
[2020-01-05] MEDS: INSULIN GLARGINE SOLOSTAR 100 UNITS/ML 3 ML PEN SC SCH (20:44)
[2020-01-05] MEDS: ENOXAPARIN INJ 40 MG/0.4 ML SYR SQ SCH (20:44)
[2020-01-05] MEDS: lisinopril 40 MG TAB PO SCH (20:45)
[2020-01-05] MEDS: ATORVASTATIN 40 MG TAB PO SCH (20:45)
[2020-01-05] MEDS: METOPROLOL SUCC 25MG EXT REL TAB PO SCH (20:46)
[2020-01-05] MEDS: CITALOPRAM 20 MG TAB PO SCH (20:46)
[2020-01-05] MEDS: hydrALAZINE HCL 25 MG TAB PO SCH (21:50)
[2020-01-06] MEDS ORDERED: MELATONIN 3 MG TAB PO PRN (00:31)
[2020-01-06] MEDS: hydrALAZINE HCL 25 MG TAB PO SCH ×3 (04:51→20:33)
[2020-01-06 06:20] LABS: Basophils # (auto) 0.03 K/uL (0-0.2); Basophils % (auto) 0.3 %; Eosinophils % (auto) 5.2 %; Hematocrit (blood only) 30.5 % (42-52); Hemoglobin 9.7 g/dL (14.0-18.0); Immature Granulocytes # (auto) 0.02 K/uL (0.00-0.02); Immature Granulocytes % (auto) 0.2 %; Lymphocytes # (auto) 3.12 K/uL (1.2-3.4); Lymphocytes % (auto) 32.5 %; Mean Corpuscular Hemoglobin 28.1 pg (25-34); Mean Corpuscular Hgb Conc 31.8 g/dL (32-36); Mean Corpuscular Volume 88.4 fL (80-100); Mean Platelet Volume 10.1 fL (7.4-10.4); Monocytes # (auto) 0.93 K/uL (0.11-0.59); Monocytes % (auto) 9.7 %; Neutrophils # (auto) 4.99 K/uL (1.4-6.5); Neutrophils % (auto) 52.1 %; Platelet Count 243 K/uL (130-400); RDW Coefficient of Variation 15.2 % (11.5-14.5); RDW Standard Deviation 49.2 fL (36.4-46.3); Red Blood Count 3.45 M/uL (4.7-6.1); White Blood Count 9.59 K/uL (4.8-10.8)
[2020-01-06 06:51] LABS: BUN Creatinine Ratio 18.2 (10-20); Calcium 8.2 mg/dl (8.5-10.1); Creatinine Clr Calc Pharmacy 83.1 ml/min; Est GFR (African American) 63.6; Est GFR (Non-African American) 54.9; Magnesium 2.1 mg/dl (1.8-2.4); Phosphorus 3.6 mg/dl (2.5-4.9)
[2020-01-06] MEDS: FLUTICASONE PROPIONATE NA SPR 16 GM BTL NAE SCH ×2 (08:14→20:32)
[2020-01-06] MEDS: SODIUM CHLORIDE 0.65% NA SOLN 45 ML (OCEAN) NAE SCH ×2 (08:15→20:32)
[2020-01-06] MEDS: ASPIRIN 81 MG ECTAB PO SCH (08:15)
[2020-01-06] MEDS: FUROSEMIDE 40 MG in SYRINGE 0 ML IV SCH ×2 (08:15→18:54)
[2020-01-06] MEDS: INSULIN ASPART 100 UNITS/ML 3 ML PEN SC SCH ×4 (08:16→21:41)
--- NOTE | 2020-01-06 09:10 | Hospitalist Progress Note ---
Date of Service January 06, 2020 Assessment & Plan (1) Acute on chronic diastolic heart failure: Echo with diastolic CHF, stage 2 Strict I & Os, daily weights Fluid restrict 1200 mL, low-sodium diet Encourage low-salt diet as an outpatient 11-14 dry weight around 136kg 01-04 weight 146.2kg, lasix 40 mg IV given in ER with good effect. Suspect his blood pressure will decrease on this dose. 01-05 weight still 146.2kg, increase to lasix 40mg IV BID (2) Hypertensive emergency: 01-04 SBP 186/79, CXR with pulmonary edema Already on Lisinopril 40mg PO daily, will start hydralazine 25mg q8h 01-05 SBP 194/73 adding imdur 30mg PO daily, increase toprol XL to 50mg cont hydralazine 10mg IV PRN SBP > 180 (3) CAD (coronary artery disease): Continue aspirin, metoprolol succinate, atorvastatin (4) TORI on CPAP: CPAP HS 10-11 cmH2O (5) Diabetes mellitus, type 2: uncontrolled -- BG 357 on arrival Hold metformin. HbA1C 7.4 in October, no need to repeat this. Consult pharmacy for glycemic control with basal bolus insulin (6) Peripheral arterial disease: Continue aspirin and atorvastatin (7) DVT prophylaxis: Lovenox 40mg SQ daily Admission and Anticipated Discharge Date Admission Date: January 04, 2020 Subjective Patient doing well. Denies headache. Eating well. Making plenty of urine. Patient is eager for discharge, feeling much better than when he arrived. Still has lower extremity edema. Does not check his weights at home. No history of CHF in the past. Review of Systems Constitutional: no fever, no chills, no fatigue, no weakness, no anorexia, no weight loss and no weight gain Ear, Nose, Mouth, Throat: no nasal congestion, no sore throat and no dysphagia Respiratory: no cough and no dyspnea Cardiovascular: + edema; no chest pain, no dyspnea, no dyspnea at rest, no orthopnea and no palpitations Gastrointestinal: no abdominal pain, no nausea, no vomiting, no hematemesis, no dysphagia, no constipation, no diarrhea/loose stools, no blood in stools and no melena Musculoskeletal: no back pain, no joint pain, no myalgia and no muscle weakness Integumentary: no rash, no lesions, no skin ulcer, no erythema, no dry skin and no pruritus Neurologic: no falls, no localized weakness, no generalized weakness, no numbness, no paresthesia, no tremor(s) and no headache(s) Psychiatric: no depression, no suicidal ideation, no homicidal ideation and no anxiety Endocrine: no cold intolerance and no heat intolerance Hematologic / Lymphatic: no easy bleeding and no easy bruising Physical Exam Constitutional: well developed, well nourished and + morbidly obese; no acute distress Eyes: PERRL, conjunctivae normal, anicteric sclerae ENMT: Mouth: oral mucous membranes not dry Respiratory: normal respiratory effort; no respiratory distress and no labored breathing Auscultation: lungs clear to auscultation bilaterally; no crackles, no rales, no rhonchi and no wheezes Cardiovascular: Rate/Rhythm: regular rate and regular rhythm Heart Sounds: no murmur and no cardiac rub Vessels: normal peripheral pulses and radial pulses present; no JVD Extremities: + edema (2+ bilateral LE edema) Gastrointestinal (Abdomen): Inspection/Auscultation: abdomen normal to inspection and normal bowel sounds; abdomen not distended Percussion/Palpation: abdomen soft; abdomen nontender, no guarding, abdomen not rigid and no hepatosplenomegaly Musculoskeletal: Head/Neck/Chest: normocephalic and head atraumatic Spine: no cervical spinal tenderness, no cervical muscular tenderness, no thoracic spinal tenderness and no lumbar spinal tenderness Skin: no rashes, warm and dry Neurologic: CN's II-XI intact bilaterally and moves all extremities Mo tor/Sensory: no tremor and no sensory deficit Psychiatric: Orientation: alert, oriented to person, oriented to place and oriented to time Apperance: appropriately groomed; not disheveled Affect: euthymic affect; no anxious affect and no tearful affect Results & Data Results & Data ([facility]) Vital Signs (Past 12 Hours) Vital Signs Temp Pulse Pulse Resp BP Pulse Ox 01/06/20 07:52 36.5 C 67 16 159/77 H 96 01/06/20 07:23 66 01/06/20 03:54 36.9 C 71 19 151/77 H 92 01/05/20 23:05 37 C 79 19 175/75 H 94 Laboratory Results Abnormal lab results 01/05/20 01/05/20 01/05/20 Range/Units 11:26 17:06 20:33 RBC (4.7-6.1) M/uL Hgb (14.0-18.0) g/dL Hct (42-52) % MCHC (32-36) g/dL RDW Std Deviation (36.4-46.3) fL RDW Coeff of Maribel (11.5-14.5) % [place] # (Auto) (0.11-0.59) K/uL Chloride (98-107) mmol/L BUN (7-18) mg/dl Glucose (70-99) mg/dl POC Glucose 184 H 160 H 140 H (70-99) mg/dl Calcium (8.5-10.1) mg/dl 01/06/20 01/06/20 01/06/20 Range/Units 05:36 05:36 07:25 RBC 3.45 L (4.7-6.1) M/uL Hgb 9.7 L (14.0-18.0) g/dL Hct 30.5 L (42-52) % MCHC 31.8 L (32-36) g/dL RDW Std Deviation 49.2 H (36.4-46.3) fL RDW Coeff of [place]ibel 15.2 H (11.5-14.5) % [place] # (Auto) 0.93 H (0.11-0.59) K/uL Chloride 108 H (98-107) mmol/L BUN 25 H (7-18) mg/dl Glucose 111 H (70-99) mg/dl POC Glucose 115 H (70-99) mg/dl Calcium 8.2 L (8.5-10.1) mg/dl Medications Administered Current Inpatient Medications Acetaminophen (Acetaminophen 325 Mg Tab) 325 mg PO Q4H PRN PRN Reason: Pain Stop: 02/04/20 10:51 Last Admin: 01/05/20 19:38 Dose: 325 mg Documented by: Aspirin (Aspirin 81 Mg Ectab) 81 mg PO MoWeFr@0900 [facility] Stop: 02/03/20 21:42 Last Admin: 01/06/20 08:15 Dose: 81 mg Documented by: Atorvastatin Calcium (Atorvastatin 40 Mg Tab) 80 mg PO HS [facility] Stop: 02/03/20 21:42 Last Admin: 01/05/20 20:45 Dose: 80 mg Documented by: Citalopram Hydrobromide (Citalopram 20 Mg Tab) 30 mg PO HS [facility] Stop: 02/03/20 21:44 Last Admin: 01/05/20 20:46 Dose: 30 mg Documented by: Dextrose (Dextrose 50% 50 Ml Syringe) 25 - 50 ml IV UD PRN; Protocol PRN Reason: Hypoglycemia Protocol Stop: 02/03/20 22:14 Enoxaparin Sodium (Enoxaparin Inj 40 Mg/0.4 Ml Syr) 40 mg SQ HS [facility] Stop: 02/04/20 20:59 Last Admin: 01/05/20 20:44 Dose: 40 mg Documented by: Fluticasone Propionate (Fluticasone Propionate Na Spr 16 Gm Btl) 2 sprays WILLIAN BID [facility] Stop: 02/03/20 21:42 Last Admin: 01/06/20 08:14 Dose: 2 sprays Documented by: Glucagon (Glucagon For Inj 1 Mg Vial) 1 mg SQ UD PRN; Protocol PRN Reason: Hypoglycemia Protocol Stop: 02/03/20 22:14 Glucose (Glucose 40% Gel 15 Gm Tube) 15 - 30 gm PO UD PRN; Protocol PRN Reason: Hypoglycemia Protocol Stop: 02/03/20 22:14 Glucose (Glucose 10 Tabs/Tube) 4 - 8 tabs PO UD PRN; Protocol PRN Reason: Hypoglycemia Protocol Stop: 02/03/20 22:14 Hydralazine HCl (Hydralazine Hcl 20 Mg/Ml Vial) 10 mg IV Q4H PRN PRN Reason: sBP > 180 Stop: 02/03/20 21:42 Last Admin: 01/05/20 15:45 Dose: 10 mg Documented by: Hydralazine HCl (Hydralazine Hcl 25 Mg Tab) 25 mg PO Q8H [facility] Stop: 02/04/20 20:59 Last Admin: 01/06/20 04:51 Dose: 25 mg Documented by: Furosemide 40 mg/ Syringe 4 mls @ 4 mls/min IV QAM [facility] Stop: 02/04/20 08:59 Last Admin: 01/06/20 08:15 Dose: 4 mls/min Documented by: Insulin Aspart (Insulin Aspart 100 Units/Ml 3 Ml Pen) 0 units SC [facility]; Protocol Stop: 02/03/20 22:29 Last Admin: 01/06/20 08:16 Dose: 6 units Documented by: Insulin Glargine (Insulin Glargine Solostar 100 Units/Ml 3 Ml Pen) 30 units SC HS [facility]; Protocol Stop: 02/03/20 22:14 Last Admin: 01/05/20 20:44 Dose: 30 units Documented by: Lisinopril (Lisinopril 40 Mg Tab) 40 mg PO HS [facility] Stop: 02/03/20 21:42 Last Admin: 01/05/20 20:45 Dose: 40 mg Documented by: Melatonin (Melatonin 3 Mg Tab) 3 mg PO HS PRN PRN Reason: Sleep Stop: 02/05/20 00:30 Last Admin: 01/06/20 00:42 Dose: 3 mg Documented by: Metoprolol Succinate (Metoprolol Succ 25mg Ext Rel Tab) 25 mg PO HS [facility] Stop: 02/03/20 21:42 Last Admin: 01/05/20 20:46 Dose: 25 mg Documented by: Miscellaneous (Carbohydrates For Hypoglycemia ) 15 - 30 gm PO UD PRN PRN Reason: Hypoglycemia Treatment Stop: 02/03/20 22:14 Miscellaneous Information (Pharmacy Glycemic Mgmt Consult) 1 ea N/A UD PRN PRN Reason: Consult Stop: 02/03/20 21:52 Sodium Chloride (Sodium Chloride 0.65% Na Soln 45 Ml ([place])) 2 sprays WILLIAN BID [facility] Stop: 02/03/20 21:42 Last Admin: 01/06/20 08:15 Dose: 2 sprays Documented by: PG Care Time/CCT Total # of Minutes Spent Total Time Spent with Patient: Total time spent is greater than 50% in coordination of care (as documented) at patient's floor/unit and/or counseling patient: Coding Level of Care Code 85803 Subseq Hosp Care Lvl 3 Diagnoses Acute on chronic diastolic heart failure I50.33 Hypertensive emergency I16.1 CAD (coronary artery disease) I25.10 Associated angina: without angina Coronary Disease-Associated Artery/Lesion type: [place] artery [place] vs. 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 transplanted heart: [place] heart Qualified Code(s): I25.10 - Atherosclerotic heart disease of [place] coronary artery without angina pectoris
[2020-01-06] MEDS: hydrALAZINE HCL 20 MG/ML VIAL IV PRN (15:59)
[2020-01-06 17:01] LABS: BUN Creatinine Ratio 20.7 (10-20); Calcium 8.6 mg/dl (8.5-10.1); Creatinine Clr Calc Pharmacy 81.9 ml/min; Est GFR (African American) 62.5; Est GFR (Non-African American) 53.9; Potassium 4.2 mmol/L (3.5-5.1)
[2020-01-06] MEDS ORDERED: ISOSORBIDE MONO EXTENDED REL 30 MG TABCR PO ONE (18:00)
[2020-01-06] MEDS: ENOXAPARIN INJ 40 MG/0.4 ML SYR SQ SCH (20:32)
[2020-01-06] MEDS: ATORVASTATIN 40 MG TAB PO SCH (20:33)
[2020-01-06] MEDS: METOPROLOL SUCC 50MG EXT REL TAB PO SCH (20:34)
[2020-01-06] MEDS: lisinopril 40 MG TAB PO SCH (20:34)
[2020-01-06] MEDS: CITALOPRAM 20 MG TAB PO SCH (20:34)
[2020-01-06] MEDS: ACETAMINOPHEN 325 MG TAB PO PRN (20:38)
[2020-01-06] MEDS: INSULIN GLARGINE SOLOSTAR 100 UNITS/ML 3 ML PEN SC SCH (21:40)
[2020-01-07] MEDS: hydrALAZINE HCL 25 MG TAB PO SCH ×3 (05:55→20:58)
[2020-01-07 08:03] LABS: Hematocrit (blood only) 34.1 % (42-52); Hemoglobin 11.1 g/dL (14.0-18.0); Mean Corpuscular Hemoglobin 28.6 pg (25-34); Mean Corpuscular Hgb Conc 32.6 g/dL (32-36); Mean Corpuscular Volume 87.9 fL (80-100); Mean Platelet Volume 9.6 fL (7.4-10.4); Platelet Count 261 K/uL (130-400); RDW Coefficient of Variation 15.2 % (11.5-14.5); RDW Standard Deviation 48.8 fL (36.4-46.3); Red Blood Count 3.88 M/uL (4.7-6.1); White Blood Count 10.99 K/uL (4.8-10.8)
[2020-01-07] MEDS: FUROSEMIDE 40 MG in SYRINGE 0 ML IV SCH ×2 (08:08→20:55)
[2020-01-07] MEDS: ISOSORBIDE MONO EXTENDED REL 30 MG TABCR PO SCH (08:08)
[2020-01-07] MEDS: FLUTICASONE PROPIONATE NA SPR 16 GM BTL NAE SCH ×2 (08:08→20:56)
[2020-01-07] MEDS: SODIUM CHLORIDE 0.65% NA SOLN 45 ML (OCEAN) NAE SCH ×2 (08:08→20:58)
[2020-01-07] MEDS: INSULIN ASPART 100 UNITS/ML 3 ML PEN SC SCH ×4 (08:09→21:03)
--- NOTE | 2020-01-07 08:10 | Hospitalist Progress Note ---
Date of Service January 07, 2020 Assessment & Plan (1) Acute on chronic diastolic heart failure: Echo with diastolic CHF, stage 2 Strict I & Os, daily weights Fluid restrict 1200 mL, low-sodium diet Encourage low-salt diet as an outpatient 01-04 weight 146.2kg, lasix 40 mg IV given in ER with good effect. Suspect his blood pressure will decrease on this dose. 01-05 weight still 146.2kg, increase to lasix 40mg IV BID 01-06 144.1kg, still with edema in legs (2) Hypertensive emergency: 01-04 SBP 186/79, CXR with pulmonary edema Already on Lisinopril 40mg PO daily, will start hydralazine 25mg q8h 01-05 SBP 194/73 adding imdur 30mg PO daily, increase toprol XL to 50mg cont hydralazine 10mg IV PRN SBP > 180 01-06 better BP control over night and today (3) CAD (coronary artery disease): Continue aspirin, metoprolol succinate, atorvastatin (4) TORI on CPAP: CPAP HS 10-11 cmH2O (5) Diabetes mellitus, type 2: uncontrolled -- BG 357 on arrival HbA1C 7.4 in October, no need to repeat this. Consult pharmacy for glycemic control with basal bolus insulin hold metformin 01-06 receiving levemir 30 units at bedtime, BG well controlled (6) Peripheral arterial disease: Continue aspirin and atorvastatin (7) DVT prophylaxis: Lovenox 40mg SQ daily patient agreeable to staying in hospital until edema improves and nearing his dry weight. anticipate eventual discharge home with self care Admission and Anticipated Discharge Date Admission Date: January 04, 2020 Subjective He was awake until 4am talking to his roommate. Endorses fatigue this morning. Leg edema is continuing to improve, but remains present in both legs. Denies calf pain. Dyspnea on exertion has improved, but patient admits he has not walked in the hallways. Denies cough. Denies orthopnea. Down 13 pounds since admit. Review of Systems Constitutional: no fever, no chills, no fatigue, no weakness, no anorexia, no weight loss and no weight gain Ear, Nose, Mouth, Throat: no nasal congestion, no sore throat and no dysphagia Respiratory: no cough and no dyspnea Cardiovascular: + edema; no chest pain, no dyspnea, no dyspnea at rest, no orthopnea and no palpitations Gastrointestinal: no abdominal pain, no nausea, no vomiting, no hematemesis, no dysphagia, no constipation, no diarrhea/loose stools, no blood in stools and no melena Musculoskeletal: no back pain, no joint pain, no myalgia and no muscle weakness Integumentary: no rash, no lesions, no skin ulcer, no erythema, no dry skin and no pruritus Neurologic: no falls, no localized weakness, no generalized weakness, no numbness, no paresthesia, no tremor(s) and no headache(s) Psychiatric: no depression, no suicidal ideation, no homicidal ideation and no anxiety Endocrine: no cold intolerance and no heat intolerance Hematologic / Lymphatic: no easy bleeding and no easy bruising Physical Exam Constitutional: well developed, well nourished and + morbidly obese; no acute distress Eyes: PERRL, conjunctivae normal, anicteric sclerae ENMT: Mouth: oral mucous membranes not dry Respiratory: normal respiratory effort; no respiratory distress and no labored breathing Auscultation: lungs clear to auscultation bilaterally; no crackles, no rales, no rhonchi and no wheezes Cardiovascular: Rate/Rhythm: regular rate and regular rhythm Heart Sounds: no murmur and no cardiac rub Vessels: normal peripheral pulses and radial pulses present; no JVD Extremities: + edema (2+ bilateral LE edema) Gastrointestinal (Abdomen): Inspection/Auscultation: abdomen normal to inspection and normal bowel sounds; abdomen not distended Percussion/Palpation: abdomen soft; abdomen nontender, no guarding, abdomen not rigid and no hepatosplenomegaly Musculoskeletal: Head/Neck/Chest: normocephalic and head atraumatic Spine: no cervical spinal tenderness, no cervical muscular tenderness, no thoracic spinal tenderness and no lumbar spinal tenderness Skin: no rashes, warm and dry Neurologic: CN's II-XI intact bilaterally and moves all extremities Motor/Sensory: no tremor and no sensory deficit Psychiatric: Orientation: alert, oriented to person, oriented to place and oriented to time Apperance: appropriately groomed; not disheveled Affect: euthymic affect; no anxious affect and no tearful affect Results & Data Results & Data ([facility]) Vital Signs (Past 12 Hours) Vital Signs Temp Pulse Pulse Pulse Resp BP BP 01/07/20 07:37 36.5 C 72 16 154/73 H 01/07/20 07:30 69 01/07/20 05:53 144/66 H 01/07/20 03:08 36.6 C 69 18 143/69 H 01/06/20 22:43 36.6 C 75 17 157/73 H 01/06/20 22:19 73 Pulse Ox 01/07/20 07:37 97 01/07/20 07:30 01/07/20 05:53 01/07/20 03:08 95 01/06/20 22:43 95 01/06/20 22:19 Laboratory Results Abnormal lab results 01/06/20 01/06/20 01/06/20 Range/Units 11:58 16:26 16:32 WBC (4.8-10.8) K/uL RBC (4.7-6.1) M/uL Hgb (14.0-18.0) g/dL Hct (42-52) % RDW Std Deviation (36.4-46.3) fL RDW Coeff of Maribel (11.5-14.5) % BUN 29 H (7-18) mg/dl BUN/Creatinine Ratio 20.7 H (10-20) Glucose 134 H (70-99) mg/dl POC Glucose 104 H 135 H (70-99) mg/dl 01/06/20 01/07/20 01/07/20 Range/Units 21:02 07:45 07:46 WBC 10.99 H (4.8-10.8) K/uL RBC 3.88 L (4.7-6.1) M/uL Hgb 11.1 L (14.0-18.0) g/dL Hct 34.1 L (42-52) % RDW Std Deviation 48.8 H (36.4-46.3) fL RDW Coeff of [place] 15.2 H (11.5-14.5) % BUN (7-18) mg/dl BUN/Creatinine Ratio (10-20) Glucose (70-99) mg/dl POC Glucose 156 H 119 H (70-99) mg/dl Medications Administered Current Inpatient Medications Acetaminophen (Acetaminophen 325 Mg Tab) 325 mg PO Q4H PRN PRN Reason: Pain Stop: 02/04/20 10:51 Last Admin: 01/06/20 20:38 Dose: 325 mg Documented by: Aspirin (Aspirin 81 Mg Ectab) 81 mg PO MoWeFr@0900 [facility] Stop: 02/03/20 21:42 Last Admin: 01/06/20 08:15 Dose: 81 mg Documented by: Atorvastatin Calcium (Atorvastatin 40 Mg Tab) 80 mg PO HS [facility] Stop: 02/03/20 21:42 Last Admin: 01/06/20 20:33 Dose: 80 mg Documented by: Citalopram Hydrobromide (Citalopram 20 Mg Tab) 30 mg PO HS [facility] Stop: 02/03/20 21:44 Last Admin: 01/06/20 20:34 Dose: 30 mg Documented by: Dextrose (Dextrose 50% 50 Ml Syringe) 25 - 50 ml IV UD PRN; Protocol PRN Reason: Hypoglycemia Protocol Stop: 02/03/20 22:14 Enoxaparin Sodium (Enoxaparin Inj 40 Mg/0.4 Ml Syr) 40 mg SQ [facility] Stop: 02/04/20 20:59 Last Admin: 01/06/20 20:32 Dose: 40 mg Documented by: Fluticasone Propionate (Fluticasone Propionate Na Spr 16 Gm Btl) 2 sprays WILLIAN BID [facility] Stop: 02/03/20 21:42 Last Admin: 01/06/20 20:32 Dose: 2 sprays Documented by: Glucagon (Glucagon For Inj 1 Mg Vial) 1 mg SQ UD PRN; Protocol PRN Reason: Hypoglycemia Protocol Stop: 02/03/20 22:14 Glucose (Glucose 40% Gel 15 Gm Tube) 15 - 30 gm PO UD PRN; Protocol PRN Reason: Hypoglycemia Protocol Stop: 02/03/20 22:14 Glucose (Glucose 10 Tabs/Tube) 4 - 8 tabs PO UD PRN; Protocol PRN Reason: Hypoglycemia Protocol Stop: 02/03/20 22:14 Hydralazine HCl (Hydralazine Hcl 20 Mg/Ml Vial) 10 mg IV Q4H PRN PRN Reason: sBP > 180 Stop: 02/03/20 21:42 Last Admin: 01/06/20 15:59 Dose: 10 mg Documented by: Hydralazine HCl (Hydralazine Hcl 25 Mg Tab) 25 mg PO Q8H [facility] Stop: 02/04/20 20:59 Last Admin: 01/07/20 05:55 Dose: 25 mg Documented by: Furosemide 40 mg/ Syringe 4 mls @ 4 mls/min IV BID [facility] Stop: 02/05/20 20:59 Last Admin: 01/06/20 18:54 Dose: 4 mls/min Documented by: Insulin Aspart (Insulin Aspart 100 Units/Ml 3 Ml Pen) 0 units SC [facility]; Protocol Stop: 02/03/20 22:29 Last Admin: 01/06/20 21:41 Dose: 1 units Documented by: Insulin Glargine (Insulin Glargine Solostar 100 Units/Ml 3 Ml Pen) 30 units SC [facility]; Protocol Stop: 02/03/20 22:14 Last Admin: 01/06/20 21:40 Dose: 30 units Documented by: Isosorbide Mononitrate (Isosorbide [place] Extended Rel 30 Mg Tabcr) 30 mg PO QAM [facility] Stop: 02/06/20 08:59 Lisinopril (Lisinopril 40 Mg Tab) 40 mg PO [facility] Stop: 02/03/20 21:42 Last Admin: 01/06/20 20:34 Dose: 40 mg Documented by: Melatonin (Melatonin 3 Mg Tab) 3 mg PO HS PRN PRN Reason: Sleep Stop: 02/05/20 00:30 Last Admin: 01/06/20 00:42 Dose: 3 mg Documented by: Metoprolol Succinate (Metoprolol Succ 50mg Ext Rel Tab) 50 mg PO [facility] Stop: 02/05/20 20:59 Last Admin: 01/06/20 20:34 Dose: 50 mg Documented by: Miscellaneous (Carbohydrates For Hypoglycemia ) 15 - 30 gm PO UD PRN PRN Reason: Hypoglycemia Treatment Stop: 02/03/20 22:14 Miscellaneous Information (Pharmacy Glycemic Mgmt Consult) 1 ea N/A UD PRN PRN Reason: Consult Stop: 02/03/20 21:52 Sodium Chloride (Sodium Chloride 0.65% Na Soln 45 Ml ([place])) 2 sprays WILLIAN BID [facility] Stop: 02/03/20 21:42 Last Admin: 01/06/20 20:32 Dose: 2 sprays Documented by: PG Care Time/CCT Total # of Minutes Spent Total Time Spent with Patient: Total time spent is greater than 50% in coordination of care (as documented) at patient's floor/unit and/or counseling patient: Coding Level of Care Code 95281 Subseq Hosp Care Lvl 3 Diagnoses Acute on chronic diastolic heart failure I50.33 Hypertensive emergency I16.1 CAD (coronary artery disease) I25.10 Associated angina: without angina Coronary Disease-Associated Artery/Lesion type: [place] artery [place] vs. transplanted heart: [place] heart TORI on CPAP G47.33; Z99.89 Diabetes mellitus, type 2 E11.9 Diabetes mellitus complication status: without complication Diabetes mellitus halfway insulin use: unspecified long term care pharmacist insulin use status Peripheral arterial disease I73.9 DVT prophylaxis Z29.9 (1) Diabetes mellitus, type 2 Diabetes mellitus complication status: without complication Diabetes mellitus long term care pharmacist insulin use: unspecified halfway insulin use status Qualified Code(s): E11.9 - Type 2 diabetes mellitus without complications (2) CAD (coronary artery disease) Associated angina: without angina Coronary Disease-Associated Artery/Lesion type: [place] artery [place] vs. transplanted heart: [place] heart Qualified Code(s): I25.10 - Atherosclerotic heart disease of [place] coronary artery without angina pectoris
[2020-01-07 09:40] LABS: BUN Creatinine Ratio 22.2 (10-20); Calcium 9.1 mg/dl (8.5-10.1); Creatinine Clr Calc Pharmacy 85.5 ml/min; Est GFR (African American) 66.5; Est GFR (Non-African American) 57.4; Potassium 3.8 mmol/L (3.5-5.1)
[2020-01-07] MEDS: ACETAMINOPHEN 325 MG TAB PO PRN (14:14)
[2020-01-07] MEDS: ATORVASTATIN 40 MG TAB PO SCH (20:55)
[2020-01-07] MEDS: CITALOPRAM 20 MG TAB PO SCH (20:56)
[2020-01-07] MEDS: lisinopril 40 MG TAB PO SCH (20:57)
[2020-01-07] MEDS: METOPROLOL SUCC 50MG EXT REL TAB PO SCH (20:57)
[2020-01-07] MEDS: ENOXAPARIN INJ 40 MG/0.4 ML SYR SQ SCH (20:58)
[2020-01-07] MEDS: INSULIN GLARGINE SOLOSTAR 100 UNITS/ML 3 ML PEN SC SCH (21:01)
[2020-01-08] MEDS: hydrALAZINE HCL 25 MG TAB PO SCH (05:02)
[2020-01-08 07:23] LABS: Basophils # (auto) 0.04 K/uL (0-0.2); Basophils % (auto) 0.4 %; Hematocrit (blood only) 31.6 % (42-52); Hemoglobin 10.2 g/dL (14.0-18.0); Immature Granulocytes # (auto) 0.01 K/uL (0.00-0.02); Immature Granulocytes % (auto) 0.1 %; Lymphocytes # (auto) 3.31 K/uL (1.2-3.4); Lymphocytes % (auto) 33.1 %; Mean Corpuscular Hemoglobin 28.6 pg (25-34); Mean Corpuscular Hgb Conc 32.3 g/dL (32-36); Mean Corpuscular Volume 88.5 fL (80-100); Mean Platelet Volume 9.9 fL (7.4-10.4); Monocytes # (auto) 0.86 K/uL (0.11-0.59); Monocytes % (auto) 8.6 %; Neutrophils # (auto) 5.27 K/uL (1.4-6.5); Neutrophils % (auto) 52.8 %; Platelet Count 246 K/uL (130-400); RDW Coefficient of Variation 15.2 % (11.5-14.5); RDW Standard Deviation 49.3 fL (36.4-46.3); Red Blood Count 3.57 M/uL (4.7-6.1); White Blood Count 9.99 K/uL (4.8-10.8)
[2020-01-08 07:56] LABS: BUN Creatinine Ratio 21.7 (10-20); Calcium 8.5 mg/dl (8.5-10.1); Creatinine Clr Calc Pharmacy 87.8 ml/min; Est GFR (African American) 69.7; Est GFR (Non-African American) 60.2; Phosphorus 3.8 mg/dl (2.5-4.9); Potassium 3.7 mmol/L (3.5-5.1)
[2020-01-08] MEDS: FLUTICASONE PROPIONATE NA SPR 16 GM BTL NAE SCH (08:07)
[2020-01-08] MEDS: INSULIN ASPART 100 UNITS/ML 3 ML PEN SC SCH ×2 (08:08→11:53)
[2020-01-08] MEDS: SODIUM CHLORIDE 0.65% NA SOLN 45 ML (OCEAN) NAE SCH (08:09)
[2020-01-08] MEDS: ISOSORBIDE MONO EXTENDED REL 30 MG TABCR PO SCH (08:09)
[2020-01-08] MEDS: FUROSEMIDE 40 MG in SYRINGE 0 ML IV SCH (08:09)
[2020-01-08] MEDS ORDERED: ISOSORBIDE MONO EXTENDED REL 30 MG TABCR PO ONE (09:02)
--- NOTE | 2020-01-08 09:06 | Hospitalist Progress Note ---
Date of Service January 08, 2020 Assessment & Plan (1) Acute on chronic diastolic heart failure: Echo with diastolic CHF, stage 2 Strict I & Os, daily weights Fluid restrict 1200 mL, low-sodium diet Encourage low-salt diet as an outpatient 01-04 weight 146.2kg, lasix 40 mg IV given in ER with good effect. Suspect his blood pressure will decrease on this dose. 01-05 weight still 146.2kg, increase to lasix 40mg IV BID 01-06 144.1kg, still with edema in legs 01-07 140.9kg Patient feels his breathing is back to baseline. Wants to manage his lower extremity edema as outpatient. Agreeable to discharge and f/u in CHF clinic. (2) Hypertensive emergency: 01-04 SBP 186/79, CXR with pulmonary edema Already on Lisinopril 40mg PO daily, will start hydralazine 25mg q8h 01-05 SBP 194/73 adding imdur 30mg PO daily, increase toprol XL to 50mg cont hydralazine 10mg IV PRN SBP > 180 01-06 better BP control over night and today 01-07 SBP range 154-187, increase imdur to 60mg (3) CAD (coronary artery disease): Continue aspirin, metoprolol succinate, atorvastatin (4) TORI on CPAP: CPAP HS 10-11 cmH2O (5) Diabetes mellitus, type 2: uncontrolled -- BG 357 on arrival HbA1C 7.4 in October, no need to repeat this. Consult pharmacy for glycemic control with basal bolus insulin hold metformin 01-06 receiving levemir 30 units at bedtime, BG well controlled (6) Peripheral arterial disease: Continue aspirin and atorvastatin (7) DVT prophylaxis: Lovenox 40mg SQ daily discharge home today with self care Admission and Anticipated Discharge Date Admission Date: January 04, 2020 Subjective Walking in hallways, no dyspnea on exertion, no cough. Feels back to normal. His swelling is still present, but patient says it is normal for him. He does not want to stay in hospital for the edema. He denies chest pain, abd pain, nausea or vomiting. He has no trouble urinating. No headache. Review of Systems Constitutional: no fever, no chills, no fatigue, no weakness, no anorexia, no weight loss and no weight gain Ear, Nose, Mouth, Throat: no nasal congestion, no sore throat and no dysphagia Respiratory: no cough and no dyspnea Cardiovascular: + edema; no chest pain, no dyspnea, no dyspnea at rest, no orthopnea and no palpitations Gastrointestinal: no abdominal pain, no nausea, no vomiting, no hematemesis, no dysphagia, no constipation, no diarrhea/loose stools, no blood in stools and no melena Musculoskeletal: no back pain, no joint pain, no myalgia and no muscle weakness Integumentary: no rash, no lesions, no skin ulcer, no erythema, no dry skin and no pruritus Neurologic: no falls, no localized weakness, no generalized weakness, no nu mbness, no paresthesia, no tremor(s) and no headache(s) Psychiatric: no depression, no suicidal ideation, no homicidal ideation and no anxiety Endocrine: no cold intolerance and no heat intolerance Hematologic / Lymphatic: no easy bleeding and no easy bruising Physical Exam Constitutional: well developed, well nourished and + morbidly obese; no acute distress Eyes: PERRL, conjunctivae normal, anicteric sclerae ENMT: Mouth: oral mucous membranes not dry Respiratory: normal respiratory effort; no respiratory distress and no labored breathing Auscultation: lungs clear to auscultation bilaterally; no crackles, no rales, no rhonchi and no wheezes Cardiovascular: Rate/Rhythm: regular rate and regular rhythm Heart Sounds: no murmur and no cardiac rub Vessels: normal peripheral pulses and radial pulses present; no JVD Extremities: + edema (2+ bilateral LE edema) Gastrointestinal (Abdomen): Inspection/Auscultation: abdomen normal to inspection and normal bowel sounds; abdomen not distended Percussion/Palpation: abdomen soft; abdomen nontender, no guarding, abdomen not rigid and no hepatosplenomegaly Musculoskeletal: Head/Neck/Chest: normocephalic and head atraumatic Spine: no cervical spinal tenderness, no cervical muscular tenderness, no thoracic spinal tenderness and no lumbar spinal tenderness Skin: no rashes, warm and dry Neurologic: CN's II-XI intact bilaterally and moves all extremities Motor/Sensory: no tremor and no sensory deficit Psychiatric: Orientation: alert, oriented to person, oriented to place and oriented to time Apperance: appropriately groomed; not disheveled Affect: euthymic affect; no anxious affect and no tearful affect Results & Data Results & Data ([facility]) Vital Signs (Past 12 Hours) Vital Signs Temp Pulse Pulse Resp BP BP Pulse Ox 01/08/20 08:22 36.7 C 75 16 154/71 H 91 01/08/20 05:02 166/77 H 01/08/20 02:24 36.7 C 74 20 162/73 H 93 01/07/20 23:32 173/66 H 01/07/20 22:19 82 01/07/20 22:13 36.7 C 81 18 186/81 H 94 Laboratory Results Abnormal lab results 01/07/20 01/07/20 01/07/20 Range/Units 07:46 11:42 16:48 RBC (4.7-6.1) M/uL Hgb (14.0-18.0) g/dL Hct (42-52) % RDW Std Deviation (36.4-46.3) fL RDW Coeff of Maribel (11.5-14.5) % [place] # (Auto) (0.11-0.59) K/uL Chloride 108 H (98-107) mmol/L BUN 29 H (7-18) mg/dl BUN/Creatinine Ratio 22.2 H (10-20) Glucose 108 H (70-99) mg/dl POC Glucose 130 H 129 H (70-99) mg/dl 01/07/20 01/08/20 01/08/20 Range/Units 20:32 07:09 07:09 RBC 3.57 L (4.7-6.1) M/uL Hgb 10.2 L (14.0-18.0) g/dL Hct 31.6 L (42-52) % RDW Std Deviation 49.3 H (36.4-46.3) fL RDW Coeff of [place]ibel 15.2 H (11.5-14.5) % [place] # (Auto) 0.86 H (0.11-0.59) K/uL Chloride 108 H (98-107) mmol/L BUN 28 H (7-18) mg/dl BUN/Creatinine Ratio 21.7 H (10-20) Glucose 138 H (70-99) mg/dl POC Glucose 139 H (70-99) mg/dl 01/08/20 Range/Units 07:38 RBC (4.7-6.1) M/uL Hgb (14.0-18.0) g/dL Hct (42-52) % RDW Std Deviation (36.4-46.3) fL RDW Coeff of Maribel (11.5-14.5) % [place] # (Auto) (0.11-0.59) K/uL Chloride (98-107) mmol/L BUN (7-18) mg/dl BUN/Creatinine Ratio (10-20) Glucose (70-99) mg/dl POC Glucose 138 H (70-99) mg/dl Medications Administered Current Inpatient Medications Acetaminophen (Acetaminophen 325 Mg Tab) 325 mg PO Q4H PRN PRN Reason: Pain Stop: 02/04/20 10:51 Last Admin: 01/07/20 14:14 Dose: 325 mg Documented by: Aspirin (Aspirin 81 Mg Ectab) 81 mg PO MoWeFr@[id number] MARCUS Stop: 02/03/20 21:42 Last Admin: 01/06/20 08:15 Dose: 81 mg Documented by: Atorvastatin Calcium (Atorvastatin 40 Mg Tab) 80 mg PO HS MARCUS Stop: 02/03/20 21:42 Last Admin: 01/07/20 20:55 Dose: 80 mg Documented by: Citalopram Hydrobromide (Citalopram 20 Mg Tab) 30 mg PO HS MARCUS Stop: 02/03/20 21:44 Last Admin: 01/07/20 20:56 Dose: 30 mg Documented by: Dextrose (Dextrose 50% 50 Ml Syringe) 25 - 50 ml IV UD PRN; Protocol PRN Reason: Hypoglycemia Protocol Stop: 02/03/20 22:14 Enoxaparin Sodium (Enoxaparin Inj 40 Mg/0.4 Ml Syr) 40 mg SQ HS MARCUS Stop: 02/04/20 20:59 Last Admin: 01/07/20 20:58 Dose: 40 mg Documented by: Fluticasone Propionate (Fluticasone Propionate Na Spr 16 Gm Btl) 2 sprays WILLIAN B ID MARCUS Stop: 02/03/20 21:42 Last Admin: 01/08/20 08:07 Dose: 2 sprays Documented by: Glucagon (Glucagon For Inj 1 Mg Vial) 1 mg SQ UD PRN; Protocol PRN Reason: Hypoglycemia Protocol Stop: 02/03/20 22:14 Glucose (Glucose 40% Gel 15 Gm Tube) 15 - 30 gm PO UD PRN; Protocol PRN Reason: Hypoglycemia Protocol Stop: 02/03/20 22:14 Glucose (Glucose 10 Tabs/Tube) 4 - 8 tabs PO UD PRN; Protocol PRN Reason: Hypoglycemia Protocol Stop: 02/03/20 22:14 Hydralazine HCl (Hydralazine Hcl 20 Mg/Ml Vial) 10 mg IV Q4H PRN PRN Reason: sBP > 180 Stop: 02/03/20 21:42 Last Admin: 01/06/20 15:59 Dose: 10 mg Documented by: Hydralazine HCl (Hydralazine Hcl 25 Mg Tab) 25 mg PO Q8H MARCUS Stop: 02/04/20 20:59 Last Admin: 01/08/20 05:02 Dose: 25 mg Documented by: Furosemide 40 mg/ Syringe 4 mls @ 4 mls/min IV BID MARCUS Stop: 02/05/20 20:59 Last Admin: 01/08/20 08:09 Dose: 4 mls/min Documented by: Insulin Aspart (Insulin Aspart 100 Units/Ml 3 Ml Pen) 0 units [facility]; Protocol Stop: 02/03/20 22:29 Last Admin: 01/08/20 08:08 Dose: 6 units Documented by: Insulin Glargine (Insulin Glargine Solostar 100 Units/Ml 3 Ml Pen) 30 units SC [facility]; Protocol Stop: 02/03/20 22:14 Last Admin: 01/07/20 21:01 Dose: 30 units Documented by: Isosorbide Mononitrate (Isosorbide [place] Extended Rel 60 Mg Tabcr) 60 mg PO QAM MARCUS Stop: 02/08/20 08:59 Isosorbide Mononitrate (Isosorbide [place] Extended Rel 30 Mg Tabcr) 30 mg PO NOW ONE Stop: 01/08/20 09:03 Lisinopril (Lisinopril 40 Mg Tab) 40 mg PO HS MARCUS Stop: 02/03/20 21:42 Last Admin: 01/07/20 20:57 Dose: 40 mg Documented by: Melatonin (Melatonin 3 Mg Tab) 3 mg PO HS PRN PRN Reason: Sleep Stop: 02/05/20 00:30 Last Admin: 01/06/20 00:42 Dose: 3 mg Documented by: Metoprolol Succinate (Metoprolol Succ 50mg Ext Rel Tab) 50 mg PO HS MARCUS Stop: 02/05/20 20:59 Last Admin: 01/07/20 20:57 Dose: 50 mg Documented by: Miscellaneous (Carbohydrates For Hypoglycemia ) 15 - 30 gm PO UD PRN PRN Reason: Hypoglycemia Treatment Stop: 02/03/20 22:14 Miscellaneous Information (Pharmacy Glycemic Mgmt Consult) 1 ea N/A UD PRN PRN Reason: Consult Stop: 02/03/20 21:52 Sodium Chloride (Sodium Chloride 0.65% Na Soln 45 Ml ([place])) 2 sprays WILLIAN BID MARCUS Stop: 02/03/20 21:42 Last Admin: 01/08/20 08:09 Dose: 2 sprays Documented by: PG Care Time/CCT Total # of Minutes Spent Total Time Spent with Patient: Total time spent is greater than 50% in coordination of care (as documented) at patient's floor/unit and/or counseling patient: Coding Level of Care Code 63427 Subseq Hosp Care Lvl 3 Diagnoses Acute on chronic diastolic heart failure I50.33 Hypertensive emergency I16.1 CAD (coronary artery disease) I25.10 Associated angina: without angina Coronary Disease-Associated Artery/Lesion type: [place] artery [place] vs. transplanted heart: [place] heart TORI on CPAP G47.33; Z99.89 Diabetes mellitus, type 2 E11.9 Diabetes mellitus complication status: without complication Diabetes mellitus emt intermediate insulin use: unspecified skilled nursing insulin use status Peripheral arterial disease I73.9 DVT prophylaxis Z29.9 (1) Diabetes mellitus, type 2 Diabetes mellitus complication status: without complication Diabetes mellitus emt intermediate insulin use: unspecified skilled nursing insulin use status Qualified Code(s): E11.9 - Type 2 diabetes mellitus without complications (2) CAD (coronary artery disease) Associated angina: without angina Coronary Disease-Associated Artery/Lesion type: [place] artery [place] vs. transplanted heart: [place] heart Qualified Code(s): I25.10 - Atherosclerotic heart disease of [place] coronary artery without angina pectoris
--- NOTE | 2020-01-08 13:39 | Discharge Summary ---
Date of Service January 08, 2020 Admission HPI Per Admitting Provider Long Royal is a 64-year-old male with coronary artery disease who presents to the ER with worsening shortness of breath, leg swelling and high blood pressure. He reports this all started after cold symptoms with nasal congestion, sinus pressure, post nasal drip and low grade fever that started 3 days ago. He reports the sinus pressure has resolved and was bilateral, he did not take any antibiotics for this. He denies any loss of taste or smell. He currently feels it is hard to take a deep breath. Associated orthopnea and bilateral leg swelling. No chest pain, presyncope, syncope, palpitation, claudication, weight gain. He usually uses CPAP at night but has not been able to use this with his current cold. He does report a diet high in salt including eating pretzels. He takes Lasix 20 mg p.o. as needed for weight gain which he is taking for the last 2 days. In the ER chest x-ray concerning for congestive overload, systolic blood pressure 218 on arrival. SARS-CoV-2 nasopharyngeal swab PCR negative. He was given labetalol 10 mg IV x2 with minimal effect on his blood pressure. Lasix 40 mg IV with substantial urine output since this was given. Principal Diagnosis acute on chronic diastolic congestive heart failure Discharge Exam Constitutional well developed, well nourished and + morbidly obese; no acute distress Eyes PERRL, conjunctivae normal, anicteric sclerae ENMT Mouth: oral mucous membranes not dry Respiratory normal respiratory effort; no respiratory distress and no labored breathing Auscultation: lungs clear to auscultation bilaterally; no crackles, no rales, no rhonchi and no wheezes Cardiovascular Rate/Rhythm: regular rate and regular rhythm Heart Sounds: no murmur and no cardiac rub Vessels: normal peripheral pulses and radial pulses present; no JVD Extremities: + edema (2+ bilateral LE edema) Gastrointestinal (Abdomen) Inspection/Auscultation: abdomen normal to inspection and normal bowel sounds; abdomen not distended Percussion/Palpation: abdomen soft; abdomen nontender, no guarding, abdomen not rigid and no hepatosplenomegaly Musculoskeletal Head/Neck/Chest: normocephalic and head atraumatic Spine: no cervical spinal tenderness, no cervical muscular tenderness, no thoracic spinal tenderness and no lumbar spinal tenderness Skin no rashes, warm and dry Neurologic CN's II-XI intact bilaterally and moves all extremities Motor/Sensory: no tremor and no sensory deficit Psychiatric Orientation: alert, oriented to person, oriented to place and oriented to time Apperance: appropriately groomed; not disheveled Affect: euthymic affect; no anxious affect and no tearful affect Discharge Data Allergies Allergy/AdvReac Type Severity Reaction Status Date / Time bee venom protein (honey bee) Allergy Severe Anaphylaxis Verified 01/04/20 16:17 iodine AdvReac Mild FLUSHED Verified 01/04/20 16:17 FEELING/sick to stomach egg AdvReac Unknown Gastrointestinal Verified 01/04/20 16:17 Upset Egg or Chicken-derived Drugs Allergy Unknown Gastrointestinal Uncoded 01/04/20 16:17 Upset Consultations 01/04/20 16:16 ED Decision to Admit Stat Hospital Course (1) Acute on chronic diastolic heart failure: Echo with diastolic CHF, stage 2 Strict I & Os, daily weights Fluid restrict 1200 mL, low-sodium diet Encourage low-salt diet as an outpatient 01-04 weight 146.2kg, lasix 40 mg IV given in ER with good effect. Suspect his blood pressure will decrease on this dose. 01-05 weight still 146.2kg, increase to lasix 40mg IV BID 01-06 144.1kg, still with edema in legs 01-07 140.9kg Patient feels his breathing is back to baseline. Wants to manage his lower extremity edema as outpatient. Agreeable to discharge and f/u in CHF clinic. (2) Hypertensive emergency: 01-04 SBP 186/79, CXR with pulmonary edema Already on Lisinopril 40mg PO daily, will start hydralazine 25mg q8h 01-05 SBP 194/73 adding imdur 30mg PO daily, increase toprol XL to 50mg cont hydralazine 10mg IV PRN SBP > 180 01-06 better BP control over night and today 01-07 SBP range 154-187, increase imdur to 60mg (3) CAD (coronary artery disease): Continue aspirin, metoprolol succinate, atorvastatin (4) TORI on CPAP: CPAP HS 10-11 cmH2O (5) Diabetes mellitus, type 2: uncontrolled -- BG 357 on arrival HbA1C 7.4 in October, no need to repeat this. Consult pharmacy for glycemic control with basal bolus insulin hold metformin 11-14 receiving levemir 30 units at bedtime, BG well controlled (6) Peripheral arterial disease: Continue aspirin and atorvastatin (7) DVT prophylaxis: Lovenox 40mg SQ daily discharge home today with self care Total Time Total Time Spent Total Time Spent (In Minutes): 45 Total Time Includes: Examination of the Patient, Discharge Planning, Medication Reconciliation and Communication With Other Providers Discharge Plan Discharge Items Patient Disposition: Home - Self-Care Reason For Visit: ACUTE CHF, HYPERTENSIVE URGENCY Discharge Diagnosis: 1. diastolic CHF, grade 2 2. hypertensive emergency 3. sleep apnea 4. DM2, uncontrolled 5. CAD Activity: Resume your previous activity Non-emergency contact: Primary Care Provider Call non-emergency contact if: you have any medication questions and your symptoms worsen Follow-up/Referrals: Jeffrey Tripp MD [Primary Care Provider] - (within one week for follow up of hospitalization for CBC and BMP) Nia Robles PA-C [Physician Tool And Die Inspector] - 01/13/20 11:30 am (Congestive Heart Failure Program Appointment Information Early follow up is essential to managing your heart failure. An appointment has been scheduled for you with the [facility] Heart Failure Program within 7 days of discharge. Anticipate this visit to be 30-60 minutes long. Please expect a clinical psychologist licensed phone call from one of our nurses approximately 48 hours from discharge. They will also be placing an order for lab work to be completed 1-2 days prior to your heart failure follow up appointment. Please be sure to have this done so we can go over the results when you come in. Office Location The cardiology office building is located in front of the hospital at [address]. Bring the following with you to your follow-up doctor appointments: Please bring your daily weight log any discharge paperwork all of your medication bottles with you to this visit. ) Diet: Carb Consistent or DM2, Heart Healthy and Low Sodium (2gm) Addtl Attending Provider Instructions: Call your Primary Care doctor if any of the following symptoms or problems start or get worse: * Shortness of breath or difficulty breathing * Wake up at night short of breath * Chest pain * Cough * Swelling of your hands, feet, or legs * More fatigued or tired with your normal activity * Palpitations - sudden fast heart beats WEIGHT * Weigh yourself every morning after using the bathroom. * Use the same scale. * Wear the same amount of clothing. * Write your weight down on a chart. * Call your Primary Care doctor if you gain more than 2-3 pounds in 1-2 days. MEDICATIONS * Use this discharge instruction sheet for medication instructions. * Take your medications at the time your doctor ordered. * Do not skip a dose of your medicines. * If you miss a dose of medicine, take it as soon as possible, but DO NOT DOUBLE A DOSE. * Read your medicine information when you get home. * Know all of the side effects of your medicine. If in doubt, ask your pharmacist * Call your Primary Care doctor's office if you have any side effects. * Be sure all of your doctors know what medicine and herbs you take (including cold, flu, and herbal medicine). Take the following with you to your follow-up doctor appointments: * Weight Chart * Medication List * List of questions Do not drink excessive alcohol, beer or wine. 1. Your blood pressure has been very high in the hospital. If it remains high, you will become more short of breath and your diastolic heart failure will progress. Continue to take lisinopril 40mg daily Start taking hydralazine 25mg three times daily Start taking imdur 60mg once daily in the morning Increase your dose of metoprolol XL to 50mg at bedtime. I sent a new script to your pharmacy 2. You lost about 12 pounds of water weight during this hospital stay. Your goal weight is 305 pounds Start taking torsemide 20mg daily in the morning in order to prevent water accumulation See Nia Robles in cardiology clinic for further treatment of your diastolic heart failure 3. See Dr. Tripp this week for follow-up and to have BMP and CBC checked Pending Studies at Discharge: No Stand-Alone Forms: My [facility] [employer], Smoking Cessation Medications and DC Order Prescriptions: New metoprolol succinate 50 mg Tablet Extended Release 24 Hr 50 mg PO HS Qty: 30 RF: 0 hydralazine 25 mg Tablet 25 mg PO Q8H Qty: 90 RF: 0 isosorbide mononitrate 60 mg Tablet Extended Release 24 Hr 60 mg PO QAM Qty: 30 RF: 0 torsemide 20 mg tablet 20 mg PO DAILY Qty: 30 RF: 0 Continued citalopram 20 mg tablet 20 mg PO HS Qty: 90 RF: 1 citalopram 10 mg tablet 10 mg PO HS Qty: 90 RF: 1 lisinopril [Zestril] 40 mg tablet 40 mg PO HS Qty: 90 RF: 0 metformin 500 mg tablet extended release 24 hr 500 mg PO BID Qty: 60 RF: 5 insulin aspart U-100 [Novolog Flexpen U-100 Insulin] 100 unit/mL (3 mL) insulin pen 10 units SQ AC Qty: 0 RF: 0 aspirin 81 mg Tablet,Delayed Release (Dr/Ec) 81 mg PO 3XWK RF: 0 atorvastatin 80 mg tablet 80 mg PO HS RF: 0 Lantus Solostar U-100 Insulin 100 unit/mL (3 mL) insulin pen 30 units SQ HS RF: 0 Discontinued metoprolol succinate 25 mg tablet extended release 24 hr 25 mg PO HS Qty: 90 RF: 3 furosemide 20 mg Tablet 20 mg PO DAILY PRN (Reason: Edema) RF: 0 Discharge Orders: Discharge Order (Routine); Ordered 01/08/20 Ordered By: Kandi Marino Admission Data Admit Date/Time: 01/04/20 18:59 Attending Provider: Kandi Marino Admit Provider: Rubin Damian Primary Care Provider: Jeffrey Tripp Other Providers: Rubni Damian Other Interventions: Discharge Summary Assessment (RN) Last Done: 01/08/20 12:57 Coding Level of Care Code D/C Day Management >30 mins Diagnoses Acute on chronic diastolic heart failure I50.33 Hypertensive emergency I16.1 CAD (coronary artery disease) I25.10 Coronary Disease-Associated Artery/Lesion type: [place] artery [place] vs. 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
[2020-01-09] MEDS ORDERED: ISOSORBIDE MONO EXTENDED REL 60 MG TABCR PO SCH (09:00)
== END 2020-01-08 14:28 | disposition home or self-care (01) | DRG 292 ==
LOC: ED 13:12 → 2W 18:59 → SUATTDRO 18:59 → 2W 21:19

== ENCOUNTER 2020-08-30 20:51 | Inpatient (IN) ==
[2020-08-30] MEDS ORDERED: NITROGLYCERIN 2% OINTMENT 30GM TUBE EXT ONE (22:35)
[2020-08-30 22:43] LABS: Basophils # (auto) 0.04 K/uL (0-0.2); Basophils % (auto) 0.3 %; Eosinophils # (auto) 0.34 K/uL (0-0.5); Eosinophils % (auto) 2.7 %; Hematocrit (blood only) 34.9 % (42-52); Hemoglobin 11.1 g/dL (14.0-18.0); Immature Granulocytes # (auto) 0.03 K/uL (0.00-0.02); Immature Granulocytes % (auto) 0.2 %; Lymphocytes # (auto) 2.06 K/uL (1.2-3.4); Lymphocytes % (auto) 16.5 %; Mean Corpuscular Hemoglobin 29.2 pg (25-34); Mean Corpuscular Hgb Conc 31.8 g/dL (32-36); Mean Corpuscular Volume 91.8 fL (80-100); Mean Platelet Volume 10.4 fL (7.4-10.4); Monocytes % (auto) 10.4 %; Neutrophils # (auto) 8.74 K/uL (1.4-6.5); Neutrophils % (auto) 69.9 %; Platelet Count 235 K/uL (130-400); RDW Coefficient of Variation 13.8 % (11.5-14.5); RDW Standard Deviation 46.3 fL (36.4-46.3); White Blood Count 12.51 K/uL (4.8-10.8)
[2020-08-30 22:54] LABS: Appearance Urine Clear (Clear); Bacteria Urine Automated Negative (Negative); Bilirubin Urine Negative (Negative); Blood Urine 1+ (Negative); Color Urine Yellow; Epithelial Cell Urine Auto >30 /lpf (0-5); Glucose Urine UA 2+ (Negative); Ketones Urine Negative (Negative); Leukocyte Esterase Urine Negative (Negative); Nitrite Urine Negative (Negative); Protein Urine 4+ (Negative); Specific Gravity Urine 1.018 (1.000-1.030); Urobilinogen Urine Negative (Negative)
[2020-08-30 23:24] LABS: Alanine Aminotransferase 29 U/L (12-78); Albumin Globulin Ratio 0.4 (0.9-2); Albumin Level 1.9 gm/dl (3.4-5.0); Alkaline Phosphatase 98 U/L (45-117); Aspartate Aminotransferase 25 U/L (15-37); BUN Creatinine Ratio 18.6 (10-20); Bilirubin,Total 0.2 mg/dl (0.2-1); Blood Urea Nitrogen 27 mg/dl (7-18); Calcium 8.5 mg/dl (8.5-10.1); Carbon Dioxide 26 mmol/L (21-32); Chloride 113 mmol/L (98-107); Creatinine Clr Calc Pharmacy 77.7 ml/min; Est GFR (African American) 58.4 ml/min; Est GFR (Non-African American) 50.4 ml/min; Glucose 175 mg/dl (70-99); NT Pro B Type Natriuretic Pept 9085 pg/ml (0-900); Potassium 3.6 mmol/L (3.5-5.1); Sodium 143 mmol/L (136-145); Total Protein 6.9 gm/dl (6.4-8.2); Troponin I < 0.015 ng/ml (0-0.045)
[2020-08-30] MEDS ORDERED: FUROSEMIDE 40 MG/4 ML VIAL IV STA (23:33)
--- NOTE | 2020-08-31 00:09 | Emergency Department Note ---
History of Present Illness General Chief complaint: Shortness of Breath/Dyspnea Stated complaint: SHORTNESS OF BREATH/EDEMA Time Seen by Provider: 08/30/20 22:18 History of Present Illness Maximum Pain Intensity: 6 This 64 yo presents to the ER complaining of SOB and weight gain who has CHF Location: Chest and legs Quality: More short of breath Severity: Moderate Duration: Past few days Timing: Started few days ago Context: Symptoms got worse and patient came in Modifying factors: better with nothing; worse with laying flat Patient states he feels like he is in heart failure again. He has been taking his diuretic. He has had weight gain and is more short of breath. He can no longer lay flat. Patient denies chest pain, abdominal pain, fever, chills. He has received his Covid vaccine. Home Medications Medication Instructions Recorded Confirmed Type aspirin 81 mg PO 3XWK 12/10/17 08/30/20 History insulin aspart U-100 [Novolog 10 units SQ AC #0 ml 09/05/19 08/30/20 Rx Flexpen U-100 Insulin] Lantus Solostar U-100 Insulin 30 units SQ HS 11/15/19 08/30/20 History metoprolol succinate 50 mg 50 mg PO HS #90 tab 02/06/20 08/30/20 Rx tablet,extended release 24 hr isosorbide mononitrate 60 mg 60 mg PO QAM #30 tab 03/05/20 08/30/20 Rx tablet,extended release 24 hr citalopram 10 mg tablet 10 mg PO HS #90 tab 04/10/20 08/30/20 Rx citalopram 20 mg tablet 20 mg PO HS #90 tab 04/10/20 08/30/20 Rx levothyroxine 200 mcg tablet 200 mcg PO DAILY #30 tab 05/23/20 08/30/20 Rx blood sugar diagnostic #10 ea 05/30/20 08/06/20 History cholecalciferol (vitamin D3) 1,250 See Rx Instructions .ROUTE 06/01/20 08/30/20 Rx mcg (50,000 unit) capsule .COMPLEX #12 cap furosemide 40 mg tablet 40 mg PO DAILY #30 tab 08/01/20 08/30/20 Rx hydralazine 50 mg tablet 50 mg PO TID #270 tab 08/01/20 08/30/20 Rx atorvastatin 80 mg tablet 80 mg PO HS #90 tab 08/06/20 08/30/20 Rx dulaglutide 0.75 mg/0.5 mL 0.75 mg SUBCUT ONCE 30 Days #15 ml 08/09/20 08/30/20 Rx subcutaneous pen injector Allergies Allergy/AdvReac Type Severity Reaction Status Date / Time bee venom protein (honey bee) Allergy Severe Anaphylaxis Verified 08/30/20 22:58 egg AdvReac Intermediate Gastrointestinal Verified 08/30/20 22:58 Upset iodine AdvReac Mild FLUSHED Verified 08/30/20 22:58 FEELING/sick to stomach Egg or Chicken-derived Drugs Allergy Intermediate Gastrointestinal Uncoded 08/30/20 22:58 Upset Past Med/Surg History Medical History Chest pain (09/01/13) CHF (congestive heart failure) Depression Diabetic nephropathy associated with type 2 diabetes mellitus DM neuropathy, type II diabetes mellitus Gangrene of toe of left foot History of Holter monitoring 09/2019 DR ROSENBERG HTN (hypertension) Hypothyroidism Insulin-requiring or dependent type II diabetes mellitus Kidney stones Migraine Morbid obesity with BMI of 40.0-44.9, adult Myocardial Infarction ? mild in 1995 per doc in [place] but patient reports negative cardiac cath Peripheral arterial disease S/P hernia repair Sleep apnea cpap SOB (shortness of breath) on exertion OUT OF SHAPE Syncope Uncontrolled type 2 diabetes mellitus Surgical History H/O umbilical hernia repair History of bilateral cataract extraction History of cardiac cath x2--1995 @ [place], no stents [address] Langford's record History of colonoscopy History of cystoscopy History of esophagogastroduodenoscopy (EGD) History of hernia repair History of tooth extraction S/P cholecystectomy Family History Father Muscular dystrophy Mother Breast cancer Cancer hx of Leukemia and a month ago Brother Parkinson disease Denies family history of Ovarian cancer Prostate cancer No family history of adverse response to anesthesia Myocardial infarction Colorectal cancer Social History Smoking Status: Current every day smoker Tobacco Type: Smokeless Tobacco (Dip or Chew) Second Hand Exposure: No; Hx Alcohol Use: No Hx Substance Use: No Preferred Language: Czech Communication Ability: Effective Visual Impairment: No Limitations Hearing Ability: Normal Iron Piler Required: No Beliefs That Will Affect Care: Jainism marital status: Current Living Situation: Spouse Current Living Situation Comment: lives with current occupational status: retired Feels Safe at Home: Yes Dental Care, Regularly: Yes Physical Activity Frequency: Does not Exercise Seatbelt Use: always Assistive Devices: CPAP Review of Systems A total of 10 systems reviewed and were otherwise negative Physical Exam Vital Signs Vital Signs - 24 hr 08/30/20 21:00 08/30/20 22:02 08/30/20 22:44 Temperature 36.5 C 36.7 C Temperature Source Oral Oral Pulse Rate 75 97 H 76 Pulse Rate [Apical] 79 Pulse Rate from SpO2 Sensor 76 Pulse Rhythm Regular Pulse Rhythm [Apical] Regular Pulse Strength [Apical] Normal Respiratory Rate 18 20 18 Respiratory Effort / Characteristics Non-Labored Spontaneous Non-Labored Respiratory Depth Normal Normal Respiratory Pattern Regular Blood Pressure 218/93 H 216/98 H Blood Pressure [Right Arm] 201/99 H Blood Pressure Mean 134 137 Blood Pressure Mean [Right Arm] 133 Blood Pressure Position Sitting Blood Pressure Position [Right Arm] Lying Pulse Oximetry 97 95 96 Oxygen Delivery Method Room Air Room Air Sepsis Recent Fever Within 48 Hours No Sepsis New/Unexplained Change in Mental Status N/A Sepsis Action Taken by Nursing No Action Required 08/30/20 22:48 08/30/20 22:53 08/30/20 22:55 Temperature Temperature Source Pulse Rate 70 77 77 Pulse Rate [Apical] Pulse Rate from SpO2 Sensor 77 77 Pulse Rhythm Regular Pulse Rhythm [Apical] Pulse Strength [Apical] Respiratory Rate 20 22 15 Respiratory Effort / Characteristics Respiratory Depth Respiratory Pattern Blood Pressure 181/116 H 199/87 H Blood Pressure [Right Arm] Blood Pressure Mean 137 124 Blood Pressure Mean [Right Arm] Blood Pressure Position Blood Pressure Position [Right Arm] Pulse Oximetry 96 96 95 Oxygen Delivery Method Room Air Room Air Sepsis Recent Fever Within 48 Hours Sepsis New/Unexplained Change in Mental Status Sepsis Action Taken by Nursing 08/30/20 22:57 08/30/20 23:00 08/30/20 23:05 Temperature Temperature Source Pulse Rate 76 77 Pulse Rate [Apical] Pulse Rate from SpO2 Sensor 77 77 Pulse Rhythm Pulse Rhythm [Apical] Pulse Strength [Apical] Respiratory Rate 15 18 Respiratory Effort / Characteristics Non-Labored Respiratory Depth Normal Respiratory Pattern Regular Blood Pressure 207/89 H 206/89 H Blood Pressure [Right Arm] Blood Pressure Mean 128 128 Blood Pressure Mean [Right Arm] Blood Pressure Position Blood Pressure Position [Right Arm] Pulse Oximetry 95 95 Oxygen Delivery Method Room Air Room Air Room Air Sepsis Recent Fever Within 48 Hours Sepsis New/Unexplained Change in Mental Status Sepsis Action Taken by Nursing 08/30/20 23:10 08/30/20 23:15 08/30/20 23:20 Temperature Temperature Source Pulse Rate 80 77 78 Pulse Rate [Apical] Pulse Rate from SpO2 Sensor 80 76 78 Pulse Rhythm Pulse Rhythm [Apical] Pulse Strength [Apical] Respiratory Rate 15 16 14 Respiratory Effort / Characteristics Respiratory Depth Respiratory Pattern Blood Pressure 193/93 H 202/94 H 195/92 H Blood Pressure [Right Arm] Blood Pressure Mean 126 130 126 Blood Pressure Mean [Right Arm] Blood Pressure Position Blood Pressure Position [Right Arm] Pulse Oximetry 94 96 93 Oxygen Delivery Method Room Air Sepsis Recent Fever Within 48 Hours Sepsis New/Unexplained Change in Mental Status Sepsis Action Taken by Nursing 08/30/20 23:29 Temperature Temperature Source Pulse Rate Pulse Rate [Apical] Pulse Rate from SpO2 Sensor Pulse Rhythm Pulse Rhythm [Apical] Pulse Strength [Apical] Respiratory Rate Respiratory Effort / Characteristics Respiratory Depth Respiratory Pattern Blood Pressure Blood Pressure [Right Arm] Blood Pressure Mean Blood Pressure Mean [Right Arm] Blood Pressure Position Blood Pressure Position [Right Arm] Pulse Oximetry Oxygen Delivery Method Room Air Sepsis Recent Fever Within 48 Hours Sepsis New/Unexplained Change in Mental Status Sepsis Action Taken by Nursing HyperVITALS: Vitals are noted on the nurse's note and reviewed by myself. Vital signs hypertensive GENERAL: White male sitting up appears short of breath and uncomfortable SKIN: The skin was without rashes, erythema, edema, or bruising. There is no tenting of the skin. Capillary reflex less than 2 seconds. HEAD: Normocephalic atraumatic. EARS: External auditory canals clear EYES: Pupils equal round and reactive to light and accommodation. Conjunctivae without injection, sclerae without icterus. Extraocular movements intact. NOSE: Patent, turbinates without inflammation or discharge. MOUTH: Mucous membranes moist. Pharynx without erythema or exudate. Uvula midline. Airway patent. Tongue does not deviate. NECK: Supple without nuchal rigidity. No lymphadenopathy. No thyromegaly. Cervical spine is nontender. No JVD. HEART: Regular rate and rhythm LUNGS: Clear to auscultation bilaterally without wheezes, rales or rhonchi. No retractions or accessory muscle use. ABDOMEN: Positive bowel sounds x 4. Normal tympanic percussion. Soft, nontender, without masses or organomegaly. Mcneil sign negative. No guarding or rebound tenderness. No CVA tenderness MUSCULOSKELETAL: No muscle atrophy noted. + 2 PE up knee B NEURO: Patient was alert and oriented to person place and time. Normal sensation to light and sharp touch. No focal neurological deficits. Course Administered Medications Discontinued Medications Furosemide (Furosemide 40 Mg/4 Ml Vial) 80 mg IV NOW STA Stop: 08/30/20 23:34 Last Admin: 08/30/20 23:40 Dose: 80 mg Documented by: [id number] Nitroglycerin (Nitroglycerin 2% Ointment 30gm Tube) 0.5 inch EXT NOW ONE Stop: 08/30/20 22:36 Last Admin: 08/30/20 22:53 Dose: 0.5 inch Documented by: [id number] Medical Decision Making Medical Records Attestation: I reviewed the patient's medical records. Home Medications Current Medication List: was personally reviewed by me Laboratory Data Attestation: I reviewed the patient's lab results. Result diagrams: 08/30/20 22:25 08/30/20 22:25 Lab Results 08/30/20 08/30/20 08/30/20 Range/Units 22:25 22:25 22:25 WBC 12.51 H (4.8-10.8) K/uL RBC 3.80 L (4.7-6.1) M/uL Hgb 11.1 L (14.0-18.0) g/dL Hct 34.9 L (42-52) % MCV 91.8 (80-100) fL MCH 29.2 (25-34) pg MCHC 31.8 L (32-36) g/dL RDW Std Deviation 46.3 (36.4-46.3) fL RDW Coeff of Maribel 13.8 (11.5-14.5) % Plt Count 235 (130-400) K/uL MPV 10.4 (7.4-10.4) fL Immature Gran % (Auto) 0.2 % Neut % (Auto) 69.9 % Lymph % (Auto) 16.5 % Reagan % (Auto) 10.4 % Eos % (Auto) 2.7 % Baso % (Auto) 0.3 % Neut # (Auto) 8.74 H (1.4-6.5) K/uL Lymph # (Auto) 2.06 (1.2-3.4) K/uL Reagan # (Auto) 1.30 H (0.11-0.59) K/uL Eos # (Auto) 0.34 (0-0.5) K/uL Baso # (Auto) 0.04 (0-0.2) K/uL Immature Gran # (Auto) 0.03 H (0.00-0.02) K/uL Sodium 143 (136-145) mmol/L Potassium 3.6 (3.5-5.1) mmol/L Chloride 113 H (98-107) mmol/L Carbon Dioxide 26 (21-32) mmol/L Anion Gap 5.0 (3-11) BUN 27 H (7-18) mg/dl Creatinine 1.47 H (0.6-1.4) mg/dl Est Cr Clr Drug Dosing 77.7 ml/min Est GFR ( Amer) 58.4 ml/min Est GFR (Non-Af Amer) 50.4 ml/min BUN/Creatinine Ratio 18.6 (10-20) Glucose 175 H (70-99) mg/dl Calcium 8.5 (8.5-10.1) mg/dl Total Bilirubin 0.2 (0.2-1) mg/dl AST 25 (15-37) U/L ALT 29 (12-78) U/L Alkaline Phosphatase 98 (45-117) U/L Troponin I < 0.015 (0-0.045) ng/ml NT-Pro-B Natriuret Pep 9085 H (0-900) pg/ml Total Protein 6.9 (6.4-8.2) gm/dl Albumin 1.9 L (3.4-5.0) gm/dl Globulin 5.0 H (2.5-4.0) gm/dl Albumin/Globulin Ratio 0.4 L (0.9-2) Specimen Hemolysis Urine Color Yellow Urine Appearance Clear (Clear) Urine pH 7.0 (4.5-7.5) Ur Specific Morris 1.018 (1.000-1.030) Urine Protein 4+ H (Negative) Urine Glucose (UA) 2+ H (Negative) Urine Ketones Negative (Negative) Urine Blood 1+ H (Negative) Urine Nitrite Negative (Negative) Urine Bilirubin Negative (Negative) Urine Urobilinogen Negative (Negative) Ur Leukocyte Esterase Negative (Negative) Urine WBC (Auto) 1-5 (0-5) /hpf Urine RBC (Auto) 5-10 H (0-4) /hpf U Hyaline Cast (Auto) 5-10 H (0-5) /lpf U Epithel Cells (Auto) >30 H (0-5) /lpf Urine Bacteria (Auto) Negative (Negative) Ur Renal Epithelial Cell Not Reportable COVID-19 Eval Order 08/30/20 Range/Units 23:49 WBC (4.8-10.8) K/uL RBC (4.7-6.1) M/uL Hgb (14.0-18.0) g/dL Hct (42-52) % MCV (80-100) fL MCH (25-34) pg MCHC (32-36) g/dL RDW Std Deviation (36.4-46.3) fL RDW Coeff of Maribel (11.5-14.5) % Plt Count (130-400) K/uL MPV (7.4-10.4) fL Immature Gran % (Auto) % Neut % (Auto) % Lymph % (Auto) % Reagan % (Auto) % Eos % (Auto) % Baso % (Auto) % Neut # (Auto) (1.4-6.5) K/uL Lymph # (Auto) (1.2-3.4) K/uL Reagan # (Auto) (0.11-0.59) K/uL Eos # (Auto) (0-0.5) K/uL Baso # (Auto) (0-0.2) K/uL Immature Gran # (Auto) (0.00-0.02) K/uL Sodium (136-145) mmol/L Potassium (3.5-5.1) mmol/L Chloride (98-107) mmol/L Carbon Dioxide (21-32) mmol/L Anion Gap (3-11) BUN (7-18) mg/dl Creatinine (0.6-1.4) mg/dl Est Cr Clr Drug Dosing ml/min Est GFR ( Amer) ml/min Est GFR (Non-Af Amer) ml/min BUN/Creatinine Ratio (10-20) Glucose (70-99) mg/dl Calcium (8.5-10.1) mg/dl Total Bilirubin (0.2-1) mg/dl AST (15-37) U/L ALT (12-78) U/L Alkaline Phosphatase (45-117) U/L Troponin I (0-0.045) ng/ml NT-Pro-B Natriuret Pep (0-900) pg/ml Total Protein (6.4-8.2) gm/dl Albumin (3.4-5.0) gm/dl Globulin (2.5-4.0) gm/dl Albumin/Globulin Ratio (0.9-2) Specimen Hemolysis Urine Color Urine Appearance (Clear) Urine pH (4.5-7.5) Ur Specific Morris (1.000-1.030) Urine Protein (Negative) Urine Glucose (UA) (Negative) Urine Ketones (Negative) Urine Blood (Negative) Urine Nitrite (Negative) Urine Bilirubin (Negative) Urine Urobilinogen (Negative) Ur Leukocyte Esterase (Negative) Urine WBC (Auto) (0-5) /hpf Urine RBC (Auto) (0-4) /hpf U Hyaline Cast (Auto) (0-5) /lpf U Epithel Cells (Auto) (0-5) /lpf Urine Bacteria (Auto) (Negative) Ur Renal Epithelial Cell COVID-19 Eval Order Covid19 at [facility] Imaging Data Attestation: I personally reviewed and interpreted this imaging study as follows: MDM Narrative Prior records/ancillary studies reviewed. Triage Nursing notes reviewed. Additional history obtained from the family. The patient's history was concerning for respiratory difficulties. Differential diagnosis: Etiologies such as infections, reactive airway disease, pneumonia, pneumothorax, COPD, CHF, cardiac ischemia, pulmonary embolism, musculoskeletal, gastrointestinal, as well as others were entertained. Physical examination: As above. ER treatment provided: An order was placed for continuous cardiac monitoring. The monitor shows a rate of 60-100 with a sinus rhythm. Nitroglycerin, Lasix On reassessment the patient felt better. Diagnostic interpretation by me: The electrocardiogram was negative for acute ischemic or pathologic change. Normal sinus, normal intervals, no acute ST-T wave changes. Impression normal sinus rhythm interpreted by myself EKG ordered for dyspnea I think arrhythmia is unlikely. EKG shows normal sinus rhythm with no interval abnormalities such as QT prolongation or WPW. There are no findings to suggest Brugada syndrome. Cardiac monitoring in the emergency department reveals no tachycardic or bradycardic dysrhythmia. Hypertrophic cardiomyopathy was considered but there are no clear historical elements pointing toward this. EKG is not suggestive. The QRS voltage is not extremely large and there are no suggestive Q waves. The labs revealed elevated BNP, negative troponin Imaging studies: Chest x-ray with pulmonary congestion per my interpretation. Consultation: A consultation was placed with the hospitalist. The case was discussed and diagnostics were reviewed. The patient was evaluated in the ER for further treatment. This appears to be consistent with CHF. Patient was hypertensive and fluid overload. He was given nitroglycerin and Lasix with some improvement. Medicine was consulted. He will be evaluated for admission.. By the evaluation outlined above emergent etiologies such as cardiac ischemia, pulmonary embolism, reactive airway disease, pneumonia, pneumothorax, musculoskeletal, serious bacterial infections, as well as others were deemed relatively unlikely. The pt informed about the findings as listed above. All questions were answered and pleased with the treatment. The chart was completed utilizing S[employer] Speech voice recognition software. Grammatical errors, random word insertions, pronoun errors, and incomplete sentences are an occassional consequence of this system due to software limitations, ambient noise, and hardware issues. Any formal questions or concerns about the content, text, or information contained within the body of this dictation should be directly addressed to the physician certified medical technician assistant for clarification. Negative troponin, elevated BNP Impression & Plan CHF (congestive heart failure) Discharge Plan Visit Data Chief Complaint: Shortness of Breath/Dyspnea Stated Complaint: SHORTNESS OF BREATH/EDEMA ED Provider: Beau Gabriel ED Midlevel Provider: Loreto Cai Discharge Problem: CHF (congestive heart failure) Patient Disposition: Admitted As Inpatient Condition: Fair Forms Stand Alone Forms: My [facility] [place] Prescriptions Prescriptions: No Action metoprolol succinate 50 mg tablet extended release 24 hr 50 mg PO HS Qty: 90 RF: 3 isosorbide mononitrate 60 mg tablet extended release 24 hr 60 mg PO QAM Qty: 30 RF: 5 citalopram 10 mg tablet 10 mg PO HS Qty: 90 RF: 1 citalopram 20 mg tablet 20 mg PO HS Qty: 90 RF: 1 levothyroxine 200 mcg tablet 200 mcg PO DAILY Qty: 30 RF: 0 Trulicity 0.75 mg/0.5 mL pen injector 0.75 mg subcut ONCE 30 Days Qty: 15 RF: 5 (DME) OneTouch Verio test strips Strip See Rx Instructions .ROUTE .MEDSUPPLY Qty: 10 RF: 0 cholecalciferol (vitamin D3) 1,250 mcg (50,000 unit) capsule See Rx Instructions .ROUTE .COMPLEX Qty: 12 RF: 2 furosemide [Lasix] 40 mg tablet 40 mg PO DAILY Qty: 30 RF: 2 hydralazine 50 mg tablet 50 mg PO TID Qty: 270 RF: 3 atorvastatin 80 mg tablet 80 mg PO HS Qty: 90 RF: 3 insulin aspart U-100 [Novolog Flexpen U-100 Insulin] 100 unit/mL (3 mL) insulin pen 10 units SQ AC Qty: 0 RF: 0 aspirin 81 mg Tablet,Delayed Release (Dr/Ec) 81 mg PO 3XWK RF: 0 Lantus Solostar U-100 Insulin 100 unit/mL (3 mL) insulin pen 30 units SQ HS RF: 0 Referrals Referrals: Jeffrey Tripp MD [Primary Care Provider] -
--- NOTE | 2020-08-31 01:20 | History & Physical Report ---
Date of Service August 31, 2020 Assessment & Plan (1) CHF (congestive heart failure): 64yo male with multiple medical comorbidities presents with 1 month of progressive SOB, edema. History of diastolic CHF, last echo 01/05/20 with EF of 55-60%, moderate concentric LVH and Grade II diastolic dysfunction. Concern for volume overload secondary to underlying CHF. Patient dry weight reported to be 302#. Patient states that his dry weight is closer to 328#. Administered Lasix 80mg IV in ER -Admit to medical with telemetry -Supplemental O2 as needed to maintain SpO2 94% -Lasix 80mg IV daily -BMP BID with attention to renal function -Monitor strict I/Os -Daily weights -Continue Metoprolol 50mg po qHS -Continue Isosorbide-MOno and Hydralazine -Patient was previously on Lisinopril which was discontinued due to renal function - may benefit from resuming a small dose of Lisinopril on discharge as he has significant proteinuria, serum albumin is 1.9 and history of cardiovascular disease Present on Admission?: Yes (2) HTN (hypertension): Markedly elevated blood pressure in the ER. Patient has history of poorly controlled BP - typically >200 mmHg -Continue PO Hydralazine -Continue Isosorbide -Continue Metoprolol -Continue to monitor Present on Admission?: Yes (3) CAD (coronary artery disease): Chronic. No CP -Continue ASA -Continue Atorvastatin -Continue Metoprolol Present on Admission?: Yes (4) TORI on CPAP: Chronic -CPAP qHS Present on Admission?: Yes (5) Dyslipidemia: Chronic -Continue Atorvastatin Present on Admission?: Yes (6) Diabetes mellitus, type 2: Chronic. On home insulin therapy. Last A1C on 06/15/20 = 9. -Continue Lantus 30u qHS -ISS Present on Admission?: Yes (7) Hypothyroidism: Chronic -COntinue Synthroid 200mcg po daily F/E/N- Diuresis as above, monitor electrolytes, BID BMPs, CC/Low Na diet as tolerated Ppx - Lovenox 40 BID due to patient's size Code - Full Dispo - Admit to medical with telemetry Present on Admission?: Yes History of Present Illness Chief Complaint: shortness of breath Primary Care Provider: MD Long Soni is a 64yo male presenting with progressive TAVERAS, SOB and bilateral LE edema x 1 month. Patient also with orthopnea, occasional chest pressure and the sensation of "gurgling" in his chest while laying flat. He has a dry cough. Patient reports compliance with his medications. States he tries to adhere to a low Na diet. He denies fevers, abdominal pain, nausea, vomiting, diarrhea or constipation. Reports recent decrease in UOP. Patient follows with Heart Failure clinic - last seen 02/28/20. Per their note his dry weight is 302 pounds. Patient has been on Torsemide but states that he hasn't been putting out much urine lately. Saw PCP 08/06/20 with complaint of bilateral LE edema and weight gain despite using Torsemide 40mg daily. History of medication non-adherence. He was given Lasix 80mg daily x 5 days and was started on Hydralazine for blood pressure control. His Lisinopril was discontinued due to worsening creatinine. ER Course: Lasix 80mg IV Allergies Allergy/AdvReac Type Severity Reaction Status Date / Time bee venom protein (honey bee) Allergy Severe Anaphylaxis Verified 08/30/20 22:58 egg AdvReac Intermediate Gastrointestinal Verified 08/30/20 22:58 Upset iodine AdvReac Mild FLUSHED Verified 08/30/20 22:58 FEELING/sick to stomach Egg or Chicken-derived Drugs Allergy Intermediate Gastrointestinal Uncoded 08/30/20 22:58 Upset Home Medications Medication Instructions Recorded Confirmed Type aspirin 81 mg PO 3XWK 12/10/17 08/30/20 History insulin aspart U-100 [Novolog 10 units SQ AC #0 ml 09/05/19 08/30/20 Rx Flexpen U-100 Insulin] Lantus Solostar U-100 Insulin 30 units SQ HS 11/15/19 08/30/20 History metoprolol succinate 50 mg 50 mg PO HS #90 tab 02/06/20 08/30/20 Rx tablet,extended release 24 hr isosorbide mononitrate 60 mg 60 mg PO QAM #30 tab 03/05/20 08/30/20 Rx tablet,extended release 24 hr citalopram 10 mg tablet 10 mg PO HS #90 tab 04/10/20 08/30/20 Rx citalopram 20 mg tablet 20 mg PO HS #90 tab 04/10/20 08/30/20 Rx levothyroxine 200 mcg tablet 200 mcg PO DAILY #30 tab 05/23/20 08/30/20 Rx blood sugar diagnostic #10 ea 05/30/20 08/06/20 History cholecalciferol (vitamin D3) 1,250 See Rx Instructions .ROUTE 06/01/20 08/30/20 Rx mcg (50,000 unit) capsule .COMPLEX #12 cap furosemide 40 mg tablet 40 mg PO DAILY #30 tab 08/01/20 08/30/20 Rx hydralazine 50 mg tablet 50 mg PO TID #270 tab 08/01/20 08/30/20 Rx atorvastatin 80 mg tablet 80 mg PO HS #90 tab 08/06/20 08/30/20 Rx dulaglutide 0.75 mg/0.5 mL 0.75 mg SUBCUT ONCE 30 Days #15 ml 08/09/20 08/30/20 Rx subcutaneous pen injector Past Med/Surg History Medical History Chest pain (09/01/13) CHF (congestive heart failure) Depression Diabetic nephropathy associated with type 2 diabetes mellitus DM neuropathy, type II diabetes mellitus Gangrene of toe of left foot History of Holter monitoring 09/2019 DR ROSENBERG HTN (hypertension) Hypothyroidism Insulin-requiring or dependent type II diabetes mellitus Kidney stones Migraine Morbid obesity with BMI of 40.0-44.9, adult Myocardial Infarction ? mild in 1995 per doc in [place] but patient reports negative cardiac cath Peripheral arterial disease S/P hernia repair Sleep apnea cpap SOB (shortness of breath) on exertion OUT OF SHAPE Syncope Uncontrolled type 2 diabetes mellitus Surgical History H/O umbilical hernia repair History of bilateral cataract extraction History of cardiac cath x2--1995 @ [place], no stents [address] Langford's record History of colonoscopy History of cystoscopy History of esophagogastroduodenoscopy (EGD) History of hernia repair History of tooth extraction S/P cholecystectomy Family History Father Muscular dystrophy Mother Breast cancer Cancer hx of Leukemia and a month ago Brother Parkinson disease Denies family history of Ovarian cancer Prostate cancer No family history of adverse response to anesthesia Myocardial infarction Colorectal cancer Social History Smoking Status: Never smoker Tobacco Type: Smokeless Tobacco (Dip or Chew) Second Hand Exposure: No; Do You Dip or Chew Tobacco: Yes; Tobacco Cessation Education Requested by Patient: No Hx Alcohol Use: No Hx Substance Use: No Preferred Language: [place] Communication Ability: Effective Visual Impairment: No Limitations Hearing 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: Normal 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 Beliefs That Will Affect Care: None marital status: Current Living Situation: Spouse Current Living Situation Comment: lives with current occupational status: retired Other Information That Helps Us Care for You: No Feels Safe at Home: Yes Safety Concerns: Feels Safe At This Time Dental Care, Regularly: Yes Physical Activity Frequency: Does not Exercise Seatbelt Use: always Assistive Devices: CPAP Review of Systems Review of Systems: All systems reviewed & are unremarkable except as noted in HPI & below +dyspnea, orthopnea, edema +decreased UOP +chills Physical Exam Physical Exam: General: morbidly obese male patient resting comfortably, NAD, non-toxic in appearance, AA&O x 4, resting tremor noted Skin: warm, dry, intact, dusky redness of bilateral LE HEENT: NC/AT, PERRL, EOMI, anicteric sclera, conjunctiva without injection, external ear normal to inspection and nontender, nares patent, moist mucus membranes, dentition intact, no oropharyngeal lesions, neck supple, trachea midline, no LAD, no thyromegaly, no JVD Heart: +S1/S2, regular, no m/r/g Lungs: equal air entry bilaterally, +crackles in bilateral lung bases to mid- lung field Abd: +BS, soft, NT/ND, no masses/organomegaly/ascites Ext: warm, 3+ pitting edema to knees bilaterally, skin changes suggestive of chronic venous stasis - thickening, dusky coloration Neuro: nonfocal, patient AA&O x 4, speech intact, no facial droop, moving all extremities on command with equal strength 5/5 Results & Data Results & Data ([facility]) Vital Signs (Past 12 Hours) Vital Signs Temp Pulse Pulse Resp BP BP Pulse Ox 08/31/20 00:45 79 18 211/94 H 94 08/31/20 00:40 68 209/97 H 96 08/31/20 00:35 82 18 191/88 H 91 08/31/20 00:30 80 19 213/101 H 94 08/31/20 00:25 86 30 H 192/86 H 91 08/31/20 00:21 81 25 H 200/99 H 08/31/20 00:10 76 18 197/84 H 95 08/31/20 00:05 78 19 179/85 H 96 08/31/20 00:00 78 18 210/98 H 94 08/30/20 23:55 79 18 205/96 H 95 08/30/20 23:51 80 19 175/99 H 95 08/30/20 23:45 82 20 212/96 H 94 08/30/20 23:40 81 15 219/99 H 95 08/30/20 23:35 83 208/109 H 95 08/30/20 23:30 80 19 210/99 H 94 08/30/20 23:25 80 15 206/99 H 95 08/30/20 23:20 78 14 195/92 H 93 08/30/20 23:15 77 16 202/94 H 96 08/30/20 23:10 80 15 193/93 H 94 08/30/20 23:05 77 18 206/89 H 95 08/30/20 23:00 76 15 207/89 H 95 08/30/20 22:55 77 15 199/87 H 95 08/30/20 22:53 77 22 181/116 H 96 08/30/20 22:48 70 20 96 08/30/20 22:44 76 18 216/98 H 96 08/30/20 22:02 36.7 C 97 H 79 20 201/99 H 95 08/30/20 21:00 36.5 C 75 18 218/93 H 97 Laboratory Results Laboratory Results WBC 12.51 K/uL (4.8-10.8) H 08/30/20 22:25 RBC 3.80 M/uL (4.7-6.1) L 08/30/20 22:25 Hgb 11.1 g/dL (14.0-18.0) L 08/30/20 22:25 Hct 34.9 % (42-52) L 08/30/20 22:25 MCV 91.8 fL (80-100) 08/30/20 22:25 MCH 29.2 pg (25-34) 08/30/20 22:25 MCHC 31.8 g/dL (32-36) L 08/30/20 22: RDW Std Deviation 46.3 fL (36.4-46.3) 08/30/20 22: RDW Coeff of Maribel 13.8 % (11.5-14.5) 08/30/20 22: Plt Count 235 K/uL (130-400) 08/30/20 22:25 MPV 10.4 fL (7.4-10.4) 08/30/20 22:25 Immature Gran % (Auto) 0.2 % 08/30/20 22: Neut % (Auto) 69.9 % 08/30/20 22: Lymph % (Auto) 16.5 % 08/30/20 22: [place] % (Auto) 10.4 % 08/30/20 22: Eos % (Auto) 2.7 % 08/30/20 22: Baso % (Auto) 0.3 % 08/30/20 22: Neut # (Auto) 8.74 K/uL (1.4-6.5) H 08/30/20 22:25 Lymph # (Auto) 2.06 K/uL (1.2-3.4) 08/30/20 22:25 [place] # (Auto) 1.30 K/uL (0.11-0.59) H 08/30/20 22:25 Eos # (Auto) 0.34 K/uL (0-0.5) 08/30/20 22:25 Baso # (Auto) 0.04 K/uL (0-0.2) 08/30/20 22: Immature Gran # (Auto) 0.03 K/uL (0.00-0.02) H 08/30/20 22:25 Sodium 143 mmol/L (136-145) 08/30/20 22:25 Potassium 3.6 mmol/L (3.5-5.1) 08/30/20 22: Chloride 113 mmol/L (98-107) H 08/30/20 22:25 Carbon Dioxide 26 mmol/L (21-32) 08/30/20 22:25 Anion Gap 5.0 (3-11) 08/30/20 22:25 BUN 27 mg/dl (7-18) H 08/30/20 22:25 Creatinine 1.47 mg/dl (0.6-1.4) H 08/30/20 22:25 Est Cr Clr Drug Dosing 77.7 ml/min 08/30/20 22:25 Est GFR ( Amer) 58.4 ml/min 08/30/20 22:25 Est GFR (Non-Af Amer) 50.4 ml/min 08/30/20 22:25 BUN/Creatinine Ratio 18.6 (10-20) 08/30/20 22:25 Glucose 175 mg/dl (70-99) H 08/30/20 22:25 Calcium 8.5 mg/dl (8.5-10.1) 08/30/20 22:25 Total Bilirubin 0.2 mg/dl (0.2-1) 08/30/20 22:25 AST 25 U/L (15-37) 08/30/20 22:25 ALT 29 U/L (12-78) 08/30/20 22:25 Alkaline Phosphatase 98 U/L (45-117) 08/30/20 22:25 Troponin I < 0.015 ng/ml (0-0.045) 08/30/20 22:25 NT-Pro-B Natriuret Pep 9085 pg/ml (0-900) H 08/30/20 22:25 Total Protein 6.9 gm/dl (6.4-8.2) 08/30/20 22:25 Albumin 1.9 gm/dl (3.4-5.0) L 08/30/20 22:25 Globulin 5.0 gm/dl (2.5-4.0) H 08/30/20 22:25 Albumin/Globulin Ratio 0.4 (0.9-2) L 08/30/20 22:25 Specimen Hemolysis 08/30/20 22:25 Urine Color Yellow 08/30/20 22:25 Urine Appearance Clear (Clear) 08/30/20 22:25 Urine pH 7.0 (4.5-7.5) 08/30/20 22:25 Ur Specific [place] 1.018 (1.000-1.030) 08/30/20 22:25 Urine Protein 4+ (Negative) H 08/30/20 22:25 Urine Glucose (UA) 2+ (Negative) H 08/30/20 22:25 Urine Ketones Negative (Negative) 08/30/20 22:25 Urine Blood 1+ (Negative) H 08/30/20 22:25 Urine Nitrite Negative (Negative) 08/30/20 22:25 Urine Bilirubin Negative (Negative) 08/30/20 22:25 Urine Urobilinogen Negative (Negative) 08/30/20 22:25 Ur Leukocyte Esterase Negative (Negative) 08/30/20 22:25 Urine WBC (Auto) 1-5 /hpf (0-5) 08/30/20 22:25 Urine RBC (Auto) 5-10 /hpf (0-4) H 08/30/20 22:25 U Hyaline Cast (Auto) 5-10 /lpf (0-5) H 08/30/20 22:25 U Epithel Cells (Auto) >30 /lpf (0-5) H 08/30/20 22:25 Urine Bacteria (Auto) Negative (Negative) 08/30/20 22:25 Ur Renal Epithelial Cell Not Reportable 08/30/20 22:25 COVID-19 Eval Order Covid19 at [facility] 08/30/20 23:49 SARS-CoV-2 (PCR) NEGATIVE (Negative) 08/30/20 23:49 Diagnostic Findings CXR - by my interpretation - cardiomegaly and bilateral airspace opacities Code Status & VTE Plan VTE Prophylaxis Plan VTE Prophylaxis will be ordered: Yes PG Care Time/CCT Total # of Minutes Spent Total Time Spent with Patient: Total time spent is greater than 50% in coordination of care (as documented) at patient's floor/unit and/or counseling patient: Coding Level of Care Code 32956 Initial Inpt Care Lvl 3 Diagnoses CHF (congestive heart failure) I50.9 Heart failure chronicity: acute Heart failure type: unspecified HTN (hypertension) I10 Hypertension type: primary hypertension CAD (coronary artery disease) I25.10 Associated angina: without angina Coronary Disease-Associated Artery/Lesion type: seminole artery [place] vs. 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 transplanted heart: seminole heart Qualified Code(s): I25.10 - Atherosclerotic heart disease of seminole coronary artery without angina pectoris (3) CHF (congestive heart failure) Heart failure chronicity: acute Heart failure type: unspecified Qualified Code(s): I50.9 - Heart failure, unspecified (4) HTN (hypertension) Hypertension type: primary hypertension Qualified Code(s): I10 - Essential (primary) hypertension (5) Hypothyroidism Hypothyroidism type: unspecified Qualified Code(s): E03.9 - Hypothyroidism, unspecified
[2020-08-31] MEDS ORDERED: hydrALAZINE TAB 50 MG TAB PO STA (01:44)
[2020-08-31] MEDS ORDERED: METOPROLOL SUCC 50MG EXT REL TAB PO STA (01:44)
[2020-08-31] MEDS ORDERED: GLUCOSE 40% GEL 15 GM TUBE PO PRN (02:22)
[2020-08-31] MEDS ORDERED: GLUCOSE 10 TABS/TUBE PO PRN (02:22)
[2020-08-31] MEDS ORDERED: GLUCAGON FOR INJ 1 MG VIAL SQ PRN (02:22)
[2020-08-31] MEDS ORDERED: DEXTROSE 50% 50 ML SYRINGE IV PRN (02:22)
[2020-08-31] MEDS ORDERED: CARBOHYDRATES FOR HYPOGLYCEMIA PO PRN (02:22)
[2020-08-31] MEDS: ENOXAPARIN INJ 40 MG/0.4 ML SYR SQ SCH ×2 (02:49→17:40)
[2020-08-31] MEDS: LEVOTHYROXINE SODIUM 200 MCG TABLET PO SCH (05:59)
--- NOTE | 2020-08-31 07:50 | XRay Report ---
SINGLE VIEW CHEST CLINICAL HISTORY: Dyspnea. FINDINGS: An AP, portable, upright chest radiograph is compared to study dated 07/31/2020 and correlate d with chest CT dated 08/29/2019. The examination is degraded by portable technique, motion artifact, a nd patient rotation. The heart is enlarged noting atherosclerotic calcification of the thoracic aort a. There is pulmonary vascular congestion. There are small pleural effusions with bibasilar atelectas is. A large calcified granuloma in the left upper lobe is unchanged. No pneumothorax is seen. The ske letal structures are osteopenic. The bony thorax is grossly intact. IMPRESSION: 1. Cardiomegaly with evidence of congestive failure. 2. Small pleural effusions. ACT 112: Negative or not required by law. Electronically signed by: Pankaj Phillips M.D. 08/31/2020 7:49 AM
[2020-08-31] MEDS: ASPIRIN 81 MG ECTAB PO SCH (08:16)
[2020-08-31] MEDS: ISOSORBIDE MONO EXTENDED REL 60 MG TABCR PO SCH (08:17)
[2020-08-31] MEDS: hydrALAZINE TAB 50 MG TAB PO SCH ×3 (08:17→20:37)
[2020-08-31] MEDS: FUROSEMIDE 80 MG in SYRINGE 0 ML IV SCH (08:17)
[2020-08-31] MEDS: INSULIN ASPART 100 UNITS/ML 3 ML PEN SC SCH ×4 (08:19→20:41)
[2020-08-31 08:21] LABS: BUN Creatinine Ratio 18.3 (10-20); Calcium 8.7 mg/dl (8.5-10.1); Creatinine Clr Calc Pharmacy 81.7 ml/min; Est GFR (Non-African American) 53.5 ml/min; Potassium 3.4 mmol/L (3.5-5.1)
[2020-08-31] MEDS: NICOTINE 14 MG/24 HR PATCH TD SCH (08:21)
[2020-08-31] MEDS ORDERED: POTASSIUM CHLORIDE CRTAB 20 MEQ TABCR PO SCH (09:45)
--- NOTE | 2020-08-31 09:51 | History & Physical Bridge Note ---
Date of Service August 31, 2020 History & Physical Bridge Note I have examined the patient, reviewed the History & Physical and in the interval since the performance of the History & Physical I have noted the following changes of clinical significance: patient responding well to Lasix 80mg IV has significant edema in legs, suspect he has 10-20 lbs of excess fluid told him that he will be here all weekend, maybe longer, try to get off as much fluid as we can while monitoring renal function keep legs elevated during the day K is 3.4, will add BID replacement check echocardiogram
[2020-08-31] MEDS: POTASSIUM CHLORIDE CRTAB 20 MEQ TABCR PO SCH ×2 (11:06→20:36)
[2020-08-31 17:41] LABS: BUN Creatinine Ratio 19.5 (10-20); Calcium 8.7 mg/dl (8.5-10.1); Creatinine Clr Calc Pharmacy 86.6 ml/min; Est GFR (African American) 66.5 ml/min; Est GFR (Non-African American) 57.4 ml/min; Potassium 3.6 mmol/L (3.5-5.1)
--- NOTE | 2020-08-31 18:24 | XCELERA ---
[id number]
[2020-08-31] MEDS: ACETAMINOPHEN 325 MG TAB PO PRN (20:34)
[2020-08-31] MEDS: METOPROLOL SUCC 50MG EXT REL TAB PO SCH (20:36)
[2020-08-31] MEDS: CITALOPRAM 20 MG TAB PO SCH ×2 (20:37→20:38)
[2020-08-31] MEDS: ATORVASTATIN 40 MG TAB PO SCH (20:37)
[2020-08-31] MEDS: INSULIN GLARGINE SOLOSTAR 100 UNITS/ML 3 ML PEN SQ SCH (20:41)
[2020-09-01] MEDS: ENOXAPARIN INJ 40 MG/0.4 ML SYR SQ SCH ×2 (05:55→17:20)
[2020-09-01] MEDS: LEVOTHYROXINE SODIUM 200 MCG TABLET PO SCH (05:55)
--- NOTE | 2020-09-01 06:14 | Electrocardiogram Report ---
Test Reason : Blood Pressure : / mmHG Vent. Rate : 076 BPM Atrial Rate : 076 BPM P-R Int : 168 ms QRS Dur : 116 ms QT Int : 406 ms P-R-T Axes : 040 015 015 degrees QTc Int : 456 ms Normal sinus rhythm Normal ECG When compared with ECG of 31-JUL-2020 21:05, [place] interval has decreased Confirmed by Alexandre Nguyễn ([id number]) on 09/01/2020 6:14:23 AM Referred By: REFERRED SELF Confirmed By:Alexandre Nguyễn
[2020-09-01 06:15] LABS: Basophils # (auto) 0.04 K/uL (0-0.2); Basophils % (auto) 0.5 %; Eosinophils # (auto) 0.39 K/uL (0-0.5); Eosinophils % (auto) 4.6 %; Hematocrit (blood only) 32.9 % (42-52); Hemoglobin 10.5 g/dL (14.0-18.0); Immature Granulocytes # (auto) 0.03 K/uL (0.00-0.02); Immature Granulocytes % (auto) 0.4 %; Lymphocytes # (auto) 2.51 K/uL (1.2-3.4); Lymphocytes % (auto) 29.6 %; Mean Corpuscular Hemoglobin 28.7 pg (25-34); Mean Corpuscular Hgb Conc 31.9 g/dL (32-36); Mean Corpuscular Volume 89.9 fL (80-100); Mean Platelet Volume 10.2 fL (7.4-10.4); Monocytes # (auto) 0.89 K/uL (0.11-0.59); Monocytes % (auto) 10.5 %; Neutrophils # (auto) 4.63 K/uL (1.4-6.5); Neutrophils % (auto) 54.4 %; Platelet Count 238 K/uL (130-400); RDW Coefficient of Variation 13.7 % (11.5-14.5); RDW Standard Deviation 45.1 fL (36.4-46.3); Red Blood Count 3.66 M/uL (4.7-6.1); White Blood Count 8.49 K/uL (4.8-10.8)
[2020-09-01 06:48] LABS: BUN Creatinine Ratio 15.9 (10-20); Calcium 8.6 mg/dl (8.5-10.1); Creatinine Clr Calc Pharmacy 71.1 ml/min; Est GFR (African American) 52.7 ml/min; Est GFR (Non-African American) 45.5 ml/min; Potassium 3.7 mmol/L (3.5-5.1)
[2020-09-01] MEDS: INSULIN ASPART 100 UNITS/ML 3 ML PEN SC SCH ×4 (08:57→20:33)
[2020-09-01] MEDS: ISOSORBIDE MONO EXTENDED REL 60 MG TABCR PO SCH (09:06)
[2020-09-01] MEDS: hydrALAZINE TAB 50 MG TAB PO SCH ×3 (09:06→19:31)
[2020-09-01] MEDS: NICOTINE 14 MG/24 HR PATCH TD SCH (09:07)
[2020-09-01] MEDS: POTASSIUM CHLORIDE CRTAB 20 MEQ TABCR PO SCH ×2 (09:08→19:30)
[2020-09-01] MEDS: FUROSEMIDE 80 MG in SYRINGE 0 ML IV SCH (09:51)
--- NOTE | 2020-09-01 12:59 | Hospitalist Progress Note ---
Date of Service September 01, 2020 Assessment & Plan (1) CHF (congestive heart failure): 64yo male with multiple medical comorbidities presents with 1 month of progressive SOB, edema. History of diastolic CHF, last echo 01/05/20 with EF of 55-60%, moderate concentric LVH and Grade II diastolic dysfunction. Concern for volume overload secondary to underlying CHF. Patient dry weight reported to be 302#. Patient states that his dry weight is closer to 328#. echo with EF 65%, severe left atrial dilation, thus he has acute on chronic heart failure with preserved EF continue Lasix 40mg IV BID strict I/O, fluid restriction 1800mL daily, daily weight today his weight is 146.2kg (321lbs) still has significant edema, would guess 15-20 lbs of fluid in legs monitor renal function, BUN 26 and Cr 1.6, K is normal, continue BID replacement -Continue Metoprolol 50mg po qHS -Continue Isosorbide-MOno and Hydralazine (2) HTN (hypertension): Markedly elevated blood pressure in the ER. Patient has history of poorly controlled BP - typically >200 mmHg -Continue PO Hydralazine -Continue Isosorbide -Continue Metoprolol BP is still not at goal, 150-170's systolic increase Hydralazine to 100mg TID (3) CAD (coronary artery disease): Chronic. No CP -Continue ASA -Continue Atorvastatin -Continue Metoprolol no chest pain at this time (4) TORI on CPAP: Chronic -CPAP qHS (5) Dyslipidemia: Chronic -Continue Atorvastatin (6) Diabetes mellitus, type 2: Chronic. On home insulin therapy. Last A1C on 06/15/20 = 9. -Continue Lantus 30u qHS -ISS monitor for hypoglycemia (7) Hypothyroidism: Chronic -COntinue Synthroid 200mcg po daily F/E/N- Diuresis as above, monitor electrolytes Ppx - Lovenox 40 BID due to patient's size Code - Full Dispo - Admit to medical with telemetry Admission and Anticipated Discharge Date Admission Date: August 31, 2020 Subjective patient continues to do well, making a lot of urine with Lasix 80mg IV daily will change to Lasix 40mg IV BID, add fluid restriction his weight is only down slightly he is eating well, walking around, no chest pain, no dyspnea, no fever/chills reviewed labs, K is 3.7, BUN 26 and Cr 1.6 echo with EF 65%, severe LA dilation suggesting heart failure with preserved EF Review of Systems Review of Systems: All systems reviewed & are unremarkable except as noted in Subjective Constitutional: no fever, no fatigue and no weakness Respiratory: + dyspnea on exertion; no cough and no dyspnea Cardiovascular: + dyspnea on exertion and + edema; no chest pain, no dyspnea, no dyspnea at rest, no orthopnea, no syncope and no claudication Gastrointestinal: no abdominal pain, no nausea, no vomiting, no constipation and no diarrhea/loose stools Physical Exam Constitutional: well developed, well nourished, + obese, comfortable and + edematous (pitting to thighs) Neck: trachea midline, no thyromegaly Respiratory: normal respiratory effort, lungs clear to auscultation Cardiovascular: Rate/Rhythm: regular rate and regular rhythm Heart Sounds: normal S1 and normal S2; no murmur Vessels: + JVD and normal peripheral pulses Extremities: normal capillary refill and + edema (pitting to just above knees, venous stasis changes bilaterally) Gastrointestinal (Abdomen): normal bowel sounds, soft, nontender, no hepatosplenomegaly Musculoskeletal: no cyanosis or clubbing, extremities motor strength 5/5 Skin: no rashes, warm and dry (venous stasis changes bilaterally, skin shiny) Neurologic: patellar DTR's 2+ bilat, sensation intact and PERRL, EOMI, accommodation nl, no face palsy, no dysarthria Psychiatric: A+Ox3, euthymic affect Lymphatic: no cervical or axillary lymphadenopathy Results & Data Results & Data ([facility]) Vital Signs (Past 12 Hours) Vital Signs Temp Pulse Pulse Resp BP Pulse Ox 09/01/20 12:06 36.7 C 66 18 151/73 H 95 09/01/20 08:08 36.6 C 69 20 184/80 H 94 09/01/20 07:14 69 09/01/20 03:29 36.5 C 64 18 144/75 H 93 Laboratory Results Laboratory Results - last 24 hr 08/31/20 08/31/20 08/31/20 16:28 17:04 20:04 WBC RBC Hgb Hct MCV MCH MCHC RDW Std Deviation RDW Coeff of Maribel Plt Count MPV Immature Gran % (Auto) Neut % (Auto) Lymph % (Auto) Frontier % (Auto) Eos % (Auto) Baso % (Auto) Neut # (Auto) Lymph # (Auto) Frontier # (Auto) Eos # (Auto) Baso # (Auto) Immature Gran # (Auto) Sodium 142 Potassium 3.6 Chloride 111 H Carbon Dioxide 28 Anion Gap 3.0 BUN 26 H Creatinine 1.32 Est Cr Clr Drug Dosing 86.6 Est GFR ( Amer) 66.5 Est GFR (Non-Af Amer) 57.4 BUN/Creatinine Ratio 19.5 Glucose 128 H POC Glucose 128 H 178 H Calcium 8.7 09/01/20 09/01/20 09/01/20 05:35 05:35 07:27 WBC 8.49 RBC 3.66 L Hgb 10.5 L Hct 32.9 L MCV 89.9 MCH 28.7 MCHC 31.9 L RDW Std Deviation 45.1 RDW Coeff of Maribel 13.7 Plt Count 238 MPV 10.2 Immature Gran % (Auto) 0.4 Neut % (Auto) 54.4 Lymph % (Auto) 29.6 Frontier % (Auto) 10.5 Eos % (Auto) 4.6 Baso % (Auto) 0.5 Neut # (Auto) 4.63 Lymph # (Auto) 2.51 Frontier # (Auto) 0.89 H Eos # (Auto) 0.39 Baso # (Auto) 0.04 Immature Gran # (Auto) 0.03 H Sodium 144 Potassium 3.7 Chloride 113 H Carbon Dioxide 28 Anion Gap 3.0 BUN 26 H Creatinine 1.60 H Est Cr Clr Drug Dosing 71.1 Est GFR ( Amer) 52.7 Est GFR (Non-Af Amer) 45.5 BUN/Creatinine Ratio 15.9 Glucose 143 H POC Glucose 144 H Calcium 8.6 09/01/20 11:37 WBC RBC Hgb Hct MCV MCH MCHC RDW Std Deviation RDW Coeff of Maribel Plt Count MPV Immature Gran % (Auto) Neut % (Auto) Lymph % (Auto) Frontier % (Auto) Eos % (Auto) Baso % (Auto) Neut # (Auto) Lymph # (Auto) Frontier # (Auto) Eos # (Auto) Baso # (Auto) Immature Gran # (Auto) Sodium Potassium Chloride Carbon Dioxide Anion Gap BUN Creatinine Est Cr Clr Drug Dosing Est GFR ( Amer) Est GFR (Non-Af Amer) BUN/Creatinine Ratio Glucose POC Glucose 127 H Calcium Medications Administered Current Inpatient Medications Acetaminophen (Acetaminophen 325 Mg Tab) 650 mg PO Q4H PRN PRN Reason: pain/fever Stop: 09/30/20 02:21 Last Admin: 08/31/20 20:34 Dose: 650 mg Documented by: Aspirin (Aspirin 81 Mg Ectab) 81 mg PO MoWeFr@0900 [facility] Stop: 09/30/20 08:59 Last Admin: 08/31/20 08:16 Dose: 81 mg Documented by: Atorvastatin Calcium (Atorvastatin 40 Mg Tab) 80 mg PO [facility] Stop: 09/30/20 20:59 Last Admin: 08/31/20 20:37 Dose: 80 mg Documented by: Citalopram Hydrobromide (Citalopram 20 Mg Tab) 10 mg PO [facility] Stop: 09/30/20 20:59 Last Admin: 08/31/20 20:37 Dose: 10 mg Documented by: Citalopram Hydrobromide (Citalopram 20 Mg Tab) 20 mg PO [facility] Stop: 09/30/20 20:59 Last Admin: 08/31/20 20:38 Dose: 20 mg Documented by: Dextrose (Dextrose 50% 50 Ml Syringe) 25 - 50 ml IV UD PRN; Protocol PRN Reason: Hypoglycemia Protocol Stop: 09/30/20 02:21 Enoxaparin Sodium (Enoxaparin Inj 40 Mg/0.4 Ml Syr) 40 mg SQ Q12H [facility] Stop: 09/30/20 02:59 Last Admin: 09/01/20 05:55 Dose: 40 mg Documented by: Glucagon (Glucagon For Inj 1 Mg Vial) 1 mg SQ UD PRN; Protocol PRN Reason: Hypoglycemia Protocol Stop: 09/30/20 02:21 Glucose (Glucose 10 Tabs/Tube) 4 - 8 tabs PO UD PRN; Protocol PRN Reason: Hypoglycemia Protocol Stop: 09/30/20 02:21 Glucose (Glucose 40% Gel 15 Gm Tube) 15 - 30 gm PO UD PRN; Protocol PRN Reason: Hypoglycemia Protocol Stop: 09/30/20 02:21 Hydralazine HCl (Hydralazine Tab 50 Mg Tab) 50 mg PO TID [facility] Stop: 09/30/20 08:59 Last Admin: 09/01/20 09:06 Dose: 50 mg Documented by: Furosemide 40 mg/ Syringe 4 mls @ 4 mls/min IV Q12 [facility] Stop: 10/01/20 20:59 Insulin Aspart (Insulin Aspart 100 Units/Ml 3 Ml Pen) 0 units SC ACHS [facility] Stop: 09/30/20 07:29 Last Admin: 09/01/20 12:31 Dose: 6 units Documented by: Insulin Glargine (Insulin Glargine Solostar 100 Units/Ml 3 Ml Pen) 30 units SQ HS [facility] Stop: 09/30/20 20:59 Last Admin: 08/31/20 20:41 Dose: 30 units Documented by: Isosorbide Mononitrate (Isosorbide [place] Extended Rel 60 Mg Tabcr) 60 mg PO QAM [facility] Stop: 09/30/20 08:59 Last Admin: 09/01/20 09:06 Dose: 60 mg Documented by: Levothyroxine Sodium (Levothyroxine Sodium 200 Mcg Tablet) 200 mcg PO DAILYBB [facility] Stop: 09/30/20 06:29 Last Admin: 09/01/20 05:55 Dose: 200 mcg Documented by: Metoprolol Succinate (Metoprolol Succ 50mg Ext Rel Tab) 50 mg PO HS [facility] Stop: 09/30/20 20:59 Last Admin: 08/31/20 20:36 Dose: 50 mg Documented by: Miscellaneous (Carbohydrates For Hypoglycemia ) 15 - 30 gm PO UD PRN PRN Reason: Hypoglycemia Protocol Stop: 09/30/20 02:21 Miscellaneous (Remove Nicoderm Patch) 1 ea N/A DAILY@0859 [facility] Stop: 09/30/20 08:58 Last Admin: 09/01/20 09:01 Dose: 1 ea Documented by: Nicotine (Nicotine 14 Mg/24 Hr Patch) 14 mg TD QAM [facility] Stop: 09/30/20 08:59 Last Admin: 09/01/20 09:07 Dose: 14 mg Documented by: Potassium Chloride (Potassium Chloride Crtab 20 Meq Tabcr) 20 meq PO BID [facility] Stop: 09/30/20 10:44 Last Admin: 09/01/20 09:08 Dose: 20 meq Documented by: PG Care Time/CCT Total # of Minutes Spent Total Time Spent with Patient: Total time spent is greater than 50% in coordination of care (as documented) at patient's floor/unit and/or counseling patient: Coding Level of Care Code 60146 Subseq Hosp Care Lvl 3 Diagnoses CHF (congestive heart failure) I50.9 Heart failure chronicity: acute Heart failure type: unspecified HTN (hypertension) I10 Hypertension type: primary hypertension CAD (coronary artery disease) I25.10 Associated angina: without angina Coronary Disease-Associated Artery/Lesion type: [place] artery [place] vs. 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 transplanted heart: pala heart Qualified Code(s): I25.10 - Atherosclerotic heart disease of pala coronary artery without angina pectoris (3) CHF (congestive heart failure) Heart failure chronicity: acute Heart failure type: unspecified Qualified Code(s): I50.9 - Heart failure, unspecified (4) Hypothyroidism Hypothyroidism type: unspecified Qualified Code(s): E03.9 - Hypothyroidism, unspecified (5) HTN (hypertension) Hypertension type: primary hypertension Qualified Code(s): I10 - Essential (primary) hypertension
[2020-09-01] MEDS: METOPROLOL SUCC 50MG EXT REL TAB PO SCH (19:30)
[2020-09-01] MEDS: FUROSEMIDE 40 MG in SYRINGE 0 ML IV SCH (19:30)
[2020-09-01] MEDS: CITALOPRAM 20 MG TAB PO SCH ×2 (19:31)
[2020-09-01] MEDS: ATORVASTATIN 40 MG TAB PO SCH (19:31)
[2020-09-01] MEDS: INSULIN GLARGINE SOLOSTAR 100 UNITS/ML 3 ML PEN SQ SCH (20:33)
[2020-09-02] MEDS: ENOXAPARIN INJ 40 MG/0.4 ML SYR SQ SCH ×2 (05:51→17:08)
[2020-09-02] MEDS: LEVOTHYROXINE SODIUM 200 MCG TABLET PO SCH (05:51)
[2020-09-02 07:22] LABS: Hematocrit (blood only) 33.6 % (42-52); Hemoglobin 10.7 g/dL (14.0-18.0); Mean Corpuscular Hemoglobin 28.6 pg (25-34); Mean Corpuscular Hgb Conc 31.8 g/dL (32-36); Mean Corpuscular Volume 89.8 fL (80-100); Mean Platelet Volume 9.8 fL (7.4-10.4); Platelet Count 246 K/uL (130-400); RDW Coefficient of Variation 13.6 % (11.5-14.5); RDW Standard Deviation 44.8 fL (36.4-46.3); Red Blood Count 3.74 M/uL (4.7-6.1); White Blood Count 8.48 K/uL (4.8-10.8)
[2020-09-02 07:38] LABS: BUN Creatinine Ratio 17.7 (10-20); Calcium 8.8 mg/dl (8.5-10.1); Creatinine Clr Calc Pharmacy 75.1 ml/min; Est GFR (African American) 56.6 ml/min; Est GFR (Non-African American) 48.8 ml/min; Magnesium 1.8 mg/dl (1.8-2.4); Potassium 3.6 mmol/L (3.5-5.1)
[2020-09-02] MEDS: POTASSIUM CHLORIDE CRTAB 20 MEQ TABCR PO SCH ×2 (08:25→20:52)
[2020-09-02] MEDS: FUROSEMIDE 40 MG in SYRINGE 0 ML IV SCH ×3 (08:25→20:45)
[2020-09-02] MEDS: ISOSORBIDE MONO EXTENDED REL 60 MG TABCR PO SCH (08:26)
[2020-09-02] MEDS: hydrALAZINE TAB 50 MG TAB PO SCH ×3 (08:26→20:47)
[2020-09-02] MEDS: NICOTINE 14 MG/24 HR PATCH TD SCH (08:26)
[2020-09-02] MEDS: INSULIN ASPART 100 UNITS/ML 3 ML PEN SC SCH ×4 (08:31→20:55)
[2020-09-02] MEDS: lisinopril 10 MG TAB PO SCH (09:47)
--- NOTE | 2020-09-02 12:13 | Hospitalist Progress Note ---
Date of Service September 02, 2020 Assessment & Plan (1) CHF (congestive heart failure): 64yo male with multiple medical comorbidities presents with 1 month of progressive SOB, edema. History of diastolic CHF, last echo 01/05/20 with EF of 55-60%, moderate concentric LVH and Grade II diastolic dysfunction. Concern for volume overload secondary to underlying CHF. Patient dry weight reported to be 302#. Patient states that his dry weight is closer to 328#. echo with EF 65%, severe left atrial dilation, thus he has acute on chronic heart failure with preserved EF increase Lasix to 40mg IV TID from BID starting today strict I/O, fluid restriction 1800mL daily, daily weight today his weight is 145.2kg (321lbs) still has significant edema, would guess 15-20 lbs of fluid in legs monitor renal function, BUN 27 and Cr 1.5, K is normal, since Cr and BUN have not changed in two days, will increase Lasix to TID -Continue Metoprolol 50mg po qHS -Continue Isosorbide-MOno and Hydralazine (2) HTN (hypertension): Markedly elevated blood pressure in the ER. Patient has history of poorly controlled BP - typically >200 mmHg -Continue PO Hydralazine -Continue Isosorbide -Continue Metoprolol BP is still not at goal, 150-170's systolic increased Hydralazine to 100mg TID on 09/01, give another 1-2 days for it to work (3) CAD (coronary artery disease): Chronic. No CP -Continue ASA -Continue Atorvastatin -Continue Metoprolol no chest pain at this time (4) TORI on CPAP: Chronic -CPAP qHS (5) Dyslipidemia: Chronic -Continue Atorvastatin (6) Diabetes mellitus, type 2: Chronic. On home insulin therapy. Last A1C on 06/15/20 = 9. -Continue Lantus 30u qHS -ISS monitor for hypoglycemia, no episodes (7) Hypothyroidism: Chronic -COntinue Synthroid 200mcg po daily F/E/N- Diuresis as above, monitor electrolytes Ppx - Lovenox 40 BID due to patient's size Code - Full Dispo - Admit to medical with telemetry Admission and Anticipated Discharge Date Admission Date: August 31, 2020 Subjective patient continues to diurese, he feels better but still a lot of edema no chest pain, no dyspnea, eating well reviewed labs, Cr is 1.51, BUN 27, K 3.6 discussed increasing the Lasix to TID, he agrees with plan, okay with staying here to get fluid off Review of Systems Review of Systems: All systems reviewed & are unremarkable except as noted in Subjective Cardiovascular: + edema Physical Exam Constitutional: well developed, well nourished, + obese, comfortable and + ed ematous (pitting to thighs) Neck: trachea midline, no thyromegaly Respiratory: normal respiratory effort, lungs clear to auscultation Cardiovascular: Rate/Rhythm: regular rate and regular rhythm Heart Sounds: normal S1 and normal S2; no murmur Vessels: + JVD and normal peripheral pulses Extremities: normal capillary refill and + edema (pitting to just above knees, venous stasis changes bilaterally) Gastrointestinal (Abdomen): normal bowel sounds, soft, nontender, no hepatosplenomegaly Musculoskeletal: no cyanosis or clubbing, extremities motor strength 5/5 Skin: no rashes, warm and dry (venous stasis changes bilaterally, skin shiny) Neurologic: patellar DTR's 2+ bilat, sensation intact and PERRL, EOMI, accommodation nl, no face palsy, no dysarthria Psychiatric: A+Ox3, euthymic affect Lymphatic: no cervical or axillary lymphadenopathy Results & Data Results & Data ([facility]) Vital Signs (Past 12 Hours) Vital Signs Temp Pulse Pulse Pulse Resp BP Pulse Ox 09/02/20 11:40 36.3 C L 64 18 173/73 H 94 09/02/20 11:38 36.5 C 62 18 152/69 H 94 09/02/20 10:43 36.8 C 62 20 157/75 H 95 09/02/20 07:28 36.5 C 69 12 197/86 H 95 09/02/20 07:11 70 09/02/20 04:16 36.7 C 63 18 164/76 H 92 09/02/20 02:33 65 Laboratory Results Laboratory Results - last 24 hr 09/01/20 09/01/20 09/02/20 16:27 20:19 06:49 WBC 8.48 RBC 3.74 L Hgb 10.7 L Hct 33.6 L MCV 89.8 MCH 28.6 MCHC 31.8 L RDW Std Deviation 44.8 RDW Coeff of Maribel 13.6 Plt Count 246 MPV 9.8 Sodium Potassium Chloride Carbon Dioxide Anion Gap BUN Creatinine Est Cr Clr Drug Dosing Est GFR ( Amer) Est GFR (Non-Af Amer) BUN/Creatinine Ratio Glucose POC Glucose 136 H 164 H Calcium Magnesium 09/02/20 09/02/20 09/02/20 06:49 07:33 11:17 WBC RBC Hgb Hct MCV MCH MCHC RDW Std Deviation RDW Coeff of Maribel Plt Count MPV Sodium 143 Potassium 3.6 Chloride 111 H Carbon Dioxide 29 Anion Gap 3.0 BUN 27 H Creatinine 1.51 H Est Cr Clr Drug Dosing 75.1 Est GFR ( Amer) 56.6 Est GFR (Non-Af Amer) 48.8 BUN/Creatinine Ratio 17.7 Glucose 116 H POC Glucose 124 H 155 H Calcium 8.8 Magnesium 1.8 Medications Administered Current Inpatient Medications Acetaminophen (Acetaminophen 325 Mg Tab) 650 mg PO Q4H PRN PRN Reason: pain/fever Stop: 09/30/20 02:21 Last Admin: 08/31/20 20:34 Dose: 650 mg Documented by: Aspirin (Aspirin 81 Mg Ectab) 81 mg PO MoWeFr@0900 [facility] Stop: 09/30/20 08:59 Last Admin: 08/31/20 08:16 Dose: 81 mg Documented by: Atorvastatin Calcium (Atorvastatin 40 Mg Tab) 80 mg PO [facility] Stop: 09/30/20 20:59 Last Admin: 09/01/20 19:31 Dose: 80 mg Documented by: Citalopram Hydrobromide (Citalopram 20 Mg Tab) 10 mg PO [facility] Stop: 09/30/20 20:59 Last Admin: 09/01/20 19:31 Dose: 10 mg Documented by: Citalopram Hydrobromide (Citalopram 20 Mg Tab) 20 mg PO [facility] Stop: 09/30/20 20:59 Last Admin: 09/01/20 19:31 Dose: 20 mg Documented by: Dextrose (Dextrose 50% 50 Ml Syringe) 25 - 50 ml IV UD PRN; Protocol PRN Reason: Hypoglycemia Protocol Stop: 09/30/20 02:21 Enoxaparin Sodium (Enoxaparin Inj 40 Mg/0.4 Ml Syr) 40 mg SQ Q12H [facility] Stop: 09/30/20 02:59 Last Admin: 09/02/20 05:51 Dose: 40 mg Documented by: Glucagon (Glucagon For Inj 1 Mg Vial) 1 mg SQ UD PRN; Protocol PRN Reason: Hypoglycemia Protocol Stop: 09/30/20 02:21 Glucose (Glucose 10 Tabs/Tube) 4 - 8 tabs PO UD PRN; Protocol PRN Reason: Hypoglycemia Protocol Stop: 09/30/20 02:21 Glucose (Glucose 40% Gel 15 Gm Tube) 15 - 30 gm PO UD PRN; Protocol PRN Reason: Hypoglycemia Protocol Stop: 09/30/20 02:21 Hydralazine HCl (Hydralazine Tab 50 Mg Tab) 100 mg PO TID [facility] Stop: 10/01/20 20:59 Last Admin: 09/02/20 08:26 Dose: 100 mg Documented by: Furosemide 40 mg/ Syringe 4 mls @ 4 mls/min IV TID [facility] Stop: 10/02/20 13:59 Insulin Aspart (Insulin Aspart 100 Units/Ml 3 Ml Pen) 0 units SC ACHS [facility] Stop: 09/30/20 07:29 Last Admin: 09/02/20 08:31 Dose: 9 units Documented by: Insulin Glargine (Insulin Glargine Solostar 100 Units/Ml 3 Ml Pen) 30 units SQ [facility] Stop: 09/30/20 20:59 Last Admin: 09/01/20 20:33 Dose: 30 units Documented by: Isosorbide Mononitrate (Isosorbide [place] Extended Rel 60 Mg Tabcr) [facility] Stop: 09/30/20 08:59 Last Admin: 09/02/20 08:26 Dose: 60 mg Documented by: Levothyroxine Sodium (Levothyroxine Sodium 200 Mcg Tablet) [facility] Stop: 09/30/20 06:29 Last Admin: 09/02/20 05:51 Dose: 200 mcg Documented by: Lisinopril (Lisinopril 10 Mg Tab) [facility] Stop: 10/02/20 08:59 Last Admin: 09/02/20 09:47 Dose: 10 mg Documented by: Metoprolol Succinate (Metoprolol Succ 50mg Ext Rel Tab) 50 mg PO [facility] Stop: 09/30/20 20:59 Last Admin: 09/01/20 19:30 Dose: 50 mg Documented by: Miscellaneous (Carbohydrates For Hypoglycemia ) 15 - 30 gm PO UD PRN PRN Reason: Hypoglycemia Protocol Stop: 09/30/20 02:21 Miscellaneous (Remove Nicoderm Patch) 1 ea N/A DAILY@0859 [facility] Stop: 09/30/20 08:58 Last Admin: 09/02/20 08:25 Dose: 1 ea Documented by: Nicotine (Nicotine 14 Mg/24 Hr Patch) 14 mg TD QAM [facility] Stop: 09/30/20 08:59 Last Admin: 09/02/20 08:26 Dose: 14 mg Documented by: Potassium Chloride (Potassium Chloride Crtab 20 Meq Tabcr) 20 meq PO BID [facility] Stop: 09/30/20 10:44 Last Admin: 09/02/20 08:25 Dose: 20 meq Documented by: PG Care Time/CCT Total # of Minutes Spent Total Time Spent with Patient: Total time spent is greater than 50% in coordination of care (as documented) at patient's floor/unit and/or counseling patient: Coding Level of Care Code 34746 Subseq Hosp Care Lvl 2 Diagnoses CHF (congestive heart failure) I50.9 Heart failure chronicity: acute Heart failure type: unspecified HTN (hypertension) I10 Hypertension type: primary hypertension CAD (coronary artery disease) I25.10 Associated angina: without angina Coronary Disease-Associated Artery/Lesion type: [place] artery [place] vs. 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 transplanted heart: [place] heart Qualified Code(s): I25.10 - Atherosclerotic heart disease of [place] coronary artery without angina pectoris (3) CHF (congestive heart failure) Heart failure chronicity: acute Heart failure type: unspecified Qualified Code(s): I50.9 - Heart failure, unspecified (4) Hypothyroidism Hypothyroidism type: unspecified Qualified Code(s): E03.9 - Hypothyroidism, unspecified (5) HTN (hypertension) Hypertension type: primary hypertension Qualified Code(s): I10 - Essential (primary) hypertension
[2020-09-02] MEDS: ATORVASTATIN 40 MG TAB PO SCH (20:38)
[2020-09-02] MEDS: CITALOPRAM 20 MG TAB PO SCH ×2 (20:40→20:42)
[2020-09-02] MEDS: INSULIN GLARGINE SOLOSTAR 100 UNITS/ML 3 ML PEN SQ SCH (20:48)
[2020-09-02] MEDS: METOPROLOL SUCC 50MG EXT REL TAB PO SCH (20:51)
[2020-09-03] MEDS: ENOXAPARIN INJ 40 MG/0.4 ML SYR SQ SCH ×2 (05:51→17:33)
[2020-09-03] MEDS: LEVOTHYROXINE SODIUM 200 MCG TABLET PO SCH (05:53)
[2020-09-03] MEDS: hydrALAZINE TAB 50 MG TAB PO SCH ×3 (07:28→20:45)
[2020-09-03] MEDS: FUROSEMIDE 40 MG in SYRINGE 0 ML IV SCH ×3 (08:26→20:46)
[2020-09-03] MEDS: lisinopril 10 MG TAB PO SCH (08:27)
[2020-09-03] MEDS: NICOTINE 14 MG/24 HR PATCH TD SCH (08:27)
[2020-09-03] MEDS: POTASSIUM CHLORIDE CRTAB 20 MEQ TABCR PO SCH ×2 (08:27→20:45)
[2020-09-03] MEDS: ASPIRIN 81 MG ECTAB PO SCH (08:28)
[2020-09-03] MEDS: ISOSORBIDE MONO EXTENDED REL 60 MG TABCR PO SCH (08:28)
[2020-09-03] MEDS: INSULIN ASPART 100 UNITS/ML 3 ML PEN SC SCH ×4 (08:29→20:47)
--- NOTE | 2020-09-03 09:01 | Hospitalist Progress Note ---
Date of Service September 03, 2020 Assessment & Plan (1) CHF (congestive heart failure): 64yo male with multiple medical comorbidities presents with 1 month of progressive SOB, edema. History of diastolic CHF, last echo 01/05/20 with EF of 55-60%, moderate concentric LVH and Grade II diastolic dysfunction. Concern for volume overload secondary to underlying CHF. Patient dry weight reported to be 302#. Patient states that his dry weight is closer to 328#. echo with EF 65%, severe left atrial dilation, thus he has acute on chronic heart failure with preserved EF increase Lasix to 40mg IV TID strict I/O, fluid restriction 1800mL daily, daily weight today his weight is 145.2kg (321lbs) still has significant edema, would guess 15-20 lbs of fluid in legs monitor renal function, BUN 27 and Cr 1.5, K is normal, since Cr and BUN have not changed in two days, will increase Lasix to TID -Continue Metoprolol 50mg po qHS -Continue Isosorbide-[place] and Hydralazine Educate about salt and fluid restriction (2) HTN (hypertension): Markedly elevated blood pressure in the ER. Patient has history of poorly controlled BP - typically >200 mmHg -Continue PO Hydralazine -Continue Isosorbide -Continue Metoprolol increased Hydralazine to 100mg TID on 09/01, (3) CAD (coronary artery disease): Chronic. No CP -Continue ASA -Continue Atorvastatin -Continue Metoprolol no chest pain at this time (4) TORI on CPAP: Chronic -CPAP qHS (5) Dyslipidemia: Chronic -Continue Atorvastatin (6) Diabetes mellitus, type 2: Chronic. On home insulin therapy. Last A1C on 06/15/20 = 9. -Continue Lantus 30u qHS -ISS monitor for hypoglycemia, no episodes (7) Hypothyroidism: Chronic -COntinue Synthroid 200mcg po daily F/E/N- Diuresis as above, monitor electrolytes Ppx - Lovenox 40 BID due to patient's size Code - Full Dispo - Admit to medical with telemetry Admission and Anticipated Discharge Date Admission Date: August 31, 2020 Subjective patient continues to diurese, he feels better but still LE edema no chest pain, no dyspnea, eating well reviewed labs, Cr is 1.51, BUN 27, K 3.6 discussed fluid and salt restriction Review of Systems Review of Systems: Mild distress and fatigue no headache, no visual changes no speech or swallowing issues no chest pain, pressure or palpitations no shortness of breath, cough or wheezes no abdominal pain, nausea or vomiting, diarrhea or constipation no dysuria, hematuria or frequency no focal joint pain significant lower extremity swelling no back pain, CVA tenderness or radicular pain no bruising, bleeding or rashes no focal signs of weakness or numbness or altered sensation no complaints of anxiety or depression.. Physical Exam Physical Exam: The patient appeared well nourished and normally developed. Vital signs as documented. Head exam is normocephalic atraumatic Neck is without JVD, thyromegaly, or carotid bruits. Lungs are also both bases Cardiac exam, Rhythm is regular.. No murmurs, rubs or gallops. Abdominal exam reveals normal bowel sounds, soft non tender, no masses Extremities are 1+ edematous and both pedal pulses are present Neurologic exam is alert and oriented, no focal loss of strength or sensation Skin is without bruises or rashes Psychologically is without concerns for anxiety or depression Results & Data Results & Data ([facility]) Vital Signs (Past 12 Hours) Vital Signs Temp Pulse Pulse Resp BP BP Pulse Ox 09/03/20 08:21 75 162/70 H 09/03/20 07:21 98.1 F 76 18 183/73 H 93 09/03/20 07:00 75 09/03/20 03:23 98.1 F 71 18 169/77 H 92 09/03/20 02:25 72 09/02/20 22:13 97.7 F 68 20 150/71 H 95 PG Care Time/CCT Total # of Minutes Spent Total Time Spent with Patient: Total time spent is greater than 50% in coordination of care (as documented) at patient's floor/unit and/or counseling patient: Coding Level of Care Code 23952 Subseq Hosp Care Lvl 3 Diagnoses CHF (congestive heart failure) I50.9 Heart failure chronicity: acute Heart failure type: unspecified HTN (hypertension) I10 Hypertension type: primary hypertension CAD (coronary artery disease) I25.10 Associated angina: without angina Coronary Disease-Associated Artery/Lesion type: [place] artery [place] vs. transplanted heart: [place] heart TORI on CPAP G47.33; Z99.89 Dyslipidemia E78.5 Diabetes mellitus, type 2 E11.9 Diabetes mellitus complication status: without complication Diabetes mellitus custodial insulin use: unspecified custodial insulin use status Hypothyroidism E03.9 Hypothyroidism type: unspecified (1) Diabetes mellitus, type 2 Diabetes mellitus complication status: without complication Diabetes mellitus custodial insulin use: unspecified custodial insulin use status Qualified Code(s): E11.9 - Type 2 diabetes mellitus without complications (2) CAD (coronary artery disease) Associated angina: without angina Coronary Disease-Associated Artery/Lesion type: [place] artery [place] vs. transplanted heart: [place] heart Qualified Code(s): I25.10 - Atherosclerotic heart disease of [place] coronary artery withou t angina pectoris (3) CHF (congestive heart failure) Heart failure chronicity: acute Heart failure type: unspecified Qualified Code(s): I50.9 - Heart failure, unspecified (4) Hypothyroidism Hypothyroidism type: unspecified Qualified Code(s): E03.9 - Hypothyroidism, unspecified (5) HTN (hypertension) Hypertension type: primary hypertension Qualified Code(s): I10 - Essential (primary) hypertension
[2020-09-03 09:03] LABS: BUN Creatinine Ratio 19.7 (10-20); Calcium 8.8 mg/dl (8.5-10.1); Creatinine Clr Calc Pharmacy 74.4 ml/min; Est GFR (African American) 56.1 ml/min; Est GFR (Non-African American) 48.4 ml/min; Potassium 3.7 mmol/L (3.5-5.1)
[2020-09-03] MEDS ORDERED: ONDANSETRON INJ 2 MG/ML 2 ML VIAL IV PRN (09:52)
[2020-09-03] MEDS ORDERED: ONDANSETRON INJ 2 MG/ML 2 ML VIAL ONE (10:09)
[2020-09-03] MEDS: CITALOPRAM 20 MG TAB PO SCH ×2 (20:44→20:45)
[2020-09-03] MEDS: ATORVASTATIN 40 MG TAB PO SCH (20:45)
[2020-09-03] MEDS: METOPROLOL SUCC 50MG EXT REL TAB PO SCH (20:45)
[2020-09-03] MEDS: INSULIN GLARGINE SOLOSTAR 100 UNITS/ML 3 ML PEN SQ SCH (20:46)
[2020-09-03] MEDS: ACETAMINOPHEN 325 MG TAB PO PRN (23:56)
[2020-09-04] MEDS: ENOXAPARIN INJ 40 MG/0.4 ML SYR SQ SCH ×2 (05:20→17:00)
[2020-09-04] MEDS: LEVOTHYROXINE SODIUM 200 MCG TABLET PO SCH (05:20)
[2020-09-04] MEDS: POTASSIUM CHLORIDE CRTAB 20 MEQ TABCR PO SCH ×2 (08:10→20:04)
[2020-09-04] MEDS: ISOSORBIDE MONO EXTENDED REL 60 MG TABCR PO SCH (08:10)
[2020-09-04] MEDS: hydrALAZINE TAB 50 MG TAB PO SCH ×3 (08:10→20:04)
[2020-09-04] MEDS: NICOTINE 14 MG/24 HR PATCH TD SCH (08:11)
[2020-09-04] MEDS: lisinopril 10 MG TAB PO SCH (08:11)
[2020-09-04] MEDS: FUROSEMIDE 40 MG in SYRINGE 0 ML IV SCH (08:11)
[2020-09-04 08:25] LABS: BUN Creatinine Ratio 15.3 (10-20); Calcium 8.3 mg/dl (8.5-10.1); Creatinine Clr Calc Pharmacy 54.5 ml/min; Est GFR (African American) 38.4 ml/min; Est GFR (Non-African American) 33.1 ml/min; Potassium 4.3 mmol/L (3.5-5.1)
[2020-09-04] MEDS: INSULIN ASPART 100 UNITS/ML 3 ML PEN SC SCH ×4 (08:29→21:10)
--- NOTE | 2020-09-04 18:36 | Hospitalist Progress Note ---
Date of Service September 04, 2020 Assessment & Plan (1) CHF (congestive heart failure): 64yo male with multiple medical comorbidities presents with 1 month of progressive SOB, edema. History of diastolic CHF, last echo 01/05/20 with EF of 55-60%, moderate concentric LVH and Grade II diastolic dysfunction. Concern for volume overload secondary to underlying CHF. Patient dry weight reported to be 302#. Patient states that his dry weight is closer to 328#. echo with EF 65%, severe left atrial dilation, thus he has acute on chronic heart failure with preserved EF increase Lasix to 40mg IV TID strict I/O, fluid restriction 1800mL daily, daily weight today his weight is 145.2kg (321lbs) still has significant edema, would guess 15-20 lbs of fluid in legs MADIHA with CKD3, stopping lasix and follow pt states he feels good improvement -Continue Metoprolol 50mg po qHS -Continue Isosorbide-[place] and Hydralazine Continue to Educate about salt and fluid restriction (2) HTN (hypertension): Markedly elevated blood pressure in the ER. Patient has history of poorly controlled BP - typically >200 mmHg -Continue PO Hydralazine -Continue Isosorbide -Continue Metoprolol increased Hydralazine to 100mg TID on 09/01, (3) CAD (coronary artery disease): Chronic. No CP -Continue ASA -Continue Atorvastatin -Continue Metoprolol no chest pain at this time (4) TORI on CPAP: Chronic -CPAP qHS (5) Dyslipidemia: Chronic -Continue Atorvastatin (6) Diabetes mellitus, type 2: Chronic. On home insulin therapy. Last A1C on 06/15/20 = 9. -Continue Lantus 30u qHS -ISS monitor for hypoglycemia, no episodes (7) Hypothyroidism: Chronic -COntinue Synthroid 200mcg po daily F/E/N- Diuresis as above, monitor electrolytes Ppx - Lovenox 40 BID due to patient's size Code - Full Dispo - Admit to medical with telemetry (8) Acute kidney injury: Admission and Anticipated Discharge Date Admission Date: August 31, 2020 Subjective patient feels better but still LE edema, mostly noticed on tops of feet no chest pain, no dyspnea, eating well reviewed labs, now madiha with diuresis stopping at this time discussed fluid and salt restriction Review of Systems Review of Systems: Mild distress and fatigue no headache, no visual changes no speech or swallowing issues no chest pain, pressure or palpitations no shortness of breath, cough or wheezes no abdominal pain, nausea or vomiting, diarrhea or constipation no dysuria, hematuria or frequency no focal joint pain persistent lower extremity swelling no back pain, CVA tenderness or radicular pain no bruising, bleeding or rashes no focal signs of weakness or numbness or altered sensation no complaints of anxiety or depression.. Physical Exam Physical Exam: The patient appeared well nourished and normally developed. Vital signs as documented. Head exam is normocephalic atraumatic Neck is without JVD, thyromegaly, or carotid bruits. Lungs are also both bases Cardiac exam, Rhythm is regular.. No murmurs, rubs or gallops. Abdominal exam reveals normal bowel sounds, soft non tender, no masses Extremities continue with 1+ edematous and both pedal pulses are present Neurologic exam is alert and oriented, no focal loss of strength or sensation Skin is without bruises or rashes Psychologically is without concerns for anxiety or depression Results & Data Results & Data ([facility]) Vital Signs (Past 12 Hours) Vital Signs Temp Pulse Pulse Resp BP BP Pulse Ox 09/04/20 14:38 97.9 F 76 18 147/66 H 92 09/04/20 14:30 75 09/04/20 11:09 97.9 F 64 18 130/66 92 09/04/20 07:10 69 09/04/20 07:03 98.2 F 74 18 149/56 H 92 PG Care Time/CCT Total # of Minutes Spent Total Time Spent with Patient: Total time spent is greater than 50% in coordination of care (as documented) at patient's floor/unit and/or counseling patient: Coding Level of Care Code 95087 Subseq Hosp Care Lvl 2 Diagnoses CHF (congestive heart failure) I50.9 Heart failure chronicity: acute Heart failure type: unspecified HTN (hypertension) I10 Hypertension type: primary hypertension CAD (coronary artery disease) I25.10 Coronary Disease-Associated Artery/Lesion type: [place] artery [place] vs. transplanted heart: [place] heart Associated angina: without angina TORI on CPAP G47.33; Z99.89 Dyslipidemia E78.5 Diabetes mellitus, type 2 E11.9 Diabetes mellitus half-way insulin use: unspecified half-way insulin use status Diabetes mellitus complication status: without complication Hypothyroidism E03.9 Hypothyroidism type: unspecified Acute kidney injury N17.9 (1) CHF (congestive heart failure) Heart failure chronicity: acute Heart failure type: unspecified Qualified Code(s): I50.9 - Heart failure, unspecified (2) HTN (hypertension) Hypertension type: primary hypertension Qualified Code(s): I10 - Essential (primary) hypertension (3) CAD (coronary artery disease) Coronary Disease-Associated Artery/Lesion type: [place] artery [place] vs. 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
[2020-09-04] MEDS: ATORVASTATIN 40 MG TAB PO SCH (20:05)
[2020-09-04] MEDS: CITALOPRAM 20 MG TAB PO SCH ×2 (20:05→20:06)
[2020-09-04] MEDS: METOPROLOL SUCC 50MG EXT REL TAB PO SCH (20:06)
[2020-09-04] MEDS: INSULIN GLARGINE SOLOSTAR 100 UNITS/ML 3 ML PEN SQ SCH (21:34)
[2020-09-05] MEDS: LEVOTHYROXINE SODIUM 200 MCG TABLET PO SCH (05:29)
[2020-09-05] MEDS: ENOXAPARIN INJ 40 MG/0.4 ML SYR SQ SCH (05:29)
[2020-09-05 08:04] LABS: BUN Creatinine Ratio 16.1 (10-20); Calcium 8.6 mg/dl (8.5-10.1); Creatinine Clr Calc Pharmacy 56.2 ml/min; Est GFR (Non-African American) 34.5 ml/min; Potassium 4.3 mmol/L (3.5-5.1)
[2020-09-05] MEDS: ISOSORBIDE MONO EXTENDED REL 60 MG TABCR PO SCH (08:08)
[2020-09-05] MEDS: POTASSIUM CHLORIDE CRTAB 20 MEQ TABCR PO SCH (08:08)
[2020-09-05] MEDS: NICOTINE 14 MG/24 HR PATCH TD SCH (08:08)
[2020-09-05] MEDS: hydrALAZINE TAB 50 MG TAB PO SCH (08:10)
[2020-09-05] MEDS: ASPIRIN 81 MG ECTAB PO SCH (08:10)
[2020-09-05] MEDS ORDERED: FUROSEMIDE 40 MG TAB PO SCH (09:00)
[2020-09-05] MEDS: INSULIN ASPART 100 UNITS/ML 3 ML PEN SC SCH ×2 (09:27→13:09)
--- NOTE | 2020-09-05 18:56 | Discharge Summary ---
Date of Service September 05, 2020 Admission HPI Per Admitting Provider Long Royal is a 64yo male presenting with progressive TAVERAS, SOB and bilateral LE edema x 1 month. Patient also with orthopnea, occasional chest pressure and the sensation of "gurgling" in his chest while laying flat. He has a dry cough. Patient reports compliance with his medications. States he tries to adhere to a low Na diet. He denies fevers, abdominal pain, nausea, vomiting, diarrhea or constipation. Reports recent decrease in UOP. Patient follows with Heart Failure clinic - last seen 02/28/20. Per their note his dry weight is 302 pounds. Patient has been on Torsemide but states that he hasn't been putting out much urine lately. Saw PCP 08/06/20 with complaint of bilateral LE edema and weight gain despite using Torsemide 40mg daily. History of medication non-adherence. He was given Lasix 80mg daily x 5 days and was started on Hydralazine for blood pressure control. His Lisinopril was discontinued due to worsening creatinine. ER Course: Lasix 80mg IV Principal Diagnosis acute Heart failure preserved ejection fraction acute kidney injury with history of chronic kidney disease Discharge Exam The patient appeared well Vital signs as documented. Lungs are clear to auscultation and appear unlabored Cardiac exam, Rhythm is regular.. No murmurs, rubs or gallops. Abdominal exam reveals normal bowel sounds, soft non tender, no masses Extremities are edematous to the dorsum of his feet and lower shins and both pedal pulses are normal. Neurologic exam is alert and oriented, no focal loss of strength or sensation Skin is without bruises or rashes Psychologically is without concerns for anxiety or depression. Discharge Data Allergies Allergy/AdvReac Type Severity Reaction Status Date / Time bee venom protein (honey bee) Allergy Severe Anaphylaxis Verified 08/30/20 22:58 egg AdvReac Intermediate Gastrointestinal Verified 08/30/20 22:58 Upset iodine AdvReac Mild FLUSHED Verified 08/30/20 22:58 FEELING/sick to stomach Egg or Chicken-derived Drugs Allergy Intermediate Gastrointestinal Uncoded 08/30/20 22:58 Upset Consultations 08/30/20 23:34 ED Decision to Admit Stat Hospital Course (1) CHF (congestive heart failure): 64yo male with multiple medical comorbidities presents with 1 month of progressive SOB, edema. History of diastolic CHF, last echo 01/05/20 with EF of 55-60%, moderate concentric LVH and Grade II diastolic dysfunction. Concern for volume overload secondary to underlying CHF. Patient dry weight reported to be 302#. Patient states that his dry weight is closer to 328#. echo with EF 65%, severe left atrial dilation, thus he has acute on chronic heart failure with preserved EF Overall his weight is down his creatinine gone up slightly therefore we had held Lasix on 09/05 restarting on 09/06 at home dosing. Patient requested to go home he was given instructions about weight fluids and salt which he is also been given in times past MADIHA with CKD3, willing Lasix for 1 day and continue to monitor at home outpatient laboratories can be followed through the heart failure clinic -Continue Metoprolol 50mg po qHS -Continue Isosorbide-[place] and Hydralazine Did dispense educational materials about salt and fluid restriction (2) HTN (hypertension): Markedly elevated blood pressure in the ER. Patient has history of poorly controlled BP - typically >200 mmHg -Continue PO Hydralazine -Continue Isosorbide -Continue Metoprolol increased Hydralazine to 100mg TID on 09/01, (3) CAD (coronary artery disease): Chronic. No CP -Continue ASA -Continue Atorvastatin -Continue Metoprolol no chest pain this hospital stay (4) TORI on CPAP: Chronic -CPAP qHS (5) Dyslipidemia: Chronic -Continue Atorvastatin (6) Diabetes mellitus, type 2: Chronic. On home insulin therapy. Last A1C on 06/15/20 = 9. -Continue Lantus 30u qHS -ISS monitor for hypoglycemia, no episodes (7) Hypothyroidism: Chronic -COntinue Synthroid 200mcg po daily Code - Full Stressed close follow-up with cardiology to help prevent return visit to the hospital (8) Acute kidney injury: Total Time Total Time Spent Total Time Spent (In Minutes): It required greater than 30 minutes to prepare this patient for discharge Discharge Plan Discharge Items Patient Disposition: Home - Self-Care Reason For Visit: CHF EXACERBATION Discharge Diagnosis: fluid retention due to heart failure Condition on Discharge: Fair Activity: Resume your previous activity Non-emergency contact: Primary Care Provider and Quality Compliance Consultant Call non-emergency contact if: you have any medication questions and your symptoms worsen Follow-up/Referrals: Jeffrey Tripp MD [Primary Care Provider] - 09/12/20 2:15 pm Nia Robles PA-C [Physician Fibreglass Lay Up Worker] - 09/11/20 10:30 am (Congestive Heart Failure Program Appointment Information Early follow up is essential to managing your heart failure. An appointment has been scheduled for you with the [facility] Heart Failure Program within 7 days of discharge. Anticipate this visit to be 30-60 minutes long. Please expect a foreign exchange student coordinator phone call from one of our nurses approximately 48 hours from discharge. They will al so be placing an order for lab work to be completed 1-2 days prior to your heart failure follow up appointment. Please be sure to have this done so we can go over the results when you come in. Office Location The cardiology office building is located in front of the hospital at [address] Bring the following with you to your follow-up doctor appointments: Please bring your daily weight log any discharge paperwork all of your medication bottles with you to this visit. ) Diet: Carb Consistent or DM2 and Low Sodium (2gm) Addtl Attending Provider Instructions: Call 911 and go to the Emergency Room if: * You have tightness or pain in your chest that does not go away with rest or Nitroglycerin * You are very short of breath even with rest Call your doctor if any of the following symptoms or problems start or get worse: * Shortness of breath or difficulty breathing * Wake up at night short of breath * Chest pain * Cough * Swelling of your hands, fee, or legs * More fatigued or tired with your normal activity * Palpitations - sudden fast heart beats WEIGHT * Weigh yourself every morning after using the bathroom. * Use the same scale. * Wear the same amount of clothing. * Write your weight down on your chart. * Call your doctor if you gain more than 2-3 pounds in 1-2 days. MEDICATIONS * Use this discharge instruction sheet for instructions. * Take your medications at the time your doctor ordered. * Do not skip a dose of your medicines. * If you miss a dose of medicine, take as soon as possible, but DO NOT DOUBLE A DOSE. * Read your medicine information when you get home. * Know all of the side effects of your medicine. * Call your doctor's office if you have any side effects. * Be sure all of your doctors know what medicine and herbs you take (including cold, flu, and herbal medicine). * Pain Medicine: If you do not get relief from your pain, please call your doctor for help. Take the following with you to your follow-up doctor appointments: * Weight Chart * Medication List * List of questions Do not drink excessive alcohol, beer or wine. Pending Studies at Discharge: No Stand-Alone Forms: My [employer], Smoking Cessation Medications and DC Order Prescriptions: Continued metoprolol succinate 50 mg tablet extended release 24 hr 50 mg PO HS Qty: 90 RF: 3 isosorbide mononitrate 60 mg tablet extended release 24 hr 60 mg PO QAM Qty: 30 RF: 5 citalopram 10 mg tablet 10 mg PO HS Qty: 90 RF: 1 citalopram 20 mg tablet 20 mg PO HS Qty: 90 RF: 1 levothyroxine 200 mcg tablet 200 mcg PO DAILY Qty: 30 RF: 0 Trulicity 0.75 mg/0.5 mL pen injector 0.75 mg subcut ONCE 30 Days Qty: 15 RF: 5 (DME) OneTouch Verio test strips Strip See Rx Instructions .ROUTE .MEDSUPPLY Qty: 10 RF: 0 cholecalciferol (vitamin D3) 1,250 mcg (50,000 unit) capsule See Rx Instructions .ROUTE .COMPLEX Qty: 12 RF: 2 furosemide [Lasix] 40 mg tablet 40 mg PO DAILY Qty: 30 RF: 2 atorvastatin 80 mg tablet 80 mg PO HS Qty: 90 RF: 3 insulin aspart U-100 [Novolog Flexpen U-100 Insulin] 100 unit/mL (3 mL) insulin pen 10 units SQ AC Qty: 0 RF: 0 aspirin 81 mg Tablet,Delayed Release (Dr/Ec) 81 mg PO 3XWK RF: 0 Lantus Solostar U-100 Insulin 100 unit/mL (3 mL) insulin pen 30 units SQ HS RF: 0 Changed hydralazine 100 mg tablet 100 mg PO TID Qty: 90 RF: 5 Discharge Orders: Discharge Order (Routine); Ordered 09/05/20 Ordered By: Elia Castillo/Other Patient Handouts: Heart Failure Making Changes to ..., Low Salt Diet Dc Admission Data Admit Date/Time: 08/31/20 01:02 Attending Provider: Elia Green Admit Provider: Caroline Blanchard Primary Care Provider: Jeffrey Tripp Other Providers: Caroline Blanchard Other Interventions: Discharge Summary Assessment (RN) Last Done: 09/05/20 14:32 Coding Level of Care Code D/C DAY MANAGEMENT >30 MINS Diagnoses CHF (congestive heart failure) I50.9 Heart failure chronicity: acute Heart failure type: unspecified HTN (hypertension) I10 Hypertension type: primary hypertension CAD (coronary artery disease) I25.10 Coronary Disease-Associated Artery/Lesion type: [place] artery [place] vs. 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
== END 2020-09-05 15:02 | disposition home or self-care (01) | DRG 291 ==
LOC: ED 20:51 → SUATTDRO 08-31 01:02 → 2W 08-31 01:02

== ENCOUNTER 2021-04-12 13:14 | Inpatient (IN) ==
--- NOTE | 2021-04-12 13:30 | Emergency Department Note ---
Impression & Plan Elevated troponin, COVID-19, Abdominal pain, Nausea & vomiting, Enteritis, Cough, Hypomagnesemia, Hypokalemia, Acute hyperglycemia ED Provider Note NAME: JENNY CORONADO AGE: 65 SEX: M : 1955 ARRIVES VIA: Ambulance INFORMANT: Patient, ED PROVIDER(S): Clemente Bledsoe MD Chief Complaint: Syncope, head injury, abdominal pain HPI: Patient does present from home due to concern for syncope abdominal pain and closed head injury. Patient states that did test positive for Covid several days ago and has been having chronic body aches and associated nausea and diarrhea. No vomiting. Patient states that he went to go "take a crap." States he went to wipe and subsequently does not remember anything else and woke up on the floor next to the bathtub. Patient believes that he did strike his head complains of some mild posterior head pain. The patient does not take any blood thinner medications. Patient denies any fevers but has had chills. Patient is not vaccinated for COVID-19. Patient denies any smoking. The patient does follow with Sarah Deng PA-C with heart failure service. Patient denies any vomiting but has had the nausea. He did receive 4 Zofran in route and states that this did improve his nausea. No vomiting. Patient states he has had for amount of diarrhea but no recent changes in diet no antibiotic use. Patient does complain of right lower quadrant pain. Patient was seen for this recently. Patient was recently seen on April 08 secondary to abdominal pain testing positive for Covid. Patient does have a known history of CAD and CHF. Patient had a normal white counts with hemoglobin of 13.4, creatinine 1.7, and glucose of 241 at the time that he was seen. The patient had an unremarkable lipase. Patient CT was suspicious for some enteritis. Patient also describes a left-sided chest pain which has had for approximately 4 days it is sharp and burning nonradiating. Patient is not taking anything for symptoms at home. The patient took his blood pressure medications but no other of his morning meds this morning. ROS: See HPI for pertinent positives and negatives. A total of 10 systems were reviewed and otherwise negative. Past medical history: See below Surgical history: See below Social history: See below Physical Exam: GENERAL: Mildly ill in appearance,NAD, wearing a mask, non-toxic. Morbidly obese. EYE EXAM: Normal conjunctiva. PERRL, no anisocoria and EOM's grossly intact w/o pain. Head: Mild pain to the occiput without obvious deformity. No active bleeding. NECK: Supple, no nuchal rigidity, no adenopathy, non-tender. No signs of meningismus. No midline C-spine TTP LUNGS: Clear to auscultation. Normal chest wall mechanics. HEART: NSR, no MRG. ABDOMEN: Abdomen soft, no pain to the upper abdomen does have suprapubic and right lower quadrant pain without overlying skin changes, normo-active bowel sounds, no masses, no rebound or guarding. BACK: No CVA TTP. SKIN: No rashes and no bruising. UPPER EXTREMITIES: Upper extremities are grossly normal. No pain to palpation or obvious deformity. LOWER EXTREMITIES: Grossly normal, chronic venous stasis stations with no calf pain, 1+ symmetric lower extremity edema No pain to palpation or obvious deformity. NEURO EXAM: A&O x3, cranial nerves II-XII grossly intact, normal speech, moves all 4 extremities on command w/o issue. Differential diagnoses: Appendicitis, testicular torsion, infections, diverticulitis, UTI, obstruction, mesenteric ischemia, aortic pathology, inflammatory bowel disease, renal colic, PUD, pancreatitis, biliary pathology, hernia, volvulus, constipation, cardiac ischemia, aortic dissection, pulmonary embolism, pneumothorax, pneumonia, pericarditis, myocarditis, esophageal rupture, GERD, cholecystitis, pancreatitis, musculoskeletal, as well as other pathologies. Course: Patient was seen and evaluated the bedside. Full history physical exam was performed. EKG interpreted by me Normal QRS complex with ventricular rate of 79, normal axis, prolonged QTC, T wave inversion inferiorly. This appears relatively unchanged from comparison EKG April 08, 2021. Machine read as junctiona,l patient appears to be very regular with what appear to be P waves noted in the anterior leads. Imaging Studies: See Below Cardiac monitoring: An order was placed for continuous cardiac monitoring. The monitor shows a rate of 73 with sinus rhythm. MDM: Patient was seen due to concern for syncope left chest pain nausea vomiting. Blood work was obtained along with a CT of the head cervical spine abdomen and pelvis with associated chest x-ray. Patient blood work shows a normal white count with a hemoglobin of 13.3. Patient's vitals are stable and patient not hypoxemic. Platelet count is unremarkable. The patient does not have signs of DVT on exam. The patient does have mild elevation in creat low magnesium low calcium and elevated blood glucose. Patient does have a positive troponin 0.07. This could be demand but given the patient's left-sided chest pain and associated history of ND Dr. Ford is agreeable to start low-dose heparin. I did discuss with him that the patient did have a fall but had negative CT of the head. He would still would like to continue the low-dose heparin at this time. Patient was ordered aspirin and heparin. Patient's chest x-ray shows cardiomegaly with vascular congestion. CT cervical spine negative. CT abdomen pelvis shows right-sided pleural effusion and early Covid pneumonia but no significant change from comparison study 3 days prior. Normal appendix. Patient was admitted to the medicine service. Patient did have another episode of vomiting given the patient's prolonged QTC the patient was given Reglan instead of Zofran. Critical Care: I have personally spent 42 minutes of critical care time in direct management of this patient. This includes bedside care, interpretation of diagnostic studies, and testing, discussion with consultants, patient, and family members, and other require inpatient management activities. This 42 minutes is in excess of all separately billable procedures. Past Med/Surg History Medical History Acute kidney injury Acute kidney injury Acute on chronic diastolic heart failure Chest pain (09/01/13) CHF (congestive heart failure) Chronic kidney disease, stage 3a Depression Diabetic nephropathy associated with type 2 diabetes mellitus Diabetic peripheral neuropathy associated with type 2 diabetes mellitus Gangrene of toe of left foot History of Holter monitoring 09/2019 DR ROSENBERG HTN (hypertension) Hyperkalemia Hypothyroidism Kidney stones Migraine Morbid obesity with BMI of 40.0-44.9, adult Myocardial Infarction ? mild in 1995 per doc in [place] but patient reports negative cardiac cath Nephrotic syndrome Peripheral arterial disease S/P hernia repair Sleep apnea cpap SOB (shortness of breath) on exertion OUT OF SHAPE Vitamin D deficiency Surgical History H/O umbilical hernia repair History of bilateral cataract extraction History of cardiac cath x2--1995 @ [place], no stents [address] [place]'s record History of colonoscopy History of cystoscopy History of esophagogastroduodenoscopy (EGD) History of hernia repair History of tooth extraction S/P cholecystectomy Family History Father Muscular dystrophy Mother Breast cancer Cancer hx of Leukemia and a month ago Brother Parkinson disease Denies family history of Ovarian cancer Prostate cancer No family history of adverse response to anesthesia Myocardial infarction Colorectal cancer Social History Smoking Status: Former smoker Tobacco Type: Smokeless Tobacco (Dip or Chew) Second Hand Exposure: No; Hx Alcohol Use: No Hx Substance Use: No Preferred Language: [place] African Communication Ability: Effective Visual Impairment: No Limitations Hearing Ability: Normal Inner Diameter Grinder Tool Required: No Beliefs That Will Affect Care: None marital status: Current Living Situation: Spouse Current Living Situation Comment: lives with current occupational status: retired Feels Safe at Home: Yes Dental Care, Regularly: Yes Physical Activity Frequency: Does not Exercise Seatbelt Use: always Assistive Devices: None Allergies Allergies Allergy/AdvReac Type Severity Reaction Status Date / Time bee venom protein (honey bee) Allergy Severe Anaphylaxis Verified 04/08/21 02:36 egg AdvReac Intermediate Gastrointestinal Verified 04/08/21 02:36 Upset iodine AdvReac Mild FLUSHED Verified 04/08/21 02:36 FEELING/sick to stomach Egg or Chicken-derived Drugs Allergy Intermediate Gastrointestinal Uncoded 04/08/21 02:36 Upset Home Meds Home Medications Medication Instructions Recorded Confirmed aspirin 81 mg tablet,delayed 81 mg PO 3XWK 12/10/17 04/12/21 release blood sugar diagnostic (OneTouch #10 ea 09/27/20 04/12/21 Verio test strips) insulin aspart U-100 100 unit/mL 10 unit SQ .TIDM+SS ml 09/27/20 04/12/21 (3 mL) subcutaneous pen (Novolog Flexpen U-100 Insulin aspart) insulin glargine 100 unit/mL 30 unit SUBCUT HS 04/08/21 04/12/21 subcutaneous solution (Lantus U-100 Insulin) Previous Rx's Medication Instructions Recorded hydralazine 100 mg tablet 100 mg PO TID #90 tab 09/05/20 metoprolol succinate 50 mg 50 mg PO HS #90 tab 09/11/20 tablet,extended release 24 hr citalopram 10 mg tablet 10 mg PO HS #90 tab 11/26/20 citalopram 20 mg tablet 20 mg PO HS #90 tab 11/26/20 torsemide 20 mg tablet 40 mg PO BID #90 tab 12/11/20 isosorbide mononitrate 60 mg 60 mg PO QAM #30 tab 03/14/21 tablet,extended release 24 hr lisinopril 10 mg tablet 10 mg PO DAILY #90 tab 03/14/21 atorvastatin 80 mg tablet 80 mg PO HS #90 tab 03/28/21 blood-glucose meter (OneTouch #1 ea 03/28/21 Verio Flex meter) cholecalciferol (vitamin D3) 1,250 See Rx Instructions .ROUTE 03/28/21 mcg (50,000 unit) capsule .COMPLEX #12 cap levothyroxine 200 mcg tablet 200 mcg PO DAILY #30 tab 03/28/21 albuterol sulfate 90 mcg/actuation 2 inha INH Q6H PRN #1 inhaler 04/08/21 aerosol inhaler benzonatate 200 mg capsule 200 mg PO TID PRN #30 cap 04/08/21 ondansetron 4 mg disintegrating 4 mg PO Q6H PRN #12 tab 04/08/21 tablet Results & Data (ED) Vital Signs Vital Signs - 24 hr 04/12/21 13:23 04/12/21 14:28 Temperature 36.4 C L Temperature Source Temporal Artery Scan Pulse Rate 79 Pulse Rate [Apical] 74 Respiratory Rate 20 17 Blood Pressure 162/72 H Blood Pressure [Right Arm] 143/68 H Blood Pressure Mean 102 Blood Pressure Mean [Right Arm] 93 Blood Pressure Position [Right Arm] Sitting Pulse Oximetry 94 94 Oxygen Delivery Method Room Air Room Air Sepsis Recent Fever Within 48 Hours No Sepsis New/Unexplained Change in Mental Status No Sepsis Action Taken by Nursing No Action Required Home Medications Current Medication List: was personally reviewed by me Laboratory Data Attestation: I reviewed the patient's lab results. Result diagrams: 04/12/21 13:28 04/12/21 13:28 Lab Results 04/12/21 04/12/21 04/12/21 Range/Units 13:28 13:28 13:28 WBC 7.72 (4.8-10.8) K/uL RBC 4.53 L (4.7-6.1) M/uL Hgb 13.3 L (14.0-18.0) g/dL Hct 39.8 L (42-52) % MCV 87.9 (80-100) fL MCH 29.4 (25-34) pg MCHC 33.4 (32-36) g/dL RDW Std Deviation 45.9 (36.4-46.3) fL RDW Coeff of Maribel 14.1 (11.5-14.5) % Plt Count 205 (130-400) K/uL MPV 10.3 (7.4-10.4) fL Immature Gran % (Auto) 0.5 % Neut % (Auto) 75.2 % Lymph % (Auto) 14.5 % Ida % (Auto) 9.3 % Eos % (Auto) 0.4 % Baso % (Auto) 0.1 % Neut # (Auto) 5.80 (1.4-6.5) K/uL Lymph # (Auto) 1.12 L (1.2-3.4) K/uL Ida # (Auto) 0.72 H (0.11-0.59) K/uL Eos # (Auto) 0.03 (0-0.5) K/uL Baso # (Auto) 0.01 (0-0.2) K/uL Immature Gran # (Auto) 0.04 H (0.00-0.02) K/uL PT (9.0-12.0) Seconds INR (0.9-1.1) APTT (21.0-31.0) Seconds PTT Ratio Sodium 141 (136-145) mmol/L Potassium 3.3 L (3.5-5.1) mmol/L Chloride 108 H (98-107) mmol/L Carbon Dioxide 22 (21-32) mmol/L Anion Gap 11 (3-11) BUN 20 (6-23) mg/dl Creatinine 2.24 H (0.6-1.4) mg/dl Est Cr Clr Drug Dosing 47.8 ml/min Est GFR ( Amer) 34.9 ml/min Est GFR (Non-Af Amer) 30.1 ml/min BUN/Creatinine Ratio 8.9 L (10-20) Glucose 306 H* (70-99(Fasting)) mg/dl Calcium 7.8 L (8.5-10.1) mg/dl Magnesium 1.6 L (1.7-2.4) mg/dl Total Bilirubin 0.3 (0.2-1.0) mg/dl AST 38 (13-39) U/L ALT 36 (7-52) U/L Alkaline Phosphatase 131 H (34-104) U/L Troponin I 0.07 H* (0-0.04) ng/ml Total Protein 6.4 (6.0-8.3) gm/dl Albumin 2.4 L (3.4-5.0) gm/dl Globulin 4.0 (2.5-4.0) gm/dl Albumin/Globulin Ratio 0.6 L (0.9-2) TSH 5.211 H (0.300-4.500) uIu/ml Free T4 1.13 (0.61-1.60) ng/dl 04/12/21 Range/Units 13:28 WBC (4.8-10.8) K/uL RBC (4.7-6.1) M/uL Hgb (14.0-18.0) g/dL Hct (42-52) % MCV (80-100) fL MCH (25-34) pg MCHC (32-36) g/dL RDW Std Deviation (36.4-46.3) fL RDW Coeff of Maribel (11.5-14.5) % Plt Count (130-400) K/uL MPV (7.4-10.4) fL Immature Gran % (Auto) % Neut % (Auto) % Lymph % (Auto) % Ida % (Auto) % Eos % (Auto) % Baso % (Auto) % Neut # (Auto) (1.4-6.5) K/uL Lymph # (Auto) (1.2-3.4) K/uL Ida # (Auto) (0.11-0.59) K/uL Eos # (Auto) (0-0.5) K/uL Baso # (Auto) (0-0.2) K/uL Immature Gran # (Auto) (0.00-0.02) K/uL PT 10.4 (9.0-12.0) Seconds INR 1.0 (0.9-1.1) APTT 28.2 (21.0-31.0) Seconds PTT Ratio 1.1 Sodium (136-145) mmol/L Potassium (3.5-5.1) mmol/L Chloride (98-107) mmol/L Carbon Dioxide (21-32) mmol/L Anion Gap (3-11) BUN (6-23) mg/dl Creatinine (0.6-1.4) mg/dl Est Cr Clr Drug Dosing ml/min Est GFR ( Amer) ml/min Est GFR (Non-Af Amer) ml/min BUN/Creatinine Ratio (10-20) Glucose (70-99(Fasting)) mg/dl Calcium (8.5-10.1) mg/dl Magnesium (1.7-2.4) mg/dl Total Bilirubin (0.2-1.0) mg/dl AST (13-39) U/L ALT (7-52) U/L Alkaline Phosphatase (34-104) U/L Troponin I (0-0.04) ng/ml Total Protein (6.0-8.3) gm/dl Albumin (3.4-5.0) gm/dl Globulin (2.5-4.0) gm/dl Albumin/Globulin Ratio (0.9-2) TSH (0.300-4.500) uIu/ml Free T4 (0.61-1.60) ng/dl Administered Medications Heparin Sodium/Dextrose (Heparin Sodium/Dextrose) 25,000 units in 500 mls @ 0.02 mls/hr IV .Q24H [facility]; Protocol Stop: 05/12/21 15:59 Last Admin: 04/12/21 16:42 Dose: 1,000 units/hr, 20 mls/hr Documented by: [id number] Cosigned by: [id number] Discontinued Medications Acetaminophen (Acetaminophen 500 Mg Tab) 1,000 mg PO NOW STA Stop: 04/12/21 13:40 Last Admin: 04/12/21 14:23 Dose: 1,000 mg Documented by: [id number] Aspirin (Aspirin Chew 324 Mg) 324 mg PO NOW STA Stop: 04/12/21 15:47 Last Admin: 04/12/21 16:37 Dose: 324 mg Documented by: [id number] Heparin Sodium/Dextrose (Heparin Iv Adult Wt-Based Low-Dose *No* Bolus Protocol) 1 ea N/A ONE ONE; Protocol Stop: 04/12/21 15:47 Last Admin: 04/12/21 17:39 Dose: Not Given Documented by: [id number] Sodium Chloride (Nss) 500 mls @ 999 mls/hr IV .Q31M MARCUS Stop: 04/12/21 14:15 Last Infusion: 04/12/21 14:54 Dose: 0 mls/hr Documented by: [id number] Admin: 04/12/21 14:23 Dose: 999 mls/hr Documented by: [id number] Calcium Gluconate () 1,000 mg in 60 mls @ 240 mls/hr IV NOW STA Stop: 04/12/21 15:38 Last Infusion: 04/12/21 16:46 Dose: 0 mls/hr Documented by: [id number] Admin: 04/12/21 16:04 Dose: 240 mls/hr Documented by: [id number] Magnesium Sulfate/Dextrose (Magnesium Sulfate / D5w) 1 gm in 100 mls @ 100 mls/hr IV NOW STA Stop: 04/12/21 16:23 Last Admin: 04/12/21 16:04 Dose: 100 mls/hr Documented by: [id number] Metoclopramide HCl (Metoclopramide Hcl Inj 5 Mg/Ml 2 Ml Vial) 5 mg IV ONE ONE Stop: 04/12/21 17:23 Last Admin: 04/12/21 17:40 Dose: 5 mg Documented by: [id number] Morphine Sulfate (Morphine Sulfate 4 Mg/Ml 1 Ml Carp\\Vial) 4 mg IV NOW STA Stop: 04/12/21 13:40 Last Admin: 04/12/21 14:23 Dose: 4 mg Documented by: [id number] Ondansetron HCl (Ondansetron Inj 2 Mg/Ml 2 Ml Vial) Confirm Administered Dose 4 mg .ROUTE .STK-MED ONE Stop: 04/12/21 14:14 Last Admin: 04/12/21 14:23 Dose: Not Given Documented by: [id number] Ondansetron HCl (Ondansetron Inj 2 Mg/Ml 2 Ml Vial) 4 mg IV NOW STA Stop: 04/12/21 14:17 Last Admin: 04/12/21 14:23 Dose: 4 mg Documented by: [id number] Imaging Data Radiologist's Impression: Cervical Spine CT 04/12/21 13:39 CT SCAN OF THE CERVICAL SPINE CLINICAL HISTORY: Trauma. Fall. COMPARISON STUDY: No priors. TECHNIQUE: CT scan of the cervical spine is performed from the skull base to the upper thoracic spine. Images are reviewed in the axial, sagittal, and coronal planes. IV contrast was not administered for this examination. A dose lowering technique was utilized adhering to the principles of ALARA. FINDINGS: Skeletal structures: The skeletal structures are well mineralized. There is no evidence of fracture or subluxation involving the cervical spine. Vertebral body height and alignment are maintained. Anterior osteophytes are seen throughout. The odontoid process and lateral masses are intact. The atlantoaxial articulation is preserved noting mild productive degenerative change. The spinous processes appear intact. Intervertebral discs: The disc spaces appear maintained. Central canal: Widely patent. Soft tissues: The prevertebral and paraspinous soft tissues are within normal limits. There is atherosclerotic calcification of the carotid bulbs. Calvarium: The visualized calvarium at the skull base appears intact. Brain parenchyma: Partially visualized brain parenchyma at the skull base is within normal limits. Sinuses and mastoids: The visualized paranasal sinuses are clear. The mastoid air cells are well pneumatized. Lung apices: Clear as visualized. IMPRESSION: There is no evidence of fracture or subluxation involving the cervical spine. ACT 112: Negative or not required by law. Electronically signed by: Pankaj Phillips M.D. 04/12/2021 2:[address] 04/12/21 13:39 CT SCAN OF THE BRAIN WITHOUT IV CONTRAST CLINICAL HISTORY: Syncope. Head injury. COMPARISON STUDY: CT of the brain dated 09/01/2013. TECHNIQUE: Unenhanced axial CT scan of the brain is performed from the vertex to the skull base. A dose lowering technique was utilized adhering to the principles of ALARA. CT DOSE: 3045.50 mGy.cm FINDINGS: Brain parenchyma: The brain parenchyma is normal in appearance. There is no hemorrhage, mass effect, or evidence of acute territorial ischemia by CT criteria. Brito-white matter differentiation is preserved. No extra-axial fluid collection is seen. Ventricles, sulci, cisterns: Normal in configuration. Intracranial vasculature: The visualized intracranial vasculature at the skull base is normal in appearance. Calvarium: There is no depressed calvarial fracture. Sinuses and mastoids: There is trace mucosal thickening in the right maxillary antrum. The remaining visualized paranasal sinuses are clear. The mastoid air cells are well pneumatized. Orbits: The bony orbits are grossly intact. There are bilateral ocular lens im plants. IMPRESSION: There is no hemorrhage, mass effect, or evidence of acute territorial ischemia by CT criteria. ACT 112: Negative or not required by law. Electronically signed by: Pankaj Phillips M.D. 04/12/2021 2:29 PM Abdomen/Pelvis CT 04/12/21 13:42 CT abd pelvis wo con CLINICAL HISTORY: suprapubic, RLQ pain, syncope, fall COMPARISON STUDY: 04/08/2021 CT DOSE: TECHNIQUE: Standard CT of the Abdomen and Pelvis was performed without IV contrast. The patient did not receive oral contrast. A dose lowering technique was utilized adhering to the principles of ALARA. FINDINGS: Lung base: Compared to previous examination, there is a stable small right pleural effusion. Groundglass opacities are again seen involving both lower lobes again characteristic of early Covid pneumonia. There is again mild coronary artery calcification. Abdominal cavity: There is no evidence for abdominal mass, adenopathy or ascites. Small umbilical hernia containing mesenteric fat is again seen. Liver: The liver is homogeneous in attenuation on these limited noncontrast images.. Spleen: The spleen is homogeneous in attenuation on these limited noncontrast images. Calcified granuloma are again seen. Pancreas: The pancreas is homogeneous in attenuation on these limited noncontrast images. Gall Bladder: Surgical clips are again seen. Adrenal glands: The adrenal glands are normal in size and attenuation on these limited noncontrast images. Kidneys: The kidneys are homogeneous in attenuation on these limited noncontrast images. There is no evidence for gross renal mass, calculus or hydronephrosis bilaterally. Bowel: There is a small sliding-type hiatal hernia. The stomach is now distended with liquid and food stuff. The bowel loops are normally placed within the abdomen and pelvis without evidence for dilatation or obstruction. There is no evidence for mass lesion. There are no inflammatory changes present. There is no evidence for free air. There is again a normal appendix in the right lower quadrant. Bladder: There is no evidence for focal bladder wall thickening, calculus or diverticulum. Mild diffuse thickening of bladder wall is again seen. : There is no evidence for pelvic mass or adenopathy. The prostate is again mildly enlarged. Vasculature: There is no evidence for focal aneurysmal dilatation of the abdominal aorta. Extensive atherosclerotic calcification is again seen. Osseous structures: There is no acute osseous pathology. Degenerative changes are seen within the spine. IMPRESSION: 1. Normal appendix. 2. Otherwise, no acute intra-abdominal or pelvic abnormality on these limited noncontrast images. 3. No significant interval change from the previous study of 3 days ago. 4. There is again evidence for a small right pleural effusion and early Covid pneumonia. 5. Additional nonacute findings are again delineated above. ACT 112: Negative or not required by law. Electronically signed by: Nilo Ludwig M.D. 04/12/2021 2:46 PM Chest X-Ray 04/12/21 13:43 XR chest 1V portable HISTORY: 65 years-old Male L chest pain acute left-sided chest pain COMPARISON: Chest radiograph 04/08/2021 TECHNIQUE: Portable AP view the chest FINDINGS: Cardiac silhouette is enlarged. Unchanged calcified granuloma of the left midlung. No pneumothorax or large pleural effusion. Pulmonary vascular congestion with mild interstitial coarsening. Degenerative changes of the shoulders and spine. IMPRESSION: Cardiomegaly with unchanged pulmonary vascular congestion and mild interstitial coarsening. ACT 112: Negative or not required by law. The above report was generated using voice recognition software. It may contain grammatical, syntax or spelling errors. Electronically signed by: Parth Rodgers M.D. 04/12/2021 2:01 PM Discharge Plan Visit Data Chief Complaint: Abdominal Pain Stated Complaint: AB PAIN, SYNCOPE ED Provider: Clemente Bledsoe Discharge Problem: Elevated troponin, COVID-19, Abdominal pain, Nausea & vomiting, Enteritis, Cough, Hypomagnesemia, Hypokalemia, Acute hyperglycemia Forms Stand Alone Forms: [facility] Shot Stats Prescriptions Prescriptions: No Action citalopram 20 mg tablet 20 mg PO HS Qty: 90 RF: 1 citalopram 10 mg tablet 10 mg PO HS Qty: 90 RF: 1 torsemide 20 mg tablet 40 mg PO BID Qty: 90 RF: 3 isosorbide mononitrate 60 mg tablet extended release 24 hr 60 mg PO QAM Qty: 30 RF: 5 (DME) blood-glucose meter [The [employer] Verio Flex meter] Misc See Rx Instructions .Route Qty: 1 RF: 0 atorvastatin 80 mg tablet 80 mg PO HS Qty: 90 RF: 3 cholecalciferol (vitamin D3) 1,250 mcg (50,000 unit) capsule See Rx Instructions .ROUTE .COMPLEX Qty: 12 RF: 2 levothyroxine 200 mcg tablet 200 mcg PO DAILY Qty: 30 RF: 2 metoprolol succinate 50 mg tablet extended release 24 hr 50 mg PO HS Qty: 90 RF: 3 lisinopril 10 mg tablet 10 mg PO DAILY Qty: 90 RF: 3 (DME) OneTouch Verio test strips Strip See Rx Instructions .ROUTE .MEDSUPPLY Qty: 10 RF: 0 insulin aspart U-100 [Novolog Flexpen U-100 Insulin] 100 unit/mL (3 mL) insulin pen 10 unit SQ .TIDM+SS RF: 0 aspirin 81 mg Tablet,Delayed Release (Dr/Ec) 81 mg PO 3XWK RF: 0 hydralazine 100 mg tablet 100 mg PO TID Qty: 90 RF: 5 Lantus U-100 Insulin 100 unit/mL Solution 30 unit SUBCUT HS RF: 0 albuterol sulfate 90 mcg/actuation HFA aerosol inhaler 2 inha INH Q6H PRN (Reason: shortness of breath or wheezing) Qty: 1 RF: 0 benzonatate 200 mg capsule 200 mg PO TID PRN (Reason: cough) Qty: 30 RF: 0 ondansetron 4 mg tablet,disintegrating 4 mg PO Q6H PRN (Reason: nausea and vomiting) Qty: 12 RF: 0 Referrals Referrals: Jeffrey Tripp MD [Primary Care Provider] -
[2021-04-12] MEDS ORDERED: MoRPHine SULFATE 4 MG/ML 1 ML CARP\\VIAL IV STA (13:39)
[2021-04-12] MEDS ORDERED: ACETAMINOPHEN 500 MG TAB PO STA (13:39)
[2021-04-12] MEDS ORDERED: SODIUM CHLORIDE 0.9% 500 ML IV SCH (13:45)
--- NOTE | 2021-04-12 14:02 | XRay Report ---
XR chest 1V portable HISTORY: 65 years-old Male L chest pain acute left-sided chest pain COMPARISON: Chest radiograph 04/08/2021 TECHNIQUE: Portable AP view the chest FINDINGS: Cardiac silhouette is enlarged. Unchanged calcified granuloma of the left midlung. No pneumothorax or large pleural effusion. Pulmonary vascular congestion with mild interstitial coarsening. Degenerativ e changes of the shoulders and spine. IMPRESSION: Cardiomegaly with unchanged pulmonary vascular congestion and mild interstitial coarsenin g. ACT 112: Negative or not required by law. The above report was generated using voice recognition software. It may contain grammatical, syntax o r spelling errors. Electronically signed by: Parth Rodgers M.D. 04/12/2021 2:01 PM
[2021-04-12] MEDS ORDERED: ONDANSETRON INJ 2 MG/ML 2 ML VIAL ONE (14:13)
[2021-04-12] MEDS ORDERED: ONDANSETRON INJ 2 MG/ML 2 ML VIAL IV STA (14:16)
[2021-04-12 14:29] LABS: Basophils # (auto) 0.01 K/uL (0-0.2); Basophils % (auto) 0.1 %; Eosinophils # (auto) 0.03 K/uL (0-0.5); Eosinophils % (auto) 0.4 %; Hematocrit (blood only) 39.8 % (42-52); Hemoglobin 13.3 g/dL (14.0-18.0); Immature Granulocytes # (auto) 0.04 K/uL (0.00-0.02); Immature Granulocytes % (auto) 0.5 %; Lymphocytes # (auto) 1.12 K/uL (1.2-3.4); Lymphocytes % (auto) 14.5 %; Mean Corpuscular Hemoglobin 29.4 pg (25-34); Mean Corpuscular Hgb Conc 33.4 g/dL (32-36); Mean Corpuscular Volume 87.9 fL (80-100); Mean Platelet Volume 10.3 fL (7.4-10.4); Monocytes # (auto) 0.72 K/uL (0.11-0.59); Monocytes % (auto) 9.3 %; Neutrophils % (auto) 75.2 %; Platelet Count 205 K/uL (130-400); RDW Coefficient of Variation 14.1 % (11.5-14.5); RDW Standard Deviation 45.9 fL (36.4-46.3); Red Blood Count 4.53 M/uL (4.7-6.1); White Blood Count 7.72 K/uL (4.8-10.8)
--- NOTE | 2021-04-12 14:31 | CT Scan Report ---
CT SCAN OF THE BRAIN WITHOUT IV CONTRAST CLINICAL HISTORY: Syncope. Head injury. COMPARISON STUDY: CT of the brain dated 09/01/2013. TECHNIQUE: Unenhanced axial CT scan of the brain is performed from the vertex to the skull base. A d ose lowering technique was utilized adhering to the principles of ALARA. CT DOSE: 3045.50 mGy.cm FINDINGS: Brain parenchyma: The brain parenchyma is normal in appearance. There is no hemorrhage, mass effect, or evidence of acute territorial ischemia by CT criteria. Brito-white matter differentiation is preser carroll. No extra-axial fluid collection is seen. Ventricles, sulci, cisterns: Normal in configuration. Intracranial vasculature: The visualized intracranial vasculature at the skull base is normal in appe arance. Calvarium: There is no depressed calvarial fracture. Sinuses and mastoids: There is trace mucosal thickening in the right maxillary antrum. The remaining visualized paranasal sinuses are clear. The mastoid air cells are well pneumatized. Orbits: The bony orbits are grossly intact. There are bilateral ocular lens implants. IMPRESSION: There is no hemorrhage, mass effect, or evidence of acute territorial ischemia by CT zelda mojica. ACT 112: Negative or not required by law. Electronically signed by: Pankaj Phillips M.D. 04/12/2021 2:29 PM
--- NOTE | 2021-04-12 14:41 | CT Scan Report ---
CT SCAN OF THE CERVICAL SPINE CLINICAL HISTORY: Trauma. Fall. COMPARISON STUDY: No priors. TECHNIQUE: CT scan of the cervical spine is performed from the skull base to the upper thoracic spine . Images are reviewed in the axial, sagittal, and coronal planes. IV contrast was not administered fo r this examination. A dose lowering technique was utilized adhering to the principles of ALARA. FINDINGS: Skeletal structures: The skeletal structures are well mineralized. There is no evidence of fracture o r subluxation involving the cervical spine. Vertebral body height and alignment are maintained. Anter ior osteophytes are seen throughout. The odontoid process and lateral masses are intact. The atlantoa xial articulation is preserved noting mild productive degenerative change. The spinous processes appe ar intact. Intervertebral discs: The disc spaces appear maintained. Central canal: Widely patent. Soft tissues: The prevertebral and paraspinous soft tissues are within normal limits. There is athero sclerotic calcification of the carotid bulbs. Calvarium: The visualized calvarium at the skull base appears intact. Brain parenchyma: Partially visualized brain parenchyma at the skull base is within normal limits. Sinuses and mastoids: The visualized paranasal sinuses are clear. The mastoid air cells are well pneu matized. Lung apices: Clear as visualized. IMPRESSION: There is no evidence of fracture or subluxation involving the cervical spine. ACT 112: Negative or not required by law. Electronically signed by: Pankaj Phillips M.D. 04/12/2021 2:40 PM
--- NOTE | 2021-04-12 14:48 | CT Scan Report ---
CT abd pelvis wo con CLINICAL HISTORY: suprapubic, RLQ pain, syncope, fall COMPARISON STUDY: 04/08/2021 CT DOSE: TECHNIQUE: Standard CT of the Abdomen and Pelvis was performed without IV contrast. The patient did not receive oral contrast. A dose lowering technique was utilized adhering to the principles of JANUARY Dixon. FINDINGS: Lung base: Compared to previous examination, there is a stable small right pleural effusion. Groundg lass opacities are again seen involving both lower lobes again characteristic of early Covid pneumoni a. There is again mild coronary artery calcification. Abdominal cavity: There is no evidence for abdominal mass, adenopathy or ascites. Small umbilical her nando containing mesenteric fat is again seen. Liver: The liver is homogeneous in attenuation on these limited noncontrast images.. Spleen: The spleen is homogeneous in attenuation on these limited noncontrast images. Calcified granu harriett are again seen. Pancreas: The pancreas is homogeneous in attenuation on these limited noncontrast images. Gall Bladder: Surgical clips are again seen. Adrenal glands: The adrenal glands are normal in size and attenuation on these limited noncontrast im ages. Kidneys: The kidneys are homogeneous in attenuation on these limited noncontrast images. There is no evidence for gross renal mass, calculus or hydronephrosis bilaterally. Bowel: There is a small sliding-type hiatal hernia. The stomach is now distended with liquid and food stuff. The bowel loops are normally placed within the abdomen and pelvis without evidence for dilata tion or obstruction. There is no evidence for mass lesion. There are no inflammatory changes present. There is no evidence for free air. There is again a normal appendix in the right lower quadrant. Bladder: There is no evidence for focal bladder wall thickening, calculus or diverticulum. Mild diffu se thickening of bladder wall is again seen. : There is no evidence for pelvic mass or adenopathy. The prostate is again mildly enlarged. Vasculature: There is no evidence for focal aneurysmal dilatation of the abdominal aorta. Extensive a therosclerotic calcification is again seen. Osseous structures: There is no acute osseous pathology. Degenerative changes are seen within the spi ne. IMPRESSION: 1. Normal appendix. 2. Otherwise, no acute intra-abdominal or pelvic abnormality on these limited noncontrast images. 3. No significant interval change from the previous study of 3 days ago. 4. There is again evidence for a small right pleural effusion and early Covid pneumonia. 5. Additional nonacute findings are again delineated above. ACT 112: Negative or not required by law. Electronically signed by: Nilo Ludwig M.D. 04/12/2021 2:46 PM
[2021-04-12 15:00] LABS: Albumin Globulin Ratio 0.6 (0.9-2); Albumin Level 2.4 gm/dl (3.4-5.0); BUN Creatinine Ratio 8.9 (10-20); Bilirubin,Total 0.3 mg/dl (0.2-1.0); Calcium 7.8 mg/dl (8.5-10.1); Creatinine Clr Calc Pharmacy 47.8 ml/min; Est GFR (African American) 34.9 ml/min; Est GFR (Non-African American) 30.1 ml/min; Magnesium 1.6 mg/dl (1.7-2.4); Potassium 3.3 mmol/L (3.5-5.1); Total Protein 6.4 gm/dl (6.0-8.3)
[2021-04-12 15:07] LABS: Thyroid Stimulating Hormone 5.211 uIu/ml (0.300-4.500)
[2021-04-12 15:19] LABS: Troponin I 0.07 ng/ml (0-0.04)
[2021-04-12] MEDS ORDERED: CALCIUM GLUCONATE 1,000 MG/60 ML BAG IV STA (15:24)
[2021-04-12] MEDS ORDERED: MAGNESIUM SULFATE / D5W 1 GM/100 ML BAG IV STA (15:24)
[2021-04-12 15:40] LABS: T4 Free Thyroxine 1.13 ng/dl (0.61-1.60)
[2021-04-12] MEDS ORDERED: ASPIRIN CHEW 324 MG PO STA (15:46)
[2021-04-12] MEDS ORDERED: Heparin IV Adult Wt-Based Low-Dose *NO* Bolus Protocol ONE (15:46)
--- NOTE | 2021-04-12 16:35 | History & Physical Report ---
Date of Service April 12, 2021 Assessment & Plan (1) COVID-19: Plan: Patient does not require oxygen at this time, no indication for dexamethasone or remdesivir - Airborne isolation (2) Abdominal pain: Plan: Likely secondary to enteritis -Lipase pending (3) Nausea & vomiting: Plan: Zofran 4 mg IV every 6 hours as needed for nausea and vomiting (4) Acute kidney injury: Plan: Gentle hydration -Normosol at 80 mils per hour - Will be receiving additional fluid with heparin Trend BMP (5) Chronic kidney disease, stage 3a: (6) Nephrotic syndrome: (7) Venous (peripheral) insufficiency: (8) Syncope and collapse: Plan: Likely secondary to dehydration (9) Hypothyroidism: Plan: Continue Synthroid (10) CAD (coronary artery disease): Plan: Continue daily aspirin (11) TORI on CPAP: Plan: Patient may use own CPAP (12) Elevated troponin: Plan: Heparin infusion, low intensity without bolus -Considered increased risk for thrombotic complications secondary to Covid pneumonia, with MADIHA and poor renal clearance I feel Heparin infusion with the elevated troponins is the best medication at this time - Consideration given to delayed hemorrhage secondary to fall and striking head, CT was normal I think benefits outweigh the risk. (13) HTN (hypertension): Plan: Holding antihypertensives: -100 mg hydralazine 3 times daily -Lisinopril 10 mg daily - Holding in setting of MADIHA -Torsemide 40 mg Twice daily (14) Diabetes mellitus, type 2: Plan: Sliding scale insulin with correction factor of 30 Goal blood sugars 1 40-2 10 -Normally on Lantus 30 mg daily converted to 20 twice daily for coverage hyperglycemia (15) Coarse tremors: (16) Hypomagnesemia: Plan: Relative hypomagnesemia 1 g given IV in ED (17) Hypokalemia: Plan: 40 M EQ x1 in the ED History of Present Illness Chief Complaint: Illness Primary Care Provider: Jeffrey Tripp MD Patient is a 65-year-old male with a significant past medical history of diabetes,Nephrotic syndrome with Chronic kidney disease stage IIIa, diabetic foot ulcers,Venous insufficiency, chronic venous stasis, CHF, hypothyroidism, coronary artery disease,Hypertension, dyslipidemia,Peripheral arterial disease who presents withA 2-week history of generalized illness that is proceeded to get worse in symptoms. Approximately 2 weeks ago his and the patient had upper respiratory symptoms and he was diagnosed with COVID-19 infection after being seen at a [facility].DiarrheaSince then he has been generally weak and over the last several days he has had lower crampy abdominal pain and vomiting, unable to keep fluids down.He has shortness of breath when he is up and exerting himself, he is also had some left-sided chest pain that is worse with the exertion.He has not had this happen before. The chest pain is without radiation.The diarrhea is associated with pelvic cramping, there is no blood in the stool. Today he was sitting on the commode and stood up was wiping and became very lightheaded and fell striking his head in the tub. There was no loss of consciousness. He has a mild persistent headache where he struck his head.Denies double vision. He is unvaccinated against COVID-19. Allergies Allergy/AdvReac Type Severity Reaction Status Date / Time bee venom protein (honey bee) Allergy Severe Anaphylaxis Verified 04/08/21 02:36 egg AdvReac Intermediate Gastrointestinal Verified 04/08/21 02:36 Upset iodine AdvReac Mild FLUSHED Verified 04/08/21 02:36 FEELING/sick to stomach Egg or Chicken-derived Drugs Allergy Intermediate Gastrointestinal Uncoded 04/08/21 02:36 Upset Home Medications Medication Instructions Recorded Confirmed Type aspirin 81 mg tablet,delayed 81 mg PO 3XWK 12/10/17 04/12/21 History release hydralazine 100 mg tablet 100 mg PO TID #90 tab 09/05/20 04/12/21 Rx metoprolol succinate 50 mg 50 mg PO HS #90 tab 09/11/20 04/12/21 Rx tablet,extended release 24 hr blood sugar diagnostic (OneTouch #10 ea 09/27/20 04/12/21 History Verio test strips) insulin aspart U-100 100 unit/mL 10 unit SQ .TIDM+SS ml 09/27/20 04/12/21 History (3 mL) subcutaneous pen (Novolog Flexpen U-100 Insulin aspart) citalopram 10 mg tablet 10 mg PO HS #90 tab 11/26/20 04/12/21 Rx citalopram 20 mg tablet 20 mg PO HS #90 tab 11/26/20 04/12/21 Rx torsemide 20 mg tablet 40 mg PO BID #90 tab 12/11/20 04/12/21 Rx isosorbide mononitrate 60 mg 60 mg PO QAM #30 tab 03/14/21 04/12/21 Rx tablet,extended release 24 hr lisinopril 10 mg tablet 10 mg PO DAILY #90 tab 03/14/21 04/12/21 Rx atorvastatin 80 mg tablet 80 mg PO HS #90 tab 03/28/21 04/12/21 Rx blood-glucose meter (OneTouch #1 ea 03/28/21 04/12/21 Rx Verio Flex meter) cholecalciferol (vitamin D3) 1,250 See Rx Instructions .ROUTE 03/28/21 04/12/21 Rx mcg (50,000 unit) capsule .COMPLEX #12 cap levothyroxine 200 mcg tablet 200 mcg PO DAILY #30 tab 03/28/21 04/12/21 Rx albuterol sulfate 90 mcg/actuation 2 inha INH Q6H PRN #1 inhaler 04/08/21 04/12/21 Rx aerosol inhaler benzonatate 200 mg capsule 200 mg PO TID PRN #30 cap 04/08/21 04/12/21 Rx insulin glargine 100 unit/mL 30 unit SUBCUT HS 04/08/21 04/12/21 History subcutaneous solution (Lantus U-100 Insulin) ondansetron 4 mg disintegrating 4 mg PO Q6H PRN #12 tab 04/08/21 04/12/21 Rx tablet Past Med/Surg History Medical History Acute kidney injury Acute kidney injury Acute on chronic diastolic heart failure Chest pain (09/01/13) CHF (congestive heart failure) Chronic kidney disease, stage 3a Depression Diabetic nephropathy associated with type 2 diabetes mellitus Diabetic peripheral neuropathy associated with type 2 diabetes mellitus Gangrene of toe of left foot History of Holter monitoring 09/2019 DR ROSENBERG HTN (hypertension) Hyperkalemia Hypothyroidism Kidney stones Migraine Morbid obesity with BMI of 40.0-44.9, adult Myocardial Infarction ? mild in 1995 per doc in [facility] but patient reports negative cardiac cath Nephrotic syndrome Peripheral arterial disease S/P hernia repair Sleep apnea cpap SOB (shortness of breath) on exertion OUT OF SHAPE Vitamin D deficiency Surgical History H/O umbilical hernia repair History of bilateral cataract extraction History of cardiac cath x2--1995 @ [facility], no stents [address] Langford's record History of colonoscopy History of cystoscopy History of esophagogastroduodenoscopy (EGD) History of hernia repair History of tooth extraction S/P cholecystectomy Family History Father Muscular dystrophy Mother Breast cancer Cancer hx of Leukemia and a month ago Brother Parkinson disease Denies family history of Ovarian cancer Prostate cancer No family history of adverse response to anesthesia Myocardial infarction Colorectal cancer Social History Smoking Status: Former smoker Tobacco Type: Smokeless Tobacco (Dip or Chew) Second Hand Exposure: No; Hx Alcohol Use: No Hx Substance Use: No Preferred Language: Estonian Communication Ability: Effective Visual Impairment: No Limitations Hearing Ability: Normal Infusion Nurse Required: No Beliefs That Will Affect Care: None marital status: Current Living Situation: Spouse Current Living Situation Comment: lives with current occupational status: retired Feels Safe at Home: Yes Dental Care, Regularly: Yes Physical Activity Frequency: Does not Exercise Seatbelt Use: always Assistive Devices: None Review of Systems Review of Systems: As per the HPI otherwise a 10 point review of systems has been reviewed and is negative Physical Exam Physical Exam: General: Alert. Skin: Warm, dry, Mild tenting of skin Head: Atraumatic Ears, nose, mouth and throat: airway patent Cardiovascular: Normal peripheral perfusion , S1-S2 Respiratory: no respiratory distress,No egophony Gastrointestinal: Non distended , No hepatosplenomegaly, No guarding no rebound nonsurgical abdomen Musculoskeletal: No deformity Results & Data Results & Data ([facility]) Vital Signs (Past 12 Hours) Vital Signs Temp Pulse Pulse Resp BP BP Pulse Ox 04/12/21 14:28 74 17 143/68 H 94 04/12/21 13:23 36.4 C L 79 20 162/72 H 94 Critical Care Results & Data Vital Signs (Past 12 Hours) Vital Signs Temp Pulse Pulse Resp BP BP Pulse Ox 04/12/21 14:28 74 17 143/68 H 94 04/12/21 13:23 36.4 C L 79 20 162/72 H 94 Lab & Micro Results (Past 24 Hours) RBC 4.53 M/uL (4.7-6.1) L 04/12/21 WBC 7.72 K/uL (4.8-10.8) 04/12/21 Hgb 13.3 g/dL (14.0-18.0) L 04/12/21 Hct 39.8 % (42-52) L 04/12/21 MCV 87.9 fL (80-100) 04/12/21 MCH 29.4 pg (25-34) 04/12/21 MCHC 33.4 g/dL (32-36) 04/12/21 RDW Standard Deviation 45.9 fL (36.4-46.3) 04/12/21 RDW Coefficient of Variation 14.1 % (11.5-14.5) 04/12/21 Plt Count 205 K/uL (130-400) 04/12/21 MPV 10.3 fL (7.4-10.4) 04/12/21 Neutrophils (%) (Auto) 75.2 % 04/12/21 Lymphocytes (%) (Auto) 14.5 % 04/12/21 Monocytes # (Auto) 0.72 K/uL (0.11-0.59) H 04/12/21 Eosinophils # (Auto) 0.03 K/uL (0-0.5) 04/12/21 Immature Granulocyte % (Auto) 0.5 % 04/12/21 Neutrophils # (Auto) 5.80 K/uL (1.4-6.5) 04/12/21 Lymphocytes # (Auto) 1.12 K/uL (1.2-3.4) L 04/12/21 Monocytes # (Auto) 0.72 K/uL (0.11-0.59) H 04/12/21 Eosinophils # (Auto) 0.03 K/uL (0-0.5) 04/12/21 Basophils # (Auto) 0.01 K/uL (0-0.2) 04/12/21 Immature Granulocyte # (Auto) 0.04 K/uL (0.00-0.02) H 04/12/21 Na 141 mmol/L (136-145) 04/12/21 K 3.3 mmol/L (3.5-5.1) L 04/12/21 Cl 108 mmol/L (98-107) H 04/12/21 CO2 22 mmol/L (21-32) 04/12/21 Anion Gap 11 (3-11) 04/12/21 BUN 20 mg/dl (6-23) 04/12/21 Creatinine 2.24 mg/dl (0.6-1.4) H 04/12/21 Estimated GFR ( Amer) 34.9 ml/min 04/12/21 Estimated GFR (Non-Af Amer) 30.1 ml/min 04/12/21 BUN/Creatinine Ratio 8.9 (10-20) L 04/12/21 Glu 306 mg/dl (70-99(Fasting)) H* 04/12/21 Ca 7.8 mg/dl (8.5-10.1) L 04/12/21 Total Bilirubin 0.3 mg/dl (0.2-1.0) 04/12/21 AST 38 U/L (13-39) 04/12/21 ALT 36 U/L (7-52) 04/12/21 Alkaline Phosphatase 131 U/L (34-104) H 04/12/21 TP 6.4 gm/dl (6.0-8.3) 04/12/21 Albumin 2.4 gm/dl (3.4-5.0) L 04/12/21 Globulin 4.0 gm/dl (2.5-4.0) 04/12/21 Albumin/Globulin Ratio 0.6 (0.9-2) L 04/12/21 Mg 1.6 mg/dl (1.7-2.4) L 04/12/21 13:28 04/12/21 Calcium Level 7.8 mg/dl (8.5-10.1) L 04/12/21 13:28 04/12/21 Diagnostic Findings (Past 24 Hours) Cervical Spine CT 04/12/21 13:39 CT SCAN OF THE CERVICAL SPINE CLINICAL HISTORY: Trauma. Fall. COMPARISON STUDY: No priors. TECHNIQUE: CT scan of the cervical spine is performed from the skull base to the upper thoracic spine. Images are reviewed in the axial, sagittal, and coronal planes. IV contrast was not administered for this examination. A dose lowering technique was utilized adhering to the principles of ALARA. FINDINGS: Skeletal structures: The skeletal structures are well mineralized. There is no evidence of fracture or subluxation involving the cervical spine. Vertebral body height and alignment are maintained. Anterior osteophytes are seen throughout. The odontoid process and lateral masses are intact. The atlantoaxial articulation is preserved noting mild productive degenerative change. The spinous processes appear intact. Intervertebral discs: The disc spaces appear maintained. Central canal: Widely patent. Soft tissues: The prevertebral and paraspinous soft tissues are within normal limits. There is atherosclerotic calcification of the carotid bulbs. Calvarium: The visualized calvarium at the skull base appears intact. Brain parenchyma: Partially visualized brain parenchyma at the skull base is within normal limits. Sinuses and mastoids: The visualized paranasal sinuses are clear. The mastoid air cells are well pneumatized. Lung apices: Clear as visualized. IMPRESSION: There is no evidence of fracture or subluxation involving the cervical spine. ACT 112: Negative or not required by law. Electronically signed by: Pankaj Phillips M.D. 04/12/2021 2:[address] 04/12/21 13:39 CT SCAN OF THE BRAIN WITHOUT IV CONTRAST CLINICAL HISTORY: Syncope. Head injury. COMPARISON STUDY: CT of the brain dated 09/01/2013. TECHNIQUE: Unenhanced axial CT scan of the brain is performed from the vertex to the skull base. A dose lowering technique was utilized adhering to the principles of ALARA. CT DOSE: 3045.50 mGy.cm FINDINGS: Brain parenchyma: The brain parenchyma is normal in appearance. There is no hemorrhage, mass effect, or evidence of acute territorial ischemia by CT criteria. Brito-white matter differentiation is preserved. No extra-axial fluid collection is seen. Ventricles, sulci, cisterns: Normal in configuration. Intracranial vasculature: The visualized intracranial vasculature at the skull base is normal in appearance. Calvarium: There is no depressed calvarial fracture. Sinuses and mastoids: There is trace mucosal thickening in the right maxillary antrum. The remaining visualized paranasal sinuses are clear. The mastoid air cells are well pneumatized. Orbits: The bony orbits are grossly intact. There are bilateral ocular lens implants. IMPRESSION: There is no hemorrhage, mass effect, or evidence of acute territorial ischemia by CT criteria. ACT 112: Negative or not required by law. Electronically signed by: Pankaj Phillips M.D. 04/12/2021 2:29 PM Abdomen/Pelvis CT 04/12/21 13:42 CT abd pelvis wo con CLINICAL HISTORY: suprapubic, RLQ pain, syncope, fall COMPARISON STUDY: 04/08/2021 CT DOSE: TECHNIQUE: Standard CT of the Abdomen and Pelvis was performed without IV contrast. The patient did not receive oral contrast. A dose lowering technique was utilized adhering to the principles of ALARA. FINDINGS: Lung base: Compared to previous examination, there is a stable small right pleural effusion. Groundglass opacities are again seen involving both lower lobes again characteristic of early Covid pneumonia. There is again mild coronary artery calcification. Abdominal cavity: There is no evidence for abdominal mass, adenopathy or ascites. Small umbilical hernia containing mesenteric fat is again seen. Liver: The liver is homogeneous in attenuation on these limited noncontrast images.. Spleen: The spleen is homogeneous in attenuation on these limited noncontrast images. Calcified granuloma are again seen. Pancreas: The pancreas is homogeneous in attenuation on these limited noncontrast images. Gall Bladder: Surgical clips are again seen. Adrenal glands: The adrenal glands are normal in size and attenuation on these limited noncontrast images. Kidneys: The kidneys are homogeneous in attenuation on these limited noncontrast images. There is no evidence for gross renal mass, calculus or hydronephrosis bilaterally. Bowel: There is a small sliding-type hiatal hernia. The stomach is now distended with liquid and food stuff. The bowel loops are normally placed within the abdomen and pelvis without evidence for dilatation or obstruction. There is no evidence for mass lesion. There are no inflammatory changes present. There is no evidence for free air. There is again a normal appendix in the right lower quadrant. Bladder: There is no evidence for focal bladder wall thickening, calculus or diverticulum. Mild diffuse thickening of bladder wall is again seen. : There is no evidence for pelvic mass or adenopathy. The prostate is again mildly enlarged. Vasculature: There is no evidence for focal aneurysmal dilatation of the abdominal aorta. Extensive atherosclerotic calcification is again seen. Osseous structures: There is no acute osseous pathology. Degenerative changes are seen within the spine. IMPRESSION: 1. Normal appendix. 2. Otherwise, no acute intra-abdominal or pelvic abnormality on these limited noncontrast images. 3. No significant interval change from the previous study of 3 days ago. 4. There is again evidence for a small right pleural effusion and early Covid pneumonia. 5. Additional nonacute findings are again delineated above. ACT 112: Negative or not required by law. Electronically signed by: Nilo Ludwig M.D. 04/12/2021 2:46 PM Chest X-Ray 04/12/21 13:43 XR chest 1V portable HISTORY: 65 years-old Male L chest pain acute left-sided chest pain COMPARISON: Chest radiograph 04/08/2021 TECHNIQUE: Portable AP view the chest FINDINGS: Cardiac silhouette is enlarged. Unchanged calcified granuloma of the left midlung. No pneumothorax or large pleural effusion. Pulmonary vascular congestion with mild interstitial coarsening. Degenerative changes of the shoulders and spine. IMPRESSION: Cardiomegaly with unchanged pulmonary vascular congestion and mild interstitial coarsening. ACT 112: Negative or not required by law. The above report was generated using voice recognition software. It may contain grammatical, syntax or spelling errors. Electronically signed by: Parth Rodgers M.D. 04/12/2021 2:01 PM I & O Totals 24 Hours 04/11/21 04/12/21 04/13/21 06:59 06:59 06:59 Intake Total 500 / 500 Balance 500 / 500 Cumulative 04/12/21 12:08 thru 04/12/21 14:54 Intake Total 500 Balance 500 RT Ventilator Mngmt (Last Documented) Ventilator Ordered Settings Respiratory Rate 17 04/12/21 14:28 Ventilator - PT Measurements Respiratory Rate 17 Code Status & VTE Plan Code Status We discussed CODE STATUS he was on the fence whether he wanted to undergo heroic measures in the face of significant uncertainty we will readdress in the future however at this time he is full code PG Care Time/CCT Total # of Minutes Spent Total Time Spent with Patient: Total time spent is greater than 50% in coordination of care (as documented) at patient's floor/unit and/or counseling patient: Coding Level of Care Code 64508 Initial Inpt Care Lvl 3 Diagnoses COVID-19 U07.1 Abdominal pain R10.31 Abdominal location: right lower quadrant Nausea & vomiting R11.2 Vomiting type: unspecified Nephrotic syndrome N04.9 Chronic kidney disease, stage 3a N18.31 Acute kidney injury N17.9 Venous (peripheral) insufficiency I87.2 Syncope and collapse R55 Hypothyroidism E03.9 Hypothyroidism type: unspecified CAD (coronary artery disease) I25.10 Coronary Disease-Associated Artery/Lesion type: [place] artery [place] vs. transplanted heart: [place] heart Associated angina: without angina TORI on CPAP G47.33; Z99.89 HTN (hypertension) I10 Hypertension type: primary hypertension Diabetes mellitus, type 2 E11.9 Diabetes mellitus skilled nursing insulin use: unspecified skilled nursing insulin use status Diabetes mellitus complication status: without complication Coarse tremors G25.2 Elevated troponin R77.8 Hypomagnesemia E83.42 Hypokalemia E87.6 (1) Abdominal pain Abdominal location: right lower quadrant Qualified Code(s): R10.31 - Right lower quadrant pain (2) Nausea & vomiting Vomiting type: unspecified Qualified Code(s): R11.2 - Nausea with vomiting, unspecified (3) Hypothyroidism Hypothyroidism type: unspecified Qualified Code(s): E03.9 - Hypothyroidism, unspecified (4) CAD (coronary artery disease) Coronary Disease-Associated Artery/Lesion type: [place] artery [place] vs. transplanted heart: [place] heart Associated angina: without angina Qualified Code(s): I25.10 - Atherosclerotic heart disease of [place] coronary artery without angina pectoris (5) HTN (hypertension) Hypertension type: primary hypertension Qualified Code(s): I10 - Essential (primary) hypertension (6) Diabetes mellitus, type 2 Diabetes mellitus skilled nursing insulin use: unspecified roasterman insulin use status Diabetes mellitus complication status: without complication Qualified Code(s): E11.9 - Type 2 diabetes mellitus without complications
[2021-04-12] MEDS: HEPARIN SODIUM/DEXTROSE 25,000 UNITS/500 ML BAG IV SCH (16:42)
[2021-04-12 17:02] LABS: Partial Thromboplastin Ratio 1.1; Partial Thromboplastin Time 28.2 Seconds (21.0-31.0); Prothrombin Time 10.4 Seconds (9.0-12.0)
--- NOTE | 2021-04-12 17:11 | Electrocardiogram Report ---
Test Reason : Blood Pressure : / mmHG Vent. Rate : 080 BPM Atrial Rate : 079 BPM P-R Int : 000 ms QRS Dur : 100 ms QT Int : 400 ms P-R-T Axes : 000 018 -18 degrees QTc Int : 462 ms Poor data quality, interpretation may be adversely affected Sinus rhythm Abnormal ECG When compared with ECG of 08-APR-2021 01:03, Inverted T waves have replaced nonspecific T wave abnormality in Inferior leads Confirmed by Jerod Elizabeth ([id number]) on 04/12/2021 5:11:14 PM Referred By: Confirmed By:Jerod Elizabeth
[2021-04-12] MEDS ORDERED: POTASSIUM CHLORIDE CRTAB 20 MEQ TABCR PO STA (17:12)
[2021-04-12] MEDS ORDERED: METOCLOPRAMIDE HCL INJ 5 MG/ML 2 ML VIAL IV ONE (17:22)
[2021-04-12 18:29] LABS: Appearance Urine Clear (Clear); Bacteria Urine Automated Negative (Negative); Bilirubin Urine Negative (Negative); Blood Urine 1+ (Negative); Color Urine Yellow; Epithelial Cell Urine Auto >30 /lpf (0-5); Glucose Urine UA 3+ (Negative); Ketones Urine Trace (Negative); Leukocyte Esterase Urine Negative (Negative); Nitrite Urine Negative (Negative); Protein Urine 4+ (Negative); RBC Urine Automated 0-4 /hpf (0-4); Specific Gravity Urine 1.033 (1.000-1.030); Urobilinogen Urine Negative (Negative); pH Urine 6.5 (4.5-7.5)
[2021-04-12 18:49] LABS: Renal Epithelial Cells Urine 0-5 /lpf (0-5)
[2021-04-12] MEDS ORDERED: DEXTROSE 50% 50 ML SYRINGE IV PRN (19:09)
[2021-04-12] MEDS ORDERED: BENZONATATE 100 MG CAPSULE PO PRN (19:09)
[2021-04-12] MEDS ORDERED: GLUCAGON FOR INJ 1 MG VIAL SQ PRN (19:09)
[2021-04-12] MEDS ORDERED: ALBUTEROL HFA 8 GM INHALER INH PRN (19:09)
[2021-04-12] MEDS ORDERED: NITROGLYCERIN SL 0.4 MG/TAB TAB SL PRN (19:09)
[2021-04-12] MEDS ORDERED: CARBOHYDRATES FOR HYPOGLYCEMIA PO PRN (19:09)
[2021-04-12] MEDS ORDERED: GLUCOSE 10 TABS/TUBE PO PRN (19:09)
[2021-04-12] MEDS ORDERED: GLUCOSE 40% GEL 15 GM TUBE PO PRN (19:09)
[2021-04-12] MEDS ORDERED: ALUMINUM/MAGNESIUM SUSP 30 ML UDC PO PRN (19:09)
[2021-04-12] MEDS ORDERED: LANTUS PER UNIT CHARGE SQ SCH (21:00)
[2021-04-12] MEDS ORDERED: ATORVASTATIN 40 MG TAB PO SCH (21:00)
[2021-04-12] MEDS: ONDANSETRON INJ 2 MG/ML 2 ML VIAL IV PRN (21:29)
[2021-04-12] MEDS: ACETAMINOPHEN 325 MG TAB PO PRN (21:29)
[2021-04-12] MEDS: NORMOSOL-R 1,000 ML IV SCH (21:36)
[2021-04-12] MEDS: METOPROLOL SUCC 50MG EXT REL TAB PO SCH (21:40)
[2021-04-12] MEDS: CITALOPRAM 20 MG TAB PO SCH ×2 (21:42→21:43)
[2021-04-12] MEDS: INSULIN GLARGINE SOLOSTAR 100 UNITS/ML 3 ML PEN SC SCH (21:43)
[2021-04-12] MEDS: INSULIN ASPART PER UNIT SC SCH (21:44)
[2021-04-12 23:42] LABS: INR 1.1 (0.9-1.1); Prothrombin Time 10.9 Seconds (9.0-12.0)
[2021-04-13 00:38] LABS: Partial Thromboplastin Ratio 1.6
[2021-04-13] MEDS: ONDANSETRON INJ 2 MG/ML 2 ML VIAL IV PRN (03:05)
[2021-04-13] MEDS: ACETAMINOPHEN 325 MG TAB PO PRN (04:24)
[2021-04-13 07:11] LABS: Basophils # (auto) 0.01 K/uL (0-0.2); Basophils % (auto) 0.1 %; Eosinophils % (auto) 1.4 %; Hemoglobin 11.2 g/dL (14.0-18.0); Immature Granulocytes # (auto) 0.02 K/uL (0.00-0.02); Immature Granulocytes % (auto) 0.3 %; Lymphocytes # (auto) 2.07 K/uL (1.2-3.4); Lymphocytes % (auto) 28.3 %; Mean Corpuscular Hemoglobin 29.1 pg (25-34); Mean Corpuscular Hgb Conc 32.9 g/dL (32-36); Mean Corpuscular Volume 88.3 fL (80-100); Mean Platelet Volume 10.1 fL (7.4-10.4); Monocytes # (auto) 0.65 K/uL (0.11-0.59); Monocytes % (auto) 8.9 %; Neutrophils # (auto) 4.46 K/uL (1.4-6.5); Platelet Count 195 K/uL (130-400); RDW Coefficient of Variation 14.4 % (11.5-14.5); RDW Standard Deviation 46.7 fL (36.4-46.3); Red Blood Count 3.85 M/uL (4.7-6.1); White Blood Count 7.31 K/uL (4.8-10.8)
[2021-04-13 07:40] LABS: Bilirubin Direct 0.1 mg/dl (0-0.2); Bilirubin,Total 0.3 mg/dl (0.2-1.0); Calcium 7.3 mg/dl (8.5-10.1); Creatinine Clr Calc Pharmacy 48.3 ml/min; Est GFR (African American) 35.4 ml/min; Est GFR (Non-African American) 30.6 ml/min; Magnesium 1.9 mg/dl (1.7-2.4); Phosphorus 3.3 mg/dl (2.5-4.9); Total Protein 5.3 gm/dl (6.0-8.3)
[2021-04-13 07:52] LABS: Partial Thromboplastin Ratio 1.5; Partial Thromboplastin Time 40.5 Seconds (21.0-31.0)
[2021-04-13 08:37] LABS: Estimated Average Glucose 229 mg/dl; Hemoglobin A1C 9.6 % (4.5-5.6)
[2021-04-13] MEDS ORDERED: PROMETHAZINE HCL 12.5 MG in SODIUM CHLORIDE 0.9% 50 ML IV PRN (08:43)
[2021-04-13] MEDS: INSULIN ASPART PER UNIT SC SCH ×4 (08:46→20:54)
--- NOTE | 2021-04-13 09:34 | Electrocardiogram Report ---
Test Reason : Blood Pressure : / mmHG Vent. Rate : 079 BPM Atrial Rate : 340 BPM P-R Int : 000 ms QRS Dur : 102 ms QT Int : 434 ms P-R-T Axes : 000 019 -40 degrees QTc Int : 497 ms Accelerated Junctional rhythm with occasional Fusion complexes Nonspecific ST and T wave abnormality Abnormal ECG When compared with ECG of 12-APR-2021 13:19, fusion complexes are new Confirmed by Kana Desouza ([id number]) on 04/13/2021 9:34:19 AM Referred By: REFERRED SELF Confirmed By:Kana Desouza
[2021-04-13] MEDS: ASPIRIN 81 MG ECTAB PO SCH (09:42)
[2021-04-13] MEDS: LEVOTHYROXINE SODIUM 200 MCG TABLET PO SCH (09:42)
[2021-04-13] MEDS: ISOSORBIDE MONO EXTENDED REL 60 MG TABCR PO SCH (09:42)
--- NOTE | 2021-04-13 10:09 | Hospitalist Progress Note ---
Date of Service April 13, 2021 Assessment & Plan (1) COVID-19: Plan: Patient does not require oxygen at this time, no indication for dexamethasone or remdesivir - Airborne isolation (2) Abdominal pain: Plan: Likely secondary to enteritis -LFT's, Lipase normal on presentation and with repeat (3) Nausea & vomiting: Plan: Zofran 4 mg IV every 6 hours, need to add phenergan as zofran may have been associated with some bradycardia, as needed for nausea and vomiting lower potassium, will replete and follow will look at renal function (4) Acute kidney injury: Plan: Gentle hydration -Normosol at 80 mils per hour (5) Chronic kidney disease, stage 3a: Plan: Cr is 2.21, stable (6) Nephrotic syndrome: (7) Venous (peripheral) insufficiency: Plan: has chronic stasis dermatitis to his legs (8) Syncope and collapse: Plan: Likely secondary to dehydration (9) Hypothyroidism: Plan: Continue Synthroid (10) CAD (coronary artery disease): Plan: Continue daily aspirin (11) TORI on CPAP: Plan: Patient may use own CPAP (12) Elevated troponin: Plan: Heparin infusion, low intensity without bolus -Considered increased risk for thrombotic complications secondary to Covid pneumonia, with MADIHA and poor renal clearance I feel Heparin infusion with the elevated troponins is the best medication at this time HFPEF in the past (13) HTN (hypertension): Plan: Holding antihypertensives: -100 mg hydralazine 3 times daily -Lisinopril 10 mg daily -Torsemide 40 mg Twice daily - Holding in setting of MADIHA remains on metoprolol and isosorbide (14) Diabetes mellitus, type 2: Plan: Sliding scale insulin with correction factor of 30 A1c is 9.6 -Normally on Lantus 30 mg daily converted to 20 twice daily for coverage hyperglycemia (15) Hypomagnesemia: Plan: Relative hypomagnesemia 1 g given IV in ED (16) Hypokalemia: Plan: 40 M EQ x1 in the ED Admission and Anticipated Discharge Date Admission Date: April 12, 2021 Subjective Pt has no respiratory issues, he is fatigued and persistently nauseated, has been helped by antiemetics, and able to eat a very small amount of food Review of Systems Review of Systems: Mild distress and moderate fatigue no headache, no visual changes no speech or swallowing issues no chest pain, pressure or palpitations no shortness of breath, cough or wheezes no abdominal pain, persistent nausea without vomiting no dysuria, hematuria or frequency no focal joint pain or swelling no back pain, CVA tenderness or radicular pain no bruising, bleeding or rashes no focal signs of weakness or numbness or altered sensation no complaints of anxiety or depression.. Physical Exam Physical Exam: The patient appeared well nourished and normally developed. He is very fatigued Vital signs as documented. Head exam is normocephalic atraumatic Neck is without JVD, thyromegaly, or carotid bruits. Lungs are clear to auscultation, no focal loss of breath sounds Cardiac exam, Rhythm is regular.. No murmurs, rubs or gallops. Abdominal exam reveals normal bowel sounds, soft non tender, no masses Extremities are nonedematous and both pedal pulses are present Neurologic exam is alert and oriented, no focal loss of strength or sensation Skin is without bruises or rashes Psychologically is without concerns for anxiety or depression.. Results & Data Results & Data ([facility]) Vital Signs (Past 12 Hours) Vital Signs Temp Pulse Pulse Resp BP BP Pulse Ox 04/13/21 07:17 98.1 F 63 18 203/91 H 95 04/13/21 04:12 98.2 F 70 22 166/81 H 92 04/12/21 23:21 98.6 F 68 18 150/79 H 95 04/12/21 22:18 73 04/12/21 22:11 75 14 95 PG Care Time/CCT Total # of Minutes Spent Total Time Spent with Patient: Total time spent is greater than 50% in coordination of care (as documented) at patient's floor/unit and/or counseling patient: Coding Level of Care Code 49081 Subseq Hosp Care Lvl 3 Diagnoses COVID-19 U07.1 Abdominal pain R10.31 Abdominal location: right lower quadrant Nausea & vomiting R11.2 Vomiting type: unspecified Acute kidney injury N17.9 Chronic kidney disease, stage 3a N18.31 Nephrotic syndrome N04.9 Venous (peripheral) insufficiency I87.2 Syncope and collapse R55 Hypothyroidism E03.9 Hypothyroidism type: unspecified CAD (coronary artery disease) I25.10 Associated angina: without angina Coronary Disease-Associated Artery/Lesion type: [place] artery [place] vs. 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 transplanted heart: [place] heart Qualified Code(s): I25.10 - Atherosclerotic heart disease of [place] coronary artery without angina pectoris (3) Hypothyroidism Hypothyroidism type: unspecified Qualified Code(s): E03.9 - Hypothyroidism, unspecified (4) Nausea & vomiting Vomiting type: unspecified Qualified Code(s): R11.2 - Nausea with vomiting, unspecified (5) Abdominal pain Abdominal location: right lower quadrant Qualified Code(s): R10.31 - Right lower quadrant pain (6) HTN (hypertension) Hypertension type: primary hypertension Qualified Code(s): I10 - Essential (primary) hypertension
[2021-04-13] MEDS: INSULIN GLARGINE SOLOSTAR 100 UNITS/ML 3 ML PEN SC SCH ×2 (10:10→20:53)
[2021-04-13] MEDS: NORMOSOL-R 1,000 ML IV SCH (10:38)
[2021-04-13] MEDS ORDERED: POTASSIUM CHLORIDE CRTAB 20 MEQ TABCR PO SCH (14:40)
[2021-04-13] MEDS ORDERED: POTASSIUM CHLORIDE 10 MEQ / 100ML WTR IV STA (14:52)
[2021-04-13] MEDS: POTASSIUM CHLORIDE / WTR 10 MEQ/100 ML PLCT IV SCH ×3 (15:36→18:02)
[2021-04-13] MEDS: HEPARIN SODIUM/DEXTROSE 25,000 UNITS/500 ML BAG IV SCH (15:38)
[2021-04-13 16:10] LABS: BUN Creatinine Ratio 9.8 (10-20); Calcium 7.4 mg/dl (8.5-10.1); Creatinine Clr Calc Pharmacy 49.6 ml/min; Est GFR (African American) 36.6 ml/min; Est GFR (Non-African American) 31.6 ml/min; Magnesium 1.9 mg/dl (1.7-2.4)
[2021-04-13 16:14] LABS: Partial Thromboplastin Ratio 1.9
[2021-04-13] MEDS: POTASSIUM CHLORIDE 20 MEQ in NORMOSOL-R 1,000 ML IV SCH (20:34)
[2021-04-13] MEDS: FAMOTIDINE 20 MG in SYRINGE 3 ML IV SCH (20:38)
[2021-04-13] MEDS: CITALOPRAM 20 MG TAB PO SCH ×2 (20:39)
[2021-04-13] MEDS: METOPROLOL SUCC 50MG EXT REL TAB PO SCH (20:39)
[2021-04-14] MEDS ORDERED: hydrALAZINE HCL 20 MG/ML VIAL IV ONE (01:21)
[2021-04-14] MEDS: ACETAMINOPHEN 325 MG TAB PO PRN (01:48)
[2021-04-14] MEDS ORDERED: hydrALAZINE HCL 20 MG/ML VIAL IV STA (05:04)
[2021-04-14 06:33] LABS: Basophils # (auto) 0.02 K/uL (0-0.2); Basophils % (auto) 0.2 %; Eosinophils # (auto) 0.29 K/uL (0-0.5); Eosinophils % (auto) 3.3 %; Hematocrit (blood only) 37.6 % (42-52); Hemoglobin 12.5 g/dL (14.0-18.0); Immature Granulocytes # (auto) 0.03 K/uL (0.00-0.02); Immature Granulocytes % (auto) 0.3 %; Lymphocytes # (auto) 2.07 K/uL (1.2-3.4); Lymphocytes % (auto) 23.4 %; Mean Corpuscular Hemoglobin 29.1 pg (25-34); Mean Corpuscular Hgb Conc 33.2 g/dL (32-36); Mean Corpuscular Volume 87.6 fL (80-100); Mean Platelet Volume 9.4 fL (7.4-10.4); Monocytes # (auto) 0.64 K/uL (0.11-0.59); Monocytes % (auto) 7.2 %; Neutrophils % (auto) 65.6 %; Platelet Count 206 K/uL (130-400); RDW Coefficient of Variation 14.3 % (11.5-14.5); RDW Standard Deviation 45.7 fL (36.4-46.3); Red Blood Count 4.29 M/uL (4.7-6.1); White Blood Count 8.85 K/uL (4.8-10.8)
[2021-04-14 06:51] LABS: BUN Creatinine Ratio 10.6 (10-20); Calcium 7.4 mg/dl (8.5-10.1); Creatinine Clr Calc Pharmacy 59.3 ml/min; Est GFR (African American) 45.4 ml/min; Est GFR (Non-African American) 39.2 ml/min; Magnesium 1.8 mg/dl (1.7-2.4); Phosphorus 2.4 mg/dl (2.5-4.9); Potassium 3.2 mmol/L (3.5-5.1)
[2021-04-14] MEDS ORDERED: POTASSIUM PHOS 3 MMOL/1 ML INFUSION IV STA (07:08)
[2021-04-14] MEDS ORDERED: POTASSIUM PHOSPHATE 15 MMOL in DEXTROSE 5% 250 ML IV ONE (07:30)
[2021-04-14 07:41] LABS: Partial Thromboplastin Time 53.6 Seconds (21.0-31.0)
[2021-04-14] MEDS: ISOSORBIDE MONO EXTENDED REL 60 MG TABCR PO SCH (08:26)
[2021-04-14] MEDS: LEVOTHYROXINE SODIUM 200 MCG TABLET PO SCH (08:26)
[2021-04-14] MEDS: INSULIN GLARGINE SOLOSTAR 100 UNITS/ML 3 ML PEN SC SCH ×2 (08:27→22:33)
[2021-04-14] MEDS: POTASSIUM CHLORIDE 20 MEQ in NORMOSOL-R 1,000 ML IV SCH (08:28)
[2021-04-14] MEDS: ASPIRIN 81 MG ECTAB PO SCH (08:28)
[2021-04-14] MEDS: POTASSIUM CHLORIDE CRTAB 20 MEQ TABCR PO SCH ×2 (08:28→20:55)
[2021-04-14] MEDS: FAMOTIDINE 20 MG in SYRINGE 3 ML IV SCH ×2 (08:28→20:54)
[2021-04-14] MEDS: INSULIN ASPART PER UNIT SC SCH ×4 (08:36→21:03)
--- NOTE | 2021-04-14 11:20 | Electrocardiogram Report ---
Test Reason : Blood Pressure : / mmHG Vent. Rate : 067 BPM Atrial Rate : 277 BPM P-R Int : 000 ms QRS Dur : 108 ms QT Int : 438 ms P-R-T Axes : 000 012 258 degrees QTc Int : 462 ms Normal sinus rhythm Nonspecific ST and T wave abnormality Prolonged QT Abnormal ECG When compared with ECG of 12-APR-2021 17:20, Fusion complexes are no longer Present Confirmed by Kana Desouza ([id number]) on 04/14/2021 11:20:09 AM Referred By: REFERRED SELF Confirmed By:Kana Desouza
--- NOTE | 2021-04-14 11:23 | Electrocardiogram Report ---
Test Reason : Blood Pressure : / mmHG Vent. Rate : 073 BPM Atrial Rate : 073 BPM P-R Int : 152 ms QRS Dur : 114 ms QT Int : 432 ms P-R-T Axes : 033 013 255 degrees QTc Int : 475 ms Normal sinus rhythm Left ventricular hypertrophy with QRS widening and repolarization abnormality ST and T wave abnormality, consider inferior ischemia Prolonged QT Abnormal ECG When compared with ECG of 12-APR-2021 17:20, No significant change was found Confirmed by Kana Desouza ([id number]) on 04/14/2021 11:22:36 AM Referred By: REFERRED SELF Confirmed By:Kana Desouza
--- NOTE | 2021-04-14 15:28 | Hospitalist Progress Note ---
Date of Service April 14, 2021 Assessment & Plan (1) COVID-19: Plan: Patient does not require oxygen at this time, no indication for dexamethasone or remdesivir - Airborne isolation continues (2) Abdominal pain: Plan: Abdominal pain is resolved but not his diarrheal illness, continues without leukocytosis (3) Nausea & vomiting: Plan: Zofran 4 mg IV every 6 hours, need to add phenergan as zofran may have been associated with some bradycardia, as needed for nausea and vomiting Potassium and phosphorus are still low will be repleted renal function is improving with hydration IV fluids continue (4) Acute kidney injury: Plan: Improving with Normosol plus potassium at 80 mL an hour (5) Chronic kidney disease, stage 3a: Plan: Pain is improved renal function remained stable in the chronic kidney disease 3 range (6) Nephrotic syndrome: (7) Venous (peripheral) insufficiency: Plan: has chronic stasis dermatitis to his legs and states these are better than his typical baseline at home (8) Syncope and collapse: Plan: Likely secondary to dehydration (9) Hypothyroidism: Plan: Continue Synthroid (10) CAD (coronary artery disease): Plan: Continue daily aspirin (11) TORI on CPAP: Plan: Patient may use own CPAP (12) Elevated troponin: Plan: Demand ischemia no trend to suggest acute coronary syndrome, heparin infusion stopped and DVT prevention enoxaparin will be started -Considered increased risk for thrombotic complications secondary to Covid pneumonia, HFPEF in the past (13) HTN (hypertension): Plan: Holding antihypertensives: -100 mg hydralazine 3 times daily -Lisinopril 10 mg daily -Torsemide 40 mg Twice daily - Holding in setting of MADIHA remains on metoprolol and isosorbide (14) Diabetes mellitus, type 2: Plan: Sliding scale insulin with correction factor of 30 A1c is 9.6 -Normally on Lantus 30 mg daily converted to 20 twice daily for coverage hyperglycemia (15) Hypomagnesemia: Plan: Relative hypomagnesemia 1 g given IV in ED (16) Hypokalemia: Plan: Patient refuses oral supplementation continue with intravenous repletion of his hypokalemia and hypophosphatemia Admission and Anticipated Discharge Date Admission Date: April 12, 2021 Subjective Patient still feels weak and tired was dizzy when going to the bedside commode did not have any bradycardia or hypotension. Able to eat scant amounts of oral intake still no significant hypoxemia from his Covid positive status diarrhea is lessening but not resolved consider Covid colitis/gastroenteritis Review of Systems Review of Systems: Mild distress and moderate fatigue weak and dizzy when moving about no headache, no visual changes no speech or swallowing issues no chest pain, pressure or palpitations no shortness of breath, cough or wheezes no abdominal pain, persistent nausea without vomiting persistent diarrhea no dysuria, hematuria or frequency no focal joint pain or swelling no back pain, CVA tenderness or radicular pain no bruising, bleeding or rashes no focal signs of weakness or numbness or altered sensation no complaints of anxiety or depression.. Physical Exam Physical Exam: The patient appeared well nourished and normally developed. He remains very fatigued Vital signs as documented. Head exam is normocephalic atraumatic Neck is without JVD, thyromegaly, or carotid bruits. Lungs are clear to auscultation, no focal loss of breath sounds Cardiac exam, Rhythm is regular.. No murmurs, rubs or gallops. Abdominal exam reveals normal bowel sounds, soft non tender, no masses Extremities are nonedematous and both pedal pulses are present Neurologic exam is alert and oriented, no focal loss of strength or sensation Skin is without bruises or rashes Psychologically is without concerns for anxiety or depression.. Results & Data Results & Data ([facility]) Vital Signs (Past 12 Hours) Vital Signs Temp Pulse Pulse Pulse Resp BP Pulse Ox 04/14/21 11:22 97.3 F L 68 23 175/68 H 92 04/14/21 09:48 166/63 H 04/14/21 08:00 62 04/14/21 07:20 98.1 F 66 22 202/83 H 94 04/14/21 06:08 175/80 H 04/14/21 04:51 98.2 F 69 16 217/99 H 94 PG Care Time/CCT Total # of Minutes Spent Total Time Spent with Patient: Total time spent is greater than 50% in coordination of care (as documented) at patient's floor/unit and/or counseling patient: Coding Level of Care Code 31195 Subseq Hosp Care Lvl 3 Diagnoses COVID-19 U07.1 Abdominal pain R10.31 Abdominal location: right lower quadrant Nausea & vomiting R11.2 Vomiting type: unspecified Acute kidney injury N17.9 Chronic kidney disease, stage 3a N18.31 Nephrotic syndrome N04.9 Venous (peripheral) insufficiency I87.2 Syncope and collapse R55 Hypothyroidism E03.9 Hypothyroidism type: unspecified CAD (coronary artery disease) I25.10 Coronary Disease-Associated Artery/Lesion type: [place] artery [place] vs. 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
[2021-04-14] MEDS: METOPROLOL SUCC 50MG EXT REL TAB PO SCH (20:50)
[2021-04-14] MEDS: CITALOPRAM 20 MG TAB PO SCH ×2 (20:51→20:52)
[2021-04-14] MEDS: ENOXAPARIN INJ 40 MG/0.4 ML SYR SQ SCH (20:52)
[2021-04-14] MEDS ORDERED: INSULIN GLARGINE SOLOSTAR 100 UNITS/ML 3 ML PEN SQ STA (22:46)
[2021-04-15] MEDS: POTASSIUM CHLORIDE 20 MEQ in NORMOSOL-R 1,000 ML IV SCH ×3 (01:40→20:53)
[2021-04-15 07:12] LABS: Basophils # (auto) 0.01 K/uL (0-0.2); Basophils % (auto) 0.1 %; Eosinophils # (auto) 0.33 K/uL (0-0.5); Eosinophils % (auto) 3.4 %; Hematocrit (blood only) 33.2 % (42-52); Hemoglobin 11.1 g/dL (14.0-18.0); Immature Granulocytes # (auto) 0.04 K/uL (0.00-0.02); Immature Granulocytes % (auto) 0.4 %; Lymphocytes # (auto) 1.88 K/uL (1.2-3.4); Lymphocytes % (auto) 19.2 %; Mean Corpuscular Hemoglobin 29.4 pg (25-34); Mean Corpuscular Hgb Conc 33.4 g/dL (32-36); Mean Corpuscular Volume 88.1 fL (80-100); Mean Platelet Volume 9.7 fL (7.4-10.4); Monocytes # (auto) 0.67 K/uL (0.11-0.59); Monocytes % (auto) 6.9 %; Neutrophils # (auto) 6.85 K/uL (1.4-6.5); Platelet Count 216 K/uL (130-400); RDW Coefficient of Variation 14.4 % (11.5-14.5); RDW Standard Deviation 46.3 fL (36.4-46.3); Red Blood Count 3.77 M/uL (4.7-6.1); White Blood Count 9.78 K/uL (4.8-10.8)
[2021-04-15 07:42] LABS: Calcium 7.4 mg/dl (8.5-10.1); Creatinine Clr Calc Pharmacy 64.3 ml/min; Est GFR (African American) 49.7 ml/min; Est GFR (Non-African American) 42.9 ml/min; Magnesium 1.7 mg/dl (1.7-2.4); Phosphorus 2.7 mg/dl (2.5-4.9)
[2021-04-15] MEDS ORDERED: POTASSIUM CHLORIDE 10 MEQ / 100ML WTR IV STA (08:01)
[2021-04-15] MEDS ORDERED: POTASSIUM PHOS 3 MMOL/1 ML INFUSION IV STA (08:01)
[2021-04-15] MEDS ORDERED: MAGNESIUM SULFATE / D5W 1 GM/100 ML BAG IV ONE (08:30)
[2021-04-15] MEDS ORDERED: POTASSIUM PHOSPHATE 15 MMOL in DEXTROSE 5% 250 ML IV ONE (08:30)
[2021-04-15] MEDS: INSULIN ASPART PER UNIT SC SCH ×4 (09:13→20:24)
[2021-04-15] MEDS: LEVOTHYROXINE SODIUM 200 MCG TABLET PO SCH (09:16)
[2021-04-15] MEDS: ISOSORBIDE MONO EXTENDED REL 60 MG TABCR PO SCH (09:16)
[2021-04-15] MEDS: POTASSIUM CHLORIDE CRTAB 20 MEQ TABCR PO SCH ×2 (09:16→21:03)
[2021-04-15] MEDS: ASPIRIN 81 MG ECTAB PO SCH (09:17)
[2021-04-15] MEDS: FAMOTIDINE 20 MG in SYRINGE 3 ML IV SCH ×2 (09:17→21:03)
[2021-04-15] MEDS: ENOXAPARIN INJ 40 MG/0.4 ML SYR SQ SCH ×2 (09:17→21:02)
[2021-04-15] MEDS: POTASSIUM CHLORIDE / WTR 10 MEQ/100 ML PLCT IV SCH ×3 (09:18→11:47)
[2021-04-15] MEDS: INSULIN GLARGINE SOLOSTAR 100 UNITS/ML 3 ML PEN SC SCH ×2 (09:44→21:03)
[2021-04-15] MEDS ORDERED: LOPERAMIDE HCL 2 MG CAP PO PRN (12:06)
--- NOTE | 2021-04-15 14:15 | Hospitalist Progress Note ---
Date of Service April 15, 2021 Assessment & Plan (1) Diarrhea: Plan: Pt with persistent diarrhea suspected to be from covid, this is his persistent issue causing electrolyte imbalance, and weakness, if stool PCR is negative will begin using imodium and continue to replete his electrolytes (2) COVID-19: Plan: Patient does not require oxygen at this time, no indication for dexamethasone or remdesivir - Airborne isolation continues (3) Abdominal pain: Plan: Abdominal pain is resolved but not his diarrheal illness, continues without leukocytosis (4) Nausea & vomiting: Plan: resolved Potassium and phosphorus are still low will be repleted renal function is improving with hydration IV fluids continue (5) Acute kidney injury: Plan: Improving with Normosol plus potassium at 80 mL an hour (6) Chronic kidney disease, stage 3a: Plan: Pain is improved renal function remained stable in the chronic kidney disease 3 range (7) Nephrotic syndrome: (8) Venous (peripheral) insufficiency: Plan: has chronic stasis dermatitis to his legs and states these are better than his typical baseline at home (9) Syncope and collapse: Plan: Likely secondary to dehydration (10) Hypothyroidism: Plan: Continue Synthroid (11) CAD (coronary artery disease): Plan: Continue daily aspirin (12) TORI on CPAP: Plan: Patient may use own CPAP (13) Elevated troponin: Plan: Demand ischemia no trend to suggest acute coronary syndrome, heparin infusion stopped and DVT prevention enoxaparin will be started -Considered increased risk for thrombotic complications secondary to Covid pneumonia, HFPEF in the past (14) HTN (hypertension): Plan: Holding antihypertensives: -100 mg hydralazine 3 times daily -Lisinopril 10 mg daily -Torsemide 40 mg Twice daily - Holding in setting of MADIHA remains on metoprolol and isosorbide (15) Diabetes mellitus, type 2: Plan: Sliding scale insulin with correction factor of 30 A1c is 9.6 -Normally on Lantus 30 mg daily converted to 20 twice daily for coverage hyperglycemia (16) Hypomagnesemia: Plan: Relative hypomagnesemia 1 g given IV in ED (17) Hypokalemia: Plan: Patient refuses oral supplementation continue with intravenous repletion of his hypokalemia and hypophosphatemia Admission and Anticipated Discharge Date Admission Date: April 12, 2021 Subjective pt is still very weak when standing and trying to ambulate. diarrhea persists, but now more brown and less clear, no increased oxygen need with covid infection Review of Systems Review of Systems: Mild distress and moderate fatigue weak and dizzy when moving about no headache, no visual changes no speech or swallowing issues no chest pain, pressure or palpitations no shortness of breath, cough or wheezes no abdominal pain, persistent, nausea resolved asking to advance diet, per sistent diarrhea if further testing negative will use Imodium no dysuria, hematuria or frequency no focal joint pain or swelling no back pain, CVA tenderness or radicular pain no bruising, bleeding or rashes no focal signs of weakness or numbness or altered sensation no complaints of anxiety or depression.. Physical Exam Physical Exam: The patient appeared well nourished and normally developed. He remains very fatigued Vital signs as documented. Head exam is normocephalic atraumatic Neck is without JVD, thyromegaly, or carotid bruits. Lungs are clear to auscultation, no focal loss of breath sounds Cardiac exam, Rhythm is regular.. No murmurs, rubs or gallops. Abdominal exam reveals normal bowel sounds, soft non tender, no masses Extremities are nonedematous and both pedal pulses are present Neurologic exam is alert and oriented, no focal loss of strength or sensation Skin is without bruises or rashes Psychologically is without concerns for anxiety or depression.. Results & Data Results & Data ([facility]) Vital Signs (Past 12 Hours) Vital Signs Temp Pulse Pulse Resp BP Pulse Ox 04/15/21 11:30 98.1 F 64 20 167/83 H 97 04/15/21 09:30 60 04/15/21 07:40 97.9 F 73 20 155/73 H 95 04/15/21 04:41 98.4 F 69 18 158/88 H 96 PG Care Time/CCT Total # of Minutes Spent Total Time Spent with Patient: Total time spent is greater than 50% in coordination of care (as documented) at patient's floor/unit and/or counseling patient: Coding Level of Care Code 79512 Subseq Hosp Care Lvl 2 Diagnoses COVID-19 U07.1 Abdominal pain R10.31 Abdominal location: right lower quadrant Nausea & vomiting R11.2 Vomiting type: unspecified Acute kidney injury N17.9 Chronic kidney disease, stage 3a N18.31 Nephrotic syndrome N04.9 Venous (peripheral) insufficiency I87.2 Syncope and collapse R55 Hypothyroidism E03.9 Hypothyroidism type: unspecified CAD (coronary artery disease) I25.10 Associated angina: without angina Coronary Disease-Associated Artery/Lesion type: [place] artery [place] vs. 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 transplanted heart: [place] heart Qualified Code(s): I25.10 - Atherosclerotic heart disease of [place] coronary artery without angina pectoris (3) Hypothyroidism Hypothyroidism type: unspecified Qualified Code(s): E03.9 - Hypothyroidism, unspecified (4) Nausea & vomiting Vomiting type: unspecified Qualified Code(s): R11.2 - Nausea with vomiting, unspecified (5) Abdominal pain Abdominal location: right lower quadrant Qualified Code(s): R10.31 - Right lower quadrant pain (6) HTN (hypertension) Hypertension type: primary hypertension Qualified Code(s): I10 - Essential (primary) hypertension
[2021-04-15] MEDS ORDERED: Nursing to Pharmacy Communication SCH (17:30)
[2021-04-15 20:01] LABS: Adenovirus F 40/41 PCR Not Detected (NotDetected); Astrovirus PCR Not Detected (NotDetected); Campylobacter PCR Not Detected (NotDetected); Clostridium diff Toxin A/B PCR Not Detected (NotDetected); Cryptosporidium PCR Not Detected (NotDetected); Cyclospora cayetanensis PCR Not Detected (NotDetected); Entamoeba histolytica PCR Not Detected (NotDetected); Enteroaggregative E.coli(EAEC) Not Detected (NotDetected); Enteropathogenic E.coli (EPEC) Not Detected (NotDetected); Enterotoxigenic E.coli (ETEC) Not Detected (NotDetected); Giardia lamblia PCR Not Detected (NotDetected); Norovirus GI/GII PCR Not Detected (NotDetected); Plesiomonas shigelloides PCR Not Detected (NotDetected); Rotavirus A PCR Not Detected (NotDetected); Salmonella PCR Not Detected (NotDetected); Sapovirus PCR Not Detected (NotDetected); Shiga-like Toxin E.coli (STEC) Not Detected (NotDetected); Shigella/Enteroinvasive E.coli Not Detected (NotDetected); Vibrio cholerae PCR Not Detected (NotDetected); Vibrio species PCR Not Detected (NotDetected); Yersinia enterocolitica PCR Not Detected (NotDetected)
[2021-04-15] MEDS: METOPROLOL SUCC 50MG EXT REL TAB PO SCH (21:02)
[2021-04-15] MEDS: CITALOPRAM 20 MG TAB PO SCH ×2 (21:03)
[2021-04-16] MEDS ORDERED: hydrALAZINE HCL 20 MG/ML VIAL IV STA (01:20)
[2021-04-16] MEDS ORDERED: LEVOTHYROXINE SODIUM 200 MCG TABLET PO SCH (06:30)
[2021-04-16 06:45] LABS: Basophils # (auto) 0.04 K/uL (0-0.2); Basophils % (auto) 0.4 %; Eosinophils # (auto) 0.43 K/uL (0-0.5); Hematocrit (blood only) 35.2 % (42-52); Hemoglobin 11.6 g/dL (14.0-18.0); Immature Granulocytes # (auto) 0.04 K/uL (0.00-0.02); Immature Granulocytes % (auto) 0.4 %; Lymphocytes # (auto) 1.92 K/uL (1.2-3.4); Lymphocytes % (auto) 18.1 %; Mean Corpuscular Hemoglobin 28.9 pg (25-34); Mean Corpuscular Volume 87.8 fL (80-100); Monocytes # (auto) 0.94 K/uL (0.11-0.59); Monocytes % (auto) 8.9 %; Neutrophils # (auto) 7.25 K/uL (1.4-6.5); Neutrophils % (auto) 68.2 %; Platelet Count 223 K/uL (130-400); RDW Coefficient of Variation 14.4 % (11.5-14.5); RDW Standard Deviation 46.1 fL (36.4-46.3); Red Blood Count 4.01 M/uL (4.7-6.1); White Blood Count 10.62 K/uL (4.8-10.8)
[2021-04-16 07:07] LABS: BUN Creatinine Ratio 12.6 (10-20); Calcium 7.3 mg/dl (8.5-10.1); Creatinine Clr Calc Pharmacy 79.6 ml/min; Est GFR (African American) 64.3 ml/min; Est GFR (Non-African American) 55.5 ml/min; Magnesium 1.8 mg/dl (1.7-2.4); Phosphorus 2.8 mg/dl (2.5-4.9); Potassium 3.5 mmol/L (3.5-5.1)
[2021-04-16] MEDS: INSULIN ASPART PER UNIT SC SCH ×2 (08:36→12:38)
[2021-04-16] MEDS: INSULIN GLARGINE SOLOSTAR 100 UNITS/ML 3 ML PEN SC SCH (09:27)
[2021-04-16] MEDS: FAMOTIDINE 20 MG in SYRINGE 3 ML IV SCH (09:32)
[2021-04-16] MEDS: ENOXAPARIN INJ 40 MG/0.4 ML SYR SQ SCH (09:32)
[2021-04-16] MEDS: POTASSIUM CHLORIDE CRTAB 20 MEQ TABCR PO SCH (09:32)
[2021-04-16] MEDS: ISOSORBIDE MONO EXTENDED REL 60 MG TABCR PO SCH (09:32)
[2021-04-16] MEDS: ASPIRIN 81 MG ECTAB PO SCH (09:32)
[2021-04-16] MEDS: POTASSIUM CHLORIDE 20 MEQ in NORMOSOL-R 1,000 ML IV SCH (09:56)
--- NOTE | 2021-04-16 16:06 | Discharge Summary ---
Date of Service April 16, 2021 Admission HPI Per Admitting Provider Patient is a 65-year-old male with a significant past medical history of diabetes,Nephrotic syndrome with Chronic kidney disease stage IIIa, diabetic foot ulcers,Venous insufficiency, chronic venous stasis, CHF, hypothyroidism, coronary artery disease,Hypertension, dyslipidemia,Peripheral arterial disease who presents withA 2-week history of generalized illness that is proceeded to get worse in symptoms. Approximately 2 weeks ago his and the patient had upper respiratory symptoms and he was diagnosed with COVID-19 infection after being seen at a [facility].DiarrheaSince then he has been generally weak and over the last several days he has had lower crampy abdominal pain and vomiting, unable to keep fluids down.He has shortness of breath when he is up and exerting himself, he is also had some left-sided chest pain that is worse with the exertion.He has not had this happen before. The chest pain is without radiation.The diarrhea is associated with pelvic cramping, there is no blood in the stool. Today he was sitting on the commode and stood up was wiping and became very lightheaded and fell striking his head in the tub. There was no loss of consciousness. He has a mild persistent headache where he struck his head.Denies double vision. He is unvaccinated against COVID-19. Principal Diagnosis covid enteritis hypophosphatemia hypokalemia Discharge Exam The patient appeared well Vital signs as documented. Lungs are clear to auscultation and appear unlabored Cardiac exam, Rhythm is regular.. No murmurs, rubs or gallops. Abdominal exam reveals normal bowel sounds, soft non tender, no masses Extremities are nonedematous and both pedal pulses are normal. Neurologic exam is alert and oriented, no focal loss of strength or sensation Skin is without bruises or rashes Psychologically is without concerns for anxiety or depression. Discharge Data Allergies Allergy/AdvReac Type Severity Reaction Status Date / Time bee venom protein (honey bee) Allergy Severe Anaphylaxis Verified 04/08/21 02:36 egg AdvReac Intermediate Gastrointestinal Verified 04/08/21 02:36 Upset iodine AdvReac Mild FLUSHED Verified 04/08/21 02:36 FEELING/sick to stomach Egg or Chicken-derived Drugs Allergy Intermediate Gastrointestinal Uncoded 04/08/21 02:36 Upset Consultations 04/12/21 15:30 ED Decision to Admit Stat Ordered Studies 04/12/21 13:39 CT cervical spine wo con Stat CT head/brain wo con Stat 04/12/21 13:42 CT abd pelvis wo con Stat Diabetes Follow up Diabetes Follow-up Needed for HgbA1c >9% Hospital Course (1) Diarrhea: Pt with persistent diarrhea suspected to be from covid, this is his persistent issue causing electrolyte imbalance, and weakness, if stool PCR is negative will begin using imodium and continue to replete his electrolytes (2) COVID-19: Patient does not require oxygen at this time, no indication for dexamethasone or remdesivir - Airborne isolation continues (3) Abdominal pain: Abdominal pain is resolved but not his diarrheal illness, PCR for GI pathogens is negative patient will be able to use Imodium at home (4) Nausea & vomiting: resolved Potassium and phosphorus are still low will be repleted renal function is improving with hydration IV fluids continue (5) Acute kidney injury: Resolved (6) Chronic kidney disease, stage 3a: Pain is improved renal function remained stable in the chronic kidney disease 3 range (7) Nephrotic syndrome: (8) Venous (peripheral) insufficiency: has chronic stasis dermatitis to his legs and states these are better than his typical baseline at home (9) Syncope and collapse: Likely secondary to dehydration (10) Hypothyroidism: Continue Synthroid (11) CAD (coronary artery disease): Continue daily aspirin (12) TORI on CPAP: Patient may use own CPAP (13) Elevated troponin: Demand ischemia no trend to suggest acute coronary syndrome, heparin infusion stopped and DVT prevention enoxaparin will be started -Considered increased risk for thrombotic complications secondary to Covid pneumonia, HFPEF in the past (14) HTN (hypertension): Resume once home his typical antihypertensives: -100 mg hydralazine 3 times daily -Lisinopril 10 mg daily -Torsemide 40 mg Twice daily -asked patient to hold his torsemide if he still having diarrhea remains on metoprolol and isosorbide (15) Diabetes mellitus, type 2: A1c is 9.6 Return to home dose of Lantus 30 mg daily asked patient to be more aware of his diabetic management while resuming his diet at home (16) Hypomagnesemia: Resolved (17) Hypokalemia: Replete Total Time Total Time Spent Total Time Spent (In Minutes): It required greater than 30 minutes to prepare this patient for discharge Discharge Plan Discharge Items Patient Disposition: Home - Self-Care Reason For Visit: COVID 19 Discharge Diagnosis: covid gastroenteritis low potassium low phosphorus Activity: Per Instructions section Activity Comment: gradually increase activity Non-emergency contact: Primary Care Provider Call non-emergency contact if: your symptoms worsen and you have a fever Follow-up/Referrals: ProJeffrey MD [Primary Care Provider] - Maureen Wang PA-C [Physician Artillery Maintenance Supervisor] - 04/26/21 10:30 am Diet: Regular Addtl Attending Provider Instructions: You have been diagnosed with covid infection, it would be recommended that you quarantine yourself for 10 days from your first test or first symptoms, and if at the 10th day you have no symptoms the you can come off quarantine but use common sense precautions. Quarantine means attempting to stay away from people who have not had an active covid infection in the past, and if you have to be around others to wear a mask even if you are indoors, do not share a room to sleep in with others until you are out of quarantine. If you still have symptoms at the 10th day, continue to quarantine until you are symptom free for 48 hours You have been diagnosed with Covid related diarrhea, we did test your stool for any in many infectious etiologies which were all negative. You may continue to use occasional Imodium at home as well as be sure to keep yourself hydrated you may consider using things like Gatorade or other electrolyte-containing drinks if your diarrhea is persistent please do not take your water pills Pending Studies at Discharge: No Stand-Alone Forms: My [facility] [employer], Smoking Cessation Medications and DC Order Prescriptions: Continued citalopram 20 mg tablet 20 mg PO HS Qty: 90 RF: 1 citalopram 10 mg tablet 10 mg PO HS Qty: 90 RF: 1 torsemide 20 mg tablet 40 mg PO BID Qty: 90 RF: 3 isosorbide mononitrate 60 mg tablet extended release 24 hr 60 mg PO QAM Qty: 30 RF: 5 (DME) blood-glucose meter [OneTouch Verio Flex meter] Misc See Rx Instructions .Route Qty: 1 RF: 0 atorvastatin 80 mg tablet 80 mg PO HS Qty: 90 RF: 3 cholecalciferol (vitamin D3) 1,250 mcg (50,000 unit) capsule See Rx Instructions .ROUTE .COMPLEX Qty: 12 RF: 2 levothyroxine 200 mcg tablet 200 mcg PO DAILY Qty: 30 RF: 2 metoprolol succinate 50 mg tablet extended release 24 hr 50 mg PO HS Qty: 90 RF: 3 lisinopril 10 mg tablet 10 mg PO DAILY Qty: 90 RF: 3 (DME) OneTouch Verio test strips Strip See Rx Instructions .ROUTE .MEDSUPPLY Qty: 10 RF: 0 insulin aspart U-100 [Novolog Flexpen U-100 Insulin] 100 unit/mL (3 mL) insulin pen 10 unit SQ .TIDM+SS RF: 0 aspirin 81 mg Tablet,Delayed Release (Dr/Ec) 81 mg PO 3XWK RF: 0 hydralazine 100 mg tablet 100 mg PO TID Qty: 90 RF: 5 Lantus U-100 Insulin 100 unit/mL Solution 30 unit SUBCUT HS RF: 0 albuterol sulfate 90 mcg/actuation HFA aerosol inhaler 2 inha INH Q6H PRN (Reason: shortness of breath or wheezing) Qty: 1 RF: 0 benzonatate 200 mg capsule 200 mg PO TID PRN (Reason: cough) Qty: 30 RF: 0 ondansetron 4 mg tablet,disintegrating 4 mg PO Q6H PRN (Reason: nausea and vomiting) Qty: 12 RF: 0 Discharge Orders: Discharge Order (Routine); Ordered 04/16/21 Ordered By: Elia Castillo/Other Patient Handouts: COVID-19 Home Care, High Blood Sugar (Hyperglycemia), Managing Type 2 Diabetes, Special Foot Care for Diabetes Admission Data Admit Date/Time: 04/12/21 17:12 Attending Provider: Elia Green Admit Provider: Jose Miguel Ford Primary Care Provider: Jeffrey Tripp. Other Providers: Elia Green Other Interventions: Discharge Summary Assessment (RN) Last Done: 04/16/21 14:07 Coding Level of Care Code D/C DAY MANAGEMENT >30 MINS Diagnoses Diarrhea R19.7 COVID-19 U07.1 Abdominal pain R10.31 Abdominal location: right lower quadrant Nausea & vomiting R11.2 Vomiting type: unspecified Acute kidney injury N17.9 Chronic kidney disease, stage 3a N18.31 Nephrotic syndrome N04.9 Venous (peripheral) insufficiency I87.2 Syncope and collapse R55 Hypothyroidism E03.9 Hypothyroidism type: unspecified CAD (coronary artery disease) I25.10 Coronary Disease-Associated Artery/Lesion type: redding artery [place] vs. 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
== END 2021-04-16 16:26 | disposition home or self-care (01) | DRG 178 ==
LOC: ED 13:14 → 2S 17:12

== ENCOUNTER 2022-04-13 15:20 | Inpatient (IN) ==
[2022-04-13] MEDS ORDERED: ONDANSETRON INJ 2 MG/ML 2 ML VIAL IV STA (15:36)
--- NOTE | 2022-04-13 15:38 | Emergency Department Note ---
Impression & Plan Syncope, Vomiting, Leukocytosis, CKD (chronic kidney disease) ED Provider Note NAME: JENNY CORONADO AGE: 66 SEX: M : 1955 ARRIVES VIA: Walk-In INFORMANT: Patient ED PROVIDER(S): Luis Vizcaino DO CHIEF COMPLAINT: syncope HPI: Patient is a 66-year-old male who presents to the ER for nausea vomiting and diarrhea. Diarrhea has been present for the past 3 days. Vomiting started earlier this morning. He did pass out while he was going to throw up. He admits to a headache. No neck pain. No chest pain or shortness of breath. PAST MEDICAL HISTORY:See Below PAST SURGICAL HISTORY:See Below FAMILY HISTORY:See Below SOCIAL HISTORY:See Below HOME MEDICATIONS:See Below ALLERGIES:See Below VITALS:See Below PHYSICAL EXAMINATION: GENERAL: Sitting up in bed, alert, well appearing, well nourished, no distress, non-toxic EYE EXAM: normal conjunctiva. HEAD: Abrasions and contusions to bilateral head OROPHARYNX: no exudate, no erythema, lips, buccal mucosa, and tongue normal and mucous membranes are moist NECK: supple, no nuchal rigidity, no adenopathy, non-tender LUNGS: Clear to auscultation. Normal chest wall mechanics HEART: no murmurs, S1 normal and S2 normal ABDOMEN: abdomen soft, non-tender, normo-active bowel sounds, no masses, no rebound or guarding. BACK: Back is symmetrical on inspection and there is no deformity, no midline tenderness, no CVA tenderness. SKIN: no rashes and no bruising UPPER EXTREMITIES: upper extremities are grossly normal. LOWER EXTREMITIES: Left foot with a heel ulceration with no surrounding erythema or drainage. Right foot with a laceration to the plantar surface of third and fifth toes at the PIP. Third digit goes down to the muscle with a small amount of active/venous oozing. Fifth digit laceration appears to go down to the tendon sheath. No obvious exposed bone. NEURO EXAM: Normal sensorium, cranial nerves II-XII intact, normal speech, no weakness of arms, no weakness of legs. No drift. Finger to nose intact. Gross sensation intact. MEDICAL DECISION MAKING: Patient is a 66-year-old male with past medical history of syncope, diabetes, hypertension, PAD, CHF, dyslipidemia and previous sinus pause that presents to the ER following an episode of nausea vomiting. He passed out today while vomiting. IV was established blood work was obtained. Labs show leukocytosis 16,000. Mild anemia 11. D-dimer was markedly elevated at 1200. CO2 mildly low at 20. Creatinine 2.9. LFTs bilirubin was unremarkable. Lipase was normal. UA with ketones but no signs of infection. COVID was negative. CT abdomen pelvis showed no acute pathology although performed without IV contrast due to renal function. Unable to perform CT angio of the chest with a creatinine of nearly 3 consequently performed duplex of bilateral lower extremities which was negative. Will likely benefit from V/Q study but will defer to the hospitalist. X-ray of the foot as well as chest x-ray was unremarkable. CT of the head, cer vical spine and abdomen pelvis was unremarkable. External records were reviewed. Discussed with Dr. Mccain for further evaluation and management. Patient was given 2 g of Rocephin as well with the initial presentation of the leukocytosis of 16,000 vomiting and belly pain and also being a diabetic with 2 open lacerations to the third and fifth digits. Sutures will be placed by Jose Miguel Mott. Please see his note for suture number, placement and length of laceration Triage Nursing notes reviewed. Limited review of prior medical records performed Vital Signs: reviewed and remarkable for HTN Differential diagnosis: Differential diagnosis includes etiologies such as vasovagal event, infection, hypoglycemia, electrolyte abnormalities, cardiac sources, intracerebral event, toxicologic, neurologic, as well as others were entertained. ER treatment provided: See below Diagnostics interpreted by me include EKG and cardiac monitoring as listed below: -Cardiac Monitoring: An order was placed for continuous cardiac monitoring. The monitor shows a rate of 70 with sinus rhythm. -ECG: Sinus rhythm rate 69 Left axis No PVCs QTc 441 -Laboratory studies:Interpreted by me as stated above in MDM and shown below. Imaging studies: Xrays: As interpreted by me: Portable AP upright 1 view of the chest shows no focal infiltrate per my read X-rays of the foot per my read showed no acute fractures CTs show: CT head, cervical spine and abdomen pelvis showed no acute pathology Consultation(s): As described in MDM Procedures:non Critical Care: None Past Med/Surg History Medical History Acute kidney injury Acute on chronic diastolic heart failure Chronic kidney disease, stage 4 (severe) COVID-19 Depression Diabetic nephropathy associated with type 2 diabetes mellitus Diabetic peripheral neuropathy associated with type 2 diabetes mellitus Elevated serum immunoglobulin free light chain level HTN (hypertension) Hyperkalemia Hypothyroidism Kidney stones Migraine Morbid obesity with BMI of 40.0-44.9, adult Myocardial Infarction ? mild in 1995 per doc in [place] but patient reports negative cardiac cath Nephrotic syndrome Peripheral arterial disease S/P hernia repair Sleep apnea cpap SOB (shortness of breath) on exertion OUT OF SHAPE Syncope and collapse Vitamin D deficiency Surgical History H/O umbilical hernia repair History of bilateral cataract extraction History of cardiac cath x2--1995 @ [place], no stents [address] Langford's record History of colonoscopy History of cystoscopy History of esophagogastroduodenoscopy (EGD) History of hernia repair History of tooth extraction S/P cholecystectomy Family History Father Muscular dystrophy Mother Breast cancer Cancer hx of Leukemia and a month ago Brother Parkinson disease Denies family history of Ovarian cancer Prostate cancer No family history of adverse response to anesthesia Myocardial infarction Colorectal cancer Social History Smoking Status: Never smoker Tobacco Type: Smokeless Tobacco (Dip or Chew) Second Hand Exposure: No; Hx Alcohol Use: No Hx Substance Use: No Preferred Language: Djiboutian Communication Ability: Effective Visual Impairment: No Limitations Hearing Ability: Normal Cellar Packer Required: No Beliefs That Will Affect Care: None marital status: Current Living Situation: Spouse Current Living Situation Comment: lives with current occupational status: retired Feels Safe at Home: Yes Dental Care, Regularly: Yes Physical Activity Frequency: Does not Exercise Seatbelt Use: always Assistive Devices: None Allergies Allergies Allergy/AdvReac Type Severity Reaction Status Date / Time bee venom protein (honey bee) Allergy Severe Anaphylaxis Verified 04/13/22 16:05 egg AdvReac Intermediate Gastrointestinal Verified 04/13/22 16:05 Upset iodine AdvReac Mild FLUSHED Verified 04/13/22 16:05 FEELING/sick to stomach Egg or Chicken-derived Drugs Allergy Intermediate Gastrointestinal Uncoded 04/13/22 16:05 Upset Home Meds Home Medications Medication Instructions Recorded Confirmed aspirin 81 mg tablet,delayed 81 mg PO 3XWK 12/10/17 04/13/22 release blood sugar diagnostic (OneTouch #10 ea 09/27/20 04/13/22 Verio test strips) insulin aspart U-100 100 unit/mL 10 unit subcut .TIDM+SS 09/27/20 04/13/22 (3 mL) subcutaneous pen (Novolog FlexPen U-100 Insulin aspart) insulin glargine 100 unit/mL 30 unit subcut HS 04/08/21 04/13/22 subcutaneous solution (Lantus U-100 Insulin) lisinopril 5 mg tablet 5 mg PO DAILY 03/27/22 04/13/22 sodium polystyrene sulfonate 15 60 ml PO UD 03/27/22 04/13/22 gram-sorbitol 20 gram/60 mL oral susp Previous Rx's Medication Instructions Recorded citalopram 20 mg tablet 20 mg PO HS #90 tabs 11/26/20 atorvastatin 80 mg tablet 80 mg PO HS #90 tabs 03/28/21 blood-glucose meter (OneTouch #1 ea 03/28/21 Verio Flex Meter) levothyroxine 200 mcg tablet 200 mcg PO DAILY #30 tabs 07/17/21 metoprolol succinate 50 mg 50 mg PO HS #90 tabs 10/02/21 tablet,extended release 24 hr blood-glucose meter,continuous #1 ea 10/09/21 (Dexcom G6 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) blood-glucose sensor (Dexcom G6 #9 ea 10/09/21 Sensor device) blood-glucose transmitter (Dexcom #1 ea 10/09/21 G6 Transmitter device) torsemide 60 mg tablet 60 mg PO DAILY #30 tabs 12/10/21 isosorbide mononitrate 60 mg 60 mg PO QAM #90 tabs 12/25/21 tablet,extended release 24 hr amlodipine 5 mg tablet 5 mg PO DAILY #30 tabs 03/27/22 ondansetron HCl 4 mg tablet 4 mg PO Q8H PRN nausea and 03/27/22 vomiting #10 tabs ondansetron HCl 4 mg tablet 4 mg PO Q8H PRN nausea and 04/10/22 vomiting #30 tabs Results & Data (ED) Vital Signs Vital Signs - 24 hr 04/13/22 15:22 04/13/22 16:58 04/13/22 15:26 Temperature 36.6 C Temperature Source Temporal Artery Scan Pulse Rate 70 72 72 Pulse Rhythm Regular Respiratory Rate 16 16 16 Respiratory Depth Normal Blood Pressure 191/77 H 167/80 H Blood Pressure Mean 115 109 Pulse Oximetry 97 97 97 Oxygen Delivery Method Room Air Room Air Room Air Sepsis Recent Fever Within 48 Hours No Sepsis New/Unexplained Change in Mental Status No Sepsis Action Taken by Nursing No Action Required Laboratory Data 04/13/22 16:35 04/13/22 16:35 Lab Results 04/13/22 04/13/22 04/13/22 Range/Units 16:35 16:35 16:35 WBC 16.38 H (4.8-10.8) K/ul RBC 3.76 L (4.70-6.10) M/uL Hgb 11.2 L (14.0-18.0) g/dl Hct 34.8 L (42.0-52.0) % MCV 92.6 (80.0-100.0) fL MCH 29.8 (25.0-34.0) pg MCHC 32.2 (32.0-36.0) g/dL RDW Std Deviation 48.9 H (36.4-46.3) fL RDW Coeff of Maribel 14.4 (11.5-14.5) % Plt Count 213 (130-400) K/uL MPV 10.2 (9.4-12.4) fL Immature Gran % (Auto) 0.5 % Neut % (Auto) 83.6 % Lymph % (Auto) 9.1 % [place] % (Auto) 5.7 % Eos % (Auto) 0.7 % Baso % (Auto) 0.4 % Neut # (Auto) 13.68 H (1.40-6.50) K/uL Lymph # (Auto) 1.49 (1.2-3.4) K/uL [place] # (Auto) 0.93 H (0.11-0.59) K/uL Eos # (Auto) 0.12 (0-0.50) K/uL Baso # (Auto) 0.07 (0-0.2) K/uL Immature Gran # (Auto) 0.09 (0.01-0.20) K/uL D-Dimer 1220 H* (0-500) ug/L FEU Sodium 141 (136-145) mmol/L Potassium 4.0 (3.5-5.1) mmol/L Chloride 115 H (98-107) mmol/L Carbon Dioxide 20 L (21-32) mmol/L Anion Gap 6 (3-11) BUN 37 H (6-23) mg/dl Creatinine 2.93 H (0.6-1.4) mg/dl Est Cr Clr Drug Dosing Not Reportable Est GFR ( Amer) 25.0 ml/min Est GFR (Non-Af Amer) 21.6 ml/min BUN/Creatinine Ratio 12.6 (10-20) Glucose 157 H (70-99(Fasting)) mg/dl Calcium 8.5 (8.5-10.1) mg/dl Total Bilirubin 0.3 (0.2-1.0) mg/dl AST 13 (13-39) U/L ALT 14 (7-52) U/L Alkaline Phosphatase 70 (34-104) U/L Troponin I High Sens 12.6 (0-20) pg/ml Total Protein 6.0 (6.0-8.3) gm/dl Albumin 2.6 L (3.4-5.0) gm/dl Globulin 3.4 (2.5-4.0) gm/dl Albumin/Globulin Ratio 0.8 L (0.9-2) Lipase 11 (11-82) U/L Urine Color Urine Appearance (Clear) Urine pH (4.5-7.5) Ur Specific Sigel (1.000-1.030) Urine Protein (Negative) Urine Glucose (UA) (Negative) Urine Ketones (Negative) Urine Blood (Negative) Urine Nitrite (Negative) Urine Bilirubin (Negative) Urine Urobilinogen (Negative) Ur Leukocyte Esterase (Negative) Urine WBC (Auto) (0-5) /hpf Urine RBC (Auto) (0-4) /hpf U Hyaline Cast (Auto) (0-5) /lpf U Epithel Cells (Auto) (0-5) /lpf Urine Bacteria (Auto) (Negative) Ur Renal Epithelial Cell SARS-CoV-2, RNA, NAAT (NEGATIVE) 04/13/22 04/13/22 Range/Units 16:35 17:21 WBC (4.8-10.8) K/ul RBC (4.70-6.10) M/uL Hgb (14.0-18.0) g/dl Hct (42.0-52.0) % MCV (80.0-100.0) fL MCH (25.0-34.0) pg MCHC (32.0-36.0) g/dL RDW Std Deviation (36.4-46.3) fL RDW Coeff of Maribel (11.5-14.5) % Plt Count (130-400) K/uL MPV (9.4-12.4) fL Immature Gran % (Auto) % Neut % (Auto) % Lymph % (Auto) % [place] % (Auto) % Eos % (Auto) % Baso % (Auto) % Neut # (Auto) (1.40-6.50) K/uL Lymph # (Auto) (1.2-3.4) K/uL [place] # (Auto) (0.11-0.59) K/uL Eos # (Auto) (0-0.50) K/uL Baso # (Auto) (0-0.2) K/uL Immature Gran # (Auto) (0.01-0.20) K/uL D-Dimer (0-500) ug/L FEU Sodium (136-145) mmol/L Potassium (3.5-5.1) mmol/L Chloride (98-107) mmol/L Carbon Dioxide (21-32) mmol/L Anion Gap (3-11) BUN (6-23) mg/dl Creatinine (0.6-1.4) mg/dl Est Cr Clr Drug Dosing Est GFR ( Amer) ml/min Est GFR (Non-Af Amer) ml/min BUN/Creatinine Ratio (10-20) Glucose (70-99(Fasting)) mg/dl Calcium (8.5-10.1) mg/dl Total Bilirubin (0.2-1.0) mg/dl AST (13-39) U/L ALT (7-52) U/L Alkaline Phosphatase (34-104) U/L Troponin I High Sens (0-20) pg/ml Total Protein (6.0-8.3) gm/dl Albumin (3.4-5.0) gm/dl Globulin (2.5-4.0) gm/dl Albumin/Globulin Ratio (0.9-2) Lipase (11-82) U/L Urine Color Yellow Urine Appearance Clear (Clear) Urine pH 6.5 (4.5-7.5) Ur Specific [place] 1.025 (1.000-1.030) Urine Protein 4+ H (Negative) Urine Glucose (UA) 2+ H (Negative) Urine Ketones 1+ H (Negative) Urine Blood 2+ H (Negative) Urine Nitrite Negative (Negative) Urine Bilirubin Negative (Negative) Urine Urobilinogen Negative (Negative) Ur Leukocyte Esterase Negative (Negative) Urine WBC (Auto) 1-5 (0-5) /hpf Urine RBC (Auto) 0-4 (0-4) /hpf U Hyaline Cast (Auto) 1-5 (0-5) /lpf U Epithel Cells (Auto) >30 H (0-5) /lpf Urine Bacteria (Auto) Negative (Negative) Ur Renal Epithelial Cell Not Reportable SARS-CoV-2, RNA, NAAT NEGATIVE (NEGATIVE) Administered Medications Discontinued Medications Ceftriaxone Sodium (Rocephin) 2,000 mg in 70 mls @ 140 mls/hr IV NOW STA Stop: 04/13/22 18:24 Last Infusion: 04/13/22 19:07 Dose: 0 mls/hr Documented By: Admin: 04/13/22 18:35 Dose: 140 mls/hr Documented By: ARMANDO Lidocaine HCl (Xylocaine 1%/Sod Bicarb 20 Ml Vial) 20 ml INFIL NOW ONE Stop: 04/13/22 17:44 Last Admin: 04/13/22 18:51 Dose: 10 ml Documented By: DAVID Ondansetron HCl (Ondansetron Inj 2 Mg/Ml 2 Ml Vial) 4 mg IV NOW STA Stop: 04/13/22 15:37 Last Admin: 04/13/22 15:54 Dose: 4 mg Documented By: [facility] Imaging Data Radiologist's Impression: Chest X-Ray 04/13/22 15:26 SINGLE VIEW CHEST CLINICAL HISTORY: Atypical chest pain FINDINGS: 2 AP, portable, upright chest radiographs are compared to study dated 03/29/2022. Correlation is made with chest CT dated 08/29/2019. The heart is enlarged and atherosclerotic calcification of the thoracic aorta. There is pulmonary vascular congestion. A large calcified nodule in the lingula is unchanged. Atelectasis is seen at the lung bases. No large pleural effusion or pneumothorax is identified. The skeletal structures are osteopenic. The bony thorax is grossly intact. IMPRESSION: 1. Cardiomegaly with pulmonary vascular congestion. 2. No airspace consolidation or large pleural effusion is identified. ACT 112: Negative or not required by law. Electronically signed by: Pankaj Phillips M.D. 04/13/2022 4:[address] 04/13/22 15:34 CT SCAN OF THE CERVICAL SPINE CLINICAL HISTORY: Trauma. Fall. COMPARISON STUDY: CT of the cervical spine dated 04/12/2021. TECHNIQUE: CT scan of the cervical spine is performed from the skull base to the upper thoracic spine. Images are reviewed in the axial, sagittal, and coronal planes. IV contrast was not administered for this examination. A dose lowering technique was utilized adhering to the principles of ALARA. FINDINGS: Skeletal structures: The skeletal structures are well mineralized. There is no evidence of fracture or subluxation involving the cervical spine. Vertebral body height and alignment are maintained. Anterior osteophytes are seen throughout. The odontoid process and lateral masses are intact. The atlantoaxial articulat ion is preserved noting mild productive degenerative change. The spinous processes appear intact. Intervertebral discs: There is minimal degenerative disc space narrowing in the lower cervical region. Central canal: Grossly patent. Soft tissues: The prevertebral and paraspinous soft tissues are within normal limits. There is atherosclerotic calcification of the carotid bulbs. Calvarium: The visualized calvarium at the skull base appears intact. Brain parenchyma: Partially visualized brain parenchyma at the skull base is within normal limits. Sinuses and mastoids: There is trace mucosal thickening in the sphenoid sinuses. The mastoid air cells are well pneumatized. Lung apices: Clear as visualized. IMPRESSION: There is no evidence of fracture or subluxation involving the cervical spine. ACT 112: Negative or not required by law. Electronically signed by: Pankaj Phillips M.D. 04/13/2022 4:[address] 04/13/22 15:34 CT SCAN OF THE BRAIN WITHOUT IV CONTRAST CLINICAL HISTORY: Trauma. Syncope. COMPARISON STUDY: CT of the brain dated 04/12/2021. TECHNIQUE: Unenhanced axial CT scan of the brain is performed from the vertex to the skull base. A dose lowering technique was utilized adhering to the principles of ALARA. FINDINGS: Brain parenchyma: There is age-related involutional change noting mild subcortical and periventricular microangiopathic disease. There is no hemorrhage, mass effect, or evidence of acute territorial ischemia by CT criteria. Brito-white matter differentiation is preserved. No extra-axial fluid collection is seen. Ventricles, sulci, cisterns: Prominent secondary to involutional change. Intracranial vasculature: There is atherosclerotic calcification of the cavernous carotid arteries. Calvarium: No depressed calvarial fracture is identified. Sinuses and mastoids: The visualized paranasal sinuses are clear. The mastoid air cells are well pneumatized. Orbits: The bony orbits are grossly intact. There are bilateral ocular lens implants. IMPRESSION: There is no hemorrhage, mass effect, or evidence of acute territorial ischemia by CT criteria. ACT 112: Negative or not required by law. Electronically signed by: Pankaj Phillips M.D. 04/13/2022 4:09 PM Venous Doppler Study 04/13/22 17:28 ULTRASOUND BILATERAL LOWER EXTREMITY VENOUS CLINICAL HISTORY: Syncope. Elevated d-dimer. COMPARISON STUDY: No prior studies are available for comparison at the time of dictation. TECHNIQUE: Real-time, grayscale, and color Doppler sonography of the deep veins of the right and left lower extremity was performed from the inguinal crease to the calf. Compression and augmentation were utilized. FINDINGS: There is no sonographic evidence of deep venous thrombosis identified in the right or left lower extremity. The common femoral, superficial femoral, and popliteal veins are patent and normally compressible bilaterally. The greater saphenous vein and the profunda femoris vein at the junction with the common femoral vein are clear in both legs. The visualized calf veins are patent bilaterally. The left calf vessels are not well visualized due to overlying edema. Soft tissue edema is noted in both legs. IMPRESSION: There is no sonographic evidence of deep venous thrombosis identified in the right or left lower extremity. ACT 112: Negative or not required by law. Electronically signed by: Pankaj Phillips M.D. 04/13/2022 6:28 PM Foot X-Ray 04/13/22 17:43 RIGHT FOOT 3 VIEWS CLINICAL HISTORY: Right foot injury. FINDINGS: 3 views of the right foot are compared to study dated 07/20/2019. The skeletal structures appear osteopenic. No fracture is seen. There is hallux valgus with mild arthritic change at the first metatarsophalangeal joint. Mild osteoarthritic change is also seen at the tarsometatarsal articulations. There are large dorsal and plantar calcaneal enthesophytes. Advanced atherosclerotic calcification is observed in the regional arteries. Marked dorsal soft tissue edema is present throughout the foot. IMPRESSION: 1. Marked dorsal soft tissue edema with no fracture identified. 2. Osteopenia, mild hallux valgus, degenerative change, and large heel spurs as above. Electronically signed by: Pankaj Phillips M.D. 04/13/2022 6:51 PM Abdomen/Pelvis CT 04/13/22 17:46 CT SCAN OF THE ABDOMEN AND PELVIS WITHOUT IV CONTRAST CLINICAL HISTORY: Vomiting. COMPARISON STUDY: Abdominal CT dated 04/12/2021. TECHNIQUE: CT scan of the abdomen and pelvis is performed from the lung bases to the proximal femora. Images are reviewed in the axial, sagittal, and coronal planes. IV contrast was not administered for this examination. Note that the examination was performed in suboptimal fashion without oral and IV contrast. There is also streak artifact from the body wall abutting the CT gantry. A dose lowering technique was utilized adhering to the principles of ALARA. CT DOSE: 1651.98 mGy.cm FINDINGS: Lung bases: The heart is mildly enlarged and without pericardial effusion. There is a small right pleural effusion with dependent atelectasis. A small hiatal hernia is noted. Liver: The unenhanced liver is normal in size and contour. Attenuation is hetero geneous. There is no intrahepatic biliary ductal dilatation. Gallbladder: Surgically absent noting clips in the gallbladder fossa. Spleen: Normal in size and attenuation. There are numerous calcified splenic granulomas. Pancreas: Peripheral calcifications suggest chronic pancreatitis. The unenhanced pancreas is otherwise grossly unremarkable. Adrenal glands: Unremarkable. Kidneys: The unenhanced kidneys demonstrate mild cortical atrophy and/or without hydronephrosis. There are no renal calculi identified. There is no evidence of contour deforming renal mass lesion. Abdominal vasculature: The abdominal aorta is normal in course and caliber noting mild to moderate atherosclerotic calcification. Bowel: There is no bowel obstruction. The appendix is well-visualized and normal. Peritoneum: There is no intraperitoneal free air or abdominal ascites. There is a moderate fat-containing umbilical hernia. Lymphadenopathy: None. Pelvic viscera: The prostate gland is mildly enlarged and heterogeneous. The bladder wall appears thickened/trabeculated indicating chronic outlet obstruction Skeletal structures: No lytic or blastic lesions are seen. IMPRESSION: 1. No acute infectious or inflammatory findings are identified in the abdomen or pelvis. 2. There is no bowel obstruction. 3. Mild cardiomegaly and small right pleural effusion. 4. There is evidence of chronic pancreatitis. 5. Additional findings as above. ACT 112: Negative or not required by law. Electronically signed by: Pankaj Phillips M.D. 04/13/2022 6:08 PM Discharge Plan Visit Data Chief Complaint: Syncope Stated Complaint: SYNCOPE,HIT HEAD ED Provider: Luis Vizcaino Discharge Problem: Syncope, Vomiting, Leukocytosis, CKD (chronic kidney disease) Forms Stand Alone Forms: My [facility] Prescriptions Prescriptions: No Action citalopram 20 mg tablet 20 mg PO HS Qty: 90 1RF Rx Instructions: TAKE ONE 20 MG TABLET ALONG WITH ONE 10 MG TABLET TO EQUAL 30 MG DAILY DOSE levothyroxine 200 mcg tablet 200 mcg PO DAILY Qty: 30 2RF Rx Instructions: Take 1st thing in the AM with water on empty stomach 30 min prior to any other oral intake. metoprolol succinate 50 mg tablet extended release 24 hr 50 mg PO HS Qty: 90 3RF (DME) blood-glucose meter [OneTouch Verio Flex meter] Misc See Rx Instructions .Route Qty: 1 0RF Rx Instructions: As directed to check BS daily atorvastatin 80 mg tablet 80 mg PO HS Qty: 90 3RF (DME) OneTouch Verio test strips Strip See Rx Instructions .ROUTE .MEDSUPPLY Qty: 10 Rx Instructions: Test blood sugar once daily insulin aspart U-100 [Novolog FlexPen U-100 Insulin] 100 unit/mL (3 mL) insulin pen 10 unit SQ .TIDM+SS Rx Instructions: PLUS SS (DME) Dexcom G6 Sensor Device See Rx Instructions .Route Qty: 9 3RF Rx Instructions: change sensor every 10 days (DME) Dexcom G6 Transmitter Device See Rx Instructions .Route Qty: 1 3RF Rx Instructions: change every 90 days (DME) Dexcom G6 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 [employer] Misc See Rx Instructions .Route Qty: 1 0RF Rx Instructions: use with dexcom sensor and transmitter ondansetron HCl 4 mg tablet 4 mg PO Q8H PRN (Reason: nausea and vomiting) Qty: 30 0RF torsemide 60 mg tablet 60 mg PO DAILY Qty: 30 2RF isosorbide mononitrate 60 mg tablet extended release 24 hr 60 mg PO QAM Qty: 90 3RF lisinopril 5 mg tablet 5 mg PO DAILY sodium polystyrene sulf-sorbtl 15-20 gram/60 mL suspension 60 ml PO UD Rx Instructions: 3 times a week amlodipine 5 mg tablet 5 mg PO DAILY Qty: 30 2RF ondansetron HCl 4 mg tablet 4 mg PO Q8H PRN (Reason: nausea and vomiting) Qty: 10 0RF aspirin 81 mg Tablet,Delayed Release (Dr/Ec) 81 mg PO 3XWK Rx Instructions: TAKE THIS MEDICATION EVERY THURSDAY, THURSDAY & FRIDAYS. insulin glargine [Lantus U-100 Insulin] 100 unit/mL Solution 30 unit SUBCUT HS Referrals Referrals: Jeffrey Tripp MD [Primary Care Provider] -
--- NOTE | 2022-04-13 16:10 | CT Scan Report ---
CT SCAN OF THE BRAIN WITHOUT IV CONTRAST CLINICAL HISTORY: Trauma. Syncope. COMPARISON STUDY: CT of the brain dated 04/12/2021. TECHNIQUE: Unenhanced axial CT scan of the brain is performed from the vertex to the skull base. A do se lowering technique was utilized adhering to the principles of ALARA. FINDINGS: Brain parenchyma: There is age-related involutional change noting mild subcortical and periventricula r microangiopathic disease. There is no hemorrhage, mass effect, or evidence of acute territorial isc hemia by CT criteria. Brito-white matter differentiation is preserved. No extra-axial fluid collection is seen. Ventricles, sulci, cisterns: Prominent secondary to involutional change. Intracranial vasculature: There is atherosclerotic calcification of the cavernous carotid arteries. Calvarium: No depressed calvarial fracture is identified. Sinuses and mastoids: The visualized paranasal sinuses are clear. The mastoid air cells are well pneu matized. Orbits: The bony orbits are grossly intact. There are bilateral ocular lens implants. IMPRESSION: There is no hemorrhage, mass effect, or evidence of acute territorial ischemia by CT zelda mojica. ACT 112: Negative or not required by law. Electronically signed by: Pankaj Phillips M.D. 04/13/2022 4:09 PM
--- NOTE | 2022-04-13 16:19 | CT Scan Report ---
CT SCAN OF THE CERVICAL SPINE CLINICAL HISTORY: Trauma. Fall. COMPARISON STUDY: CT of the cervical spine dated 04/12/2021. TECHNIQUE: CT scan of the cervical spine is performed from the skull base to the upper thoracic spine . Images are reviewed in the axial, sagittal, and coronal planes. IV contrast was not administered fo r this examination. A dose lowering technique was utilized adhering to the principles of ALARA. FINDINGS: Skeletal structures: The skeletal structures are well mineralized. There is no evidence of fracture o r subluxation involving the cervical spine. Vertebral body height and alignment are maintained. Anter ior osteophytes are seen throughout. The odontoid process and lateral masses are intact. The atlantoa xial articulation is preserved noting mild productive degenerative change. The spinous processes appe ar intact. Intervertebral discs: There is minimal degenerative disc space narrowing in the lower cervical region . Central canal: Grossly patent. Soft tissues: The prevertebral and paraspinous soft tissues are within normal limits. There is athero sclerotic calcification of the carotid bulbs. Calvarium: The visualized calvarium at the skull base appears intact. Brain parenchyma: Partially visualized brain parenchyma at the skull base is within normal limits. Sinuses and mastoids: There is trace mucosal thickening in the sphenoid sinuses. The mastoid air cell s are well pneumatized. Lung apices: Clear as visualized. IMPRESSION: There is no evidence of fracture or subluxation involving the cervical spine. ACT 112: Negative or not required by law. Electronically signed by: Pankaj Phillips M.D. 04/13/2022 4:17 PM
--- NOTE | 2022-04-13 16:42 | XRay Report ---
SINGLE VIEW CHEST CLINICAL HISTORY: Atypical chest pain FINDINGS: 2 AP, portable, upright chest radiographs are compared to study dated 03/29/2022. Correlation is made with chest CT dated 08/29/2019. The heart is enlarged and atherosclerotic calcification of the thoracic aorta. There is pulmonary vascular congestion. A large calcified nodule in the lingula is u nchanged. Atelectasis is seen at the lung bases. No large pleural effusion or pneumothorax is identif ied. The skeletal structures are osteopenic. The bony thorax is grossly intact. IMPRESSION: 1. Cardiomegaly with pulmonary vascular congestion. 2. No airspace consolidation or large pleural effusion is identified. ACT 112: Negative or not required by law. Electronically signed by: Pankaj Phillips M.D. 04/13/2022 4:40 PM
[2022-04-13 16:56] LABS: Basophils # (auto) 0.07 K/uL (0-0.2); Basophils % (auto) 0.4 %; Eosinophils # (auto) 0.12 K/uL (0-0.50); Eosinophils % (auto) 0.7 %; Hematocrit (blood only) 34.8 % (42.0-52.0); Hemoglobin 11.2 g/dl (14.0-18.0); Immature Granulocytes # (auto) 0.09 K/uL (0.01-0.20); Immature Granulocytes % (auto) 0.5 %; Lymphocytes # (auto) 1.49 K/uL (1.2-3.4); Lymphocytes % (auto) 9.1 %; Mean Corpuscular Hemoglobin 29.8 pg (25.0-34.0); Mean Corpuscular Hgb Conc 32.2 g/dL (32.0-36.0); Mean Corpuscular Volume 92.6 fL (80.0-100.0); Mean Platelet Volume 10.2 fL (9.4-12.4); Monocytes # (auto) 0.93 K/uL (0.11-0.59); Monocytes % (auto) 5.7 %; Neutrophils # (auto) 13.68 K/uL (1.40-6.50); Neutrophils % (auto) 83.6 %; Platelet Count 213 K/uL (130-400); RDW Coefficient of Variation 14.4 % (11.5-14.5); RDW Standard Deviation 48.9 fL (36.4-46.3); Red Blood Count 3.76 M/uL (4.70-6.10); White Blood Count 16.38 K/ul (4.8-10.8)
[2022-04-13 17:14] LABS: Alanine Aminotransferase 14 U/L (7-52); Albumin Globulin Ratio 0.8 (0.9-2); Albumin Level 2.6 gm/dl (3.4-5.0); Alkaline Phosphatase 70 U/L (34-104); Anion Gap 6 (3-11); Aspartate Aminotransferase 13 U/L (13-39); BUN Creatinine Ratio 12.6 (10-20); Bilirubin,Total 0.3 mg/dl (0.2-1.0); Blood Urea Nitrogen 37 mg/dl (6-23); Calcium 8.5 mg/dl (8.5-10.1); Carbon Dioxide 20 mmol/L (21-32); Chloride 115 mmol/L (98-107); Est GFR (Non-African American) 21.6 ml/min; Globulin 3.4 gm/dl (2.5-4.0); Glucose 157 mg/dl (70-99(Fasting)); Lipase 11 U/L (11-82); Sodium 141 mmol/L (136-145)
[2022-04-13 17:20] LABS: Troponin I High Sensitivity 12.6 pg/ml (0-20)
[2022-04-13 17:28] LABS: D Dimer 1220 ug/L FEU (0-500)
[2022-04-13 17:39] LABS: Appearance Urine Clear (Clear); Bacteria Urine Automated Negative (Negative); Bilirubin Urine Negative (Negative); Blood Urine 2+ (Negative); Color Urine Yellow; Epithelial Cell Urine Auto >30 /lpf (0-5); Glucose Urine UA 2+ (Negative); Ketones Urine 1+ (Negative); Leukocyte Esterase Urine Negative (Negative); Nitrite Urine Negative (Negative); Protein Urine 4+ (Negative); RBC Urine Automated 0-4 /hpf (0-4); Specific Gravity Urine 1.025 (1.000-1.030); Urobilinogen Urine Negative (Negative); pH Urine 6.5 (4.5-7.5)
[2022-04-13] MEDS ORDERED: XYLOCAINE 1%/SOD BICARB 20 ML VIAL INFIL ONE (17:43)
[2022-04-13] MEDS ORDERED: cefTRIAXone SODIUM 2,000 MG/70 ML BAG IV STA (17:55)
--- NOTE | 2022-04-13 18:11 | CT Scan Report ---
CT SCAN OF THE ABDOMEN AND PELVIS WITHOUT IV CONTRAST CLINICAL HISTORY: Vomiting. COMPARISON STUDY: Abdominal CT dated 04/12/2021. TECHNIQUE: CT scan of the abdomen and pelvis is performed from the lung bases to the proximal femora. Images are reviewed in the axial, sagittal, and coronal planes. IV contrast was not administered for this examination. Note that the examination was performed in suboptimal fashion without oral and IV contrast. There is also streak artifact from the body wall abutting the CT gantry. A dose lowering te chnique was utilized adhering to the principles of ALARA. CT DOSE: 1651.98 mGy.cm FINDINGS: Lung bases: The heart is mildly enlarged and without pericardial effusion. There is a small right ple ural effusion with dependent atelectasis. A small hiatal hernia is noted. Liver: The unenhanced liver is normal in size and contour. Attenuation is heterogeneous. There is no intrahepatic biliary ductal dilatation. Gallbladder: Surgically absent noting clips in the gallbladder fossa. Spleen: Normal in size and attenuation. There are numerous calcified splenic granulomas. Pancreas: Peripheral calcifications suggest chronic pancreatitis. The unenhanced pancreas is otherwis e grossly unremarkable. Adrenal glands: Unremarkable. Kidneys: The unenhanced kidneys demonstrate mild cortical atrophy and/or without hydronephrosis. Ther e are no renal calculi identified. There is no evidence of contour deforming renal mass lesion. Abdominal vasculature: The abdominal aorta is normal in course and caliber noting mild to moderate at herosclerotic calcification. Bowel: There is no bowel obstruction. The appendix is well-visualized and normal. Peritoneum: There is no intraperitoneal free air or abdominal ascites. There is a moderate fat-contai jose umbilical hernia. Lymphadenopathy: None. Pelvic viscera: The prostate gland is mildly enlarged and heterogeneous. The bladder wall appears thi ckened/trabeculated indicating chronic outlet obstruction Skeletal structures: No lytic or blastic lesions are seen. IMPRESSION: 1. No acute infectious or inflammatory findings are identified in the abdomen or pelvis. 2. There is no bowel obstruction. 3. Mild cardiomegaly and small right pleural effusion. 4. There is evidence of chronic pancreatitis. 5. Additional findings as above. ACT 112: Negative or not required by law. Electronically signed by: Pankaj Phillips M.D. 04/13/2022 6:08 PM
--- NOTE | 2022-04-13 18:29 | Ultrasound Report ---
ULTRASOUND BILATERAL LOWER EXTREMITY VENOUS CLINICAL HISTORY: Syncope. Elevated d-dimer. COMPARISON STUDY: No prior studies are available for comparison at the time of dictation. TECHNIQUE: Real-time, grayscale, and color Doppler sonography of the deep veins of the right and left lower extremity was performed from the inguinal crease to the calf. Compression and augmentation wer e utilized. FINDINGS: There is no sonographic evidence of deep venous thrombosis identified in the right or left lower extremity. The common femoral, superficial femoral, and popliteal veins are patent and normally compressible bilaterally. The greater saphenous vein and the profunda femoris vein at the junction w ith the common femoral vein are clear in both legs. The visualized calf veins are patent bilaterally. The left calf vessels are not well visualized due to overlying edema. Soft tissue edema is noted in both legs. IMPRESSION: There is no sonographic evidence of deep venous thrombosis identified in the right or lef t lower extremity. ACT 112: Negative or not required by law. Electronically signed by: Pankaj Phillips M.D. 04/13/2022 6:28 PM
--- NOTE | 2022-04-13 18:40 | History & Physical Report ---
Date of Service April 13, 2022 Assessment & Plan (1) Syncope: Plan: Long is a 66-year-old male with a past medical history of TORI on CPAP, CKD 4, DM with diabetic left heel ulcer and nephropathy, and hypertension who presents to the emergency department for evaluation of 3 days diarrhea, and 1 day of nausea/vomiting with 3 separate episodes of syncope prior to admission, 1 of which caused him to strike his head. Syncope,? Vasovagal with gastroenteritis Sinus/ectopic atrial rhythm. QTc 441. No ST segment/T wave changes In the setting of 3 days of diarrhea, and nausea/vomiting this morning. WBC elevated ?demargination. PCR is pending Patient reports has had episodes of syncope with COVID and prior viral illnesses in the past. Creatinine 2.93 -CThead: There is no hemorrhage, mass effect, or evidence of acute territorial ischemia by CT criteria. CTC-spine: There is no evidence of fracture or subluxation involving the cervical spine. CXR:1. Cardiomegaly with pulmonary vascular congestion.2. No airspace consolidation or large pleural effusion is identified. - Doppler: IMPRESSION: There is no sonographic evidence of deep venous thrombosis identified in the right or left lower extremity. - CT-A/P: 1. No acute infectious or inflammatory findings are identified in the abdomen or pelvis. 2. There is no bowel obstruction.3. Mild cardiomegaly and small right pleural effusion.4. There is evidence of chronic pancreatitis.5. Additional findings as above. Is not hypoxic or tachycardic. Does have an elevated D-dimer, in the setting of chronic wound. Patient is with impaired renal function, Dopplers do not show evidence of a DVT --> Wells score <4, less than 3%. May be able to set VQ in AM. If tachycardia/hypoxia develop tx with heparin gtt empirically. echo pending - trop negative Heart failure with preserved ejection fraction, CAD Follows with CHF program History of HFpEF, last saw cardiology for preoperative clearance 04/04/2022 due to pending extraction of 2 left-sided molars 300 pound dry weight with history of left leg edema At that time no recent exacerbations of heart failure, is able to walk to 4 METS with no anginal equivalents [employer], no orthopnea, had not been having any syncope/near syncope Continue amlodipine 5 mg Imdur 60 mg ER Metoprolol succinate ER 50 mg daily Echo 05/2021: Normal LV SF, moderate concentric LVH, mild LV dilation, mild LA dilation, mild IVC dilation. EF 55-60%. Dyslipidemia Continue atorvastatin 80 mg Hypertension Continue amlodipine 5 mg daily Continue aspirin Continue lisinopril 5 mg daily Continue metoprolol 50 mg p.o. nightly Continue isosorbide 60 mg ER PAD Without claudication Aspirin daily TORI Continue CPAP Hypothyroidism TSH pending. Last TSH was elevated with normal free T4 01/2022 Continue Synthroid 200 mcg daily Type II DM Hold home glargine 30 units/aspart 10+ SSI Glucose checks AC/at bedtime Goal BSG [id number] Continue glargine 30 units basal daily. Convert short acting to CF ratio, based on basal requirements. Diabetic left heel ulcer Follows with wound care Neuropathy precautions Wound care consulted Aquasol AG daily, offloading while walking/cam boot CKD Baseline creatinine ~2.4-3 Admitting creatinine 2.93 BMP daily, renally adjust medications DVT prophylaxis: Heparin Diet: DM Code: Full Disposition: PCU for syncope (2) Heart failure with preserved left ventricular function (HFpEF): (3) Dyslipidemia: (4) HTN (hypertension): (5) Peripheral arterial disease: (6) Diabetes mellitus, type 2: (7) Hypothyroidism: History of Present Illness Primary Care Provider: Jeffrey Tripp MD Don is a 66-year-old male with a past medical history of TORI on CPAP, CKD 4, DM with diabetic left heel ulcer and nephropathy, and hypertension who presents to the emergency department for evaluation of 3 days diarrhea, and 1 day of nausea/vomiting with 3 separate episodes of syncope prior to admission, 1 of which caused him to strike his head. seen at the bedside. Patient had an episode of emesis, and then had 3 episodes of passing out. Patient fell and has open lacerations to third and fifth distal suture s/p repair by ER PA. Received empiric Rocephin on admission. No chest pain, chest pressure, shortness of breath, lightheadedness, dizziness at bedside. He does not have inspiratory pain. EKG is sinus without acute changes heart strain. Patient reports for the last day he has had very liquidy diarrhea "just running out "of him and has felt more thirsty and lightheaded. He reports that after standing up he had some nausea in addition to diarrhea and had an episode of vomiting after which he passed out. Thinks he passed out 3 times in total over a short time. He has not had any shortness of breath, difficulty breathing, chest pain, chest pressure. He has had similar episodes of passing out with prior COVID. He does not have any pain with deep breathing. Has not had bleeding problems. Has not had blood clots. Denies history of cancer. Medical History: Reviewed Medications: Reviewed Surgical History: Reviewed Allergies: Reviewed Social History: Reviewed Code Status: Full Allergies Allergy/AdvReac Type Severity Reaction Status Date / Time bee venom protein (honey bee) Allergy Severe Anaphylaxis Verified 04/13/22 16:05 egg AdvReac Intermediate Gastrointestinal Verified 04/13/22 16:05 Upset iodine AdvReac Mild FLUSHED Verified 04/13/22 16:05 FEELING/sick to stomach Egg or Chicken-derived Drugs Allergy Intermediate Gastrointestinal Uncoded 04/13/22 16:05 Upset Home Medications Medication Instructions Recorded Confirmed Type aspirin 81 mg tablet,delayed 81 mg PO 3XWK 12/10/17 04/13/22 History release blood sugar diagnostic (OneTouch #10 ea 09/27/20 04/13/22 History Verio test strips) insulin aspart U-100 100 unit/mL 10 unit subcut .TIDM+SS 09/27/20 04/13/22 History (3 mL) subcutaneous pen (Novolog FlexPen U-100 Insulin aspart) citalopram 20 mg tablet 20 mg PO HS #90 tabs 11/26/20 04/13/22 Rx atorvastatin 80 mg tablet 80 mg PO HS #90 tabs 03/28/21 04/13/22 Rx blood-glucose meter (OneTouch #1 ea 03/28/21 04/13/22 Rx Verio Flex Meter) insulin glargine 100 unit/mL 30 unit subcut HS 04/08/21 04/13/22 History subcutaneous solution (Lantus U-100 Insulin) levothyroxine 200 mcg tablet 200 mcg PO DAILY #30 tabs 07/17/21 04/13/22 Rx metoprolol succinate 50 mg 50 mg PO HS #90 tabs 10/02/21 04/13/22 Rx tablet,extended release 24 hr blood-glucose meter,continuous #1 ea 10/09/21 04/13/22 Rx (Dexcom G6 Fashion Journalist) blood-glucose sensor (Dexcom G6 #9 ea 10/09/21 04/13/22 Rx Sensor device) blood-glucose transmitter (Dexcom #1 ea 10/09/21 04/13/22 Rx G6 Transmitter device) torsemide 60 mg tablet 60 mg PO DAILY #30 tabs 12/10/21 04/13/22 Rx isosorbide mononitrate 60 mg 60 mg PO QAM #90 tabs 12/25/21 04/13/22 Rx tablet,extended release 24 hr amlodipine 5 mg tablet 5 mg PO DAILY #30 tabs 03/27/22 04/13/22 Rx lisinopril 5 mg tablet 5 mg PO DAILY 03/27/22 04/13/22 History ondansetron HCl 4 mg tablet 4 mg PO Q8H PRN nausea and 03/27/22 04/13/22 Rx vomiting #10 tabs sodium polystyrene sulfonate 15 60 ml PO UD 03/27/22 04/13/22 History gram-sorbitol 20 gram/60 mL oral susp ondansetron HCl 4 mg tablet 4 mg PO Q8H PRN nausea and 04/10/22 04/13/22 Rx vomiting #30 tabs Past Med/Surg History Medical History Acute kidney injury Acute on chronic diastolic heart failure Chronic kidney disease, stage 4 (severe) COVID-19 Depression Diabetic nephropathy associated with type 2 diabetes mellitus Diabetic peripheral neuropathy associated with type 2 diabetes mellitus Elevated serum immunoglobulin free light chain level HTN (hypertension) Hyperkalemia Hypothyroidism Kidney stones Migraine Morbid obesity with BMI of 40.0-44.9, adult Myocardial Infarction ? mild in 1995 per doc in [place] but patient reports negative cardiac cath Nephrotic syndrome Peripheral arterial disease S/P hernia repair Sleep apnea cpap SOB (shortness of breath) on exertion OUT OF SHAPE Syncope and collapse Vitamin D deficiency Surgical History H/O umbilical hernia repair History of bilateral cataract extraction History of cardiac cath x2--1995 @ [place], no stents [address] Langford's record History of colonoscopy History of cystoscopy History of esophagogastroduodenoscopy (EGD) History of hernia repair History of tooth extraction S/P cholecystectomy Family History Father Muscular dystrophy Mother Breast cancer Cancer hx of Leukemia and a month ago Brother Parkinson disease Denies family history of Ovarian cancer Prostate cancer No family history of adverse response to anesthesia Myocardial infarction Colorectal cancer Social History Smoking Status: Never smoker Tobacco Type: Smokeless Tobacco (Dip or Chew) Second Hand Exposure: No; Hx Alcohol Use: No Hx Substance Use: No Preferred Language: Samoan Communication Ability: Effective Visual Impairment: No Limitations Hearing Ability: Normal Data Virtualization Consultant Required: No Beliefs That Will Affect Care: None marital status: Current Living Situation: Spouse Current Living Situation Comment: lives with current occupational status: retired Feels Safe at Home: Yes Dental Care, Regularly: Yes Physical Activity Frequency: Does not Exercise Seatbelt Use: always Assistive Devices: None Review of Systems Review of Systems: All systems reviewed & are unremarkable except as noted in HPI & below Physical Exam Physical Exam: General: A&Ox3. NAD. Cooperative. HEENT: Atraumatic, normocephalic. Vision/hearing intact Pulm: CTAB A&P. -wheezes, -rales, -rhonchi. Symmetrical chest rise. No increase in work of breathing. No respiratory distress. Cardiac: RRR, -mrg. Radial pulses intact and symmetrical. Abdominal: Nontender, nondistended, soft. BS present. Extremities: Left heel with diabetic pressure ulcer, well-healing with no erythema/purulence/discharge. Legs bilaterally with chronic venous stasis changes and edema, no superimposed tenderness/warmth/erythema. Sensation of soft touch in hands and feet is intact. Right foot digits 3 and 5 with dorsal surface suture repair, well approximated. Results & Data Results & Data ([facility]) Vital Signs (Past 12 Hours) Vital Signs Temp Pulse Resp BP Pulse Ox O2 Del Method 04/13/22 15:26 72 16 97 Room Air 04/13/22 16:58 72 16 167/80 H 97 Room Air 04/13/22 15:22 36.6 C 70 16 191/77 H 97 Room Air PG Care Time/CCT Total # of Minutes Spent Total Time Spent with Patient: Total time spent is greater than 50% in coordination of care (as documented) at patient's floor/unit and/or counseling patient: Coding Level of Care Code 87334 INT INP/OBS CARE 2/55MIN Diagnoses Syncope R55 Heart failure with preserved left ventricular function (HFpEF) I50.30 Dyslipidemia E78.5 HTN (hypertension) I10 Hypertension type: primary hypertension Peripheral arterial disease I73.9 Diabetes mellitus, type 2 E11.9 Diabetes mellitus complication status: without complication 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 insulin use: unspecified adjunct faculty for medical terminology insulin use status Hypothyroidism E03.9 Hypothyroidism type: unspecified (4) HTN (hypertension) Hypertension type: primary hypertension Qualified Code(s): I10 - Essential (primary) hypertension (6) Diabetes mellitus, type 2 Diabetes mellitus complication status: without complication Diabetes mellitus retirement insulin use: unspecified adjunct faculty for medical terminology insulin use status Qualified Code(s): E11.9 - Type 2 diabetes mellitus without complications (7) Hypothyroidism Hypothyroidism type: unspecified Qualified Code(s): E03.9 - Hypothyroidism, unspecified
--- NOTE | 2022-04-13 18:52 | XRay Report ---
RIGHT FOOT 3 VIEWS CLINICAL HISTORY: Right foot injury. FINDINGS: 3 views of the right foot are compared to study dated 07/20/2019. The skeletal structures ap pear osteopenic. No fracture is seen. There is hallux valgus with mild arthritic change at the first metatarsophalangeal joint. Mild osteoarthritic change is also seen at the tarsometatarsal articulatio ns. There are large dorsal and plantar calcaneal enthesophytes. Advanced atherosclerotic calcificatio n is observed in the regional arteries. Marked dorsal soft tissue edema is present throughout the stefany t. IMPRESSION: 1. Marked dorsal soft tissue edema with no fracture identified. 2. Osteopenia, mild hallux valgus, degenerative change, and large heel spurs as above. Electronically signed by: Pankaj Phillips M.D. 04/13/2022 6:51 PM
--- NOTE | 2022-04-13 19:15 | Emergency Department Note ---
ED Visit Note I was asked by Dr. Vizcaino to perform laceration repairs of this patient's third and fifth toes. The patient is 66-year-old male who suffered a syncopal episode. Please see Dr. Vizcaino's dictation for further treatment and final disposition. PROCEDURE NOTE: The patient reports that he does have neuropathy in his feet, but can feel temperature differences. Patient consented to laceration repair under local anesthesia. Using buffered lidocaine 1% without epinephrine, good local anesthesia was administered at both lacerations, which are each 1 cm in length at the proximal flexor crease of the third and fifth toes. No active bleeding noted. The area was cleansed with iodine, then copious irrigation was performed using approximately 500 cc of normal saline. Expiration of the wound does not show any underlying debris. No gross flexor tendon instability appreciated. The wounds were then approximated using 4-0 nylon simple interrupted sutures x4 on the third toe, and x5 on the fifth toe. Total repaired laceration length was 2 cm. Bacitracin dressings were applied. .
[2022-04-13] MEDS ORDERED: ONDANSETRON INJ 2 MG/ML 2 ML VIAL IV PRN (21:38)
[2022-04-13] MEDS ORDERED: CARBOHYDRATES FOR HYPOGLYCEMIA PO PRN (21:38)
[2022-04-13] MEDS ORDERED: GLUCOSE 10 TAB/TUBE PO PRN (21:38)
[2022-04-13] MEDS ORDERED: DEXTROSE 50% 50 ML SYRINGE IV PRN (21:38)
[2022-04-13] MEDS ORDERED: GLUCAGON FOR INJ 1 MG VIAL SQ PRN (21:38)
[2022-04-13] MEDS ORDERED: GLUCOSE 40% GEL 15 GM TUBE PO PRN (21:38)
[2022-04-13] MEDS ORDERED: ACETAMINOPHEN 325 MG TAB PO PRN (21:38)
[2022-04-13] MEDS: INSULIN ASPART PER UNIT SC SCH (21:54)
[2022-04-13] MEDS: LANTUS PER UNIT CHARGE SQ SCH (21:58)
[2022-04-13] MEDS: ONDANSETRON 4 MG OD TAB PO PRN (22:10)
[2022-04-13] MEDS: ATORVASTATIN 40 MG TAB PO SCH (22:21)
[2022-04-13] MEDS: METOPROLOL SUCC 50MG EXT REL TAB PO SCH (22:21)
[2022-04-13] MEDS: CITALOPRAM 20 MG TAB PO SCH (22:21)
[2022-04-14 00:04] LABS: Adenovirus F 40/41 PCR Not Detected (NotDetected); Astrovirus PCR Not Detected (NotDetected); Campylobacter PCR Not Detected (NotDetected); Cryptosporidium PCR Not Detected (NotDetected); Cyclospora cayetanensis PCR Not Detected (NotDetected); Entamoeba histolytica PCR Not Detected (NotDetected); Enteroaggregative E.coli(EAEC) Not Detected (NotDetected); Enterotoxigenic E.coli (ETEC) Not Detected (NotDetected); Giardia lamblia PCR Not Detected (NotDetected); Plesiomonas shigelloides PCR Not Detected (NotDetected); Rotavirus A PCR Not Detected (NotDetected); Salmonella PCR Not Detected (NotDetected); Sapovirus PCR Not Detected (NotDetected); Shiga-like Toxin E.coli (STEC) Not Detected (NotDetected); Shigella/Enteroinvasive E.coli Not Detected (NotDetected); Vibrio cholerae PCR Not Detected (NotDetected); Vibrio species PCR Not Detected (NotDetected); Yersinia enterocolitica PCR Not Detected (NotDetected)
[2022-04-14 00:23] LABS: Enteropathogenic E.coli (EPEC) DETECTED (NotDetected); Norovirus GI/GII PCR DETECTED (NotDetected)
[2022-04-14 01:55] LABS: BUN Creatinine Ratio 11.9 (10-20); Calcium 8.6 mg/dl (8.5-10.1); Creatinine Clr Calc Pharmacy 34.1 ml/min; Est GFR (African American) 23.3 ml/min; Est GFR (Non-African American) 20.1 ml/min; Magnesium 1.7 mg/dl (1.7-2.4); Potassium 3.7 mmol/L (3.5-5.1)
[2022-04-14 01:57] LABS: Basophils # (auto) 0.08 K/uL (0-0.2); Basophils % (auto) 0.4 %; Eosinophils # (auto) 0.19 K/uL (0-0.50); Hematocrit (blood only) 34.4 % (42.0-52.0); Hemoglobin 11.3 g/dl (14.0-18.0); Immature Granulocytes # (auto) 0.06 K/uL (0.01-0.20); Immature Granulocytes % (auto) 0.3 %; Lymphocytes # (auto) 1.46 K/uL (1.2-3.4); Lymphocytes % (auto) 7.7 %; Mean Corpuscular Hemoglobin 29.9 pg (25.0-34.0); Mean Corpuscular Hgb Conc 32.8 g/dL (32.0-36.0); Mean Platelet Volume 10.2 fL (9.4-12.4); Monocytes # (auto) 1.35 K/uL (0.11-0.59); Monocytes % (auto) 7.2 %; Neutrophils % (auto) 83.4 %; Platelet Count 222 K/uL (130-400); RDW Coefficient of Variation 14.3 % (11.5-14.5); RDW Standard Deviation 47.8 fL (36.4-46.3); Red Blood Count 3.78 M/uL (4.70-6.10); White Blood Count 18.84 K/ul (4.8-10.8)
[2022-04-14] MEDS ORDERED: SODIUM CHLORIDE 0.9% 500 ML IV SCH (02:00)
[2022-04-14] MEDS ORDERED: PROCHLORPERAZINE MALEATE 5 MG TAB PO ONE (05:20)
[2022-04-14] MEDS: LEVOTHYROXINE SODIUM 200 MCG TABLET PO SCH (05:42)
[2022-04-14] MEDS: INSULIN ASPART PER UNIT SC SCH ×4 (08:08→21:02)
[2022-04-14] MEDS: LANTUS PER UNIT CHARGE SQ SCH ×2 (08:09→21:03)
[2022-04-14] MEDS: ASPIRIN 81 MG ECTAB PO SCH (08:19)
[2022-04-14] MEDS: SODIUM CHLORIDE 0.9% 1000ML 1,000 ML IV SCH ×2 (08:19→21:07)
[2022-04-14] MEDS: amLODIPine BESYLATE 5 MG TAB PO SCH (08:19)
[2022-04-14] MEDS: ISOSORBIDE MONO EXTENDED REL 60 MG TABCR PO SCH (08:20)
[2022-04-14] MEDS: lisinopril 5 MG TAB PO SCH (08:20)
[2022-04-14] MEDS ORDERED: TORSEMIDE 20 MG TAB PO SCH (09:00)
--- NOTE | 2022-04-14 09:18 | Electrocardiogram Report ---
Test Reason : Blood Pressure : / mmHG Vent. Rate : 069 BPM Atrial Rate : 069 BPM P-R Int : 176 ms QRS Dur : 120 ms QT Int : 412 ms P-R-T Axes : 124 -04 036 degrees QTc Int : 441 ms Normal sinus rhythm Confirmed by Daron Bradshaw ([id number]) on 04/14/2022 9:18:29 AM Referred By: REFERRED SELF Confirmed By:Wayne Bradshaw
--- NOTE | 2022-04-14 11:23 | Hospitalist Progress Note ---
Date of Service April 14, 2022 Assessment & Plan (1) Syncope: Plan: No recurrence. Probably orthostatic due to volume loss from gastroenteritis and diuretic therapy. Continue IV fluids. Diuretic is now on hold. CThead: There is no hemorrhage, mass effect, or evidence of acute territorial ischemia by CT criteria. CTC-spine: There is no evidence of fracture or subluxation involving the cervical spine. (2) Heart failure with preserved left ventricular function (HFpEF): Plan: No overt CHF at this time. Continue medical management. Monitor intake and output (3) Dyslipidemia: Plan: Stable with statin therapy (4) HTN (hypertension): Plan: Stable with current medical management. Diuretics are temporarily on hold (5) Peripheral arterial disease: Plan: Stable with current medical management (6) Diabetes mellitus, type 2: Plan: ADA diet. Sliding scale coverage as needed. Lantus on hold until diet has been advanced (7) Hypothyroidism: Plan: Stable with current replacement therapy (8) Acute worsening of stage 4 chronic kidney disease: Plan: Continue IV fluids. Hold diuretics. Monitor intake and output. Serial labs (9) Diabetes mellitus type 2 with complications: Plan: Eventual advancement to ADA diet. Lantus is on hold. 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 Continue wound care Plan Anticipate eventual discharge to home. Hopefully tomorrow, April 15 Admission and Anticipated Discharge Date Admission Date: April 13, 2022 Subjective Alert and oriented. Feeling better. White blood cell count is somewhat higher and creatinine also higher today. Diuretic discontinued. Continue IV fluids for now. Will obtain blood and urine cultures. OT and PT ordered. Review of Systems Review of Systems: Constitutional-no fever or chills ENT-no blurred vision, no double vision, no epistaxis, no sore throat Respiratory-no cough, no wheezing, no shortness of breath Cardiac-no palpitations, no chest pain, no syncope GI-watery diarrhea persists. Nausea has resolved. Denies abdominal pain. No hematochezia -no urinary retention, no urinary incontinence, no dysuria, no hematuria Musculoskeletal-no joint pain, no muscle tenderness Skin-no bruising, no rashes, no pruritus Neuro-no isolated weakness, no paresthesia, no weakness Psych-no depression, no anxiety Physical Exam Physical Exam: General-alert and oriented x3, no fevers, no chills HEENT-head atraumatic and normocephalic, pupils equal and reactive to light, extraocular muscles intact Neck-no lymphadenopathy or thyromegaly, trachea midline Chest-clear to auscultation percussion. No rales wheezing or rhonchi Cardiac-regular rate and rhythm, normal S1 and S2 Abdomen-normal bowel sounds, nontender, no hepatosplenomegaly Extremities-no cyanosis, clubbing, or edema Neuro-cranial nerves II through XII intact, motor and sensory function within normal limits, strength symmetrical , no focal deficits Psych-normal affect, normal mood Results & Data Results & Data ([facility]) Vital Signs (Past 12 Hours) Vital Signs Temp Pulse Pulse Resp BP Pulse Ox O2 Del Method 04/14/22 08:00 36.4 C L 69 19 160/67 H 97 CPAP 04/14/22 01:32 75 Laboratory Results 04/14/22 01:12 04/14/22 01:12 PG Care Time/CCT Total # of Minutes Spent Total Time Spent with Patient: Total time spent is greater than 50% in coordination of care (as documented) at patient's floor/unit and/or counseling patient: Coding Level of Care Code 95045 SUB INP/OBS CARE 3/50MIN Diagnoses Syncope R55 Heart failure with preserved left ventricular function (HFpEF) I50.30 Dyslipidemia E78.5 HTN (hypertension) I10 Hypertension type: primary hypertension Peripheral arterial disease I73.9 Diabetes mellitus, type 2 E11.9 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 status Diabetes mellitus complication status: without complication Hypothyroidism E03.9 Hypothyroidism type: unspecified Acute worsening of stage 4 chronic kidney disease N18.4 Diabetes mellitus type 2 with complications E11.8 Diabetic ulcer of left foot E11.621; L97.529 (4) HTN (hypertension) Hypertension type: primary hypertension Qualified Code(s): I10 - Essential (primary) hypertension (6) Diabetes mellitus, type 2 Diabetes mellitus residential insulin 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
--- NOTE | 2022-04-14 17:08 | Electrocardiogram Report ---
Test Reason : Blood Pressure : / mmHG Vent. Rate : 070 BPM Atrial Rate : 070 BPM P-R Int : 176 ms QRS Dur : 110 ms QT Int : 420 ms P-R-T Axes : 097 019 -31 degrees QTc Int : 453 ms Normal sinus rhythm Minimal voltage criteria for LVH, may be normal variant Nonspecific T wave abnormality Abnormal ECG When compared with ECG of 13-APR-2022 15:35, Nonspecific T wave abnormality now evident in Inferior leads Confirmed by Daron Bradshaw ([id number]) on 04/14/2022 5:08:32 PM Referred By: REFERRED SELF Confirmed By:Wayne Bradshaw
[2022-04-14] MEDS: ATORVASTATIN 40 MG TAB PO SCH (21:10)
[2022-04-14] MEDS: PSYLLIUM or GUAR GUM FIBER POWDER PACKET PO SCH (21:10)
[2022-04-14] MEDS: METOPROLOL SUCC 50MG EXT REL TAB PO SCH (21:10)
[2022-04-14] MEDS: CITALOPRAM 20 MG TAB PO SCH (21:10)
[2022-04-14] MEDS: HEPARIN SOD 5,000 UNIT/0.5 ML VIAL SQ SCH (21:11)
[2022-04-15] MEDS: ONDANSETRON 4 MG OD TAB PO PRN ×2 (03:32→23:08)
[2022-04-15] MEDS: LEVOTHYROXINE SODIUM 200 MCG TABLET PO SCH (06:20)
[2022-04-15] MEDS: HEPARIN SOD 5,000 UNIT/0.5 ML VIAL SQ SCH ×3 (06:20→20:40)
[2022-04-15 06:25] LABS: BUN Creatinine Ratio 11.9 (10-20); Calcium 7.9 mg/dl (8.5-10.1); Creatinine Clr Calc Pharmacy 32.4 ml/min; Est GFR (African American) 21.8 ml/min; Est GFR (Non-African American) 18.8 ml/min; Potassium 3.3 mmol/L (3.5-5.1)
[2022-04-15 06:38] LABS: Basophils # (auto) 0.06 K/uL (0-0.2); Basophils % (auto) 0.5 %; Eosinophils # (auto) 0.36 K/uL (0-0.50); Eosinophils % (auto) 3.3 %; Hematocrit (blood only) 30.9 % (42.0-52.0); Hemoglobin 9.9 g/dl (14.0-18.0); Immature Granulocytes # (auto) 0.04 K/uL (0.01-0.20); Immature Granulocytes % (auto) 0.4 %; Lymphocytes # (auto) 2.31 K/uL (1.2-3.4); Lymphocytes % (auto) 21.1 %; Mean Corpuscular Volume 93.6 fL (80.0-100.0); Mean Platelet Volume 10.4 fL (9.4-12.4); Monocytes % (auto) 7.3 %; Neutrophils # (auto) 7.36 K/uL (1.40-6.50); Neutrophils % (auto) 67.4 %; Platelet Count 177 K/uL (130-400); RDW Coefficient of Variation 14.4 % (11.5-14.5); RDW Standard Deviation 49.2 fL (36.4-46.3); White Blood Count 10.93 K/ul (4.8-10.8)
[2022-04-15] MEDS: INSULIN ASPART PER UNIT SC SCH ×4 (08:10→21:24)
[2022-04-15] MEDS: LANTUS PER UNIT CHARGE SQ SCH ×2 (08:11→21:24)
[2022-04-15] MEDS: amLODIPine BESYLATE 5 MG TAB PO SCH (08:13)
[2022-04-15] MEDS: ISOSORBIDE MONO EXTENDED REL 60 MG TABCR PO SCH (08:14)
[2022-04-15] MEDS: PSYLLIUM or GUAR GUM FIBER POWDER PACKET PO SCH ×2 (08:14→20:39)
[2022-04-15] MEDS: lisinopril 5 MG TAB PO SCH (08:14)
[2022-04-15] MEDS: SODIUM CHLORIDE 0.9% 1000ML 1,000 ML IV SCH ×2 (09:30→20:40)
[2022-04-15] MEDS ORDERED: POTASSIUM CHLORIDE CRTAB 20 MEQ TABCR PO STA (09:58)
--- NOTE | 2022-04-15 14:25 | Hospitalist Progress Note ---
Date of Service April 15, 2022 Assessment & Plan (1) Syncope: Plan: No recurrence. Probably orthostatic due to volume loss from gastroenteritis and diuretic therapy. Continue IV fluids. Diuretic is now on hold. CThead: no hemorrhage, mass effect, or evidence of acute territorial ischemia by CT criteria. CTC-spine: no evidence of fracture or subluxation involving the cervical spine. (2) Heart failure with preserved left ventricular function (HFpEF): Plan: No overt CHF at this time. Continue medical management. Monitor intake and output (3) Dyslipidemia: Plan: Stable with statin therapy (4) HTN (hypertension): Plan: Stable with current medical management. Diuretics are temporarily on hold (5) Peripheral arterial disease: Plan: Stable with current medical management (6) Diabetes mellitus, type 2: Plan: ADA diet. Sliding scale coverage as needed. Lantus on hold until diet has been advanced (7) Hypothyroidism: Plan: Stable with current replacement therapy (8) Acute worsening of stage 4 chronic kidney disease: Plan: Continue IV fluids. Holding diuretic. Monitor intake and output. Serial labs (9) Diabetes mellitus type 2 with complications: Plan: Eventual advancement to ADA diet. Lantus is on hold. 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 Continue wound care Plan Anticipate eventual discharge to home. Hopefully tomorrow, April 15 Admission and Anticipated Discharge Date Admission Date: April 13, 2022 Subjective The patient feels he is getting better. Frequency of diarrhea is abating. Creatinine remains elevated but stable from yesterday. Potassium replacement continues. White blood cell count is now downtrending. Demadex remains on hold. Blood cultures negative to date. Hopefully home tomorrowApril 16 Review of Systems Review of Systems: Constitutional-no fever or chills ENT-no blurred vision, no double vision, no epistaxis, no sore throat Respiratory-no cough, no wheezing, no shortness of breath Cardiac-no palpitations, no chest pain, no syncope GI-watery diarrhea persists. Nausea has resolved. Denies abdominal pain. No hematochezia -no urinary retention, no urinary incontinence, no dysuria, no hematuria Musculoskeletal-no joint pain, no muscle tenderness Skin-no bruising, no rashes, no pruritus Neuro-no isolated weakness, no paresthesia, no weakness Psych-no depression, no anxiety Physical Exam Physical Exam: General-alert and oriented x3, no fevers, no chills HEENT-head atraumatic and normocephalic, pupils equal and reactive to light, extraocular muscles intact Neck-no lymphadenopathy or thyromegaly, trachea midline Chest-clear to auscultation percussion. No rales wheezing or rhonchi Cardiac-regular rate and rhythm, normal S1 and S2 Abdomen-normal bowel sounds, nontender, no hepatosplenomegaly Extremities-no cyanosis, clubbing, or edema Neuro-cranial nerves II through XII intact, motor and sensory function within normal limits, strength symmetrical , no focal deficits Psych-normal affect, normal mood Results & Data Results & Data ([facility]) Vital Signs (Past 12 Hours) Vital Signs Temp Pulse Pulse Resp BP BP Pulse Ox 04/15/22 11:21 36.6 C 65 20 139/67 97 04/15/22 08:00 55 L 04/15/22 07:29 36.4 C L 66 20 173/72 H 97 04/15/22 03:11 36.6 C 63 18 172/81 H 98 O2 Del Method 04/15/22 11:21 Room Air 04/15/22 08:00 04/15/22 07:29 Room Air 04/15/22 03:11 CPAP Laboratory Results 04/15/22 05:37 04/15/22 05:37 PG Care Time/CCT Total # of Minutes Spent Total Time Spent with Patient: Total time spent is greater than 50% in coordination of care (as documented) at patient's floor/unit and/or counseling patient: Coding Level of Care Code 98163 SUB INP/OBS CARE 3/50MIN Diagnoses Syncope R55 Heart failure with preserved left ventricular function (HFpEF) I50.30 Dyslipidemia E78.5 HTN (hypertension) I10 Hypertension type: primary hypertension Peripheral arterial disease I73.9 Diabetes mellitus, type 2 E11.9 Diabetes mellitus fdc insulin use: unspecified fdc insulin use status Diabetes mellitus complication status: without complication Hypothyroidism E03.9 Hypothyroidism type: unspecified Acute worsening of stage 4 chronic kidney disease N18.4 Diabetes mellitus type 2 with complications E11.8 Diabetic ulcer of left foot E11.621; L97.529 (4) HTN (hypertension) Hypertension type: primary hypertension Qualified Code(s): I10 - Essential (primary) hypertension (6) Diabetes mellitus, type 2 Diabetes mellitus fdc insulin use: unspecified fdc insulin use status Diabetes mellitus complication status: without complication Qualified Code(s): E11.9 - Type 2 diabetes mellitus without complications (7) Hypothyroidism Hypothyroidism type: unspecified Qualified Code(s): E03.9 - Hypothyroidism, unspecified
[2022-04-15] MEDS: ATORVASTATIN 40 MG TAB PO SCH (20:39)
[2022-04-15] MEDS: CITALOPRAM 20 MG TAB PO SCH (20:39)
[2022-04-15] MEDS: METOPROLOL SUCC 50MG EXT REL TAB PO SCH (20:39)
[2022-04-16] MEDS: LEVOTHYROXINE SODIUM 200 MCG TABLET PO SCH (04:24)
[2022-04-16] MEDS: HEPARIN SOD 5,000 UNIT/0.5 ML VIAL SQ SCH (04:24)
[2022-04-16 07:03] LABS: Basophils # (auto) 0.07 K/uL (0-0.2); Basophils % (auto) 0.7 %; Eosinophils # (auto) 0.46 K/uL (0-0.50); Eosinophils % (auto) 4.5 %; Hemoglobin 10.1 g/dl (14.0-18.0); Immature Granulocytes # (auto) 0.03 K/uL (0.01-0.20); Immature Granulocytes % (auto) 0.3 %; Lymphocytes # (auto) 2.95 K/uL (1.2-3.4); Lymphocytes % (auto) 29.1 %; Mean Corpuscular Hemoglobin 29.5 pg (25.0-34.0); Mean Corpuscular Hgb Conc 31.6 g/dL (32.0-36.0); Mean Corpuscular Volume 93.6 fL (80.0-100.0); Mean Platelet Volume 10.8 fL (9.4-12.4); Monocytes # (auto) 0.93 K/uL (0.11-0.59); Monocytes % (auto) 9.2 %; Neutrophils # (auto) 5.69 K/uL (1.40-6.50); Neutrophils % (auto) 56.2 %; Platelet Count 181 K/uL (130-400); RDW Coefficient of Variation 14.5 % (11.5-14.5); RDW Standard Deviation 49.6 fL (36.4-46.3); Red Blood Count 3.42 M/uL (4.70-6.10); White Blood Count 10.13 K/ul (4.8-10.8)
[2022-04-16 07:08] LABS: BUN Creatinine Ratio 11.7 (10-20); Calcium 7.9 mg/dl (8.5-10.1); Creatinine Clr Calc Pharmacy 33.2 ml/min; Est GFR (African American) 22.1 ml/min; Potassium 3.8 mmol/L (3.5-5.1)
[2022-04-16] MEDS: INSULIN ASPART PER UNIT SC SCH (08:22)
[2022-04-16] MEDS: ISOSORBIDE MONO EXTENDED REL 60 MG TABCR PO SCH (08:39)
[2022-04-16] MEDS: amLODIPine BESYLATE 5 MG TAB PO SCH (08:39)
[2022-04-16] MEDS: PSYLLIUM or GUAR GUM FIBER POWDER PACKET PO SCH (08:39)
[2022-04-16] MEDS: lisinopril 5 MG TAB PO SCH (08:39)
[2022-04-16] MEDS: ASPIRIN 81 MG ECTAB PO SCH (08:39)
--- NOTE | 2022-04-16 09:39 | Discharge Summary ---
Date of Service April 16, 2022 Admission HPI Per Admitting Provider Long is a 66-year-old male with a past medical history of TORI on CPAP, CKD 4, DM with diabetic left heel ulcer and nephropathy, and hypertension who presents to the emergency department for evaluation of 3 days diarrhea, and 1 day of nausea/vomiting with 3 separate episodes of syncope prior to admission, 1 of which caused him to strike his head. seen at the bedside. Patient had an episode of emesis, and then had 3 episodes of passing out. Patient fell and has open lacerations to third and fifth distal suture s/p repair by ER PA. Received empiric Rocephin on admission. No chest pain, chest pressure, shortness of breath, lightheadedness, dizziness at bedside. He does not have inspiratory pain. EKG is sinus without acute changes heart strain. Patient reports for the last day he has had very liquidy diarrhea "just running out "of him and has felt more thirsty and lightheaded. He reports that after standing up he had some nausea in addition to diarrhea and had an episode of vomiting after which he passed out. Thinks he passed out 3 times in total over a short time. He has not had any shortness of breath, difficulty breathing, chest pain, chest pressure. He has had similar episodes of passing out with prior COVID. He does not have any pain with deep breathing. Has not had bleeding problems. Has not had blood clots. Denies history of cancer. Medical History: Reviewed Medications: Reviewed Surgical History: Reviewed Allergies: Reviewed Social History: Reviewed Code Status: Full Principal Diagnosis Norovirus gastroenteritis, nausea vomiting and diarrhea, acute on chronic kidney disease, syncope, volume depletion Discharge Exam General-alert and oriented x3, no fevers, no chills HEENT-head atraumatic and normocephalic, pupils equal and reactive to light, extraocular muscles intact Neck-no lymphadenopathy or thyromegaly, trachea midline Chest-clear to auscultation percussion. No rales wheezing or rhonchi Cardiac-regular rate and rhythm, normal S1 and S2 Abdomen-normal bowel sounds, nontender, no hepatosplenomegaly Extremities-no cyanosis, clubbing, or edema Neuro-cranial nerves II through XII intact, motor and sensory function within normal limits, strength symmetrical , no focal deficits Psych-normal affect, normal mood Discharge Data Allergies Allergy/AdvReac Type Severity Reaction Status Date / Time bee venom protein (honey bee) Allergy Severe Anaphylaxis Verified 04/13/22 16:05 egg AdvReac Intermediate Gastrointestinal Verified 04/13/22 16:05 Upset iodine AdvReac Mild FLUSHED Verified 04/13/22 16:05 FEELING/sick to stomach Egg or Chicken-derived Drugs Allergy Intermediate Gastrointestinal Uncoded 04/13/22 16:05 Upset Consultations 04/13/22 18:42 ED Decision to Admit Stat Ordered Studies 04/13/22 15:34 CT cervical spine wo con Stat CT head/brain wo con Stat 04/13/22 17:28 US venous doppler LE BI Stat 04/13/22 17:46 CT abd pelvis wo con Stat Hospital Course (1) Syncope: No recurrence. Probably orthostatic due to volume loss from gastroenteritis and diuretic therapy. Treated while hospitalized with IV fluids. Diuretic was held on admission. Will be restarted at discharge. CThead: no hemorrhage, mass effect, or evidence of acute territorial ischemia by CT criteria. CTC-spine: no evidence of fracture or subluxation involving the cervical spine. (2) Heart failure with preserved left ventricular function (HFpEF): No overt CHF at this time. Continue medical management. Monitor intake and output (3) Dyslipidemia: Stable with statin therapy (4) HTN (hypertension): Stable with current medical management. Diuretics are temporarily on hold (5) Peripheral arterial disease: Stable with current medical management (6) Diabetes mellitus, type 2: ADA diet. Sliding scale coverage as needed. Lantus on hold until diet has been advanced (7) Hypothyroidism: Stable with current replacement therapy (8) Acute worsening of stage 4 chronic kidney disease: Treated with IV fluids. Holding diuretic while hospitalized. Will restart at discharge. Creatinine is now stable. Monitor intake and output. Serial labs (9) Diabetes mellitus type 2 with complications: Advancement to ADA diet. Lantus held while on clear liquids. Sliding scale coverage as needed (10) Diabetic ulcer of left foot: Chronic. 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 Call non-emergency contact if: your symptoms worsen Follow-up/Referrals: ProJeffrey MD [Primary Care Provider] - Diet: Carb Consistent or DM2 and Heart Healthy Addtl Attending Provider Instructions: All medications remain the same Pending Studies at Discharge: No Stand-Alone Forms: [facility] [email or web address], Smoking Cessation Medications and DC Order Prescriptions: Continued citalopram 20 mg tablet 20 mg PO HS Qty: 90 1RF Rx Instructions: TAKE ONE 20 MG TABLET ALONG WITH ONE 10 MG TABLET TO EQUAL 30 MG DAILY DOSE levothyroxine 200 mcg tablet 200 mcg PO DAILY Qty: 30 2RF Rx Instructions: Take 1st thing in the AM with water on empty stomach 30 min prior to any other oral intake. metoprolol succinate 50 mg tablet extended release 24 hr 50 mg PO HS Qty: 90 3RF (DME) blood-glucose meter [OneTouch Verio Flex meter] Misc See Rx Instructions .Route Qty: 1 0RF Rx Instructions: As directed to check BS daily atorvastatin 80 mg tablet 80 mg PO HS Qty: 90 3RF (DME) OneTouch Verio test strips Strip See Rx Instructions .ROUTE .MEDSUPPLY Qty: 10 Rx Instructions: Test blood sugar once daily insulin aspart U-100 [Novolog FlexPen U-100 Insulin] 100 unit/mL (3 mL) insulin pen 10 unit SQ .TIDM+SS Rx Instructions: PLUS SS (DME) Dexcom G6 Sensor Device See Rx Instructions .Route Qty: 9 3RF Rx Instructions: change sensor every 10 days (DME) Dexcom G6 Transmitter Device See Rx Instructions .Route Qty: 1 3RF Rx Instructions: change every 90 days (DME) Dexcom G6 Electron Beam Photo Mask Technician Misc See Rx Instructions .Route Qty: 1 0RF Rx Instructions: use with dexcom sensor and transmitter ondansetron HCl 4 mg tablet 4 mg PO Q8H PRN (Reason: nausea and vomiting) Qty: 30 0RF torsemide 60 mg tablet 60 mg PO DAILY Qty: 30 2RF isosorbide mononitrate 60 mg tablet extended release 24 hr 60 mg PO QAM Qty: 90 3RF lisinopril 5 mg tablet 5 mg PO DAILY sodium polystyrene sulf-sorbtl 15-20 gram/60 mL suspension 60 ml PO UD Rx Instructions: 3 times a week amlodipine 5 mg tablet 5 mg PO DAILY Qty: 30 2RF ondansetron HCl 4 mg tablet 4 mg PO Q8H PRN (Reason: nausea and vomiting) Qty: 10 0RF aspirin 81 mg Tablet,Delayed Release (Dr/Ec) 81 mg PO 3XWK Rx Instructions: TAKE THIS MEDICATION EVERY THURSDAY, THURSDAY & FRIDAYS. insulin glargine [Lantus U-100 Insulin] 100 unit/mL Solution 30 unit SUBCUT HS Discharge Orders: Discharge Order (Routine); Ordered 04/16/22 Ordered By: Daniel Oshea Admission Data Admit Date/Time: 04/13/22 19:08 Attending Provider: Daniel Oshea Admit Provider: Abbe Simon Primary Care Provider: Jeffrey Tripp Other Providers: Abbe Simon Coding Level of Care Code HOSP INP/OBS DISCH >30 MIN Diagnoses Syncope R55 Heart failure with preserved left ventricular function (HFpEF) I50.30 Dyslipidemia E78.5 HTN (hypertension) I10 Hypertension type: primary hypertension Peripheral arterial disease I73.9 Diabetes mellitus, type 2 E11.9 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
[2022-04-16] MEDS: LANTUS PER UNIT CHARGE SQ SCH (10:51)
== END 2022-04-16 11:08 | disposition home or self-care (01) | DRG 392 ==
LOC: ED 15:20 → 2S 19:08 → SUATTDRO 19:08 → 2S 21:39